=== PATIENT | male | born 1940 | race Caucasian/White ===

== ENCOUNTER 2017-06-06 06:08 | Inpatient (IN) | payer MEDICARE, BC ==
[2017-06-06] VITALS (7 sets, daily range): BP systolic 97–128; BP diastolic 55–72; PULSE 60–68; RESP 16; TEMP 98.4–98.7; O2SAT 94–100
[~2017-06-06] VITALS: Ht 167.6 cm; Wt 73.0 kg
[~2017-06-06 06:08] MED LIST: AMLO5TAB2 PO; FISH100020 PO; GABA600T PO; LOVA40TA PO; TRAM50TA PO; VITACAP7 PO
[2017-06-06] MEDS ORDERED: CHLORHEXIDINE GLUCONATE 2 % 1 PACK (2 CLOTHS) TOPICAL PRN (06:45)
[2017-06-06] MEDS ORDERED: SODIUM CHLORID 0.9% 500 ML IV PRN (06:45)
[2017-06-06] MEDS ORDERED: POVIDONE IODINE 5% (ANTISEPSIS KIT) 4 APPLICATIONS EACH NARE PRN (06:45)
[2017-06-06] MEDS ORDERED: ceFAZolin 1,000 MG/NS 100 ML IV SCH ×2 (06:45)
[2017-06-06] MEDS ORDERED: METOPROLOL TARTRATE 25 MG TAB PO PRN (06:45)
[2017-06-06] MEDS ORDERED: LACTATED RINGER'S 1000 ML IV PRN (06:45)
[2017-06-06] MEDS ORDERED: INSULIN HUMAN REGULAR 1,000 UNITS/10 ML VIAL SQ PRN (06:45)
[2017-06-06 07:08] LABS: AUTOMATED NEUTROPHIL # 7.3 TH/MM3 (1.8-7.7); BASOPHIL # 0.1 TH/MM3 (0-0.2); BASOPHIL % 0.9 % (0.0-2.0); EOSINOPHIL # 0.1 TH/MM3 (0-0.4); EOSINOPHIL % 1.2 % (0.0-4.0); HEMATOCRIT 48.9 % (39.0-51.0); HEMO FLAGS DIFF FINAL; LYMPH % 12.1 % (9.0-44.0); LYMPHOCYTE # 1.1 TH/MM3 (1.0-4.8); MEAN CELL VOLUME 99.5 FL (80.0-100.0); MEAN CORPUSCULAR HGB CONC 34.2 % (32.0-36.0); MONO % 8.8 % (0.0-8.0); PLATELET COUNT 115 TH/MM3 (150-450); RED BLOOD COUNT 4.92 MIL/MM3 (4.50-5.90); RED CELL DISTRIBUTION WIDTH 12.9 % (11.6-17.2); WHITE BLOOD COUNT 9.5 TH/MM3 (4.0-11.0)
[2017-06-06] MEDS ORDERED: KETAMINE HCL 500 MG/5 ML VIAL ONE (07:09)
[2017-06-06] MEDS ORDERED: ACETAMINOPHEN 1000 MG/100 ML 0 ML IV ONE (07:09)
[2017-06-06 07:19] LABS: APTT (PATIENT) 28.6 SEC (24.3-30.1); PROTHROMBIN TIME - PATIENT 11.4 SEC (9.8-11.6)
[2017-06-06] MEDS ORDERED: PROTAMINE SULFATE 50 MG/5 ML VIAL ONE (07:22)
[2017-06-06 07:23] LABS: BICARBONATE 27.7 MEQ/L (21.0-32.0); POTASSIUM 3.9 MEQ/L (3.5-5.1)
[2017-06-06] MEDS ORDERED: BUPIVACAINE/EPINEPHRINE 0.5% 50 ML VIAL ONE (07:23)
[2017-06-06] MEDS ORDERED: HEPARIN SODIUM - SQ 10,000 UNITS/ML VIAL ONE (07:23)
[2017-06-06] MEDS ORDERED: HEPARIN SODIUM - IV 10,000 UNITS/10 ML VIAL ONE (07:23)
[2017-06-06] MEDS ORDERED: DEXMEDETOMIDINE HCL 200 MCG/2 ML VIAL ONE (10:40)
[2017-06-06] MEDS ORDERED: *ONDANSETRON 4 MG VIAL PERIprocedural Use ONLY ONE (11:17)
[2017-06-06] MEDS ORDERED: *morphine SULFATE 8 MG/ML PERIprocedure ONLY ONE (11:58)
[2017-06-06] MEDS ORDERED: PHENYLEPH/NS 1000 MCG/10 ML SYR IV ONE (12:00)
[2017-06-06] MEDS ORDERED: ONDANSETRON HCL 4 MG/2 ML VIAL IV PUSH ONE (12:00)
[2017-06-06] MEDS ORDERED: PROPOFOL 200 MG/20 ML AMP IV ONE (12:00)
[2017-06-06] MEDS ORDERED: LIDOCAINE HCL 1% PF 5 ML AMPULE OTHER ONE (12:00)
[2017-06-06] MEDS ORDERED: IOHEXOL 300 MG/ML 100 ML BTL (for Rad CT) OTHER ONE (12:00)
[2017-06-06] MEDS ORDERED: MIDAZOLAM HCL 2 MG/2 ML VIAL IV ONE (12:00)
[2017-06-06] MEDS ORDERED: ROCURONIUM INJ 50 MG/5 ML SYRINGE IV PUSH ONE (12:00)
[2017-06-06] MEDS ORDERED: PHENYLEPHRINE HCL 10 MG/ML VIAL IV ONE (12:00)
[2017-06-06] MEDS ORDERED: NORMOSOL R INJ 1,000 ML IV ONE (12:00)
[2017-06-06] MEDS ORDERED: SODIUM CHLORID 0.9% 500 ML INJ 500 ML IV ONE (12:00)
[2017-06-06] MEDS ORDERED: IOHEXOL 300 MG/ML 50 ML BTL (for RAD DIAG) OTHER ONE (12:00)
[2017-06-06] MEDS ORDERED: NEOSTIGMINE 3 MG/3 ML SYR IV ONE (12:00)
[2017-06-06] MEDS ORDERED: ePHEDrine/NS 25 MG/5 ML SYR IV ONE (12:00)
[2017-06-06] MEDS ORDERED: GLYCOPYRROLATE 1 MG/5 ML SYRINGE IV PUSH ONE (12:00)
[2017-06-06] MEDS ORDERED: SODIUM CHLOR 0.9% 250 ML INJ 250 ML IV ONE (12:00)
[2017-06-06] MEDS ORDERED: SODIUM CHLORIDE 0.9% FLUSH 10 ML FLUSH IV FLUSH PRN (14:15)
[2017-06-06] MEDS ORDERED: MORPHINE SULFATE 2 MG/ML INJ IV PUSH PRN (14:15)
[2017-06-06] MEDS ORDERED: LACTATED RINGER'S 1000 ML INJ 500 ML IV ONE (14:15)
[2017-06-06] MEDS ORDERED: METOPROLOL TARTRATE 5 MG/5 ML VIAL IV PUSH PRN (14:15)
[2017-06-06] MEDS ORDERED: ONDANSETRON HCL 4 MG/2 ML VIAL IV PUSH PRN (14:15)
[2017-06-06] MEDS ORDERED: SODIUM CHLORIDE 0.9% FLUSH 10 ML FLUSH IV FLUSH SCH (14:15)
[2017-06-06] MEDS ORDERED: DO NOT ADM ANY ANTICOAGULANT DRUGS PRN (14:30)
--- NOTE | 2017-06-06 17:21 | MP ---
cc: PEARL BARKER M.D., RENA M. M.D. DATE OF SURGERY: 06/06/2017 PREOPERATIVE DIAGNOSIS: Infrarenal abdominal aortic aneurysm. POSTOPERATIVE DIAGNOSIS: Infrarenal abdominal aortic aneurysm. OPERATION: Percutaneous endovascular aneurysm repair. SURGEON Pearl Barker MD. CONCERT PIANIST: JULIO CÉSAR Murray. ANESTHESIA: General endotracheal anesthesia. DESCRIPTION OF OPERATIVE PROCEDURE: With the patient in the supine position and under general endotracheal anesthesia the abdomen, both groins and thighs were prepped with Betadine and draped in sterile fashion. One gram of Ancef was administered intravenously and following that time out, the skin and subcutaneous tissue overlying the proposed right and left common femoral access sites previously infiltrated with 0.5% Marcaine with epinephrine. Utilizing ultrasound guided, 10 gauge needles were inserted into the right and left common femoral lumens, J-wire was advanced retrograde and into iliac arteries and 7 Tajik hemostat sheaths deployed bilaterally. Angle guidewire Berenstein catheter combinations were guided under fluoroscopic imaging into the thoracic aorta. Perclose devices were preposition at the 10:00 o'clock and 2:00 o'clock locations bilaterally. The angled guidewires were exchanged over Berenstein catheters for Amplatz guidewire left and Lunderquist guide wire right (due to right iliac tortuosity) 18 and 12 Tajik hemostatic sheaths were then deployed via the right and left common femoral approaches respectively. The patient was subsequently heparinized with 5000 units. A marker pigtail catheter was advanced via the left femoral sheath into the super renal aorta and flush aortogram accurately delineated origin of both renal arteries. The mean body endoprosthesis was pre-positioned and deployed immediately distal to the origin of the renal arteries. The contralateral 8 was engaged with a Berenstein angled guide wire combination. A pigtail catheter was placed via the left femoral sheath into the endoprosthesis and with retrograde injections via the left femoral sheath, the origin of the left internal iliac actually delineated allowing for appropriate choice of left iliac limb length. The contralateral limb was then deployed, followed by completion of the main body deployment. All of the seal areas and over lap areas were balloon dilated with a compliant balloon. Completion angiogram revealed secure repair with no technical defects or evidence of endoleak and unrestricted flow into both common femoral arteries. The hemostatic sheaths were removed and the puncture site secured with the pre positioned Perclose devices with excellent hemostasis. Sterile dressings were applied. At the completion of the procedure pedal pulses should be easily palpable. There were no active complications, the patient returned to post anesthesia in stable condition having tolerated the procedure well. MD ANA Serna/mayte /4:49 PM /4:55 PM
--- NOTE | 2017-06-06 17:48 | EKG ---
Date Performed: 06/06/2017 Time Performed: 06:53:59 PTAGE: 76 years EKG: Sinus rhythm WITH OCCASIONAL SUPRAVENTRICULAR PREMATURE COMPLEXES LEFT ANTERIOR FASCICULAR BLOCK ABNORMAL ECG NO PREVIOUS TRACING DOCTOR: Nathaly Jiménez Interpretating Date/Time 06/06/2017 17:46:28
[2017-06-06] MEDS: PRAVASTATIN SOD 80 MG TAB PO SCH (19:22)
[2017-06-06] MEDS: amLODIPine BESYLATE 5 MG TAB PO SCH (20:34)
[2017-06-06] MEDS: GABAPENTIN 300 MG CAP PO SCH (20:34)
[2017-06-07] VITALS (17 sets, daily range): BP systolic 110–148; BP diastolic 59–73; PULSE 56–98; RESP 16–17; TEMP 97.9–98.8; O2SAT 96–99
[2017-06-07] MEDS: PRAVASTATIN SOD 80 MG TAB PO SCH (09:13)
[2017-06-07] MEDS: GABAPENTIN 300 MG CAP PO SCH (09:13)
[2017-06-07] MEDS: amLODIPine BESYLATE 5 MG TAB PO SCH (09:14)
[2017-06-07] MEDS ORDERED: INFLUENZA VIRUS VACCINE (QUADRIVALENT) 0.5 ML SYR IM ONE (10:00)
[2017-06-21] MEDS ORDERED: MOBI15TA PO (09:34)
== END 2017-06-07 14:37 | disposition home or self-care (01) | DRG 269 ==
LOC: HSDI 06:08 → HCPC 12:10
PROVIDERS: ADMIT Surgery Vascular Surgery; ATTEND Surgery Vascular Surgery
PROC: 04V03DZ Restriction of Abdominal Aorta with Intraluminal Device, Percutaneous Approach (ICD-10-PCS; principal; 2017-06-06 08:06)
DX: I71.4 Abdominal aortic aneurysm, without rupture (principal); Z23 Encounter for immunization
CPT/HCPCS: 80048; 85025; 85610; 85730; 86850; 86900; 86901; 86920; 90686; 93005; C1725; C1769; J0131; J0690; J1644; J2250; J2270; J2370; J2405; J2710; J2720; J3010; J7040; J7050; J7120; Q2038; Q9967

== ENCOUNTER 2017-06-13 10:49 | Emergency (ER) | payer MEDICARE, BC ==
[~2017-06-13 10:49] MED LIST changes: -FISH100020 PO
[2017-06-13 11:01] VITALS: BP 110/69; PULSE 94; RESP 18; TEMP 98.7; O2SAT 96
--- NOTE | 2017-06-13 11:54 | RADRPT ---
EXAM DATE/TIME: 06/13/2017 11:35 [place] COMPARISON: No previous studies available for comparison. INDICATIONS : Hit heel on truck, pain with redness and swelling. MEDICAL HISTORY : None. SURGICAL HISTORY : None. ENCOUNTER: Initial ACUITY: 2 days PAIN SCORE: 9/10 LOCATION: Right heel. FINDINGS: Two view examination of the right heel demonstrates a nondisplaced fracture through the posterior sup erior aspect of the calcaneus. No joint dislocation is seen. There is some soft tissue swelling. No f oreign bodies are demonstrated.. CONCLUSION: Nondisplaced fracture through the superior posterior aspect of the calcaneus. Aubrey Avery MD on June 13, 2017 at 11:52 Board Certified Radiologist. This report was verified electronically.
[2017-06-13] MEDS ORDERED: MEDI220T PO (12:52)
--- NOTE | 2017-06-13 12:52 | PD ---
HPI . Right heel pain Chief Complaint: Injury Time Seen by Provider: 12:14 Travel History International Travel<30 days: No Contact w/Intl Traveler<30days: No Traveled to known affect area: No History of Present Illness HPI 77-year-old male patient presents emergency department for evaluation of right heel pain since last . Patient was jumping out of the front seat of his truck last and has had right heel pain subsequent. The patient is ambulatory with a limp. Patient denies any fevers, chills, malaise, chest pain , shortness breath, abdominal pain, nausea, vomiting, diarrhea, hip pain, knee pain. PFSH Past Medical History Cancer: No Cardiovascular Problems: Yes (AAA; CAD ) High Cholesterol: Yes Diabetes: No Endocrine: No Gastrointestinal Disorders: Yes (AAA) Genitourinary: No Hepatitis: No Hiatal Hernia: No Hypertension: Yes Immune Disorder: No Musculoskeletal: Yes (HX FX PELVIS) Neurologic: Yes (NEUROPATHY) Psychiatric: No Reproductive: No Respiratory: Yes (COPD) Thyroid Disease: No Past Surgical History Abdominal Surgery: No AICD: No Cardiac Surgery: No Ear Surgery: No Endocrine Surgery: No Eye Surgery: No Genitourinary Surgery: No Joint Replacement: No Neurologic Surgery: No Oral Surgery: Yes (THROAT LASER PER SPOUSE) Pacemaker: No Thoracic Surgery: No Other Surgery: Yes Social History Alcohol Use: No Tobacco Use: No Substance Use: No Allergies-Medications (Allergen,Severity, Reaction): Coded Allergies: No Known Allergies (Unverified , 06/05/17) Reported Meds & Prescriptions Reported Meds & Active Scripts Active Melrose (Hydrocodone-Acetaminophen) 5-325 mg Tab 1 Tab PO Q6H PRN Naproxen Sodium 220 Mg Tab 440 Mg PO BID PRN Reported Tramadol (Tramadol HCl) 50 Mg Tab 50 Mg PO Q8H PRN B Complex (B-Complex Vitamins) 1 Cap 1 Cap PO DAILY Lovastatin 40 Mg Tab 80 Mg PO DAILY Gabapentin 600 Mg Tab 600 Mg PO BID Amlodipine (Amlodipine Besylate) 5 Mg Tab 5 Mg PO BID Review of Systems Except as stated in HPI: all other systems reviewed are Neg Physical Exam Narrative GENERAL: Well-nourished, well-developed 77-year-old male patient in no acute distress. Nontoxic-appearing. SKIN: Focused skin assessment warm/dry. HEAD: Normocephalic. Atraumatic. EYES: No scleral icterus. No injection or drainage. NECK: Supple, trachea midline. No JVD or lymphadenopathy. CARDIOVASCULAR: Regular rate and rhythm without murmurs, gallops, or rubs. RESPIRATORY: Breath sounds equal bilaterally. No accessory muscle use. GASTROINTESTINAL: Abdomen soft, non-tender, nondistended. MUSCULOSKELETAL: Right heel ecchymosis and tenderness to palpation. BACK: Nontender without obvious deformity. No CVA tenderness. Data Data Last Documented VS Vital Signs Date Time Temp Pulse Resp B/P (MAP) Pulse Ox O2 Delivery O2 Flow Rate FiO2 06/13/17 13:20 06/13/17 11:01 98.7 94 18 96 Room Air Orders Orders Foot, Heel Only ([id number]) (06/13/17 ) Splint Or Brace Apply/Monitor (06/13/17 12:52) Crutches (06/13/17 12:52) Ed Discharge Order (06/13/17 12:53) MDM Medical Decision Making Medical Screen Exam Complete: Yes Emergency Medical Condition: Yes Differential Diagnosis Differential diagnoses include but not limited to calcaneus contusion, calcaneus fracture, foot contusion, foot sprain Narrative Course 77-year-old male patient presents emergency department for evaluation of right heel pain and ecchymosis since last when he jumped out of the front seat of a truck. X-ray of the right heel ordered and pending. Right heel x- ray shows nondisplaced fracture through the superior posterior aspect of the calcaneus. Dr. Smalls called and he recommended placing the patient in a fracture boot with crutches and nonweightbearing instructions. Patient is going to follow up with Dr. Smalls and his office. Patient discharged home with a prescription for naproxen and Melrose. Last Impressions Foot X-Ray 06/13/17 0000 Signed Impressions: Service Date/Time: Tuesday, June 13, 2017 11:35 - CONCLUSION: Nondisplaced fracture through the superior posterior aspect of the calcaneus. Aubrey Avery MD Diagnosis Primary Impression: Right calcaneal fracture Qualified Codes: S92.001A - Unspecified fracture of right calcaneus, initial encounter for closed fracture Referrals: Alexy Smalls DPM Patient Instructions: Calcaneal Fracture (DC), General Instructions Additional Instructions: Please return to emergency department if your symptoms return or worsen. Follow up with Dr. Smalls, science consultant. Take medications as prescribed. Nonweightbearing on right foot. Rice therapy to right foot, rest, ice, fracture boot and elevate with resting. Med/Other Pt SpecificInfo: Prescription(s) given Scripts Hydrocodone-Acetaminophen (Melrose) 5-325 mg Tab 1 TAB PO Q6H Y for PAIN, #10 TAB 0 Refills Prov: Venu Guerrero MD 06/13/17 Naproxen Sodium (Naproxen Sodium) 220 Mg Tab 440 MG PO BID Y for Pain Management, #30 TAB 0 Refills Prov: Jeanette Nicole 06/13/17 Disposition: 01 DISCHARGE HOME Condition: Stable Jeanette Nicole Jun 13, 2017 12:52
[2017-06-13] MEDS ORDERED: NORC5TAB PO (12:53)
[2017-06-21] MEDS ORDERED: MOBI15TA PO (09:34)
== END 2017-06-13 13:21 | disposition home or self-care (01) ==
LOC: NEPA 10:49
DX: S92.001A Unspecified fracture of right calcaneus, initial encounter for closed fracture (principal); X50.0XXA Overexertion from strenuous movement or load, initial encounter; I10 Essential (primary) hypertension; I71.4 Abdominal aortic aneurysm, without rupture; E78.00 Pure hypercholesterolemia, unspecified
CPT/HCPCS: 73650; 99283; E0113; L2114

== ENCOUNTER 2017-10-12 10:59 | Inpatient (IN) | payer MEDICARE, BC ==
[~2017-10-12] VITALS: Ht 172.7 cm; Wt 69.2 kg
[~2017-10-12 10:59] MED LIST changes: +MEDI220T PO
[2017-10-12] MEDS ORDERED: ALTEPLASE RECOMBINANT 2 MG VIAL INTRACATH ONE (11:00)
[2017-10-12] MEDS ORDERED: IODIXANOL 320 MG/ML 50 ML VIAL (for RAD SPEC) I-ARTERIAL ONE (11:00)
[2017-10-12 11:15] VITALS: BP 129/63; PULSE 83; RESP 16; TEMP 98.4; O2SAT 97
[2017-10-12 11:25] VITALS: BP 150/72; PULSE 77; RESP 18; O2SAT 97
--- NOTE | 2017-10-12 11:49 | PD ---
Data Data Last Documented VS Vital Signs Date Time Temp Pulse Resp B/P (MAP) Pulse Ox O2 Delivery O2 Flow Rate FiO2 10/12/17 11:26 81 18 Room Air 10/12/17 11:25 150/72 (98) 97 10/12/17 11:15 98.4 Orders Orders Complete Blood Count With Diff (10/12/17 11:24) Comprehensive Metabolic Panel (10/12/17 11:24) Prothrombin Time / Inr (Pt) (10/12/17 11:24) Act Partial Throm Time (Ptt) (10/12/17 11:24) Urinalysis - C+S If Indicated (10/12/17 11:24) Cta Runoff W Iv Contrast W 3d (10/12/17 12:27) Iohexol 350 Inj (Omnipaque 350 Inj) (10/12/17 13:03) Invasive Rad Dept Consult (10/12/17 ) Labs Laboratory Tests Test 10/12/17 11:56 White Blood Count 9.7 TH/MM3 Red Blood Count 5.33 MIL/MM3 Hemoglobin 17.0 GM/DL Hematocrit 48.6 % Mean Corpuscular Volume 91.2 FL Mean Corpuscular Hemoglobin 31.8 PG Mean Corpuscular Hemoglobin Concent 34.8 % Red Cell Distribution Width 13.0 % Platelet Count 208 TH/MM3 Mean Platelet Volume 7.1 FL Neutrophils (%) (Auto) 84.6 % Lymphocytes (%) (Auto) 9.9 % Monocytes (%) (Auto) 4.6 % Eosinophils (%) (Auto) 0.4 % Basophils (%) (Auto) 0.5 % Neutrophils # (Auto) 8.2 TH/MM3 Lymphocytes # (Auto) 1.0 TH/MM3 Monocytes # (Auto) 0.5 TH/MM3 Eosinophils # (Auto) 0.0 TH/MM3 Basophils # (Auto) 0.0 TH/MM3 CBC Comment DIFF FINAL Differential Comment Prothrombin Time 10.7 SEC Prothromb Time International Ratio 1.1 RATIO Activated Partial Thromboplast Time 27.8 SEC Blood Urea Nitrogen 10 MG/DL Creatinine 0.81 MG/DL Random Glucose 107 MG/DL Total Protein 8.1 GM/DL Albumin 4.1 GM/DL Calcium Level 10.3 MG/DL Alkaline Phosphatase 123 U/L Aspartate Amino Transf (AST/SGOT) 127 U/L Alanine Aminotransferase (ALT/SGPT) 40 U/L Total Bilirubin 0.6 MG/DL Sodium Level 137 MEQ/L Potassium Level 4.0 MEQ/L Chloride Level 101 MEQ/L Carbon Dioxide Level 30.3 MEQ/L Anion Gap 6 MEQ/L Estimat Glomerular Filtration Rate 93 ML/MIN MDM Supervised Visit with RAVINDRA: Yes Narrative Course Patient seen and examined by me in addition to Jeannie Dowling, this is a 77- year-old male presents emergency department with a cold right lower extremity from the knee down without a palpable pulse. Patient apparently was sent over by Dr. Barker who spoke with Dr. Masoud Reed for interventional radiology procedure. Jeannie Dowling discussed the patient with Dr. Hebert who states that the CT is too far out of date for procedure and recommends a repeat CTA, after the CTA was done before 3D recons were completed I reviewed the films with Dr. Greco's who states that the patient is not a candidate for opening the portion of the stent that is clotted shunt. I then discussed the patient with Dr. Barker who is in the operating room who reiterated that he had discussed the patient with Dr. Masoud Reed. I have attempted to Dr. Reed, I had him paged overhead and at this time waiting for a return call. Dr. Reed and called me back at 1345 and states he is prepping for procedure with patient, he is going to send for transportation to bring him up to the interventional radiology suite, I then said to him I would touch base with the precision instrument maker and repairer as the patient likely will need intensive surgical care afterwards, Dr. Reed that he would take care of that. I talked my charge nurse who will arrange for an ISC bed to be held for this patient. Diagnosis Primary Impression: Ischemia of right lower extremity Admitting Information Admitting Physician Requests: Admit Condition: Serious Carlos A Smith MD Oct 12, 2017 11:49
--- NOTE | 2017-10-12 12:02 | PD ---
HPI Chief Complaint: Abnormal Results Time Seen by Provider: 11:24 Travel History International Travel<30 days: No Contact w/Intl Traveler<30days: No Traveled to known affect area: No History of Present Illness HPI 77-year-old male presents emergency department with concerns of a right lower extremity problems. His right lower extremity has been dark and blue, cold, and complains of numbness and tingling. Says his physician, Dr. Barker, recommended he come in today because of the symptoms. Says he was actually scheduled for a procedure Monday with Dr. Barker to repair the 'kinked' stent. Denies fever, chills, chest pain, SOB, nausea, vomiting. Says he has a history of an aortic aneurysm. Pt not on blood thinners. PFSH Past Medical History Cancer: No Cardiovascular Problems: Yes (AAA; CAD ) High Cholesterol: Yes COPD: Yes Diabetes: No Endocrine: No Gastrointestinal Disorders: Yes (AAA) Genitourinary: No Hepatitis: No Hiatal Hernia: No Hypertension: Yes Immune Disorder: No Musculoskeletal: Yes (HX FX PELVIS, and Rt heel fracture) Neurologic: Yes (NEUROPATHY) Psychiatric: No Reproductive: No Respiratory: Yes (COPD) Thyroid Disease: No Past Surgical History Abdominal Surgery: No AICD: No Cardiac Surgery: No Ear Surgery: No Endocrine Surgery: No Eye Surgery: No Genitourinary Surgery: No Joint Replacement: No Neurologic Surgery: No Oral Surgery: Yes (THROAT LASER PER SPOUSE) Pacemaker: No Thoracic Surgery: No Other Surgery: Yes Social History Alcohol Use: Yes (hx of being a heavy drinker, apparently slowed down 3 years ago. ) Tobacco Use: Yes (2 ppd) Substance Use: No Allergies-Medications (Allergen,Severity, Reaction): Coded Allergies: No Known Allergies (Unverified , 08/23/17) Reported Meds & Prescriptions Reported Meds & Active Scripts Active Naproxen Sodium 220 Mg Tab 440 Mg PO BID PRN Reported Tramadol (Tramadol HCl) 50 Mg Tab 50 Mg PO Q8H PRN B Complex (B-Complex Vitamins) 1 Cap 1 Cap PO DAILY Lovastatin 40 Mg Tab 80 Mg PO DAILY Gabapentin 600 Mg Tab 600 Mg PO BID Amlodipine (Amlodipine Besylate) 5 Mg Tab 5 Mg PO BID Review of Systems Except as stated in HPI: all other systems reviewed are Neg Physical Exam Narrative GENERAL: WD, WN in NAD SKIN: Focused skin assessment warm/dry. HEAD: Atraumatic. Normocephalic. EYES: Pupils equal and round. No scleral icterus. No injection or drainage. ENT: No nasal bleeding or discharge. Mucous membranes pink and moist. NECK: Trachea midline. No JVD. CARDIOVASCULAR: Regular rate and rhythm. No murmur appreciated. RESPIRATORY: No accessory muscle use. Clear to auscultation. Breath sounds equal bilaterally. GASTROINTESTINAL: Abdomen soft, non-tender, nondistended. Hepatic and splenic margins not palpable. MUSCULOSKELETAL: No obvious deformities. Cyanosis present mid-calf and distal. No pulses present. Limb cold. Motor intact. Tenderness palpation of the calf. sensation intact. NEUROLOGICAL: Awake and alert. No obvious cranial nerve deficits. Motor grossly within normal limits. Normal speech. PSYCHIATRIC: Appropriate mood and affect; insight and judgment normal. Data Data Last Documented VS Vital Signs Date Time Temp Pulse Resp B/P (MAP) Pulse Ox O2 Delivery O2 Flow Rate FiO2 10/12/17 11:26 81 18 Room Air 10/12/17 11:25 150/72 (98) 97 10/12/17 11:15 98.4 Orders Orders Complete Blood Count With Diff (10/12/17 11:24) Comprehensive Metabolic Panel (10/12/17 11:24) Prothrombin Time / Inr (Pt) (10/12/17 11:24) Act Partial Throm Time (Ptt) (10/12/17 11:24) Urinalysis - C+S If Indicated (10/12/17 11:24) Cta Runoff W Iv Contrast W 3d (10/12/17 12:27) Iohexol 350 Inj (Omnipaque 350 Inj) (10/12/17 13:03) Mrsa Pcr Surveillance (10/12/17 14:46) Midazolam Inj (Versed Inj) (10/12/17 14:49) Fentanyl Inj (Fentanyl Inj) (10/12/17 14:49) Heparin-D5w 25,000 U/250 Ml (Heparin-D5w (10/12/17 15:03) Heparin Inj (Heparin Inj) (10/12/17 15:34) Vital Signs (Adult) .[id number], Q30M (10/12/17 16:10) Neuro Checks . ORDERED (10/12/17 16:10) Activity Bed Rest (10/12/17 16:10) Diet Clear Liquid (10/12/17 Dinner) Npo After Midnight W/ Po Meds (10/13/17 Breakfast) Angiogram, Leg (10/12/17 ) Notify Dr: Other (10/12/17 16:10) ^ Blood Draw Instructions (10/12/17 16:10) Complete Blood Count With Diff (10/12/17 16:10) Complete Blood Count With Diff (10/12/17 22:10) Complete Blood Count With Diff (10/13/17 04:10) Complete Blood Count With Diff (10/13/17 10:10) Act Partial Throm Time (Ptt) (10/12/17 16:10) Act Partial Throm Time (Ptt) (10/12/17 22:10) Act Partial Throm Time (Ptt) (10/13/17 04:10) Act Partial Throm Time (Ptt) (10/13/17 10:10) Fibrinogen (10/12/17 16:10) Fibrinogen (10/12/17 22:10) Fibrinogen (10/13/17 04:10) Fibrinogen (10/13/17 10:10) Specimen To Be Collected PRN (10/12/17 16:10) Urinary Catheter Management EKTA.Q8H (10/12/17 16:10) ^ Avoid Im Injections (10/12/17 16:10) ^ Medication Alert (10/12/17 16:10) Consult Lan Administrator (10/12/17 ) Cathflo Activase Inj (Cathflo Activase I (10/12/17 16:15) Heparin Inj (Heparin Inj) (10/12/17 16:15) Heparin Inj (Heparin Inj) (10/12/17 16:15) Heparin-D5w 25,000 U/250 Ml (Heparin-D5w (10/12/17 16:15) Morphine Inj (Morphine Inj) (10/12/17 16:15) Ondansetron Inj (Zofran Inj) (10/12/17 16:15) Thrombolytic Infusion (10/12/17 ) Iodixanol 320 Inj (Rad Spec) (Visipaque (10/12/17 11:00) Us Guided Vascular Access (10/12/17 ) Morphine Inj (Morphine Inj) (10/12/17 16:30) Labs Laboratory Tests Test 10/12/17 11:56 White Blood Count 9.7 TH/MM3 Red Blood Count 5.33 MIL/MM3 Hemoglobin 17.0 GM/DL Hematocrit 48.6 % Mean Corpuscular Volume 91.2 FL Mean Corpuscular Hemoglobin 31.8 PG Mean Corpuscular Hemoglobin Concent 34.8 % Red Cell Distribution Width 13.0 % Platelet Count 208 TH/MM3 Mean Platelet Volume 7.1 FL Neutrophils (%) (Auto) 84.6 % Lymphocytes (%) (Auto) 9.9 % Monocytes (%) (Auto) 4.6 % Eosinophils (%) (Auto) 0.4 % Basophils (%) (Auto) 0.5 % Neutrophils # (Auto) 8.2 TH/MM3 Lymphocytes # (Auto) 1.0 TH/MM3 Monocytes # (Auto) 0.5 TH/MM3 Eosinophils # (Auto) 0.0 TH/MM3 Basophils # (Auto) 0.0 TH/MM3 CBC Comment DIFF FINAL Differential Comment Prothrombin Time 10.7 SEC Prothromb Time International Ratio 1.1 RATIO Activated Partial Thromboplast Time 27.8 SEC Blood Urea Nitrogen 10 MG/DL Creatinine 0.81 MG/DL Random Glucose 107 MG/DL Total Protein 8.1 GM/DL Albumin 4.1 GM/DL Calcium Level 10.3 MG/DL Alkaline Phosphatase 123 U/L Aspartate Amino Transf (AST/SGOT) 127 U/L Alanine Aminotransferase (ALT/SGPT) 40 U/L Total Bilirubin 0.6 MG/DL Sodium Level 137 MEQ/L Potassium Level 4.0 MEQ/L Chloride Level 101 MEQ/L Carbon Dioxide Level 30.3 MEQ/L Anion Gap 6 MEQ/L Estimat Glomerular Filtration Rate 93 ML/MIN [facility] Medical Decision Making Medical Screen Exam Complete: Yes Emergency Medical Condition: Yes Differential Diagnosis iliac artery aneurysm, dissection, femoral artery occlusion Narrative Course 77y male presents to the ED with a concern for an ischemic limb, at the recommendation of Dr. Barekr. I spoke with Dr. Hill who reviewed this case with me. Advised he have another CTA to evaluate for his right iliac stent problem as the CTA from 2017 did not clinically correlate with the findings I described to him today. Advised to order an obtain the CTA prior to Cr results today as his previous labs from 06/06/2017 appear stable. Spoke with Lizzette, nurse with Dr. Barker's office who said all paperwork were faxed to the radiology department here and they are aware that he is in the ED for treatment. Please see Dr. Smith's note for more information regarding this patient's status and dispo. Diagnosis Primary Impression: Iliac artery kink, right Additional Impression: Ischemia of right lower extremity Admitting Information Admitting Physician Requests: Admit Disposition: 01 DISCHARGE HOME Condition: Stable Jeannie Dowling Oct 12, 2017 12:02
[2017-10-12 12:11] LABS: AUTOMATED NEUTROPHIL # 8.2 TH/MM3 (1.8-7.7); BASOPHIL % 0.5 % (0.0-2.0); EOSINOPHIL % 0.4 % (0.0-4.0); HEMATOCRIT 48.6 % (39.0-51.0); LYMPH % 9.9 % (9.0-44.0); MEAN CELL VOLUME 91.2 FL (80.0-100.0); MEAN CORPUSCULAR HEMOGLOBIN 31.8 PG (27.0-34.0); MEAN CORPUSCULAR HGB CONC 34.8 % (32.0-36.0); MEAN PLATELET VOLUME 7.1 FL (7.0-11.0); MONO % 4.6 % (0.0-8.0); MONOCYTE # 0.5 TH/MM3 (0-0.9); NEUT % 84.6 % (16.0-70.0); PLATELET COUNT 208 TH/MM3 (150-450); RED BLOOD COUNT 5.33 MIL/MM3 (4.50-5.90); WHITE BLOOD COUNT 9.7 TH/MM3 (4.0-11.0)
[2017-10-12 12:28] LABS: INTERNATIONAL NORMALIZED RATIO 1.1 RATIO; PROTHROMBIN TIME - PATIENT 10.7 SEC (9.8-11.6)
[2017-10-12 12:31] LABS: ALBUMIN 4.1 GM/DL (3.4-5.0); ALT (GPT) 40 U/L (12-78); AST (GOT) 127 U/L (15-37); BICARBONATE 30.3 MEQ/L (21.0-32.0); BLOOD UREA NITROGEN 10 MG/DL (7-18); CALCIUM 10.3 MG/DL (8.5-10.1); CHLORIDE 101 MEQ/L (98-107); CREATININE 0.81 MG/DL (0.60-1.30); GLOMERULAR FILTRATION RATE 93 ML/MIN (>89); GLUCOSE,RANDOM 107 MG/DL (74-106); SODIUM (NA) 137 MEQ/L (136-145)
[2017-10-12 12:33] LABS: ALKALINE PHOSPHATASE 123 U/L (45-117); TOTAL BILIRUBIN ADULT 0.6 MG/DL (0.2-1.0); TOTAL PROTEIN 8.1 GM/DL (6.4-8.2)
[2017-10-12] MEDS ORDERED: IOHEXOL 350 MG/ML 10 ML VIAL (for RAD DIAG) IVCONTRAST ONE (13:03)
--- NOTE | 2017-10-12 14:25 | RADRPT ---
EXAM DATE/TIME: 10/12/2017 12:44 [facility] COMPARISON: No previous studies available for comparison. INDICATIONS : Evaluate occlusion right foot IV CONTRAST: 96 cc Omnipaque 350 (iohexol) IV RADIATION DOSE: 2.31 CTDIvol (mGy) MEDICAL HISTORY : Aneurysm, abdominal. Cardiovascular disease Hypertension. SURGICAL HISTORY : None. ENCOUNTER: Initial ACUITY: 1 day PAIN SCALE: 7/10 LOCATION: Right foot TECHNIQUE: Volumetric scanning was performed using a multi-row detector CT scanner. The data was post processed with a variety of visualization algorithms including full volume maximum intensity projection, multi -planar sliding thin slab reformation, curved planar reformation, and surface rendering techniques. Using automated exposure control and adjustment of the mA and/or kV according to patient size, radiat ion dose was kept as low as reasonably achievable to obtain optimal diagnostic quality images. DICO M format image data is available electronically for review and comparison. FINDINGS: Abdominal aorta: The celiac and SMA origins are widely patent. There are single renal arteries bilaterally. The renal arteries are adequate in caliber. 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 There is complete occlusion of the iliac limb on the right. There is some infolding of the graft material in the proximal aspect of the right limb of the graft. The occluded segment extend s down to the origin of the right external iliac. The left limb of the graft is widely patent. The gr aft itself appears well-positioned. Pelvis: The iliac limb of the graft on the right is occluded. The left limb of the graft is widely patent. Th e hypogastric circulation is patent bilaterally. The external iliac circulation is patent bilaterally . Right leg: The common femoral is diseased but patent. There is thrombus evident at the bifurcation and extending down into the origins of the profunda femoral and superficial femoral. The distal branches of the pr ofunda are patent. The superficial femoral is patent down to the adductor hiatus. There is abrupt occ lusion of the distal SFA, and popliteal. There is reconstitution of the tibioperoneal trunk. Distally , there is single vessel runoff into the foot via the anterior tibial. There is some faint visualizat ion of the peroneal for short segment as well. Left leg: The left common femoral and profunda femoral are widely patent. The superficial femoral is diseased b ut adequate in caliber throughout its course. The popliteal is patent above and below the knee. Dista lly, there is two-vessel runoff into the foot via the anterior tibial posterior tibial. The peroneal is visualized down to the ankle. CT source data: The limited portion of the lung base visualized is clear. The solid organs of the abdomen are intact. There is no retroperitoneal adenopathy. Note is made of a 4 mm nonobstructing stone in the right kid heydi. No free air or free fluid is identified. Note is made of a small diverticuli projecting off the right side the bladder. CONCLUSION: 1. There is some infolding of the fabric in the iliac limb of the right side the graft. There is comp lete occlusion of the right side the graft extending throughout the common iliac down to the right ex ternal iliac. There is also evidence of embolization distally with some thrombus within the distal co mmon femoral and extending into the origin of the profunda femoral and superficial femoral with occlu leanne of the SFA at the level of the adductor hiatus extending down to the tibioperoneal trunk. There is essentially single vessel runoff distally via the anterior tibial. Moiz Reed MD on October 12, 2017 at 14:09 Board Certified Radiologist. This report was verified electronically.
[2017-10-12] MEDS ORDERED: fentaNYL CITRATE 250 MCG/5 ML AMP ONE (14:49)
[2017-10-12] MEDS ORDERED: MIDAZOLAM HCL 5 MG/5 ML VIAL ONE (14:49)
[2017-10-12] MEDS ORDERED: HEPARIN-D5W 25,000 U/250 ML 250 ML ONE (15:03)
[2017-10-12] MEDS ORDERED: HEPARIN SODIUM - IV 10,000 UNITS/10 ML VIAL ONE (15:34)
[2017-10-12] MEDS ORDERED: HEPARIN INJ 1,000 UNITS in SODIUM CHLORID 0.9% 500 ML INJ 500 ML IART PRN (16:15)
[2017-10-12] MEDS ORDERED: ONDANSETRON HCL 4 MG/2 ML VIAL IV PUSH PRN (16:15)
[2017-10-12] MEDS ORDERED: CATHFLO ACTIVASE INJ 10 MG in SODIUM CHLORID 0.9% 500 ML INJ 500 ML I-ARTERIAL PRN (16:15)
[2017-10-12] MEDS ORDERED: HEPARIN-D5W 25,000 U/250 ML 250 ML IV SCH (16:15)
[2017-10-12] MEDS ORDERED: HEPARIN INJ 1,000 UNITS in SODIUM CHLORID 0.9% 500 ML INJ 500 ML I-ARTERIAL SCH (16:15)
--- NOTE | 2017-10-12 16:24 | PD.RAD ---
Post Procedure Progress Note Pre Procedure Diagnosis: (1) Ischemia of right lower extremity Post Procedure Diagnosis: (1) Ischemia of right lower extremity Procedure Date: Oct 12, 2017 Supervising Radiologist: Moiz Reed Estimated blood loss: 5cc Anesthesia: Local, Conscious Sedation Plan of Activity Patient to Unit: Critical Care Patient Condition: Poor Additional Comments: 77 y/o with critical ischemia of the right lower extremity secondary to thrombosis of the AAA endograft limb with distal embolization to the SFA. The risk, benefits and potential complications of TPA infusion were discussed in detail with the patient, his and daughter. The risk included but were not limited to bleeding, infection, emergent surgery, limb loss and rarely . Signed consent obtained. TPA 5 russian infusion catheter placed from the left groin, across the occluded graft and down the right leg. TPA infusion initiated at 1mg per protocol. Full dictated report pending. See PACS Report for procedural detail/treatment Moiz Reed MD Oct 12, 2017 16:24
[2017-10-12] MEDS ORDERED: MORPHINE SULFATE 2 MG/ML INJ IV PUSH PRN (16:30)
[2017-10-12 18:00] VITALS: BP_SYST 162; BP_SYST 166; BP_DIAS 75; BP_DIAS 80; PULSE 79; RESP 20; TEMP 98.9; O2SAT 95
[2017-10-12] MEDS ORDERED: CHLORHEXIDINE GLUCONATE 2 % 1 PACK (2 CLOTHS) TOP PRN (18:00)
[2017-10-12] MEDS ORDERED: RESP: ALBUTEROL 2.5 MG/IPRATROPIUM 0.5 MG NEB (PRN) INH (18:00)
[2017-10-12] MEDS ORDERED: MISCELLANEOUS NURSING INFORMATION XX SCH (18:00)
--- NOTE | 2017-10-12 18:47 | HHI.HP ---
[facility] Service Critical Care Medicine Primary Care Physician Irma Renee M.D. Admission Diagnosis Diagnosis: Chief Complaint: right leg pain Travel History International Travel<30 Days: No Contact w/Intl Traveler <30 Da: No Traveled to Known Affected Are: No History of Present Illness This is a 77-year-old male with a history of tobacco abuse and peripheral vascular disease status post a prior aortobifem bypass by Dr. Barker. He presented to the emergency department with right lower extremity pain and numbness 1 day. He was found to have a complete arterial occlusion of his right limb of his aortobifem. He was taken emergently to the interventional radiology suite where they placed intra-arterial TPA catheters and started infusing TPA at 1 mg/min. He was then transferred to the ICU for close monitoring. I evaluated patient in the ICU. He states that he still has right leg pain, although when he lays still it is much less painful. He denies any other symptoms, particularly any systemic symptoms of fatigue, weakness, fever, chills, chest pain, shortness of breath, nausea, vomiting, abdominal pain. Review of Systems Constitutional: DENIES: Fatigue, Fever, Chills Respiratory: DENIES: Cough, Sputum production, Shortness of breath Cardiovascular: DENIES: Chest pain, Palpitations, Dyspnea on Exertion, Lower Extremity Edema Gastrointestinal: DENIES: Abdominal pain, Constipation, Diarrhea, Nausea, Vomiting Past Family Social History Allergies: Coded Allergies: No Known Allergies (Unverified , 08/23/17) Past Medical History Abdominal aortic aneurysm Coronary artery disease Peripheral artery disease High cholesterol COPD Hypertension Prior history of pelvic fractures Prior history of right heel fracture Neuropathy Past Surgical History Aortobifemoral bypass Reported Medications Naproxen Sodium 220 Mg Tab 440 Mg PO BID PRN Tramadol (Tramadol HCl) 50 Mg Tab 50 Mg PO Q8H PRN B Complex (B-Complex Vitamins) 1 Cap 1 Cap PO DAILY Lovastatin 40 Mg Tab 80 Mg PO DAILY Gabapentin 600 Mg Tab 600 Mg PO BID Amlodipine (Amlodipine Besylate) 5 Mg Tab 5 Mg PO BID Active Ordered Medications See MAR Family History Reviewed and found to be noncontributory to his acute illness Social History Current 2 pack per day smoker. Prior significant EtOH use. Physical Exam Vital Signs Vital Signs Date Time Temp Pulse Resp B/P (MAP) Pulse Ox O2 Delivery O2 Flow Rate FiO2 10/12/17 18:00 79 3/8/18 18:00 98.9 79 20 162/75 (104) 95 166/80 (108) 10/12/17 18:00 95 Room Air 10/12/17 11:26 81 18 Room Air 10/12/17 11:25 77 18 150/72 (98) 97 Room Air 10/12/17 11:15 98.4 83 16 129/63 (85) 97 Physical Exam GENERAL: Elderly male, lying in bed HEENT: Normocephalic. Atraumatic. Pupils equal, round, reactive, conjugate. Mucous membranes are moist NECK: Trachea is midline. There is no JVD. CHEST: Equal chest rise. Room air. CARDIOVASCULAR: Normal rate, regular rhythm. Appears sinus by telemetry. ABDOMEN: Soft, nontender, nondistended. No guarding. MUSCULOSKELETAL: Pulses 2+. No peripheral edema. There is a introducer sheath in the left groin with it site clean dry and intact without evidence of hematoma. The right lower extremity below the knee is poikilothermic, pulseless , with very poor cap refill. Very tender to light palpation. Compartments in the right lower externally are soft. NEUROLOGICAL: RASS 0. GCS 15. Follows commands. Moves all extremities. No focal deficits. Laboratory Laboratory Tests Test 10/12/17 11:56 10/12/17 17:30 White Blood Count 9.7 Red Blood Count 5.33 Hemoglobin 17.0 Hematocrit 48.6 Mean Corpuscular Volume 91.2 Mean Corpuscular Hemoglobin 31.8 Mean Corpuscular Hemoglobin Concent 34.8 Red Cell Distribution Width 13.0 Platelet Count 208 Mean Platelet Volume 7.1 Neutrophils (%) (Auto) 84.6 Lymphocytes (%) (Auto) 9.9 Monocytes (%) (Auto) 4.6 Eosinophils (%) (Auto) 0.4 Basophils (%) (Auto) 0.5 Neutrophils # (Auto) 8.2 Lymphocytes # (Auto) 1.0 Monocytes # (Auto) 0.5 Eosinophils # (Auto) 0.0 Basophils # (Auto) 0.0 CBC Comment DIFF FINAL Differential Comment Prothrombin Time 10.7 Prothromb Time International Ratio 1.1 Activated Partial Thromboplast Time 27.8 Blood Urea Nitrogen 10 Creatinine 0.81 Random Glucose 107 Total Protein 8.1 Albumin 4.1 Calcium Level 10.3 Alkaline Phosphatase 123 Aspartate Amino Transf (AST/SGOT) 127 Alanine Aminotransferase (ALT/SGPT) 40 Total Bilirubin 0.6 Sodium Level 137 Potassium Level 4.0 Chloride Level 101 Carbon Dioxide Level 30.3 Anion Gap 6 Estimat Glomerular Filtration Rate 93 Result Diagram: 10/12/17 1156 10/12/17 1156 Imaging Last Impressions Aorta w/Runoff CTA 10/12/17 1227 Signed Impressions: Service Date/Time: October 12:44 - CONCLUSION: 1. There is some infolding of the fabric in the iliac limb of the right side the graft. There is complete occlusion of the right side the graft extending throughout the common iliac down to the right external iliac. There is also evidence of embolization distally with some thrombus within the distal common femoral and extending into the origin of the profunda femoral and superficial femoral with occlusion of the SFA at the level of the adductor hiatus extending down to the tibioperoneal trunk. There is essentially single vessel runoff distally via the anterior tibial. Moiz Reed MD Caprini VTE Risk Assessment Caprini VTE Risk Assessment: Mod/High Risk (score >= 2) VTE Pharm Contraindication: Coagulopathy,INR elevated Caprini Risk Assessment Model Point Value = 1 Point Value = 2 Point Value = 3 Point Value = 5 Age 41-60 Minor surgery BMI > 25 kg/m2 Swollen legs Varicose veins or History of unexplained or recurrent spontaneous Oral contraceptives or hormone replacement Sepsis (< 1 month) Serious lung disease, including pneumonia (< 1 month) Abnormal pulmonary function Acute myocardial infarction Congestive heart failure (< 1 month) History of inflammatory bowel disease Medical patient at bed rest Age 61-74 Arthroscopic surgery Major open surgery (> 45 min) Laparoscopic surgery (> 45 min) Malignancy Confined to bed (> 72 hours) Immobilizing plaster cast Central venous access Age >= 75 History of VTE Family history of VTE Factor V Leiden Prothrombin [id number] Lupus anticoagulant Anticardiolipin antibodies Elevated serum homocysteine Heparin-induced thrombocytopenia Other congenital or acquired thrombophilia Stroke (< 1 month) Elective arthroplasty Hip, pelvis, or leg fracture Acute spinal cord injury (< 1 month) Prophylaxis Regimen Total Risk Factor Score Risk Level Prophylaxis Regimen 0-1 Low Early ambulation 2 Moderate Order ONE of the following: *Sequential Compression Device (SCD) *Heparin 5000 units SQ BID 3-4 Higher Order ONE of the following medications: *Heparin 5000 units SQ TID *Enoxaparin/Lovenox 40 mg SQ daily (WT < 150 kg, CrCl > 30 mL/min) *Enoxaparin/Lovenox 30 mg SQ daily (WT < 150 kg, CrCl > 10-29 mL/min) *Enoxaparin/Lovenox 30 mg SQ BID (WT < 150 kg, CrCl > 30 mL/min) AND/OR *Sequential Compression Device (SCD) 5 or more Highest Order ONE of the following medications: *Heparin 5000 units SQ TID (Preferred with Epidurals) *Enoxaparin/Lovenox 40 mg SQ daily (WT < 150 kg, CrCl > 30 mL/min) *Enoxaparin/Lovenox 30 mg SQ daily (WT < 150 kg, CrCl > 10-29 mL/min) *Enoxaparin/Lovenox 30 mg SQ BID (WT < 150 kg, CrCl > 30 mL/min) AND *Sequential Compression Device (SCD) Assessment and Plan Assessment and Plan Assessment: 77-year-old male with significant peripheral artery disease and tobacco abuse who presents with acute arterial thrombosis of his aortobifemoral bypass graft. Continue to monitor patient closely given active TPA infusion. Watch for signs of bleeding. Trend hemoglobins fibrinogen. Remain in ICU. Frequent neurovascular checks. We will consult vascular surgery to Dr. Barker can be involved. Plan to go back to interventional radiology tomorrow for reevaluation. Critical Limb ischemia - TPA catheters in place - frequent neurovascular checks - vascular surgery consultation - IR: Dr. Masoud Reed - trend hgb, fibrinogen HTN - restart home antihypertensives Hyperlipidemia - restart home statin Active Tobacco Abuse - aggressive pulmonary toilet - certified genetic counselor on cessation bedrest, hob elevated npo at midnight for repeat procedure hold pharmacologic dvt prophylaxis while tpa infusion hold SCDs given active limb ischemia. Jasen Mckeon MD Oct 12, 2017 18:47
[2017-10-12 19:28] LABS: BILIRUBIN, URINE NEG (NEG); BLOOD, URINE MOD (NEG); GLUCOSE,URINE NEG (NEG); KETONE, URINE 10 mg/dL (NEG); NITRITE,URINE NEG (NEG); SQUAMOUS EPITHELIAL CELL URINE 1 /hpf (0-5); URINE COLOR YELLOW (YELLW/STRAW); URINE LEUKOCYTE ESTERASE NEG (NEG)
[2017-10-12] MEDS: MORPHINE SULFATE 4 MG/ML INJ IV PUSH PRN (19:48)
[2017-10-12] MEDS: amLODIPine BESYLATE 5 MG TAB PO SCH (19:49)
[2017-10-12] MEDS: GABAPENTIN 300 MG CAP PO SCH (19:49)
[2017-10-12 20:00] VITALS: BP_SYST 154; BP_SYST 157; BP_DIAS 67; BP_DIAS 75; PULSE 74; PULSE 77; RESP 19; TEMP 97.9; O2SAT 97
[2017-10-12 22:00] VITALS: PULSE 56
[2017-10-12 23:00] LABS: AUTOMATED NEUTROPHIL # 7.6 TH/MM3 (1.8-7.7); BASOPHIL # 0.1 TH/MM3 (0-0.2); BASOPHIL % 0.7 % (0.0-2.0); EOSINOPHIL # 0.1 TH/MM3 (0-0.4); EOSINOPHIL % 0.9 % (0.0-4.0); HEMOGLOBIN 14.4 GM/DL (13.0-17.0); LYMPH % 17.2 % (9.0-44.0); LYMPHOCYTE # 1.8 TH/MM3 (1.0-4.8); MEAN CELL VOLUME 90.8 FL (80.0-100.0); MEAN CORPUSCULAR HEMOGLOBIN 31.8 PG (27.0-34.0); MONO % 8.6 % (0.0-8.0); MONOCYTE # 0.9 TH/MM3 (0-0.9); NEUT % 72.6 % (16.0-70.0); PLATELET COUNT 141 TH/MM3 (150-450); RED BLOOD COUNT 4.52 MIL/MM3 (4.50-5.90); WHITE BLOOD COUNT 10.4 TH/MM3 (4.0-11.0)
[2017-10-13] VITALS (10 sets, daily range): BP systolic 104–147; BP diastolic 61–76; PULSE 50–81; RESP 14–20; TEMP 97.7–98.9; O2SAT 95–98
[2017-10-13] MEDS: CHLORHEXIDINE GLUCONATE 2 % 1 PACK (2 CLOTHS) TOP SCH (04:00)
[2017-10-13] MEDS: MORPHINE SULFATE 4 MG/ML INJ IV PUSH PRN (04:18)
[2017-10-13 06:12] LABS: AUTOMATED NEUTROPHIL # 6.4 TH/MM3 (1.8-7.7); BASOPHIL # 0.1 TH/MM3 (0-0.2); BASOPHIL % 0.7 % (0.0-2.0); EOSINOPHIL # 0.2 TH/MM3 (0-0.4); EOSINOPHIL % 1.9 % (0.0-4.0); HEMATOCRIT 42.9 % (39.0-51.0); LYMPH % 16.9 % (9.0-44.0); LYMPHOCYTE # 1.5 TH/MM3 (1.0-4.8); MEAN CELL VOLUME 91.4 FL (80.0-100.0); MEAN CORPUSCULAR HEMOGLOBIN 31.9 PG (27.0-34.0); MEAN CORPUSCULAR HGB CONC 34.9 % (32.0-36.0); MEAN PLATELET VOLUME 7.1 FL (7.0-11.0); MONO % 7.9 % (0.0-8.0); MONOCYTE # 0.7 TH/MM3 (0-0.9); NEUT % 72.6 % (16.0-70.0); PLATELET COUNT 133 TH/MM3 (150-450); RED BLOOD COUNT 4.69 MIL/MM3 (4.50-5.90); RED CELL DISTRIBUTION WIDTH 13.2 % (11.6-17.2); WHITE BLOOD COUNT 8.8 TH/MM3 (4.0-11.0)
[2017-10-13] MEDS: PRAVASTATIN SOD 40 MG TAB PO SCH ×2 (08:14→09:00)
[2017-10-13] MEDS: amLODIPine BESYLATE 5 MG TAB PO SCH ×3 (08:14→20:19)
[2017-10-13] MEDS: GABAPENTIN 300 MG CAP PO SCH ×3 (08:14→20:20)
--- NOTE | 2017-10-13 08:15 | HHI.CCPN ---
Subjective Remarks/Hospital Course This is a 77-year-old male with a history of tobacco abuse and peripheral vascular disease status post a prior aortobifem bypass by Dr. Barker. He presented to the emergency department with right lower extremity pain and numbness 1 day. He was found to have a complete arterial occlusion of his right limb of his aortobifem. He was taken emergently to the interventional radiology suite where they placed intra-arterial TPA catheters and started infusing TPA at 1 mg/min. He was then transferred to the ICU for close monitoring. I evaluated patient in the ICU. He states that he still has right leg pain, although when he lays still it is much less painful. He denies any other symptoms, particularly any systemic symptoms of fatigue, weakness, fever, chills, chest pain, shortness of breath, nausea, vomiting, abdominal pain. 10/13: Tolerating tPA. Coolness has descending to the calf now reflecting improved perfusion. A faint DP arterial sound heard by doppler now, not pulsatile. Fibrinogen decreasing as expected. Objective Vital Signs Date Time Temp Pulse Resp B/P (MAP) Pulse Ox O2 Delivery O2 Flow Rate FiO2 10/13/17 06:00 81 10/13/17 04:00 98.1 16 147/65 (92) 98 10/12/17 19:00 Room Air Intake and Output 10/13/17 10/13/17 10/14/17 08:00 16:00 00:00 Intake Total 180 ml Output Total 750 ml Balance -570 ml Result Diagram: 10/13/17 0515 10/12/17 1156 Imaging Last Impressions Aorta w/Runoff CTA 10/12/17 1227 Signed Impressions: Service Date/Time: October 12:44 - CONCLUSION: 1. There is some infolding of the fabric in the iliac limb of the right side the graft. There is complete occlusion of the right side the graft extending throughout the common iliac down to the right external iliac. There is also evidence of embolization distally with some thrombus within the distal common femoral and extending into the origin of the profunda femoral and superficial femoral with occlusion of the SFA at the level of the adductor hiatus extending down to the tibioperoneal trunk. There is essentially single vessel runoff distally via the anterior tibial. Moiz Reed MD Objective Remarks GENERAL: Elderly male, lying in bed HEENT: Normocephalic. Atraumatic. Pupils equal, round, reactive, conjugate. Mucous membranes are moist NECK: Trachea is midline. There is no JVD. CHEST: Equal chest rise. Room air. CARDIOVASCULAR: Normal rate, regular rhythm. Appears sinus by telemetry. ABDOMEN: Soft, nontender, nondistended. No guarding. MUSCULOSKELETAL: Pulses 2 wrists. No peripheral edema. There is a introducer sheath in the left groin with it site clean dry and intact without evidence of hematoma. The right lower extremity below the knee is tepid/cool with very poor cap refill at the toes. Very tender to light palpation. Compartments in the right lower externally are soft. NEUROLOGICAL: RASS 0. GCS 15. Follows commands. Moves all extremities. No focal deficits. A/P Assessment and Plan Assessment: 77-year-old male with significant peripheral artery disease and tobacco abuse who presents with acute arterial thrombosis of his aortobifemoral bypass graft. Continue to monitor patient closely given active TPA infusion. Watch for signs of bleeding. Trend hemoglobins fibrinogen. Remain in ICU. Frequent neurovascular checks. We will consult vascular surgery to Dr. Barker can be involved. Plan to go back to interventional radiology today for reevaluation. Critical Limb ischemia - TPA catheters in place - frequent neurovascular checks - vascular surgery consultation - IR: Dr. Masoud Reed - trend hgb, fibrinogen HTN - restart home antihypertensives Hyperlipidemia - restart home statin Active Tobacco Abuse - aggressive pulmonary toilet - automobile travel club counselor on cessation bedrest, hob elevated npo at midnight for repeat procedure hold pharmacologic dvt prophylaxis while tpa infusion hold SCDs given active limb ischemia. Overall impression: Perfusion to right leg has improved. Lower leg and foot remain threatened. Jerry Castanon MD Oct 13, 2017 08:15
--- NOTE | 2017-10-13 08:47 | RADRPT ---
EXAM DATE/TIME: 10/12/2017 16:03 [facility] COMPARISON: ULTRASOUND GUIDANCE FOR VASCULAR ACCESS, October 12, 2017, 0:00. INDICATIONS : Patient with a history of right leg thrombus needs angiogram. MEDICAL HISTORY : AAA CAD High Cholesterol Neuropathy CODP SURGICAL HISTORY : AAA Throat surgery ENCOUNTER: Initial ACUITY: 1 day PAIN SCORE: 6/10 LOCATION: Right leg FLUORO TIME: 36.8 minutes IMAGE SERIES: 7 ACCESS SITE: Left Femoral artery SEDATION TIME: 45 minutes CONTRAST: 1.) 50 cc Visipaque (iodixanol) MEDICATION(S): 1.) 3 mg midazolam (Versed) IV 2.) 150 mcg fentanyl (Sublimaze) IV 3.) 3000 units Heparin IV DEVICE(S): 1.) Right superficial femoral artery 50cm EV3 Infusion catheter PROCEDURE : 1. Ultrasound-guided puncture of the access site. 2. Conscious sedation with continuous EKG and oximetry monitoring. 3. Angiography of the pelvis 4. Angiography of the right lower extremity 5. Infusion for thrombolysis Clinical history: The patient is a 77-year-old who underwent endograft repair for an abdominal aortic aneurysm. The pat ient acutely thrombosed the right limb of the graft. CT angiography performed prior to the procedure demonstrated embolic disease in the distal right superficial femoral, popliteal and trifurcation vess els. The patient was examined prior to the procedure. The patient has severe, limb threatening ischem ia of the right lower extremity. The risks, benefits and alternatives to the procedure were explained and verbal and written consent w as obtained. The site was prepped in sterile fashion. Full sterile technique was used, including ca p, mask, sterile gloves and gown and a large sterile sheet. Hand hygiene and 2% chlorhexidine and/or betadine/alcohol prep was utilized per protocol for cutaneous antisepsis. Sterile gel and sterile p robe cover were utilized for ultrasound guidance. The skin and subcutaneous tissues were infiltrated with local anesthetic solution. With ultrasound and fluoroscopic guidance the left common femoral artery was accessed using the micro puncture technique. A 4 Mongolian hemostatic sheath was passed into the iliac circulation. A 0.035 angle Glidewire and 5 Mongolian catheter were advanced into the aorta and multiple attempts were made to enga ge the occluded limb of the graft. While the graft could be accessed due to the steep bifurcation the catheter would not track over the wire. The 5 Mongolian sheath in the groin was exchanged for a 6 Frenc h adjustable sheath. This was advanced into the aortic endograft, positioned above the occluded limb and flexed into a 90 turn. The 0.035 angle Glidewire and catheter were easily advanced down the occl uded limb of the graft and into the right lower extremity. Limited angiography confirmed occlusion of the right limb of the graft and occlusion of the distal SF A and trifurcation vessels. A 50 CM length infusion catheter was advanced over the wire, parked across the occluded limb of the g raft as well as a portion of the thrombus within the superficial femoral. TPA infusion was initiated at 1 mg per hour. Conscious sedation was performed with the prescribed dosages and duration as above in the presence of an independent trained radiology nurse to assist in the monitoring of the patient. EKG and oximetry remained stable throughout the procedure. CONCLUSION: Uncomplicated initiation of thrombolytic therapy as above Moiz Reed MD on October 13, 2017 at 8:41 Board Certified Radiologist. This report was verified electronically.
[2017-10-13] MEDS ORDERED: PNEUMOCOCCAL POLYVALENT INJ 25 MCG/0.5 ML SYR IM ONE (10:00)
[2017-10-13] MEDS ORDERED: INFLUENZA VIRUS VACCINE (QUADRIVALENT) 0.5 ML SYR IM ONE (10:00)
[2017-10-13] MEDS ORDERED: MIDAZOLAM HCL 2 MG/2 ML VIAL ONE ×3 (10:12→11:09)
[2017-10-13] MEDS ORDERED: IODIXANOL 320 MG/ML 50 ML VIAL (for RAD SPEC) I-ARTERIAL ONE (11:00)
[2017-10-13] MEDS ORDERED: ceFAZolin 2 GM PREMIX 50 ML ONE (11:35)
--- NOTE | 2017-10-13 11:49 | PD.RAD ---
Post Procedure Progress Note Pre Procedure Diagnosis: (1) Ischemia of right lower extremity Post Procedure Diagnosis: (1) Ischemia of right lower extremity Procedure Date: Oct 13, 2017 Supervising Radiologist: Moiz Reed Estimated blood loss: 3cc Plan of Activity Patient to Unit: Critical Care Patient Condition: Poor Additional Comments: TPA lysis cleared up the thrombosis in the right limb of the graft. The area of narrowing in the graft was angioplastied to 10mm. There is now excellent flow through the graft. Continued thrombus in the popliteal and TP trunk. TPA had to be discontinue due to a fibrinogen of 125 and bleeding at the left groin. Case discussed with Dr. Barker. Pt will go to OR for popliteal thrombectomy. Full dictated report to follow See PACS Report for procedural detail/treatment Moiz Reed MD Oct 13, 2017 11:49
[2017-10-13] MEDS ORDERED: PROPOFOL 200 MG/20 ML AMP IV ONE (12:00)
[2017-10-13] MEDS ORDERED: DEXAMETHASONE SOD PHOS 4 MG/ML VIAL IV ONE (12:00)
[2017-10-13] MEDS ORDERED: NEOSTIGMINE 5 MG/5 ML SYRINGE IV PUSH ONE (12:00)
[2017-10-13] MEDS ORDERED: PHENYLEPH/NS 1000 MCG/10 ML SYR IV ONE (12:00)
[2017-10-13] MEDS ORDERED: LIDOCAINE HCL 1% PF 5 ML SYRINGE OTHER ONE (12:00)
[2017-10-13] MEDS ORDERED: ONDANSETRON HCL 4 MG/2 ML VIAL IV ONE (12:00)
[2017-10-13] MEDS ORDERED: ePHEDrine/NS 25 MG/5 ML SYRINGE IV ONE (12:00)
[2017-10-13] MEDS ORDERED: ROCURONIUM INJ 50 MG/5 ML SYRINGE IV PUSH ONE (12:00)
[2017-10-13] MEDS ORDERED: GLYCOPYRROLATE 1 MG/5 ML SYRINGE IV PUSH ONE (12:00)
[2017-10-13] MEDS ORDERED: HEPARIN SODIUM - SQ 10,000 UNITS/ML VIAL ONE (13:25)
[2017-10-13] MEDS ORDERED: BUPIVACAINE/EPINEPHRINE 0.5% PF 30 ML VIAL ONE (13:26)
[2017-10-13] MEDS ORDERED: HEPARIN SODIUM - IV 10,000 UNITS/10 ML VIAL ONE (13:26)
[2017-10-13] MEDS ORDERED: PROTAMINE SULFATE 50 MG/5 ML VIAL ONE (13:28)
--- NOTE | 2017-10-13 14:02 | RADRPT ---
EXAM DATE/TIME: 10/13/2017 11:18 [place] COMPARISON: ILIAC REVAS INT VESS W/SUBEDITOR, October 13, 2017, 0:00. INDICATIONS : Patient with history of peripheral vascular disease in need of right leg angiogram. MEDICAL HISTORY : PVD, AAA, CAD, HLD, COPD, HTN, Neuropathy SURGICAL HISTORY : Aortobifemoral bypass, Throat laser ENCOUNTER: Subsequent ACUITY: 2 days PAIN SCORE: 0/10 FLUORO TIME: 75 minutes IMAGE SERIES: 10 SEDATION TIME: 75 minutes CONTRAST: 1.) 80 cc Visipaque (iodixanol) MEDICATION(S): 1.) 5.5 mg midazolam (Versed) IV 2.) 275 mcg fentanyl (Sublimaze) IV DEVICE(S): 1.) Right aortobifemoral bypass graft SUBEDITOR balloon Grab Hooker [id number] 2.) Left common femoral artery 8F Angio-Seal 3.) Left common femoral artery Syvek pad PROCEDURE: F/U THRU EXISTING CATHETER 1. Followup thrombolysis 2. abdominal angiogram 3. angioplasty of the aortic endograft limb. 4. Angiography of the access site 5. Conscious sedation with continuous EKG and oximetry monitoring. 6. Angiography of the right lower extremity. Following TPA infusion the patient returned to the angiography suite for evaluation. The patient's infusion catheter was removed over a 0.035 angle glide wire. Angiography of the aortic endograft and runoff to the right leg was assessed. The thrombus within the angiographic completely resolved. There is an area of stenosis evident within the right iliac limb of the graft. The large amount of thrombus within the superficial femoral had n early resolved. There was continued thrombus in the distal SFA, popliteal and involving the tibiopero nat trunk. The stenosis within the graft was assessed in multiple projections. A 10 mm x 4 cm angioplasty balloo n was advanced over the 0.035 angle Glidewire. The right limb of the graft was angioplastied to 10 mm . Followup angiography demonstrated complete resolution of the area of stenosis. The decision was made not to continue TPA infusion secondary to a fibrinogen level of 125. There was already some degree of hematoma around the access site in the left groin. Fluoroscopic evaluation of the common femoral artery was performed for evaluation prior to percutaneo us closure device placement. The puncture site was closed with the prescribed closure device. The pa tient tolerated the procedure well and there were no complications. Conscious sedation was performed with the prescribed dosages and duration as above in the presence of an independent trained radiology nurse to assist in the monitoring of the patient. EKG and oximetry remained stable throughout the procedure. CONCLUSION: 1. Successful lysis of the thrombus within the patient's right limb of the aortic endograft. The sten osis within the graft was treated with a 10 mm angioplasty balloon. There is now brisk flow through t he graft. 2. The patient continues to have a sizable amount of thrombus within the distal SFA, the popliteal an d the tibioperoneal trunk. Operative thrombectomy is planned. Moiz Reed MD on October 13, 2017 at 13:56 Board Certified Radiologist. This report was verified electronically.
[2017-10-13] MEDS ORDERED: ACETAMINOPHEN 1000 MG/100 ML 100 ML IV ONE (14:03)
--- NOTE | 2017-10-13 14:24 | MB ---
cc: Aureliano Barker MD DATE OF CONSULT: 10/13/2017 Cc: Irma Renee MD REASON FOR CONSULTATION: Acute thrombosis right iliac limb of endovascular aneurysm repair endoprosthesis and right popliteal artery. HISTORY: On June 06, 2017, this 77-year-old hypertensive male smoker with hypercholesterolemia underwent uncomplicated percutaneous endovascular aneurysm repair. After returning home, he sustained a right calcaneal fracture which has been managed by Dr. Alexy Smalls DPM. I saw him in followup in my office on October 04. At that time protocol CT angiogram was interpreted as showing secure endovascular aneurysm repair with no technical defects. However, on physical exam diminished pulses were present within the right leg and upon more detailed review of the CT angiogram, I felt a significant focal stenosis was apparent within the right iliac limb. We planned angiography to further evaluate with possible angioplasty and stent of the focal stenosis - depending upon the angiographic findings. However, this morning he developed abrupt onset of ischemic symptoms within the right leg. Repeat CTA disclosed occlusion of the right iliac limb along with segmental occlusion of the right popliteal artery. Dr. Masoud Reed, interventional radiologist, evaluated Mr. Mora and initiated t-PA thrombolysis. After 24 hours, patency of the right iliac limb was reestablished, the focal stenosis confirmed and successfully treated with stent placement. Much of the right popliteal thromboembolus has lysed but a significant segment remains within the distal popliteal and appears to occlude both the peroneal and posterior tibial arteries as well as producing marked restriction of flow into the proximal anterior tibial. I reviewed the clinical findings and images with Dr. Masoud Reed. Unfortunately, with 24 hours of t-PA infusion, his fibrinogen levels have progressively diminished and we feel that continued infusion may lead to bleeding difficulties. For this reason, we will plan on surgical thromboembolectomy of the residual popliteal and tibial thrombus. PHYSICAL EXAMINATION: VITAL SIGNS: Blood pressure 110/70, pulse 72, respirations 16. GENERAL: A well-developed, thin 77-year-old male with normal affect. CARDIOVASCULAR: Cardiac rhythm is sinus. No rubs or gallops. No carotid bruits. LUNGS: Symmetrically expanded and clear. ABDOMEN: Soft, scaphoid. The residual infrarenal abdominal aortic aneurysm sac is nonpulsatile consistent with hydrostatic exclusion. The left femoral access site is uncomplicated. Femoral pulses are 2+ and symmetrical. Popliteals nonpalpable right, 2+ left. Pedal pulses nonpalpable right, 2+ left. ASSESSMENT AND PLAN: I have reviewed clinical course and treatment plans with the patient and his , explained indications for right popliteal surgical thromboembolectomy along with potential risks and possible complications. They understand and agree to proceed. MD ANA Serna/SHAY , 01:25 PM , 02:03 PM
--- NOTE | 2017-10-13 17:21 | MP ---
cc: Aureliano Barker MD Irma Renee DATE OF OPERATION: PREOPERATIVE DIAGNOSIS: Thromboembolic occlusion, right popliteal and infrapopliteal arteries. POSTOPERATIVE DIAGNOSIS: Thromboembolic occlusion, right popliteal and infrapopliteal arteries. OPERATIVE PROCEDURE: Right popliteal tibial thromboembolectomy. SURGEON: Aureliano Barker MD ANESTHESIA: General/local. DESCRIPTION OF OPERATIVE PROCEDURE: With the patient in the supine position and under general anesthesia, the right leg was prepped with Betadine and draped in a sterile fashion. Prophylactic antibiotics had been administered earlier in the day and no additional prophylaxis was indicated. Following a protocol timeout, the skin and subcutaneous tissue along the proposed incisional area was preemptively infiltrated with 0.5% Marcaine with epinephrine. A vertical 6 cm incision was performed along the proximal medial calf, deepened through the fascia into to distal popliteal space. The popliteal artery was mobilized to its bifurcation into the anterior tibial and tibioperoneal trunk. The artery was cannulated with a 21 gauge butterfly needle and utilizing diluted contrast in conjunction with digital C-arm fluoroscopic imaging, angiographic evaluation completed. This reconfirmed partial occlusion of the popliteal artery distally. Also, the anterior tibial, posterior tibial and peroneal arteries appeared thrombosed throughout. The patient was heparinized with an additional 4000 units. The popliteal was occluded proximally with a double-looped vessel loop, a transverse popliteal arteriotomy performed. No backbleeding was evident. A #3 Samuel catheter was guided to both the posterior tibial and anterior tibial lumens, advanced to the metatarsal level. Thromboembolic material was removed from each, resulting in brisk backbleeding. The artery was flushed with heparinized saline. The arteriotomy was repaired with interrupted 6-0 Prolene. The artery was again cannulated with a 21 gauge butterfly needle and diluted contrast injected with digital C-arm fluoroscopic imaging. This revealed a wide patency of the anterior tibial, posterior tibial, dorsalis pedis and plantar arch. Heparin was not reversed. Strict hemostasis was achieved. The fascia was reapproximated with continuous 4-0 Monocryl. Subcutaneous tissue reapproximated with interrupted 4-0 Monocryl and skin with continuous subcuticular 5-0 Monocryl. Steri-Strips and sterile gauze were applied. Instrument, needle and sponge count x 2. No acute complications. Patient returned to the recovery room in stable condition, having tolerated procedure well. MD ANA Serna/SHAY , 04:15 PM , 05:20 PM
[2017-10-13] MEDS ORDERED: DO NOT ADM ANY ANTICOAGULANT DRUGS PRN (17:30)
[2017-10-13] MEDS ORDERED: SODIUM CHLORIDE FLUSH PRN IV FLUSH (17:30)
[2017-10-13] MEDS: SODIUM CHLORIDE FLUSH BID IV FLUSH SCH (21:00)
[2017-10-14] VITALS (11 sets, daily range): BP systolic 92–130; BP diastolic 54–61; PULSE 52–87; RESP 17–20; TEMP 97–98.4; O2SAT 93–100
[2017-10-14] MEDS: CHLORHEXIDINE GLUCONATE 2 % 1 PACK (2 CLOTHS) TOP SCH (04:00)
[2017-10-14] MEDS: SODIUM CHLORIDE FLUSH BID IV FLUSH SCH ×2 (09:13→22:04)
[2017-10-14] MEDS: PRAVASTATIN SOD 40 MG TAB PO SCH (09:14)
[2017-10-14] MEDS: amLODIPine BESYLATE 5 MG TAB PO SCH ×2 (09:14→22:05)
[2017-10-14] MEDS: GABAPENTIN 300 MG CAP PO SCH ×2 (09:14→22:05)
[2017-10-15] MEDS: CHLORHEXIDINE GLUCONATE 2 % 1 PACK (2 CLOTHS) TOP SCH (04:00)
[2017-10-15 04:40] VITALS: BP 92/51; PULSE 72; RESP 16; TEMP 98.4; O2SAT 95
[2017-10-15] MEDS: amLODIPine BESYLATE 5 MG TAB PO SCH ×2 (07:49→21:00)
[2017-10-15] MEDS: GABAPENTIN 300 MG CAP PO SCH ×2 (07:49→22:00)
[2017-10-15] MEDS: SODIUM CHLORIDE FLUSH BID IV FLUSH SCH ×2 (07:50→22:02)
[2017-10-15] MEDS: PRAVASTATIN SOD 40 MG TAB PO SCH (07:50)
[2017-10-15 08:00] VITALS: BP 109/60; PULSE 81; RESP 16; TEMP 98.1; O2SAT 92
[2017-10-15 12:00] VITALS: BP 109/60; PULSE 73; RESP 16; TEMP 98.8; O2SAT 94
[2017-10-15] MEDS ORDERED: DOCUSATE SODIUM 100 MG CAP PO ONE (14:00)
[2017-10-15] MEDS ORDERED: BISACODYL EC 5 MG TABEC PO ONE (14:00)
[2017-10-15 16:00] VITALS: BP 112/58; PULSE 78; RESP 16; TEMP 98; O2SAT 94
[2017-10-15 19:25] VITALS: BP 107/58; PULSE 81; RESP 17; TEMP 98.7; O2SAT 95
[2017-10-15] MEDS: DOCUSATE SODIUM 100 MG CAP PO SCH (22:00)
[2017-10-16 00:30] VITALS: BP 107/55; PULSE 73; RESP 17; TEMP 98.5; O2SAT 95
[2017-10-16] MEDS: CHLORHEXIDINE GLUCONATE 2 % 1 PACK (2 CLOTHS) TOP SCH (04:00)
[2017-10-16 04:25] VITALS: BP 103/60; PULSE 79; RESP 17; TEMP 98.2; O2SAT 94
[2017-10-16 08:00] VITALS: BP 111/71; PULSE 72; RESP 18; TEMP 97.9; O2SAT 96
[2017-10-16] MEDS: amLODIPine BESYLATE 5 MG TAB PO SCH ×2 (08:32→21:00)
[2017-10-16] MEDS: GABAPENTIN 300 MG CAP PO SCH (08:32)
[2017-10-16] MEDS: PRAVASTATIN SOD 40 MG TAB PO SCH (08:32)
[2017-10-16] MEDS: DOCUSATE SODIUM 100 MG CAP PO SCH (08:33)
[2017-10-16] MEDS: SODIUM CHLORIDE FLUSH BID IV FLUSH SCH (08:33)
[2017-10-16 12:00] VITALS: BP 119/76; PULSE 73; RESP 18; TEMP 97.8; O2SAT 99
[2017-10-16 16:00] VITALS: BP 112/64; PULSE 78; RESP 18; TEMP 98.3; O2SAT 97
[2017-10-16 20:16] VITALS: BP 104/59; PULSE 73; RESP 17; TEMP 98.2; O2SAT 96
[2017-10-17 00:17] VITALS: BP 113/66; PULSE 70; RESP 17; TEMP 98.2; O2SAT 96
[2017-10-17] MEDS: DOCUSATE SODIUM 100 MG CAP PO SCH ×2 (01:26→08:22)
[2017-10-17] MEDS: GABAPENTIN 300 MG CAP PO SCH ×2 (01:27→08:22)
[2017-10-17] MEDS: CHLORHEXIDINE GLUCONATE 2 % 1 PACK (2 CLOTHS) TOP SCH (01:27)
[2017-10-17] MEDS: SODIUM CHLORIDE FLUSH BID IV FLUSH SCH ×2 (01:27→09:00)
[2017-10-17 04:50] VITALS: BP 121/66; PULSE 70; RESP 17; TEMP 97.3; O2SAT 94
[2017-10-17 08:00] VITALS: BP 106/65; PULSE 73; RESP 18; TEMP 98.2; O2SAT 98
[2017-10-17] MEDS: PRAVASTATIN SOD 40 MG TAB PO SCH (08:22)
[2017-10-17] MEDS: amLODIPine BESYLATE 5 MG TAB PO SCH (08:23)
[2017-10-17] MEDS ORDERED: ASPI-516 CHEW (11:46)
[2017-10-17] MEDS ORDERED: TYLE325T PO (11:47)
[2017-10-17 11:52] VITALS: BP 106/59; PULSE 67; RESP 18; TEMP 98.3; O2SAT 99
[2017-10-18] MEDS ORDERED: ASPIRIN EC 81 MG TABEC PO SCH (09:00)
[2017-10-18] MEDS ORDERED: CLOPIDOGREL 75 MG TAB PO SCH (09:00)
== END 2017-10-17 15:53 | disposition home or self-care (01) | DRG 253 ==
LOC: NEPC 10:59 → N03A 17:37 → N06B 10-14 18:16
PROVIDERS: ADMIT Internal Medicine Critical Care Medicine; ATTEND Surgery Vascular Surgery
PROC: B41F1ZZ Fluoroscopy of Right Lower Extremity Arteries using Low Osmolar Contrast (ICD-10-PCS; 2017-10-12)
PROC: 3E03317 Introduction of Other Thrombolytic into Peripheral Vein, Percutaneous Approach (ICD-10-PCS; 2017-10-12)
PROC: 04CP0ZZ Extirpation of Matter from Right Anterior Tibial Artery, Open Approach (ICD-10-PCS; 2017-10-13)
PROC: 047C3ZZ Dilation of Right Common Iliac Artery, Percutaneous Approach (ICD-10-PCS; 2017-10-13)
PROC: 04CM0ZZ Extirpation of Matter from Right Popliteal Artery, Open Approach (ICD-10-PCS; principal; 2017-10-13 14:09)
DX: T82.868A Thrombosis due to vascular prosthetic devices, implants and grafts, initial encounter (principal); I74.3 Embolism and thrombosis of arteries of the lower extremities; G62.89 Other specified polyneuropathies; J44.9 Chronic obstructive pulmonary disease, unspecified; E78.5 Hyperlipidemia, unspecified; F17.210 Nicotine dependence, cigarettes, uncomplicated; I10 Essential (primary) hypertension; I25.10 Atherosclerotic heart disease of native coronary artery without angina pectoris; Y83.2 Surgical operation with anastomosis, bypass or graft as the cause of abnormal reaction of the patient, or of later complication, without mention of misadventure at the time of the procedure
CPT/HCPCS: 36247; 37211; 37214; 37220; 75635; 75710; 76000; 76937; 80053; 81001; 85025; 85384; 85610; 85730; 87641; 99152; 99153; 99285; C1725; C1757; C1760; C1769; C1887; C1894; J0131; J0690; J1100; J1644; J2250; J2270; J2370; J2405; J2710; J2720; J2997; J3010; J7040; Q9967

== ENCOUNTER 2018-01-22 13:49 | Inpatient (IN) | payer MEDICARE, BC ==
[~2018-01-22] VITALS: Ht 172.7 cm; Wt 70.5 kg
[~2018-01-22 13:49] MED LIST changes: +ASPI-516 CHEW; -MEDI220T PO; -TRAM50TA PO; +TYLE325T PO
[2018-01-22 13:59] VITALS: BP 110/60; PULSE 81; RESP 16; TEMP 98.2; O2SAT 99
[2018-01-22] MEDS ORDERED: SODIUM CHLOR 0.9% 1000 ML INJ 1,000 ML IV ONE (14:53)
[2018-01-22 15:07] VITALS: BP 119/60; PULSE 79; RESP 18; O2SAT 96
[2018-01-22 15:27] LABS: AUTOMATED NEUTROPHIL # 7.5 TH/MM3 (1.8-7.7); BASOPHIL # 0.1 TH/MM3 (0-0.2); BASOPHIL % 0.6 % (0.0-2.0); EOSINOPHIL # 0.3 TH/MM3 (0-0.4); EOSINOPHIL % 2.8 % (0.0-4.0); HEMATOCRIT 45.2 % (39.0-51.0); HEMOGLOBIN 15.2 GM/DL (13.0-17.0); LYMPH % 20.8 % (9.0-44.0); LYMPHOCYTE # 2.2 TH/MM3 (1.0-4.8); MEAN CELL VOLUME 94.5 FL (80.0-100.0); MEAN CORPUSCULAR HEMOGLOBIN 31.7 PG (27.0-34.0); MEAN CORPUSCULAR HGB CONC 33.6 % (32.0-36.0); MONO % 5.6 % (0.0-8.0); MONOCYTE # 0.6 TH/MM3 (0-0.9); NEUT % 70.2 % (16.0-70.0); PLATELET COUNT 298 TH/MM3 (150-450); RED BLOOD COUNT 4.78 MIL/MM3 (4.50-5.90); RED CELL DISTRIBUTION WIDTH 13.4 % (11.6-17.2); WHITE BLOOD COUNT 10.7 TH/MM3 (4.0-11.0)
[2018-01-22 15:44] LABS: PROTHROMBIN TIME - PATIENT 10.3 SEC (9.8-11.6)
[2018-01-22 15:45] LABS: BICARBONATE 27.6 MEQ/L (21.0-32.0); CALCIUM 9.9 MG/DL (8.5-10.1); CREATININE 0.75 MG/DL (0.60-1.30)
--- NOTE | 2018-01-22 16:22 | PD ---
HPI . Ischemic right lower extremity Chief Complaint: Abnormal Results Time Seen by Provider: 14:44 Travel History International Travel<30 days: No Contact w/Intl Traveler<30days: No Traveled to known affect area: No History of Present Illness HPI This patient presents accompanied presumably by his with a chief complaint of an ischemic right lower extremity. Onset of his acute symptoms was approximately a week ago. He has chronic peripheral vascular disease. He has had a previous aortobiiliac stent. He had to have an IR procedure with TPA following the stent because of an ischemic right leg. His symptoms recurred a week ago. He has been seen as an outpatient by Dr. Barker. The patient and his state that he was told to come here for probable surgery. They report that his symptoms are getting progressively worse. PFSH Past Medical History Heart Rhythm Problems: No Cancer: No Cardiovascular Problems: Yes High Cholesterol: Yes Chest Pain: No Congestive Heart Failure: No COPD: Yes Cerebrovascular Accident: No Diabetes: No Endocrine: No Gastrointestinal Disorders: Yes (AAA) Genitourinary: No Headaches: No Hepatitis: No Hiatal Hernia: No Hypertension: Yes Immune Disorder: No Implanted Vascular Access Dvce: No Musculoskeletal: No Neurologic: Yes (Neuropathy) Psychiatric: No Reproductive: No Respiratory: No Migraines: No Seizures: No Thyroid Disease: No Past Surgical History Abdominal Surgery: No AICD: No Cardiac Surgery: Yes (Cardiac stent ) Ear Surgery: No Endocrine Surgery: No Eye Surgery: No Genitourinary Surgery: No Gynecologic Surgery: No Joint Replacement: No Neurologic Surgery: No Oral Surgery: No Pacemaker: No Thoracic Surgery: No Other Surgery: Yes Social History Alcohol Use: Yes (hx of being a heavy drinker, apparently slowed down 3 years ago. ) Tobacco Use: Yes (2 ppd) Substance Use: No Allergies-Medications (Allergen,Severity, Reaction): Coded Allergies: No Known Allergies (Unverified , 08/23/17) Reported Meds & Prescriptions Reported Meds & Active Scripts Active Reported Tylenol (Acetaminophen) 325 Mg Tab 650 Mg PO Q6H PRN B Complex (B-Complex Vitamins) 1 Cap 1 Cap PO DAILY Lovastatin 40 Mg Tab 80 Mg PO DAILY Gabapentin 600 Mg Tab 600 Mg PO BID Amlodipine (Amlodipine Besylate) 5 Mg Tab 5 Mg PO BID Review of Systems Except as stated in HPI: all other systems reviewed are Neg Cardiovascular: No: Chest Pain or Discomfort Respiratory: No: Shortness of Breath Physical Exam Narrative GENERAL: Disheveled elderly man who is in he is a little bit hard of hearing. SKIN: warm/dry. The skin of his right lower extremity is adam. HEAD: Normocephalic. Atraumatic. EYES: Pupils equal and round. Extraocular movements are intact. ENT: Mucous membranes pink and moist. NECK: Supple. Full range of motion without pain.. CARDIOVASCULAR: Regular rate and rhythm. No palpable pulses in the right foot. Pulses are also not obtainable by Doppler. RESPIRATORY: No accessory muscle use. Clear to auscultation. Breath sounds equal bilaterally. MUSCULOSKELETAL: No obvious deformities. Normal muscle tone. NEUROLOGICAL: Awake and alert. No obvious cranial nerve deficits. Motor grossly within normal limits. Normal speech. PSYCHIATRIC: Appropriate mood and affect; insight and judgment normal. Data Data Last Documented VS Vital Signs Date Time Temp Pulse Resp B/P (MAP) Pulse Ox O2 Delivery O2 Flow Rate FiO2 01/22/18 19:30 70 28 135/73 (93) 97 Nasal Cannula 2 01/22/18 19:00 97.6 Orders Orders Diet Npo (01/22/18 Dinner) Electrocardiogram (01/22/18 ) Prothrombin Time / Inr (Pt) (01/22/18 14:53) Act Partial Throm Time (Ptt) (01/22/18 14:53) Complete Blood Count With Diff (01/22/18 14:53) Fibrinogen (01/22/18 14:53) Type And Screen (01/22/18 14:53) Ecg Monitoring (01/22/18 14:53) Iv Access Insert/Monitor (01/22/18 14:53) NPO (01/22/18 14:53) Sodium Chlor 0.9% 1000 Ml Inj (Ns 1000 M (01/22/18 14:53) Basic Metabolic Panel (Bmp) (01/22/18 14:53) Midazolam Inj (Versed Inj) (01/22/18 16:50) Fentanyl Inj (Fentanyl Inj) (01/22/18 16:50) Heparin-D5w 25,000 U/250 Ml (Heparin-D5w (01/22/18 16:51) Midazolam Inj (Versed Inj) (01/22/18 18:00) Fentanyl Inj (Fentanyl Inj) (01/22/18 18:00) Cefazolin 2 Gm Premix (Ancef 2 Gm Premix (01/22/18 18:28) Iodixanol 320 Inj (Rad Spec) (Visipaque (01/22/18 18:00) Angiogram, Lower Extrem Bilat (01/22/18 ) Us Guided Vascular Access (01/22/18 ) Us Guided Vascular Access (01/22/18 ) Vital Signs (Adult) Q15MX4,Q30MX4,Q1HX4 (01/22/18 18:54) Neuro Checks . ORDERED (01/22/18 18:54) Post Angio-Neurovascular Check Q15MX4,Q30MX4,Q1HX4 (01/22/18 18:54) Notify Parameters (01/22/18 18:54) ^ Apply Pressure (01/22/18 18:54) ^ Dressings (01/22/18 18:54) Activity Bed Rest (01/22/18 18:54) Consult Hospitalist (01/22/18 ) Acetaminophen (Tylenol) (01/22/18 19:45) Gabapentin (Neurontin) (01/22/18 21:00) Aspirin Ec (Ecotrin Ec) (01/23/18 09:00) Amlodipine (Norvasc) (01/23/18 09:00) Heparin-D5w 25,000 U/250 Ml (Heparin-D5w (01/22/18 19:45) Act Partial Throm Time (Ptt) (01/22/18 19:41) Prothrombin Time / Inr (Pt) (01/22/18 19:41) Cbc No Diff, Includes Plts (01/22/18 19:41) Cbc No Diff, Includes Plts (01/25/18 06:00) Act Partial Throm Time (Ptt) (01/23/18 02:41) Occult Blood (Hemoccult) Stool (01/22/18 19:41) Admit To Inpatient (01/22/18 ) Vital Signs (Adult) Q4H (01/22/18 19:42) Activity Bed Rest (01/22/18 19:42) Activity Oob With Assistance (01/22/18 19:42) Intake + Output EKTA.QSHIFT (01/22/18 19:42) Diet Npo (01/23/18 Breakfast) Sodium Chlor 0.9% 1000 Ml Inj (Ns 1000 M (01/22/18 21:00) Sodium Chloride 0.9% Flush (Ns Flush) (01/22/18 19:45) Sodium Chloride 0.9% Flush (Ns Flush) (01/22/18 21:00) Basic Metabolic Panel (Bmp) (01/23/18 06:00) Complete Blood Count With Diff (01/23/18 06:00) Pt Request For Service (01/22/18 19:42) Case Management Consult (01/22/18 19:42) Naloxone Inj (Narcan Inj) (01/22/18 19:45) Magnesium Hydroxide Liq (Milk Of Magnesi (01/22/18 19:45) Sennosides (Senokot) (01/22/18 19:45) Bisacodyl Supp (Dulcolax Supp) (01/22/18 19:45) Lactulose Liq (Lactulose Liq) (01/22/18 19:45) Inpatient Certification (01/22/18 ) Pravastatin (Pravachol) (01/23/18 09:00) Labs Laboratory Tests Test 01/22/18 15:04 White Blood Count 10.7 TH/MM3 Red Blood Count 4.78 MIL/MM3 Hemoglobin 15.2 GM/DL Hematocrit 45.2 % Mean Corpuscular Volume 94.5 FL Mean Corpuscular Hemoglobin 31.7 PG Mean Corpuscular Hemoglobin Concent 33.6 % Red Cell Distribution Width 13.4 % Platelet Count 298 TH/MM3 Mean Platelet Volume 7.0 FL Neutrophils (%) (Auto) 70.2 % Lymphocytes (%) (Auto) 20.8 % Monocytes (%) (Auto) 5.6 % Eosinophils (%) (Auto) 2.8 % Basophils (%) (Auto) 0.6 % Neutrophils # (Auto) 7.5 TH/MM3 Lymphocytes # (Auto) 2.2 TH/MM3 Monocytes # (Auto) 0.6 TH/MM3 Eosinophils # (Auto) 0.3 TH/MM3 Basophils # (Auto) 0.1 TH/MM3 CBC Comment DIFF FINAL Differential Comment Prothrombin Time 10.3 SEC Prothromb Time International Ratio 1.0 RATIO Activated Partial Thromboplast Time 28.1 SEC Fibrinogen 375 mg/dL Blood Urea Nitrogen 7 MG/DL Creatinine 0.75 MG/DL Random Glucose 76 MG/DL Calcium Level 9.9 MG/DL Sodium Level 140 MEQ/L Potassium Level 4.0 MEQ/L Chloride Level 105 MEQ/L Carbon Dioxide Level 27.6 MEQ/L Anion Gap 7 MEQ/L Estimat Glomerular Filtration Rate 102 ML/MIN MDM Medical Decision Making Medical Screen Exam Complete: Yes Emergency Medical Condition: Yes Differential Diagnosis Differential diagnosis includes embolism, thrombosis, dissection Narrative Course This patient presents with a pulseless right lower leg. He was reportedly sent here by Dr. Braker. I have put a page out to Dr. Barker but have not yet heard from him. I did put in orders for baseline labs including coagulation studies. In the meantime, Dr. Reed has called looking for the patient. It seems that he was supposed to go for an outpatient radiographic study. The patient has been taken for that study. CBC & BMP Diagram 01/22/18 15:04 Calcium Level 9.9 Coags are normal. The patient went to radiology and was admitted from radiology for an operative intervention. Diagnosis Primary Impression: Ischemia of right lower extremity Admitting Information Admitting Physician Requests: Admit Condition: Stable Shelly Stroud MD Jan 22, 2018 16:22
[2018-01-22] MEDS ORDERED: fentaNYL CITRATE 250 MCG/5 ML AMP ONE ×2 (16:50→18:00)
[2018-01-22] MEDS ORDERED: MIDAZOLAM HCL 5 MG/5 ML VIAL ONE ×2 (16:50→18:00)
[2018-01-22] MEDS ORDERED: HEPARIN-D5W 25,000 U/250 ML 0 ML ONE (16:51)
[2018-01-22] MEDS ORDERED: IODIXANOL 320 MG/ML 50 ML VIAL (for RAD SPEC) I-ARTERIAL ONE (18:00)
[2018-01-22] MEDS ORDERED: ceFAZolin 2 GM PREMIX 50 ML ONE (18:28)
--- NOTE | 2018-01-22 18:49 | PD.RAD ---
Post Procedure Progress Note Pre Procedure Diagnosis: (1) Ischemia of right lower extremity Post Procedure Diagnosis: (1) Ischemia of right lower extremity Procedure Date: Jan 22, 2018 Supervising Radiologist: Moiz Reed Estimated blood loss: 5cc Anesthesia: Local, Conscious Sedation Plan of Activity Patient to Unit: Nursing Unit Patient Condition: Fair Additional Comments: Angio completed. Right limb of the endograft is occluded. Thrombus is quite hard and could not be easily crossed. Doubtful this is acute. Right leg fills from the left profunda. Proximal right SFA is patient down to the lower thigh and occludes at adductor hiatus.well developed collaterals around this and appears sub acute. Popliteal and trifurcation occluded. Eventual filling of the PT at the mid calf. Clotted segments appeared sub acute. Pt was not felt to be a good candidate for thrombolysis. Case discussed with Vascular Dr. jM ALEXANDER Right foot is war. PT resting comfortably. PT will be admitted heparinized with open thrombectomy planed for tomorrow by Dr. Barker Full dictated report to follow See PACS Report for procedural detail/treatment Moiz Reed MD Jan 22, 2018 18:49
[2018-01-22] MEDS ORDERED: SENNOSIDES 8.6 MG TAB PO PRN (19:45)
[2018-01-22] MEDS ORDERED: BISACODYL 10 MG SUPP RECTAL PRN (19:45)
[2018-01-22] MEDS ORDERED: NALOXONE HCL 0.4 MG/ML AMP IV PUSH PRN (19:45)
[2018-01-22] MEDS ORDERED: MAGNESIUM HYDROXIDE SUSP 30 ML CUP PO PRN (19:45)
[2018-01-22] MEDS ORDERED: LACTULOSE SYRUP 20 GM/30 ML CUP PO PRN (19:45)
[2018-01-22] MEDS ORDERED: SODIUM CHLORIDE 0.9% FLUSH 10 ML FLUSH IV FLUSH PRN (19:45)
[2018-01-22] MEDS ORDERED: ACETAMINOPHEN 325 MG TAB PO PRN (19:45)
[2018-01-22] MEDS ORDERED: HEPARIN-D5W 25,000 U/250 ML 250 ML IV PRN ×2 (19:45→21:00)
[2018-01-22] MEDS: SODIUM CHLOR 0.9% 1000 ML INJ 1,000 ML IV SCH (20:00)
[2018-01-22 20:18] LABS: HEMATOCRIT 41.9 % (39.0-51.0); HEMOGLOBIN 14.2 GM/DL (13.0-17.0); MEAN CELL VOLUME 93.3 FL (80.0-100.0); MEAN CORPUSCULAR HEMOGLOBIN 31.5 PG (27.0-34.0); MEAN CORPUSCULAR HGB CONC 33.8 % (32.0-36.0); MEAN PLATELET VOLUME 6.7 FL (7.0-11.0); PLATELET COUNT 258 TH/MM3 (150-450); RED BLOOD COUNT 4.49 MIL/MM3 (4.50-5.90); RED CELL DISTRIBUTION WIDTH 13.1 % (11.6-17.2); WHITE BLOOD COUNT 8.9 TH/MM3 (4.0-11.0)
[2018-01-22 20:28] LABS: PROTHROMBIN TIME - PATIENT 10.6 SEC (9.8-11.6)
[2018-01-22] MEDS ORDERED: MORPHINE SULFATE 4 MG/ML INJ IV PUSH PRN ×2 (20:45→21:15)
[2018-01-22] MEDS: SODIUM CHLORIDE 0.9% FLUSH 10 ML FLUSH IV FLUSH SCH (20:59)
[2018-01-22] MEDS: GABAPENTIN 300 MG CAP PO SCH (21:30)
--- NOTE | 2018-01-22 21:36 | HHI.HP ---
HPI Service [facility] Primary Care Physician Aureliano Barker MD Admission Diagnosis Diagnoses: Chief Complaint: right lower extremity ischemia Travel History International Travel<30 Days: No Contact w/Intl Traveler <30 Da: No Traveled to Known Affected Are: No History of Present Illness 77 y/o male with a history of CAD, HTN, HLD, PVD and COPD presented to the ED with complaints of right lower extremity ischemia that was diagnosed by Dr. Barker outpatient. He underwent a diagnostic angiogram by Dr. Reed and was unable to be stented today and it was felt that the patient would not be a good candidate for thrombolysis. Patient will undergo an open thrombectomy planed for tomorrow by Dr. Barker. Patient is resting and in no distress, denies any pain to the right extremity, no chest pain or sob noted. Review of Systems Except as stated in HPI: all other systems reviewed are Neg Past Family Social History Past Medical History Abdominal aortic aneurysm CAD PAD HLD COPD HTN Prior history of pelvic fractures Prior history of right heel fracture Neuropathy Past Surgical History Aortobifemoral bypass Reported Medications Reported Meds & Active Scripts Active Reported Tylenol (Acetaminophen) 325 Mg Tab 650 Mg PO Q6H PRN B Complex (B-Complex Vitamins) 1 Cap 1 Cap PO DAILY Lovastatin 40 Mg Tab 80 Mg PO DAILY Gabapentin 600 Mg Tab 600 Mg PO BID Amlodipine (Amlodipine Besylate) 5 Mg Tab 5 Mg PO BID Allergies: Coded Allergies: No Known Allergies (Unverified , 08/23/17) Active Ordered Medications Current Medications Medications (Trade) Dose Ordered Sig/Pamela Route Start Time Stop Time Status Last Admin (Tylenol) 650 mg Q6H PRN PO 01/22/18 19:45 (Neurontin) 600 mg BID PO 01/22/18 21:00 (Pravachol) 80 mg DAILY PO 01/23/18 09:00 (Ecotrin Ec) 81 mg DAILY PO 01/23/18 09:00 (Norvasc) 5 mg DAILY PO 01/23/18 09:00 Sodium Chloride 1,000 ml @ 60 mls/hr [id number] IV 01/22/18 21:00 01/22/18 20:00 (NS Flush) 2 ml UNSCH PRN IV FLUSH 01/22/18 19:45 (NS Flush) 2 ml BID IV FLUSH 01/22/18 21:00 01/22/18 20:59 (Narcan Inj) 0.4 mg UNSCH PRN IV PUSH 01/22/18 19:45 (Milk Of Magnesia Liq) 30 ml Q12H PRN PO 01/22/18 19:45 (Senokot) 17.2 mg Q12H PRN PO 01/22/18 19:45 (Dulcolax Supp) 10 mg DAILY PRN RECTAL 01/22/18 19:45 (Lactulose Liq) 30 ml DAILY PRN PO 01/22/18 19:45 Heparin Sodium/ Dextrose 250 ml @ 14 mls/hr TITRATE PRN IV 01/22/18 21:00 01/22/18 21:00 (Morphine Inj) 2 mg Q3H PRN IV PUSH 01/22/18 21:15 (Morphine Inj) 4 mg Q3H PRN IV PUSH 01/22/18 20:45 Family History Mom: Cancer, unknown type Dad: Polycythemia vera Social History Tobacco use: 1/2 - 1 PPD Alcohol use: Wine occasionally Physical Exam Vital Signs Vital Signs Date Time Temp Pulse Resp B/P (MAP) Pulse Ox O2 Delivery O2 Flow Rate FiO2 01/22/18 21:00 76 27 132/78 (96) 98 Nasal Cannula 2 01/22/18 20:30 76 26 125/67 (86) 98 Nasal Cannula 2 01/22/18 20:00 97.8 71 19 134/71 (92) 97 Nasal Cannula 2 01/22/18 19:45 56 20 146/74 (98) 98 Nasal Cannula 2 01/22/18 19:30 70 28 135/73 (93) 97 Nasal Cannula 2 01/22/18 19:15 72 20 123/69 (87) 97 Nasal Cannula 2 01/22/18 19:00 97.6 71 19 122/61 (81) 95 Nasal Cannula 3 01/22/18 15:53 99 Room Air 01/22/18 15:07 79 18 119/60 (79) 96 Room Air 01/22/18 13:59 98.2 81 16 110/60 (77) 99 Physical Exam GENERAL: This is a well-nourished, well-developed patient, in no apparent distress. SKIN: No rashes, ecchymoses or lesions. Right lower extremity reddened and cool to touch. HEAD: Atraumatic. Normocephalic. EYES: Pupils equal round and reactive. Extraocular motions intact. CARDIOVASCULAR: Regular rate and rhythm without murmurs, gallops, or rubs. RESPIRATORY: Clear to auscultation. Breath sounds equal bilaterally. No wheezes , rales, or rhonchi. GASTROINTESTINAL: Abdomen soft, non-tender, nondistended. No guarding. MUSCULOSKELETAL: Doppler right pedal pulse, limited sensation noted. Left lower extremity WNL. NEUROLOGICAL: Awake and alert. Normal speech. Laboratory Laboratory Tests Test 01/22/18 15:04 01/22/18 20:10 White Blood Count 10.7 8.9 Red Blood Count 4.78 4.49 Hemoglobin 15.2 14.2 Hematocrit 45.2 41.9 Mean Corpuscular Volume 94.5 93.3 Mean Corpuscular Hemoglobin 31.7 31.5 Mean Corpuscular Hemoglobin Concent 33.6 33.8 Red Cell Distribution Width 13.4 13.1 Platelet Count 298 258 Mean Platelet Volume 7.0 6.7 Neutrophils (%) (Auto) 70.2 Lymphocytes (%) (Auto) 20.8 Monocytes (%) (Auto) 5.6 Eosinophils (%) (Auto) 2.8 Basophils (%) (Auto) 0.6 Neutrophils # (Auto) 7.5 Lymphocytes # (Auto) 2.2 Monocytes # (Auto) 0.6 Eosinophils # (Auto) 0.3 Basophils # (Auto) 0.1 CBC Comment DIFF FINAL Differential Comment Prothrombin Time 10.3 10.6 Prothromb Time International Ratio 1.0 1.0 Activated Partial Thromboplast Time 28.1 28.9 Fibrinogen 375 Blood Urea Nitrogen 7 Creatinine 0.75 Random Glucose 76 Calcium Level 9.9 Sodium Level 140 Potassium Level 4.0 Chloride Level 105 Carbon Dioxide Level 27.6 Anion Gap 7 Estimat Glomerular Filtration Rate 102 Result Diagram: 01/22/18200901/22/18 1504 Caprini VTE Risk Assessment Caprini VTE Risk Assessment: Mod/High Risk (score >= 2) VTE [facility] Contraindication: LE ischemia Caprini Risk Assessment Model Point Value = 1 Point Value = 2 Point Value = 3 Point Value = 5 Age 41-60 Minor surgery BMI > 25 kg/m2 Swollen legs Varicose veins or History of unexplained or recurrent spontaneous Oral contraceptives or hormone replacement Sepsis (< 1 month) Serious lung disease, including pneumonia (< 1 month) Abnormal pulmonary function Acute myocardial infarction Congestive heart failure (< 1 month) History of inflammatory bowel disease Medical patient at bed rest Age 61-74 Arthroscopic surgery Major open surgery (> 45 min) Laparoscopic surgery (> 45 min) Malignancy Confined to bed (> 72 hours) Immobilizing plaster cast Central venous access Age >= 75 History of VTE Family history of VTE Factor V Leiden Prothrombin [id number] Lupus anticoagulant Anticardiolipin antibodies Elevated serum homocysteine Heparin-induced thrombocytopenia Other congenital or acquired thrombophilia Stroke (< 1 month) Elective arthroplasty Hip, pelvis, or leg fracture Acute spinal cord injury (< 1 month) Prophylaxis Regimen Total Risk Factor Score Risk Level Prophylaxis Regimen 0-1 Low Early ambulation 2 Moderate Order ONE of the following: *Sequential Compression Device (SCD) *Heparin 5000 units SQ BID 3-4 Higher Order ONE of the following medications: *Heparin 5000 units SQ TID *Enoxaparin/Lovenox 40 mg SQ daily (WT < 150 kg, CrCl > 30 mL/min) *Enoxaparin/Lovenox 30 mg SQ daily (WT < 150 kg, CrCl > 10-29 mL/min) *Enoxaparin/Lovenox 30 mg SQ BID (WT < 150 kg, CrCl > 30 mL/min) AND/OR *Sequential Compression Device (SCD) 5 or more Highest Order ONE of the following medications: *Heparin 5000 units SQ TID (Preferred with Epidurals) *Enoxaparin/Lovenox 40 mg SQ daily (WT < 150 kg, CrCl > 30 mL/min) *Enoxaparin/Lovenox 30 mg SQ daily (WT < 150 kg, CrCl > 10-29 mL/min) *Enoxaparin/Lovenox 30 mg SQ BID (WT < 150 kg, CrCl > 30 mL/min) AND *Sequential Compression Device (SCD) Assessment and Plan Assessment and Plan 77 y/o male with a history of CAD, HTN, HLD, PVD and COPD presented to the ED with complaints of right lower extremity ischemia that was diagnosed by Dr. Barker outpatient. Right lower extremity due to chronic PVD -NPO for thrombectomy tomorrow -Pain management with IV Morphine -IV Heparin -Home Lovastatin resumed HTN, chronic, stable -Resume home medications, monitor vitals COPD, chronic, not in exacerbation -Duonebs prn Tobacco abuse -Encouraged to quit DVT prophylaxis: Heparin Discussed Condition With Patient and RN Physician Certification 2 Midnight Certification Type: Admission for Inpatient Services Order for Inpatient Services The services are ordered in accordance with Medicare regulations or non- Medicare payer requirements, as applicable. In the case of services not specified as inpatient-only, they are appropriately provided as inpatient services in accordance with the 2-midnight benchmark. Estimated LOS (days): 2 days is the estimated time the patient will need to remain in the hospital, assuming treatment plan goals are met and no additional complications. Post-Hospital Plan: Home Kayla Alcantara Jan 22, 2018 21:36
[2018-01-22 22:48] VITALS: BP 141/73; PULSE 60; RESP 18; TEMP 97.8; O2SAT 95
[2018-01-22] MEDS ORDERED: RESP: ALBUTEROL 2.5 MG/IPRATROPIUM 0.5 MG NEB (PRN) NEB (23:00)
[2018-01-23] VITALS (9 sets, daily range): BP systolic 95–148; BP diastolic 55–68; PULSE 54–80; RESP 16–19; TEMP 97.4–97.9; O2SAT 93–100
[2018-01-23 02:27] LABS: AUTOMATED NEUTROPHIL # 5.1 TH/MM3 (1.8-7.7); BASOPHIL # 0.1 TH/MM3 (0-0.2); BASOPHIL % 1.1 % (0.0-2.0); EOSINOPHIL # 0.4 TH/MM3 (0-0.4); HEMATOCRIT 42.6 % (39.0-51.0); HEMOGLOBIN 14.3 GM/DL (13.0-17.0); LYMPH % 32.1 % (9.0-44.0); MEAN CELL VOLUME 93.5 FL (80.0-100.0); MEAN CORPUSCULAR HEMOGLOBIN 31.3 PG (27.0-34.0); MEAN CORPUSCULAR HGB CONC 33.5 % (32.0-36.0); MONO % 8.3 % (0.0-8.0); MONOCYTE # 0.8 TH/MM3 (0-0.9); NEUT % 54.5 % (16.0-70.0); PLATELET COUNT 263 TH/MM3 (150-450); RED BLOOD COUNT 4.56 MIL/MM3 (4.50-5.90); RED CELL DISTRIBUTION WIDTH 13.1 % (11.6-17.2); WHITE BLOOD COUNT 9.3 TH/MM3 (4.0-11.0)
[2018-01-23 02:47] LABS: BICARBONATE 30.6 MEQ/L (21.0-32.0); CALCIUM 9.1 MG/DL (8.5-10.1); CREATININE 0.58 MG/DL (0.60-1.30)
[2018-01-23] MEDS ORDERED: ASPIRIN EC 81 MG TABEC PO SCH (09:00)
[2018-01-23] MEDS: PRAVASTATIN SOD 80 MG TAB PO SCH (09:09)
[2018-01-23] MEDS: amLODIPine BESYLATE 5 MG TAB PO SCH (09:09)
[2018-01-23] MEDS: SODIUM CHLORIDE 0.9% FLUSH 10 ML FLUSH IV FLUSH SCH ×2 (09:09→21:00)
[2018-01-23] MEDS: GABAPENTIN 300 MG CAP PO SCH ×2 (09:09→21:00)
--- NOTE | 2018-01-23 10:51 | HHI.PR ---
Subjective Remarks Follow-up right lower extremity ischemia January 23, 2018-patient seen and examined, currently n.p.o. Complains of right lower extremity numbness however denies any pain. Objective Vitals Vital Signs Date Time Temp Pulse Resp B/P (MAP) Pulse Ox O2 Delivery O2 Flow Rate FiO2 01/23/18 08:08 97.6 67 19 148/67 (94) 93 01/23/18 04:58 97.5 60 18 136/63 (87) 93 01/23/18 01:00 97.8 80 18 121/65 (83) 94 01/22/18 23:11 Room Air 01/22/18 22:48 97.8 60 18 141/73 (95) 95 01/22/18 22:00 98.1 76 28 128/60 (82) 94 Room Air 01/22/18 21:30 73 25 133/69 (90) 93 Room Air 01/22/18 21:00 76 27 132/78 (96) 98 Nasal Cannula 2 01/22/18 20:30 76 26 125/67 (86) 98 Nasal Cannula 2 01/22/18 20:00 97.8 71 19 134/71 (92) 97 Nasal Cannula 2 01/22/18 19:45 56 20 146/74 (98) 98 Nasal Cannula 2 01/22/18 19:30 70 28 135/73 (93) 97 Nasal Cannula 2 01/22/18 19:15 72 20 123/69 (87) 97 Nasal Cannula 2 01/22/18 19:00 97.6 71 19 122/61 (81) 95 Nasal Cannula 3 01/22/18 15:53 99 Room Air 01/22/18 15:07 79 18 119/60 (79) 96 Room Air 01/22/18 13:59 98.2 81 16 110/60 (77) 99 I/O 01/22/18 01/22/18 01/22/18 01/23/18 01/23/18 01/23/18 07:00 15:00 23:00 07:00 15:00 23:00 Intake Total 1050 ml Output Total 1000 ml Balance 50 ml Intake Oral 0 ml IV Total 250 ml Other 800 ml Output Urine Total 1000 ml Estimated Blood Loss 0 ml Result Diagram: 01/23/1821201/23/18212 Objective Remarks GENERAL: NAD SKIN: Warm and dry. HEAD: Normocephalic. EYES: No scleral icterus. No injection or drainage. NECK: Supple, trachea midline. No JVD or lymphadenopathy. CARDIOVASCULAR: Regular rate and rhythm without murmurs, gallops, or rubs. RESPIRATORY: Breath sounds equal bilaterally. No accessory muscle use. GASTROINTESTINAL: Abdomen soft, non-tender, nondistended. MUSCULOSKELETAL: No cyanosis, or edema. RLE-no palpable pulses and cold to touch BACK: Nontender without obvious deformity. No CVA tenderness. A/P Problem List: (1) Ischemia of right lower extremity ICD Code: I99.8 - Other disorder of circulatory system Status: Acute Assessment and Plan 77-year-old man with Ischemia of right lower extremity due to chronic PVD Currently n.p.o. pending thrombectomy today by vascular surgery Continue with heparin drip Tobacco cessation strongly advised HTN, hyperlipidemia chronic, stable -Resume home medications, monitor vitals COPD, chronic, not in exacerbation -Duo nebs prn Tobacco abuse -Encouraged to quit DVT prophylaxis: Heparin Alexy Maldonado MD Jan 23, 2018 10:51
[2018-01-23] MEDS ORDERED: PHENYLEPH/NS 1000 MCG/10 ML SYR IV ONE (12:00)
[2018-01-23] MEDS ORDERED: DEXAMETHASONE SOD PHOS 4 MG/ML VIAL IV ONE (12:00)
[2018-01-23] MEDS ORDERED: GLYCOPYRROLATE 1 MG/5 ML SYRINGE IV PUSH ONE (12:00)
[2018-01-23] MEDS ORDERED: LIDOCAINE HCL 1% PF 5 ML SYRINGE OTHER ONE (12:00)
[2018-01-23] MEDS ORDERED: ePHEDrine/NS 25 MG/5 ML SYRINGE IV ONE (12:00)
[2018-01-23] MEDS ORDERED: PROPOFOL 200 MG/20 ML AMP IV ONE (12:00)
[2018-01-23] MEDS ORDERED: ONDANSETRON HCL 4 MG/2 ML VIAL IV ONE (12:00)
[2018-01-23] MEDS ORDERED: NEOSTIGMINE 5 MG/5 ML SYRINGE IV PUSH ONE (12:00)
[2018-01-23] MEDS ORDERED: ROCURONIUM INJ 50 MG/5 ML SYRINGE IV PUSH ONE (12:00)
[2018-01-23] MEDS: SODIUM CHLOR 0.9% 1000 ML INJ 1,000 ML IV SCH (12:49)
[2018-01-23] MEDS ORDERED: fentaNYL CITRATE 250 MCG/5 ML AMP ONE (13:22)
[2018-01-23] MEDS ORDERED: ceFAZolin INJ 1,000 MG VIAL ONE (13:38)
[2018-01-23] MEDS ORDERED: HEPARIN SODIUM - IV 10,000 UNITS/10 ML VIAL ONE (13:38)
[2018-01-23] MEDS ORDERED: HEPARIN SODIUM - SQ 10,000 UNITS/ML VIAL ONE (13:38)
[2018-01-23] MEDS ORDERED: BUPIVACAINE/EPINEPHRINE 0.5% 50 ML VIAL ONE (13:38)
[2018-01-23] MEDS ORDERED: PROTAMINE SULFATE 50 MG/5 ML VIAL ONE (13:39)
[2018-01-23] MEDS ORDERED: METOPROLOL TARTRATE 25 MG TAB PO PRN (14:30)
[2018-01-23] MEDS ORDERED: LACTATED RINGER'S 1000 ML IV PRN (14:30)
[2018-01-23] MEDS ORDERED: SODIUM CHLORID 0.9% 500 ML IV PRN (14:30)
[2018-01-23] MEDS ORDERED: CHLORHEXIDINE GLUCONATE 2 % 1 PACK (2 CLOTHS) TOPICAL PRN (14:30)
[2018-01-23] MEDS ORDERED: POVIDONE IODINE 5% (ANTISEPSIS KIT) 4 APPLICATIONS EACH NARE PRN (14:30)
--- NOTE | 2018-01-23 14:36 | RADRPT ---
EXAM DATE: 01/22/2018 7:19 PM EDT AGE/SEX: 77 years / Male INDICATIONS: Patient with history of peripheral vascular disease in need of bilateral lower extremit y angiogram. CLINICAL DATA: This is the patient's subsequent encounter. Patient reports that signs and symptoms h ave been present for 1 week and indicates a pain score of 0/10. MEDICAL/SURGICAL HISTORY: Hypertension. Chronic obstructive pulmonary disease. Hypercholester olemia. Neuropathy.AAA.CAD.Tobacco abuse. Aortobifemoral bypass.Cardiac stent.Thrombolysis COMPARISON: TLI, CTA AORTA W/ RUNOFF, 09/07/2017. . FLUORO TIME (min): 22.4 IMAGE SERIES: 20 ACCESS SITE: Bilateral femoral artery SEDATION TIME (min): 60 CONTRAST (cc): 90cc Visipaque (iodixanol) MEDICATION(S): 7mg midazolam (Versed) IV 300mcg fentanyl (Sublimaze) IV DEVICE(S): Left common femoral artery Angio-Seal 6F . . PROCEDURE : 1. Ultrasound-guided puncture of the access site. 2. Conscious sedation with continuous EKG and Oximetry monitoring. 3. Angiography of the pelvis 4. Angiography of the right lower extremity CLINICAL HISTORY: The patient is a 77-year-old who is undergone previous endograft repair of abdomina l aortic aneurysm. This was complicated by occlusion of the right limb of the graft. The patient unde rwent TPA infusion of the graft 10/23/2017 and open thrombectomy of the right leg. The patient present s again with approximately 3-4 week history of right lower extremity pain. The risks, benefits and alternatives to the procedure were explained and verbal and written consent w as obtained. The site was prepped in sterile fashion. Full sterile technique was used, including ca p, mask, sterile gloves and gown and a large sterile sheet. Hand hygiene and 2% chlorhexidine and/or betadine/alcohol prep was utilized per protocol for cutaneous antisepsis. Sterile gel and sterile p robe cover were utilized for ultrasound guidance. The skin and subcutaneous tissues were infiltrated with local anesthetic solution. With ultrasound and fluoroscopic guidance the left common femoral artery was punctured and a vascular sheath was placed. The 0.035 Omni Flush catheter and angle Glidewire were advanced into the abdominal aorta. Angiography of the distal aorta and pelvis was performed. There was an attempt to evaluate the runoff from the r ight leg from the left puncture however there was insufficient contrast for evaluation. The right com mon femoral was accessed under direct ultrasound visualization using the micropuncture technique. Run off to the right leg was performed via a 4 [place] dilator. Results: There is complete occlusion of the right limb of the aortic endograft. The left limb of the graft is widely patent. There are fairly well-developed collaterals which are predominantly via the l eft hypogastric circulation to the right hypogastric. These fill the right external iliac and common femoral. The portion of the right external iliac and common femoral visualized are widely patent. The right common femoral, profunda femoral and proximal superficial femoral are widely patent. The dista l superficial femoral, popliteal and tibioperoneal trunk are occluded. The examination demonstrates c omplete occlusion of the superficial femoral at the level of the abductor hiatus. There are fairly we ll-developed collaterals which arise from the point of occlusion of the superficial femoral. These co llaterals extend down and eventually reconstitute a sizable posterior tibial artery which is only vis ualized on the delayed postcontrast images. This reconstitutes at the level the upper calf. The thrombus within the right limb of the graft was probed with a 0.035 angle Glidewire. This was uche te solid. A glide wire would not traverse the area of occlusion as such, this was felt to be old, org anized clot and it was not felt the patient was an appropriate candidate for thrombolytics. The puncture site was on the right closed with manual pressure and hemostasis was obtained. The punct ure site on the left was closed with Angio-Seal closure device The patient tolerated the procedure we ll and there were no complications. Conscious sedation was performed with the prescribed dosages and duration as above in the presence of an independent trained radiology nurse to assist in the monitoring of the patient. EKG and oximetry remained stable throughout the procedure. CONCLUSION: 1. Complete occlusion of the right limb of the patient's aortic endograft. 2. There are cross pelvic collaterals which reconstitute via the profunda. The external iliac, commo n femoral and proximal SFA are patent. 3. Distally, the SFA occludes at the adductor hiatus there are well-developed collaterals which woul d suggest this is subacute. The distal SFA, popliteal and tibial peroneal trunk remain occluded. Ther e is eventual collateral reconstitution of a sizable posterior tibial at the level of the mid calf. Electronically signed by: Moiz Reed MD 01/23/2018 2:35 PM EDT
[2018-01-23] MEDS ORDERED: VANCOMYCIN HCL 1000 MG VIAL ONE (15:23)
--- NOTE | 2018-01-23 17:00 | EKG ---
Date Performed: 01/22/2018 Time Performed: 20:50:49 PTAGE: 77 years EKG: SINUS BRADYCARDIA RIGHT BUNDLE BRANCH BLOCK LEFT ANTERIOR FASCICULAR BLOCK SEPTAL MYOCARDIA L INFARCTION , OF INDETERMINATE AGE ABNORMAL ECG PREVIOUS TRACING : 06/06/2017 06.53 Since the previous tracing, no significant change noted DOCTOR: Geoffrey River Interpretating Date/Time 01/23/2018 16:57:24
[2018-01-23] MEDS ORDERED: MIDAZOLAM HCL 2 MG/2 ML VIAL ONE (18:10)
[2018-01-23] MEDS ORDERED: POTASSIUM CHLOR 20 MEQ/100 ML x 1 BAG IV PRN (18:30)
[2018-01-23] MEDS ORDERED: MORPHINE SULFATE 4 MG/ML INJ IV PUSH PRN (18:30)
[2018-01-23] MEDS ORDERED: POTASSIUM CHLOR 20 MEQ 100 ML x 2 BAGS IV PRN (18:30)
[2018-01-23] MEDS ORDERED: POTASSIUM PHOSPHATE 21 MMOL/NS 250 ML IV PRN ×2 (18:30)
[2018-01-23] MEDS ORDERED: DO NOT ADM ANY ANTICOAGULANT DRUGS PRN (18:30)
[2018-01-23] MEDS ORDERED: LACTATED RINGER'S 1000 ML INJ IV SCH (18:30)
[2018-01-23] MEDS ORDERED: MAGNESIUM SULFATE 1 GM/100 ML IV PRN (18:30)
[2018-01-23] MEDS ORDERED: SODIUM CHLORIDE 0.9% FLUSH 10 ML FLUSH IV FLUSH PRN (18:30)
[2018-01-23] MEDS ORDERED: CLOPIDOGREL 75 MG TAB PO ONE (18:30)
[2018-01-23] MEDS ORDERED: ONDANSETRON HCL 4 MG/2 ML VIAL IV PUSH PRN (18:30)
--- NOTE | 2018-01-23 18:55 | MP ---
cc: Aureliano Barker MD, James T MD DATE OF OPERATION: 01/22/2018 PREOPERATIVE DIAGNOSIS: Limb threatening right lower extremity ischemia. POSTOPERATIVE DIAGNOSIS: Limb threatening right lower extremity ischemia. OPERATIVE PROCEDURES: 1. Right femoral popliteal tibial thromboembolectomy, 2. Femoral-femoral bypass, 3. Intraoperative arteriograms. SURGEON: Aureliano Barker MD POWER PLANT OPERATOR: JULIO CÉSAR Murray ANESTHESIA: General endotracheal/local. DESCRIPTION OF PROCEDURE: With the patient in the supine position, general endotracheal anesthesia was induced. The lower abdomen, both groins and thighs were prepped with Betadine and draped in a sterile fashion. One gram of Ancef and 1 gram of vancomycin were administered intravenously. Following a protocol timeout, the skin and subcutaneous tissue overlying and surrounding the proposed left and right common femoral access sites was preemptively infiltrated with 0.5% Marcaine with epinephrine. An oblique 3 cm incision was performed within the right inguinal skin crease and dissection continued sharply through the underlying subcutaneous tissue. The common, superficial and profunda femoral arteries were circumferentially mobilized and encircled with double looped vessel loops. The common femoral lumen was 18-gauge butterfly needle. Diluted contrast was injected in conjunction with digital C-arm fluoroscopic imaging, stepping technique. This reconfirmed occlusion of the distal right external iliac, patency of the common and profunda femoral arteries and proximal superficial femoral artery. The superficial femoral occluded proximal to the adductor level. The popliteal was occluded throughout its entire course. The posterior tibial artery faintly visualized from the mid calf level to the ankle level, the perigeniculate collaterals. The left common, superficial and profunda femoral arteries were accessed in an identical fashion and encircled with double looped vessel loops. A subcutaneous tunnel was dissected across the suprapubic region connecting the 2 common femoral exposure incisions. The patient was systemically heparinized with 5000 units. The right common, superficial and profunda femoral arteries were occluded with traction upon double looped vessel loops. A vertical arteriotomy was performed along the anterior surface of the distal common femoral and extended onto the proximal SFA across a calcified, eccentric plaque along the posterior wall of the bifurcation producing approximately 50-60% stenosis of the SFA origin. Also, chronic-appearing thrombus along the posterolateral wall of the common femoral and profunda origin was removed with a Bunn elevator and copiously irrigated free with heparinized saline. A #3 Samuel catheter was advanced antegrade along the SFA into the popliteal and tibial arteries, a full 55 mm delivery. Repeated balloon inflations retrieved chronic appearing thrombus from the infrainguinal arterial systems. Contrast angiographic imaging confirmed gradual removal with reestablishment of perfusion via the SFA and popliteal arteries. Additional 1000 units of heparin was administered in conjunction, but generous flushing of the SFA/popliteal with heparinized saline. The left common, superficial and profunda femoral arteries were occluded with double looped vessel loops. The right common, superficial and profunda femoral arteries were occluded with a double looped vessel loop. A 6 mm reinforced Propaten PTFE graft was spatulated on end and anastomosed end-to-side to the arteriotomy with continuous 6-0 Prolene. The graft was then tunneled through the subcutaneous suprapubic tunnel and the left common, superficial and profunda femoral arteries occluded, vertical 2 cm arteriotomy performed along the anteromedial surface of the common femoral. The graft was trimmed to appropriate length, spatulated on end and anastomosed end to side to the common femoral arteriotomy with continuous 6-0 Prolene. Prior to placement of the final sutures, the [place] arterial lumens and graft lumen were appropriately flushed, final sutures placed and tied and pulsatile flow reestablished into the [place] left femoral runoff as well as via the graft into the right femoral system. Significant augmentation of Doppler signal was confirmed within the right SFA and profunda femoral arteries. Heparin was reversed with 25 mg of protamine. Strict hemostasis was achieved. Both groin incisions were closed with 3 separate deep layers of continuous 4-0 Monocryl and skin reapproximated with continuous subcuticular 5-0 Monocryl. Steri-Strips and sterile dressings were applied. At the conclusion of the procedure, the right foot perfusion appeared dramatically improved with brisk capillary refill and biphasic Doppler flow within the posterior tibial. The patient returned to recovery in stable condition, having tolerated the procedure well. MD ANA Serna/ , 06:25 PM , 06:53 PM
[2018-01-23] MEDS: ENOXAPARIN SODIUM 30 MG/0.3 ML SYRINGE SQ SCH (19:00)
[2018-01-23] MEDS: ASPIRIN EC 81 MG TABEC PO SCH (19:15)
[2018-01-24] VITALS (32 sets, daily range): BP systolic 90–115; BP diastolic 46–71; PULSE 52–106; RESP 16–20; TEMP 97.5–99; O2SAT 94–100
[2018-01-24] MEDS ORDERED: SODIUM CHLOR 0.9% 1000 ML INJ 1,000 ML IV ONE (05:00)
[2018-01-24] MEDS: ENOXAPARIN SODIUM 30 MG/0.3 ML SYRINGE SQ SCH ×2 (06:48→20:19)
[2018-01-24] MEDS: amLODIPine BESYLATE 5 MG TAB PO SCH (09:00)
[2018-01-24] MEDS: GABAPENTIN 300 MG CAP PO SCH ×2 (09:05→20:19)
[2018-01-24] MEDS: CLOPIDOGREL 75 MG TAB PO SCH (09:06)
[2018-01-24] MEDS: ASPIRIN EC 81 MG TABEC PO SCH (09:07)
[2018-01-24] MEDS: PRAVASTATIN SOD 80 MG TAB PO SCH (09:10)
[2018-01-24] MEDS: SODIUM CHLORIDE 0.9% FLUSH 10 ML FLUSH IV FLUSH SCH ×2 (09:11→20:20)
[2018-01-24] MEDS ORDERED: INFLUENZA VIRUS VACCINE (QUADRIVALENT) 0.5 ML SYR IM ONE (10:00)
[2018-01-24] MEDS ORDERED: PNEUMOCOCCAL POLYVALENT INJ 25 MCG/0.5 ML SYR IM ONE (10:00)
--- NOTE | 2018-01-24 12:03 | HHI.PR ---
Subjective Remarks Patient reports he is sore on the right leg. Otherwise no new complaints. Objective Vitals Vital Signs Date Time Temp Pulse Resp B/P (MAP) Pulse Ox O2 Delivery O2 Flow Rate FiO2 01/24/18 08:46 97.5 83 18 114/59 (77) 100 01/24/18 08:46 100 Nasal Cannula 1.00 01/24/18 06:46 100/52 (68) 01/24/18 06:00 53 01/24/18 06:00 104/53 (70) 01/24/18 05:00 82 01/24/18 05:00 90/48 (62) 01/24/18 04:30 99/51 (67) 01/24/18 04:00 54 01/24/18 03:00 97.9 65 16 93/46 (62) 100 01/24/18 03:00 100 Nasal Cannula 2.00 01/24/18 03:00 52 01/24/18 02:00 52 01/24/18 01:00 52 01/24/18 00:00 52 01/23/18 23:00 80 01/23/18 23:00 97.6 65 16 95/55 (68) 100 01/23/18 23:00 100 Nasal Cannula 2.00 01/23/18 22:00 54 01/23/18 21:30 100 Nasal Cannula 2.00 01/23/18 21:00 54 01/23/18 20:30 97.4 70 16 97/55 (69) 98 01/23/18 20:30 98 Nasal Cannula 2.00 01/23/18 20:30 70 01/23/18 20:00 98.2 79 14 101/56 (71) 100 Nasal Cannula 3 01/23/18 19:15 80 14 102/56 (71) 99 Nasal Cannula 3 01/23/18 19:00 72 14 111/59 (76) 94 Nasal Cannula 3 01/23/18 18:45 70 15 99/57 (71) 96 Nasal Cannula 3 01/23/18 18:30 77 15 106/58 (74) 94 Nasal Cannula 3 01/23/18 18:15 79 13 104/57 (73) 96 Simple Mask 8 01/23/18 18:00 97.7 75 14 105/54 (71) 96 Simple Mask 8 I/O 6/01/23/18 01/23/18 01/24/18 01/24/18 01/24/18 07:00 15:00 23:00 07:00 15:00 23:00 Intake Total 2000 ml 2271 ml 999 ml Output Total 450 ml 880 ml 395 ml Balance 1550 ml 1391 ml 604 ml Intake Oral 30 ml 240 ml IV Total 2000 ml 241 ml 759 ml Other 2000 ml Output Urine Total 450 ml 130 ml 395 ml Estimated Blood Loss 250 ml Other 500 ml # Bowel Movements 0 Result Diagram: 01/23/18 0213 01/23/18 0213 Objective Remarks GENERAL: This is a well-nourished, well-developed patient, in no apparent distress. CARDIOVASCULAR: Normal rate and regular rhythm without murmurs, gallops, or rubs. RESPIRATORY: Good respiratory efforts. Breath sounds equal and clear to auscultation bilaterally. GASTROINTESTINAL: Abdomen soft, non-tender, non-distended. Normal active bowel sounds MUSCULOSKELETAL: Angio site on the right groin appear okay. Bilateral lower extremity warm and pink but I am unable to palpate pulse. NEURO: Alert & Oriented x4 to person, place, time, situation. Moves all ext x4 PSYCH: Appropriate mood and affect. A/P Problem List: (1) Ischemia of right lower extremity ICD Code: I99.8 - Other disorder of circulatory system Status: Acute Assessment and Plan 77-year-old man with Acute on chronic ischemia of right lower extremity due to PVD. Patient underwent right femoral popliteal tibial thromboembolectomy, Femoral-femoral bypass, Intraoperative arteriograms with Dr. Barker. -Currently on Plavix and aspirin. Dr. Barker recommend discharging him on NOAC and aspirin. HTN, hyperlipidemia chronic, stable -Resume home medications, monitor vitals COPD, chronic, not in exacerbation -Duo nebs prn Tobacco abuse -Patient strongly advised to quit DVT prophylaxis: Lovenox Discharge Planning Monitor overnight with plan to discharge tomorrow. Shanda Harvey MD Jan 24, 2018 12:03
[2018-01-24] MEDS: ACETAMINOPHEN/HYDROcodone 325 MG/5 MG TAB PO PRN (20:20)
[2018-01-25] VITALS (12 sets, daily range): BP systolic 113–114; BP diastolic 64–75; PULSE 52–96; RESP 18; TEMP 97.9–98; O2SAT 95–96
[2018-01-25] MEDS: ACETAMINOPHEN/HYDROcodone 325 MG/5 MG TAB PO PRN ×2 (00:51→05:54)
[2018-01-25] MEDS: ENOXAPARIN SODIUM 30 MG/0.3 ML SYRINGE SQ SCH (05:54)
[2018-01-25 06:48] LABS: HEMATOCRIT 37.3 % (39.0-51.0); HEMOGLOBIN 12.3 GM/DL (13.0-17.0); MEAN CELL VOLUME 94.2 FL (80.0-100.0); MEAN CORPUSCULAR HEMOGLOBIN 31.1 PG (27.0-34.0); MEAN PLATELET VOLUME 7.4 FL (7.0-11.0); PLATELET COUNT 210 TH/MM3 (150-450); RED BLOOD COUNT 3.97 MIL/MM3 (4.50-5.90); RED CELL DISTRIBUTION WIDTH 13.4 % (11.6-17.2); WHITE BLOOD COUNT 8.5 TH/MM3 (4.0-11.0)
[2018-01-25] MEDS ORDERED: APIX5TAB PO (08:38)
[2018-01-25] MEDS ORDERED: HYDR-3516 PO (08:38)
[2018-01-25] MEDS ORDERED: ECASA81 PO (08:38)
--- NOTE | 2018-01-25 08:41 | HHI.FF ---
Face to Face Verification Diagnosis: (1) Ischemia of right lower extremity (2) Hypertension (3) Debility Physical Therapy Order: Evaluate and Treat, Improve ambulation, Strength and gait training Home Health Nursing Order: Medical education Signs/symptoms of disease process Medication education-adverse effect I have seen patient Isiah Mora on 01/25/18. My clinical findings support the need for the requested home health care services because: Deconditioned w/ increased weakness I certify that my clinical findings support that this patient is homebound because: Unsteady gait/balance Shanda Harvey MD Jan 25, 2018 08:41
[2018-01-25] MEDS: ASPIRIN EC 81 MG TABEC PO SCH (09:33)
[2018-01-25] MEDS: GABAPENTIN 300 MG CAP PO SCH (09:33)
[2018-01-25] MEDS: PRAVASTATIN SOD 80 MG TAB PO SCH (09:34)
[2018-01-25] MEDS: amLODIPine BESYLATE 5 MG TAB PO SCH (09:34)
[2018-01-25] MEDS: SODIUM CHLORIDE 0.9% FLUSH 10 ML FLUSH IV FLUSH SCH (09:34)
[2018-01-25] MEDS: CLOPIDOGREL 75 MG TAB PO SCH (09:34)
--- NOTE | 2018-01-25 09:47 | HHI.DS ---
Discharge Summary Admission Date Jan 22, 2018 at 19:44 Discharge Date: Jan 25, 2018 Admitting Diagnosis (1) Ischemia of right lower extremity ICD Code: I99.8 - Other disorder of circulatory system Status: Acute (2) Hypertension ICD Code: I10 - Essential (primary) hypertension (3) Debility ICD Code: R53.81 - Other malaise Procedures right femoral popliteal tibial thromboembolectomy, Femoral-femoral bypass, Intraoperative arteriograms Brief History - From Admission 77 y/o male with a history of CAD, HTN, HLD, PVD and COPD presented to the ED with complaints of right lower extremity ischemia that was diagnosed by Dr. Barker outpatient. He underwent a diagnostic angiogram by Dr. Reed and was unable to be stented today and it was felt that the patient would not be a good candidate for thrombolysis. Patient will undergo an open thrombectomy planed for tomorrow by Dr. Barker. Patient is resting and in no distress, denies any pain to the right extremity, no chest pain or sob noted. CBC/BMP: 01/25/18 0521 01/23/18 0213 Significant Findings Laboratory Tests Test 01/22/18 15:04 01/22/18 20:10 01/23/18 02:13 01/23/18 09:25 Neutrophils (%) (Auto) 70.2 % (16.0-70.0) Red Blood Count 4.49 MIL/MM3 (4.50-5.90) Mean Platelet Volume 6.7 FL (7.0-11.0) Monocytes (%) (Auto) 8.3 % (0.0-8.0) Activated Partial Thromboplast Time 65.9 SEC (24.3-30.1) 79.7 SEC (24.3-30.1) Blood Urea Nitrogen 5 MG/DL (7-18) Creatinine 0.58 MG/DL (0.60-1.30) Anion Gap 4 MEQ/L (5-15) Test 01/25/18 05:21 Red Blood Count 3.97 MIL/MM3 (4.50-5.90) Hemoglobin 12.3 GM/DL (13.0-17.0) Hematocrit 37.3 % (39.0-51.0) Imaging Last Impressions Lower Extremity Angiography 01/22/18 0000 Signed Impressions: CONCLUSION: 1. Complete occlusion of the right limb of the patient's aortic endograft. 2. There are cross pelvic collaterals which reconstitute via the profunda. The external iliac, common femoral and proximal SFA are patent. 3. Distally, the SFA occludes at the adductor hiatus there are well-developed collaterals which would suggest this is subacute. The distal SFA, popliteal and tibial peroneal trunk remain occluded. There is eventual collateral reconstitu tion of a sizable posterior tibial at the level of the mid calf. PE at Discharge GENERAL: This is a well-nourished, well-developed patient, in no apparent distress. CARDIOVASCULAR: Normal rate and regular rhythm without murmurs, gallops, or rubs. RESPIRATORY: Good respiratory efforts. Breath sounds equal and clear to auscultation bilaterally. GASTROINTESTINAL: Abdomen soft, non-tender, non-distended. Normal active bowel sounds MUSCULOSKELETAL: Angio site on the right groin appear okay. Bilateral lower extremity warm and pink but I am unable to palpate pulse. NEURO: Alert & Oriented x4 to person, place, time, situation. Moves all ext x4 PSYCH: Appropriate mood and affect. Pt update on day of discharge Patient reports he is feeling okay today. Pain is controlled. Hospital Course 77-year-old admitted and treated for the following: Acute on chronic ischemia of right lower extremity due to PVD. Patient underwent right femoral popliteal tibial thromboembolectomy, Femoral-femoral bypass, Intraoperative arteriograms with Dr. Barker. -Patient was on Plavix and aspirin. Discussed the case with Dr. Barker who recommends discharging him on NOAC and aspirin. Patient was discharged on Eliquis. HTN, hyperlipidemia chronic, stable -Resume home medications COPD, chronic, not in exacerbation -Duo nebs prn Tobacco abuse -Patient strongly advised to quit Pt Condition on Discharge: Good Discharge Disposition: Disch w/ Home Health Serv Discharge Time: <= 30 minutes Discharge Instructions DIET: Follow Instructions for: Heart Healthy Diet Activities you can perform: Regular-No Restrictions Follow up Referrals: Vascular Surgery - 1 Week with Aureliano Barker MD New Medications: Apixaban (Eliquis) 5 Mg Tab 5 MG PO BID for Blood Clot Prevention, #60 TAB [address] (Aspirin DR) 81 Mg Tabdr 81 MG PO DAILY, #30 TAB Hydrocodone/Acetaminophen (Hydrocodone-Acetamin 5-325 mg) 5 Mg-325 Mg Tablet 1 TAB PO Q4H PRN for PAIN GREATER THAN 5, #15 TAB Continued Medications: Acetaminophen (Tylenol) 325 Mg Tab 650 MG PO Q6H PRN for PAIN SCALE 5 TO 10, TAB 0 Refills Amlodipine (Amlodipine) 5 Mg Tab 5 MG PO BID for Blood Pressure Management, #30 TAB 0 Refills B-Complex Vitamins (B Complex) 1 Cap 1 CAP PO DAILY for Nutritional Supplement, #30 CAP 0 Refills Gabapentin (Gabapentin) 600 Mg Tab 600 MG PO BID, #60 TAB 0 Refills Lovastatin (Lovastatin) 40 Mg Tab 80 MG PO DAILY for Cholesterol Management, #30 TAB 0 Refills Shanda Harvey MD Jan 25, 2018 09:47
== END 2018-01-25 12:07 | disposition home health service (06) | DRG 254 ==
LOC: HOR 13:49 → HPAC 19:44 → N05A 22:44 → HPAC 01-23 19:14 → HCIS 01-23 20:25
PROVIDERS: ADMIT Family Medicine; ATTEND Family Medicine
PROC: 04CM0ZZ Extirpation of Matter from Right Popliteal Artery, Open Approach (ICD-10-PCS; 2018-01-23)
PROC: 04CR0ZZ Extirpation of Matter from Right Posterior Tibial Artery, Open Approach (ICD-10-PCS; 2018-01-23)
PROC: 04CK0ZZ Extirpation of Matter from Right Femoral Artery, Open Approach (ICD-10-PCS; 2018-01-23)
PROC: B41F1ZZ Fluoroscopy of Right Lower Extremity Arteries using Low Osmolar Contrast (ICD-10-PCS; 2018-01-23)
PROC: 041K0JH Bypass Right Femoral Artery to Right Femoral Artery with Synthetic Substitute, Open Approach (ICD-10-PCS; principal; 2018-01-23 14:36)
DX: I74.3 Embolism and thrombosis of arteries of the lower extremities (principal); J44.9 Chronic obstructive pulmonary disease, unspecified; I10 Essential (primary) hypertension; I25.10 Atherosclerotic heart disease of native coronary artery without angina pectoris; I99.8 Other disorder of circulatory system; E78.5 Hyperlipidemia, unspecified; F17.210 Nicotine dependence, cigarettes, uncomplicated
CPT/HCPCS: 36140; 36200; 36415; 75716; 76937; 80048; 85025; 85027; 85384; 85610; 85730; 86850; 86900; 86901; 93005; 96365; 99152; 99153; C1757; C1760; C1768; C1769; C1887; C1894; G0269; J0690; J1100; J1644; J1650; J2250; J2270; J2370; J2405; J2710; J2720; J3010; J3370; J7030; J7120; Q9967

== ENCOUNTER 2018-07-18 09:51 | Inpatient (IN) ==
[2018-07-18 10:51] LABS: Baso # (Auto) 0.1 th/mm3 (0.0-0.2); Baso % (Auto) 0.8 % (0.0-2.0); Eos # (Auto) 0.1 th/mm3 (0.0-0.4); Eos % (Auto) 1.8 % (0.0-4.0); Hematocrit 43.9 % (39.0-51.0); Lymph # (Auto) 0.6 th/mm3 (1.0-4.8); Lymph % (Auto) 8.3 % (9.0-44.0); Mean Corpuscular HGB Conc 34.2 % (32.0-36.0); Mean Corpuscular Hemoglobin 33.6 pg (27.0-34.0); Mean Corpuscular Volume 98.3 fL (80.0-100.0); Mean Platelet Volume 7.1 fL (7.0-11.0); Mono # (Auto) 0.6 th/mm3 (0.0-0.9); Mono % (Auto) 8.3 % (0.0-8.0); Neut # (Auto) 5.7 th/mm3 (1.8-7.7); Neut % (Auto) 80.8 % (16.0-70.0); Platelet Count 204 th/mm3 (150-450); Red Blood Count 4.46 mil/mm3 (4.50-5.90); Red Cell Distribution Width 13.7 % (11.6-17.2)
[2018-07-18 11:00] LABS: Activated Partial Thrombo Time 33.8 sec (23.4-31.7); INR 1.1 Ratio; Prothrombin Time 11.5 sec (9.8-11.6)
[2018-07-18 11:07] LABS: Anion Gap 7 meq/L (5-15); Blood Urea Nitrogen 9 mg/dL (7-18); Calcium 10.1 mg/dL (8.5-10.1); Carbon Dioxide 28.1 meq/L (21.0-32.0); Chloride 104 meq/L (98-107); Glomerular Filtration Rate Greater Than 89 mL/min (>89); Glucose,Random 97 mg/dL (74-106); Potassium 3.9 meq/L (3.5-5.1); Sodium 139 meq/L (136-145)
[2018-07-18] MEDS ORDERED: Sod Chloride 0.9% Inj 1,000 ML IV.SIG SCH (11:15)
[2018-07-18] MEDS ORDERED: fentaNYL Citrate Inj 250 MCG/5 ML Ampul ONE (11:25)
[2018-07-18] MEDS ORDERED: Heparin Drip 25,000 UNIT/250 ML BAG IV.CONT ONE (11:33)
[2018-07-18] MEDS ORDERED: Morphine Inj 4 MG/ML Vial ONE (13:41)
--- NOTE | 2018-07-18 14:00 | P.HPIM ---
History of Present Illness Primary Care Physician: Irma Renee MD Chief Complaint: peripheral vascular disease History of Present Illness: patient is a 78 y/o male with history of PVD- s/p fem-fem bypass, hypertension and dyslipidemia who presented with occluded fem- fem bypass graft and underwent TPA administration. at the time of my evaluation he was in no acute distress but uncomfortable with the pain in the right lower extremity. otherwise no other complaints including chest pain, sob or dizziness or nausea. Review of Systems Review of Systems: all other systems reviewed are negative [facility] Medical History Medical History Femoral-popliteal bypass graft occlusion, right (Acute) High cholesterol (Acute) Hypertension (Acute) PVD (peripheral vascular disease) (Acute) Social History Social History Substance History: No History of Abuse Second Hand Smoke Exposure: Yes Smoking Status: Current every day smoker Tobacco Type: Cigarettes How Often Do You Have a Drink Containing Alcohol: 4 or more times a week Recent Travel in [facility] within the Last 8 Weeks: No Recent Out of Country Travel within the Last 8 Weeks: No Medications and Allergies Allergies Allergy/AdvReac Type Severity Reaction Status Date / Time No Known Allergies Allergy Unverified 07/18/18 10:56 Home Medications Medication Instructions Recorded Confirmed Type amlodipine 10 mg PO DAILY 07/18/18 07/18/18 History gabapentin 600 mg PO BID 07/18/18 07/18/18 History lovastatin 20 mg PO QPM 07/18/18 07/18/18 History Active Medications: Active Medications Sodium Chloride (Ns Inj) 1,000 mls @ 100 mls/hr IV.SIG .Q10H JETT Stop: 07/18/18 21:14 Physical Exam Vital signs: Last Vital Signs Temp 99.0 F 07/18/18 10:57 Pulse 69 07/18/18 10:57 Resp 18 07/18/18 10:57 BP 131/78 07/18/18 10:57 Pulse Ox 92 L 07/18/18 10:57 Intake & Output 07/16/18 07/17/18 07/18/18 07/19/18 06:59 06:59 06:59 06:59 Weight 74.843 kg Constitutional no acute distress Routine HEENT Exam Eye: Present PERRL Routine Neck Exam Present supple Routine Respiratory Exam Present CTA bilaterally Routine Cardiovascular Exam Present RRR Routine Abdominal Exam Present soft Routine Extremities Exam Comments: no pedal edema. Routine Neurological Exam Present alert and oriented X3 Results Labs CBC & Chem 7: 18 10:35 1218 10:35 [place]ilango VTE Risk Assessment Chilango VTE Risk Assessment: Moderate/High Risk (score >= 2) Souravrini Risk Assessment Model: Point Value = 1 Point Value = 2 Point Value = 3 Point Value = 5 Age 41-60 Minor surgery BMI > 25 kg/m2 Swollen legs Varicose veins or History of unexplained or recurrent spontaneous Oral contraceptives or hormone replacement Sepsis (< 1 month) Serious lung disease, including pneumonia (< 1 month) Abnormal pulmonary function Acute myocardial infarction Congestive heart failure (< 1 month) History of inflammatory bowel disease Medical patient at bed rest Age 61-74 Arthroscopic surgery Major open surgery (> 45 min) Laparoscopic surgery (> 45 min) Malignancy Confined to bed (> 72 hours) Immobilizing plaster cast Central venous access Age >= 75 History of VTE Family history of VTE Factor V Leiden Prothrombin 12561A Lupus anticoagulant Anticardiolipin antibodies Elevated serum homocysteine Heparin-induced thrombocytopenia Other congenital or acquired thrombophilia Stroke (< 1 month) Elective arthroplasty Hip, pelvis, or leg fracture Acute spinal cord injury (< 1 month) Prophylaxis Regimen: Total Risk Factor Score Risk Level Prophylaxis Regimen 0-1 Low Early ambulation 2 Moderate Order ONE of the following: *Sequential Compression Device (SCD) *Heparin 5000 units SQ BID 3-4 Higher Order ONE of the following medications: *Heparin 5000 units SQ TID *Enoxaparin/Lovenox 40 mg SQ daily (WT < 150 kg, CrCl > 30 mL/min) *Enoxaparin/Lovenox 30 mg SQ daily (WT < 150 kg, CrCl > 10-29 mL/min) *Enoxaparin/Lovenox 30 mg SQ BID (WT < 150 kg, CrCl > 30 mL/min) AND/OR *Sequential Compression Device (SCD) 5 or more Highest Order ONE of the following medications: *Heparin 5000 units SQ TID (Preferred with Epidurals) *Enoxaparin/Lovenox 40 mg SQ daily (WT < 150 kg, CrCl > 30 mL/min) *Enoxaparin/Lovenox 30 mg SQ daily (WT < 150 kg, CrCl > 10-29 mL/min) *Enoxaparin/Lovenox 30 mg SQ BID (WT < 150 kg, CrCl > 30 mL/min) AND *Sequential Compression Device (SCD) Assessment and Plan Plan A/P - PVD - presented with occluded fem-fem bypass graft- s/p TPA administration monitor in ICU- continue with pain control- management per IR - hypertension/ dyslipidemia; resume home meds. -DVT prophylaxis; s/p TPA administration Discussed Condition With: the patient and RN at the bedside. Discharge Planning: when stable and cleared by IR. H&P: Quality VTE Deep Vein Thrombosis/Pulmonary Embolism Present on Admission: No
[2018-07-18] MEDS ORDERED: Cathflo Activase Inj 10 MG in Sodium Chlor 0.9% Inj 500 ML I-CATHETER PRN (14:22)
[2018-07-18] MEDS ORDERED: Heparin/NS PF Inj 500 ML I-CATHETER PRN (14:22)
[2018-07-18] MEDS ORDERED: Heparin Drip 25,000 UNIT/250 ML BAG IV.CONT SCH (14:30)
--- NOTE | 2018-07-18 15:24 | IR ---
EXAM DATE: 07/18/2018 3:18 PM EST AGE/SEX: 78 years / Male INDICATIONS: Patient presents with right lower extremity chronic pain with history peripheral vascul ar disease in need of a right lower extremity angiogram with possible interventions. CLINICAL DATA: This is the patient's initial encounter. Patient reports that signs and symptoms have been present for 4 - 6 months and indicates a pain score of 6/10. MEDICAL/SURGICAL HISTORY: Hypertension. Chronic obstructive pulmonary disease. Hypercholester olemia. Neuropathy, AAA, CAD. . Aortic Bi-femoral bypass, Cardiac stent, Thrombolysis. COMPARISON: [facility] [place], ANGIOGRAM, LOWER EXTREM BILAT, 01/22/2018. . FLUORO TIME (min): 3:24 IMAGE SERIES: 5 ACCESS SITE: Left femoral artery SEDATION TIME (min): 45 CONTRAST (cc): 45 Visipaque (iodixanol) MEDICATION(S): 4 mg midazolam (Versed) IV ; 200 mcg fentanyl (Sublimaze) IV ; ; ; DEVICE(S): Right artery EV3 Infusion catheter 4 Fr 100cm x 20cm Fem-Fem Bypass ; ; ; ; ; ; . . PROCEDURE : 1. Ultrasound-guided puncture of the access site. 2. Conscious sedation with continuous EKG and Oximetry monitoring. 3. Angiography of the left to right femoral-femoral bypass graft 4. Angiography of the left lower extremity via left superficial femoral artery approach 5. Initiation of thrombolytic therapy. The risks, benefits and alternatives to the procedure were exp lained and verbal and written consent was obtained. The site was prepped in sterile fashion. Full s terile technique was used, including cap, mask, sterile gloves and gown and a large sterile sheet. H and hygiene and 2% chlorhexidine and/or betadine/alcohol prep was utilized per protocol for cutaneous antisepsis. Sterile gel and sterile probe cover were utilized for ultrasound guidance. The skin an d subcutaneous tissues were infiltrated with local anesthetic solution. With ultrasound and fluoroscopic guidance the selected artery was punctured and a vascular sheath was placed. A 6 [place] sheath was placed and through this a guidewire was advanced through the femoral f emoral bypass into the tuscarora superficial femoral artery. Runoff of the right lower extremity via the superficial femoral artery demonstrates continued unchanged chronic occlusion of the distal right martini perficial femoral artery with reconstitution of the anterior tibial artery branch distally. Following this the prescribed infusion catheter was placed with the tip in the tuscarora superficial femoral kai ry and proximally at the level of the sheath. TPA therapy was begun and the patient is to be allowed to infuse overnight with repeat evaluation the following day Conscious sedation was performed with the prescribed dosages and duration as above in the presence of an independent trained radiology nurse to assist in the monitoring of the patient. EKG and oximetry remained stable throughout the procedure. CONCLUSION: 1. Uncomplicated initiation of thrombolytic therapy for occluded femoral-femoral bypass graft Electronically signed by: Shen Dent MD 07/18/2018 3:23 PM EST
[2018-07-18] MEDS: Morphine Inj 4 MG/ML Vial IV.PUSH PRN ×6 (16:15→23:12)
[2018-07-18 18:14] LABS: Baso % (Auto) 0.5 % (0.0-2.0); Eos # (Auto) 0.1 th/mm3 (0.0-0.4); Eos % (Auto) 1.7 % (0.0-4.0); Hematocrit 36.2 % (39.0-51.0); Hemoglobin 12.6 gm/dL (13.0-17.0); Lymph % (Auto) 11.9 % (9.0-44.0); Mean Corpuscular HGB Conc 34.9 % (32.0-36.0); Mean Corpuscular Hemoglobin 34.1 pg (27.0-34.0); Mean Corpuscular Volume 97.8 fL (80.0-100.0); Mean Platelet Volume 7.4 fL (7.0-11.0); Mono # (Auto) 0.6 th/mm3 (0.0-0.9); Mono % (Auto) 6.8 % (0.0-8.0); Neut # (Auto) 6.9 th/mm3 (1.8-7.7); Neut % (Auto) 79.1 % (16.0-70.0); Platelet Count 174 th/mm3 (150-450); Red Cell Distribution Width 13.4 % (11.6-17.2); White Blood Count 8.7 th/mm3 (4.0-11.0)
[2018-07-18 18:46] LABS: Activated Partial Thrombo Time 52.5 sec (23.4-31.7)
[2018-07-18 23:52] LABS: Hematocrit 36.2 % (39.0-51.0); Hemoglobin 12.3 gm/dL (13.0-17.0); Mean Corpuscular Hemoglobin 33.1 pg (27.0-34.0); Mean Corpuscular Volume 97.2 fL (80.0-100.0); Mean Platelet Volume 7.4 fL (7.0-11.0); Platelet Count 158 th/mm3 (150-450); Red Blood Count 3.72 mil/mm3 (4.50-5.90); Red Cell Distribution Width 13.4 % (11.6-17.2); White Blood Count 6.7 th/mm3 (4.0-11.0)
[2018-07-19 00:06] LABS: Activated Partial Thrombo Time 36.4 sec (23.4-31.7)
[2018-07-19] MEDS: Morphine Inj 4 MG/ML Vial IV.PUSH PRN ×6 (00:30→13:12)
[2018-07-19 07:10] LABS: Hemoglobin 13.4 gm/dL (13.0-17.0); Mean Corpuscular HGB Conc 33.5 % (32.0-36.0); Mean Corpuscular Hemoglobin 33.3 pg (27.0-34.0); Mean Corpuscular Volume 99.3 fL (80.0-100.0); Platelet Count 162 th/mm3 (150-450); Red Blood Count 4.03 mil/mm3 (4.50-5.90); Red Cell Distribution Width 13.4 % (11.6-17.2); White Blood Count 6.8 th/mm3 (4.0-11.0)
[2018-07-19 07:20] LABS: Activated Partial Thrombo Time 33.7 sec (23.4-31.7)
[2018-07-19] MEDS: amLODIPine 10 MG Tablet PO SCH (08:48)
[2018-07-19] MEDS ORDERED: fentaNYL Citrate Inj 250 MCG/5 ML Ampul ONE (09:40)
--- NOTE | 2018-07-19 10:57 | P.RAD ---
Post Procedure Progress Note - Pre Procedure Diagnosis (1) Peripheral vascular disease - Post Procedure Diagnosis (1) Peripheral vascular disease - Procedure Information Procedure Date: 07/19/18 Supervising Radiologist: Shen Dent MD Anesthesia: Conscious Sedation - Plan of Activity Patient to Unit: Nursing Unit Patient Condition: Good See PACS Report for procedural detail/treatment. Vascular - Arterial Procedure right Leg Procedure: Angiogram, Angioplasty - Additional Information Findings: complete lysis with angioplasty of distal anastamosis
--- NOTE | 2018-07-19 12:19 | P.PNIM ---
Subjective Interval history: f/u; PVD in no acute distress. pain to the right lower extremity is better. d/w the RN and no acute issues over night. Physical Exam Vital signs: Last Vital Signs Temp 99.1 F 07/19/18 08:03 Pulse 53 L 07/19/18 09:03 Resp 17 07/19/18 09:03 BP 125/58 L 07/19/18 09:03 Pulse Ox 98 07/19/18 09:03 Intake & Output 07/17/18 07/18/18 07/19/18 07/20/18 06:59 06:59 06:59 06:59 Intake Total 100 / 100 Output Total 1425 / 1425 Balance -1425 / -1425 100 / 100 Weight 65.4 kg Constitutional no acute distress Routine Respiratory Exam Present CTA bilaterally Routine Cardiovascular Exam Present RRR Routine Abdominal Exam Present soft Routine Extremities Exam Comments: no pedal edema. Routine Neurological Exam Present alert and oriented X3 Urinary Catheter Management Indwelling Urethral Catheter: Cath placed during this visit: no Results Labs CBC & Chem 7: 07/19/18 06:00 07/18/18 10:35 Imaging Imaging: Impressions Lower Extremity Angiography 07/18/18 00:00 CONCLUSION: 1. Uncomplicated initiation of thrombolytic therapy for occluded femoral- femoral bypass graft Assessment and Plan Plan A/P - PVD - presented with occluded fem-fem bypass graft- s/p angioplasty and TPA administration continue with pain control- management per IR - hypertension/ dyslipidemia; resumed home meds. -DVT prophylaxis; s/p TPA administration Discharge Planning: when stable and cleared by IR. Progress Note: Quality VTE Deep Vein Thrombosis/Pulmonary Embolism Present on Admission: No
[2018-07-19] MEDS: Gabapentin 300 MG Capsule PO SCH ×2 (13:25→18:57)
--- NOTE | 2018-07-19 14:16 | IR ---
EXAM DATE: 07/19/2018 11:21 AM EST AGE/SEX: 78 years / Male INDICATIONS: Patient back for follow up with TPA right leg for clot. CLINICAL DATA: This is the patient's subsequent encounter. Patient reports that signs and symptoms h ave been present for 1 month and indicates a pain score of 5/10. MEDICAL/SURGICAL HISTORY: Hypertension. Chronic obstructive pulmonary disease. Aneurysm, abdo trevor. hypercholesterolemia, neuropathy, PAD Abdominal aortic aneurysm repair. Coronary artery mary nt. aortic by fem bypass COMPARISON: No prior exams available for comparison. FLUORO TIME (min): 5.04 IMAGE SERIES: 17 ACCESS SITE: Left SEDATION TIME (min): 45 CONTRAST (cc): 100 cc Visipaque (iodixanol) MEDICATION(S): 1 mg midazolam (Versed) IV 100 mcg fentanyl (Sublimaze) IV DEVICE(S): Right artery RT PROFUNDA Right artery PEANUT ROASTER balloon 6 X 4 PROFESSIONAL NURSING ASSISTANT . . PROCEDURE: 1. Conscious sedation with continuous EKG and Oximetry monitoring. 2. Follow-up thrombolysis 3. Angioplasty of the distal anastomosis The risks, benefits and alternatives to the procedure were explained and verbal and written consent w as obtained. The site was prepped in sterile fashion. Full sterile technique was used, including ca p, mask, sterile gloves and gown and a large sterile sheet. Hand hygiene and 2% chlorhexidine and/or betadine/alcohol prep was utilized per protocol for cutaneous antisepsis. The skin and subcutaneous tissues were infiltrated with local anesthetic solution. Following overnight infusion the patient returned to the angiography suite for evaluation. There is c omplete thrombolysis of the graft with good antegrade flow. No inflow stenosis is seen. At the level of the distal anastomosis is a focal area of stenosis which successfully treated with the prescribed balloon. Distal runoff is unchanged with occlusion of the distal superficial femoral arteries with co llateral surrounding the knee reconstitution and single vessel runoff via the posterior tibial artery . Conscious sedation was performed with the prescribed dosages and duration as above in the presence of an independent trained radiology nurse to assist in the monitoring of the patient. EKG and oximetry remained stable throughout the procedure. CONCLUSION: 1. Uncomplicated thrombolysis of left to right femoral-femoral bypass graft Electronically signed by: Shen Dent MD Board Certified Radiologist 07/19/2018 2:15 PM EST
[2018-07-19] MEDS ORDERED: Heparin Drip 25,000 UNIT/250 ML BAG IV.CONT PRN (15:22)
[2018-07-19 18:03] LABS: Activated Partial Thrombo Time 33.1 sec (23.4-31.7); INR 1.2 Ratio
[2018-07-19] MEDS: Heparin/NS PF Inj 500 ML I-CATHETER SCH ×2 (21:19→21:23)
[2018-07-19] MEDS ORDERED: Heparin 10,000 UNITS/10 ML Vial (for IV use) IV.PUSH PRN ×2 (21:25)
[2018-07-19] MEDS ORDERED: Heparin/NS PF Inj 500 ML I-CATHETER SCH (22:00)
[2018-07-20] MEDS: Morphine Sulfate Inj 2 MG/ML Vial IV.PUSH PRN ×3 (02:30→20:53)
[2018-07-20] MEDS: Heparin Drip 25,000 UNIT/250 ML BAG IV.CONT PRN (05:16)
[2018-07-20] MEDS: amLODIPine 10 MG Tablet PO SCH (08:44)
[2018-07-20] MEDS: Gabapentin 300 MG Capsule PO SCH ×3 (08:44→17:23)
[2018-07-20] MEDS: Morphine Inj 4 MG/ML Vial IV.PUSH PRN ×3 (08:48→17:47)
--- NOTE | 2018-07-20 14:07 | P.PNIM ---
Subjective Interval history: Patient is in no acute distress. No specific complaints from the patient this afternoon. Physical Exam Vital signs: Vital Signs 07/19/18 13:50 07/19/18 13:59 07/19/18 14:00 Temperature Pulse Rate 75 80 73 Respiratory Rate 19 21 18 Blood Pressure 126/69 Pulse Oximetry 96 95 96 07/19/18 14:10 07/19/18 14:14 07/19/18 14:20 Temperature Pulse Rate 72 69 85 Respiratory Rate 18 15 23 Blood Pressure 139/61 Pulse Oximetry 92 L 95 95 07/19/18 14:29 07/19/18 14:30 07/19/18 14:40 Temperature Pulse Rate 77 72 54 L Respiratory Rate 18 20 17 Blood Pressure 130/55 L Pulse Oximetry 93 L 94 L 93 L 07/19/18 14:44 07/19/18 14:50 07/19/18 14:59 Temperature Pulse Rate 61 57 L 54 L Respiratory Rate 22 19 18 Blood Pressure 127/58 L 132/61 Pulse Oximetry 94 L 94 L 93 L 07/19/18 15:00 07/19/18 15:10 07/19/18 15:14 Temperature Pulse Rate 57 L 70 56 L Respiratory Rate 17 16 17 Blood Pressure 122/59 L Pulse Oximetry 95 91 L 94 L 07/19/18 15:20 07/19/18 15:29 07/19/18 15:30 Temperature Pulse Rate 54 L 61 56 L Respiratory Rate 17 20 18 Blood Pressure 115/69 Pulse Oximetry 98 98 98 07/19/18 15:40 07/19/18 15:44 07/19/18 15:50 Temperature Pulse Rate 58 L 62 60 Respiratory Rate 13 14 17 Blood Pressure 127/59 L Pulse Oximetry 95 94 L 95 07/19/18 15:59 07/19/18 16:00 07/19/18 16:10 Temperature Pulse Rate 57 L 56 L 63 Respiratory Rate 15 15 15 Blood Pressure 108/62 Pulse Oximetry 94 L 94 L 95 07/19/18 16:14 07/19/18 16:20 07/19/18 16:29 Temperature Pulse Rate 57 L 68 63 Respiratory Rate 18 14 14 Blood Pressure 126/59 L 134/60 Pulse Oximetry 95 96 96 07/19/18 16:30 07/19/18 16:40 07/19/18 16:44 Temperature Pulse Rate 53 L 56 L 72 Respiratory Rate 19 17 16 Blood Pressure 145/71 H Pulse Oximetry 96 96 97 07/19/18 16:50 07/19/18 16:59 07/19/18 17:00 Temperature Pulse Rate 57 L 79 72 Respiratory Rate 19 15 20 Blood Pressure 152/61 H Pulse Oximetry 96 100 99 07/19/18 17:10 07/19/18 17:14 07/19/18 17:20 Temperature Pulse Rate 55 L 56 L 54 L Respiratory Rate 16 18 16 Blood Pressure 137/65 Pulse Oximetry 96 98 96 07/19/18 17:29 07/19/18 17:30 07/19/18 17:40 Temperature Pulse Rate 55 L 61 56 L Respiratory Rate 16 13 18 Blood Pressure 136/66 Pulse Oximetry 97 97 96 07/19/18 17:44 07/19/18 17:50 07/19/18 17:59 Temperature Pulse Rate 55 L 71 56 L Respiratory Rate 18 19 17 Blood Pressure 137/61 123/65 Pulse Oximetry 96 96 96 07/19/18 18:00 07/19/18 18:14 07/19/18 18:29 Temperature Pulse Rate 57 L 79 57 L Respiratory Rate 18 17 17 Blood Pressure 159/64 H 142/65 H Pulse Oximetry 96 97 98 07/19/18 18:44 07/19/18 18:59 07/19/18 19:00 Temperature Pulse Rate 57 L 95 H 96 H Respiratory Rate 21 28 H 23 Blood Pressure 146/65 H 138/76 Pulse Oximetry 97 97 94 L 07/19/18 19:14 07/19/18 19:29 07/19/18 19:44 Temperature Pulse Rate 100 H 92 H 88 Respiratory Rate 28 H 16 17 Blood Pressure 145/75 H 134/60 118/56 L Pulse Oximetry 92 L 96 96 07/19/18 19:59 07/19/18 20:00 07/19/18 20:14 Temperature 98.3 F Pulse Rate 84 85 82 Respiratory Rate 16 18 17 Blood Pressure 117/58 L 93/51 L 110/58 L Pulse Oximetry 96 96 95 07/19/18 20:29 07/19/18 20:44 07/19/18 20:59 Temperature Pulse Rate 80 78 79 Respiratory Rate 15 16 17 Blood Pressure 118/56 L 109/59 L 113/55 L Pulse Oximetry 97 92 L 93 L 07/19/18 21:00 07/19/18 21:14 07/19/18 21:29 Temperature Pulse Rate 76 70 73 Respiratory Rate 18 17 18 Blood Pressure 97/54 L 115/59 L Pulse Oximetry 93 L 92 L 93 L 07/19/18 21:44 07/19/18 21:58 07/19/18 21:59 Temperature Pulse Rate 58 L 56 L 58 L Respiratory Rate 17 17 19 Blood Pressure 94/50 L 93/51 L Pulse Oximetry 93 L 95 95 07/19/18 22:00 07/19/18 22:05 07/19/18 23:00 Temperature Pulse Rate 65 57 L 52 L Respiratory Rate 19 18 17 Blood Pressure 93/51 L Pulse Oximetry 94 L 96 93 L 07/19/18 23:02 07/20/18 00:00 07/20/18 00:02 Temperature 97.1 F L Pulse Rate 52 L 53 L 54 L Respiratory Rate 17 22 24 Blood Pressure 100/53 L 99/51 L 99/51 L Pulse Oximetry 93 L 96 95 07/20/18 01:00 07/20/18 01:02 07/20/18 02:00 Temperature Pulse Rate 55 L 54 L 74 Respiratory Rate 17 17 20 Blood Pressure 91/50 L Pulse Oximetry 93 L 93 L 95 07/20/18 02:02 07/20/18 03:00 07/20/18 03:02 Temperature Pulse Rate 74 80 74 Respiratory Rate 19 23 24 Blood Pressure 114/55 L 119/59 L Pulse Oximetry 95 95 94 L 07/20/18 03:48 07/20/18 04:00 07/20/18 04:02 Temperature 98.1 F Pulse Rate 51 L 52 L Respiratory Rate 20 17 16 Blood Pressure 96/51 L Pulse Oximetry 93 L 93 L 07/20/18 05:00 07/20/18 05:02 07/20/18 06:00 Temperature Pulse Rate 70 81 71 Respiratory Rate 21 27 H 18 Blood Pressure 121/58 L Pulse Oximetry 95 95 95 07/20/18 06:02 07/20/18 07:00 07/20/18 07:02 Temperature Pulse Rate 54 L 76 54 L Respiratory Rate 18 23 18 Blood Pressure 112/55 L 114/56 L Pulse Oximetry 95 94 L 95 07/20/18 08:00 07/20/18 08:02 07/20/18 09:00 Temperature 98.9 F Pulse Rate 72 74 53 L Respiratory Rate 20 21 19 Blood Pressure 131/65 Pulse Oximetry 95 96 93 L 07/20/18 09:02 07/20/18 10:00 07/20/18 10:02 Temperature Pulse Rate 53 L 99 H 101 H Respiratory Rate 19 30 H 35 H Blood Pressure 111/55 L 116/56 L Pulse Oximetry 93 L 94 L 93 L 07/20/18 11:00 07/20/18 11:02 07/20/18 12:00 Temperature Pulse Rate 82 81 82 Respiratory Rate 20 20 22 Blood Pressure 104/51 L Pulse Oximetry 90 L 90 L 92 L 07/20/18 12:02 07/20/18 13:00 07/20/18 13:02 Temperature 98.9 F Pulse Rate 82 81 80 Respiratory Rate 22 21 20 Blood Pressure 118/58 L 110/55 L Pulse Oximetry 92 L 93 L 94 L Intake & Output 07/19/18 07/20/18 07/20/18 18:59 06:59 18:59 Intake Total 100 / 100 250 / 250 Output Total 425 / 425 650 / 650 Balance -325 / -325 -400 / -400 Weight 67.3 kg Intake: IV 100 / 100 Cathflo Activase Inj 10 MG In 100 / 100 NS Inj 500 ML @ Per Protocol 50 mls/hr I-CATHETER TITRATE PRN Rx#:[id number] Oral 250 / 250 Output: Urine Amount (Catheter) 425 / 425 650 / 650 Indwelling Urethral Catheter 425 / 425 650 / 650 Narrative: General patient in no acute distress HEENT extraocular movements are intact, clear oropharyngeal mucosa, no JVD Cardiovascular S1-S2 audible, RRR, no murmurs rubs or gallops Respiratory clear to auscultation bilaterally Abdomen soft, nontender, nondistended, normal bowel sounds Extremities no pulses palpable to the right foot. Left foot pulses intact. Neuro patient moves all 4 extremities, sensation is intact bilaterally. - Urinary Catheter Management Indwelling Urethral Catheter Cath placed during this visit: no Results - Labs CBC & Chem 7: 07/19/18 06:00 07/18/18 10:35 Laboratory Results - last 24 hr 07/19/18 07/20/18 07/20/18 17:00 03:07 05:07 PT 12.0 H INR 1.2 APTT 33.1 H 104.1 H* D 50.6 H D 07/20/18 11:10 PT INR APTT 55.1 H - Imaging Impressions Miscellaneous Special Procedure 07/19/18 00:00 CONCLUSION: 1. Uncomplicated thrombolysis of left to right femoral-femoral bypass graft Assessment and Plan - Plan This patient is a 78-year-old male with a diagnosis of peripheral vascular disease status post fem-fem bypass, hypertension, and dyslipidemia. The patient presented with occluded femorofemoral bypass graft and underwent TPA administration. 1. Peripheral vascular disease with fem-fem bypass status post TPA administration Continue current pain medication. Interventional radiology following the patient, will follow up with the recommendations. Discussed case with IR, vascular surgery will be consulted to evaluate the patient. Coumadin will be held. Continue heparin gtt, pssible vascular surgical intervention. 2. Hypertension/this lipidemia Continue current medications. DVT prophylaxis, continue Heparin gtt.
--- NOTE | 2018-07-20 18:11 | P.PNVS ---
Subjective Subjective/Hospital Course: 78-year-old gentleman with occlusion of femorofemoral bypass and consequently compromised flow to the right leg. Patient underwent successful angioplasty lysis and is currently on heparin in the ICU Both feet are warm and patient has some pain in the right leg which is clearly reperfusion effect I discussed this with Dr. Barker for this is his established patient and if any surgical intervention is indicated Dr. Barker or myself will be available Thanks J Objective Vital Signs / I&O: Vital Signs 07/19/18 18:14 07/19/18 18:29 07/19/18 18:44 Temperature Pulse Rate 79 57 L 57 L Respiratory Rate 17 17 21 Blood Pressure 159/64 H 142/65 H 146/65 H Pulse Oximetry 97 98 97 07/19/18 18:59 07/19/18 19:00 07/19/18 19:14 Temperature Pulse Rate 95 H 96 H 100 H Respiratory Rate 28 H 23 28 H Blood Pressure 138/76 145/75 H Pulse Oximetry 97 94 L 92 L 07/19/18 19:29 07/19/18 19:44 07/19/18 19:59 Temperature Pulse Rate 92 H 88 84 Respiratory Rate 16 17 16 Blood Pressure 134/60 118/56 L 117/58 L Pulse Oximetry 96 96 96 07/19/18 20:00 07/19/18 20:14 07/19/18 20:29 Temperature 98.3 F Pulse Rate 85 82 80 Respiratory Rate 18 17 15 Blood Pressure 93/51 L 110/58 L 118/56 L Pulse Oximetry 96 95 97 07/19/18 20:44 07/19/18 20:59 07/19/18 21:00 Temperature Pulse Rate 78 79 76 Respiratory Rate 16 17 18 Blood Pressure 109/59 L 113/55 L Pulse Oximetry 92 L 93 L 93 L 07/19/18 21:14 07/19/18 21:29 07/19/18 21:44 Temperature Pulse Rate 70 73 58 L Respiratory Rate 17 18 17 Blood Pressure 97/54 L 115/59 L 94/50 L Pulse Oximetry 92 L 93 L 93 L 07/19/18 21:58 07/19/18 21:59 07/19/18 22:00 Temperature Pulse Rate 56 L 58 L 65 Respiratory Rate 17 19 19 Blood Pressure 93/51 L Pulse Oximetry 95 95 94 L 07/19/18 22:05 07/19/18 23:00 07/19/18 23:02 Temperature Pulse Rate 57 L 52 L 52 L Respiratory Rate 18 17 17 Blood Pressure 93/51 L 100/53 L Pulse Oximetry 96 93 L 93 L 07/20/18 00:00 07/20/18 00:02 07/20/18 01:00 Temperature 97.1 F L Pulse Rate 53 L 54 L 55 L Respiratory Rate 22 24 17 Blood Pressure 99/51 L 99/51 L Pulse Oximetry 96 95 93 L 07/20/18 01:02 07/20/18 02:00 07/20/18 02:02 Temperature Pulse Rate 54 L 74 74 Respiratory Rate 17 20 19 Blood Pressure 91/50 L 114/55 L Pulse Oximetry 93 L 95 95 07/20/18 03:00 07/20/18 03:02 07/20/18 03:48 Temperature Pulse Rate 80 74 Respiratory Rate 23 24 20 Blood Pressure 119/59 L Pulse Oximetry 95 94 L 07/20/18 04:00 07/20/18 04:02 07/20/18 05:00 Temperature 98.1 F Pulse Rate 51 L 52 L 70 Respiratory Rate 17 16 21 Blood Pressure 96/51 L Pulse Oximetry 93 L 93 L 95 07/20/18 05:02 07/20/18 06:00 07/20/18 06:02 Temperature Pulse Rate 81 71 54 L Respiratory Rate 27 H 18 18 Blood Pressure 121/58 L 112/55 L Pulse Oximetry 95 95 95 07/20/18 07:00 07/20/18 07:02 07/20/18 08:00 Temperature 98.9 F Pulse Rate 76 54 L 72 Respiratory Rate 23 18 20 Blood Pressure 114/56 L Pulse Oximetry 94 L 95 95 07/20/18 08:02 07/20/18 09:00 07/20/18 09:02 Temperature Pulse Rate 74 53 L 53 L Respiratory Rate 21 19 19 Blood Pressure 131/65 111/55 L Pulse Oximetry 96 93 L 93 L 07/20/18 10:00 07/20/18 10:02 07/20/18 11:00 Temperature Pulse Rate 99 H 101 H 82 Respiratory Rate 30 H 35 H 20 Blood Pressure 116/56 L Pulse Oximetry 94 L 93 L 90 L 07/20/18 11:02 07/20/18 12:00 07/20/18 12:02 Temperature 98.9 F Pulse Rate 81 82 82 Respiratory Rate 20 22 22 Blood Pressure 104/51 L 118/58 L Pulse Oximetry 90 L 92 L 92 L 07/20/18 13:00 07/20/18 13:02 07/20/18 14:00 Temperature Pulse Rate 81 80 88 Respiratory Rate 21 20 25 H Blood Pressure 110/55 L Pulse Oximetry 93 L 94 L 92 L 07/20/18 14:02 07/20/18 15:00 07/20/18 15:02 Temperature Pulse Rate 89 85 85 Respiratory Rate 26 H 23 24 Blood Pressure 108/54 L 108/53 L Pulse Oximetry 92 L 92 L 93 L 07/20/18 16:00 07/20/18 16:02 07/20/18 17:00 Temperature 99.0 F Pulse Rate 81 81 79 Respiratory Rate 23 22 26 H Blood Pressure 110/55 L Pulse Oximetry 92 L 92 L 92 L 07/20/18 17:02 Temperature Pulse Rate 86 Respiratory Rate 31 H Blood Pressure 125/59 L Pulse Oximetry 93 L Intake & Output 07/19/18 07/20/18 07/20/18 18:59 06:59 18:59 Intake Total 100 / 100 250 / 250 Output Total 425 / 425 650 / 650 Balance -325 / -325 -400 / -400 Weight 67.3 kg Intake: IV 100 / 100 Cathflo Activase Inj 10 MG In 100 / 100 NS Inj 500 ML @ Per Protocol 50 mls/hr I-CATHETER TITRATE PRN Rx#:[id number] Oral 250 / 250 Output: Urine Amount (Catheter) 425 / 425 650 / 650 Indwelling Urethral Catheter 425 / 425 650 / 650 Laboratory Results - last 24 hr 07/20/18 07/20/18 07/20/18 03:07 05:07 11:10 APTT 104.1 H* D 50.6 H D 55.1 H 07/20/18 16:53 APTT 50.9 H Impressions Miscellaneous Special Procedure 07/19/18 00:00 CONCLUSION: 1. Uncomplicated thrombolysis of left to right femoral-femoral bypass graft
[2018-07-21 05:46] LABS: Hemoglobin 12.1 gm/dL (13.0-17.0)
[2018-07-21 06:00] LABS: Activated Partial Thrombo Time 56.4 sec (23.4-31.7); INR 1.1 Ratio; Prothrombin Time 11.1 sec (9.8-11.6)
[2018-07-21 06:15] LABS: Anion Gap 4 meq/L (5-15); Blood Urea Nitrogen 11 mg/dL (7-18); Calcium 8.4 mg/dL (8.5-10.1); Carbon Dioxide 28.8 meq/L (21.0-32.0); Chloride 105 meq/L (98-107); Glomerular Filtration Rate Greater Than 89 mL/min (>89); Glucose,Random 112 mg/dL (74-106); Magnesium 1.8 mg/dL (1.5-2.5); Potassium 3.7 meq/L (3.5-5.1); Sodium 138 meq/L (136-145)
[2018-07-21] MEDS: Gabapentin 300 MG Capsule PO SCH ×3 (08:19→17:19)
[2018-07-21] MEDS: amLODIPine 10 MG Tablet PO SCH (08:19)
[2018-07-21] MEDS: Morphine Inj 4 MG/ML Vial IV.PUSH PRN ×4 (08:43→17:19)
[2018-07-21] MEDS: Heparin Drip 25,000 UNIT/250 ML BAG IV.CONT PRN (08:48)
--- NOTE | 2018-07-21 09:11 | P.PNVS ---
Subjective Subjective/Hospital Course: 78-year-old gentleman with occlusion of femorofemoral bypass and consequently flow to the right leg. Patient underwent successful angioplasty lysis and is currently on heparin in the ICU Both feet are warm and patient has some pain in the right leg which is clearly reperfusion effect I discussed this with Dr. Barker for this is his established patient and if any surgical intervention is indicated Dr. Barker or myself will be available Thanks J 07/21/2018 Patient is post thrombolysis of the femorofemoral graft Both feet are warm Patient underwent excellent procedure by Dr. Barker however limiting factors to the supply of the legs severe peripheral vascular changes which will be progressive and the graft may clot off again due to difficulties and outflow scissoring the natural progression of patient's vascular disease. Nothing to add to care at this time Objective Vital Signs / I&O: Vital Signs 07/20/18 10:00 07/20/18 10:02 07/20/18 11:00 Temperature Pulse Rate 99 H 101 H 82 Respiratory Rate 30 H 35 H 20 Blood Pressure 116/56 L Pulse Oximetry 94 L 93 L 90 L 07/20/18 11:02 07/20/18 12:00 07/20/18 12:02 Temperature 98.9 F Pulse Rate 81 82 82 Respiratory Rate 20 22 22 Blood Pressure 104/51 L 118/58 L Pulse Oximetry 90 L 92 L 92 L 07/20/18 13:00 07/20/18 13:02 07/20/18 14:00 Temperature Pulse Rate 81 80 88 Respiratory Rate 21 20 25 H Blood Pressure 110/55 L Pulse Oximetry 93 L 94 L 92 L 07/20/18 14:02 07/20/18 15:00 07/20/18 15:02 Temperature Pulse Rate 89 85 85 Respiratory Rate 26 H 23 24 Blood Pressure 108/54 L 108/53 L Pulse Oximetry 92 L 92 L 93 L 07/20/18 16:00 07/20/18 16:02 07/20/18 17:00 Temperature 99.0 F Pulse Rate 81 81 79 Respiratory Rate 23 22 26 H Blood Pressure 110/55 L Pulse Oximetry 92 L 92 L 92 L 07/20/18 17:02 07/20/18 18:00 07/20/18 18:02 Temperature Pulse Rate 86 84 80 Respiratory Rate 31 H 27 H 24 Blood Pressure 125/59 L 116/57 L Pulse Oximetry 93 L 90 L 91 L 07/20/18 19:00 07/20/18 19:02 07/20/18 20:00 Temperature 99.1 F Pulse Rate 88 90 83 Respiratory Rate 27 H 19 23 Blood Pressure 120/61 Pulse Oximetry 93 L 94 L 91 L 07/20/18 20:02 07/20/18 20:52 07/20/18 21:00 Temperature Pulse Rate 80 74 Respiratory Rate 23 28 H 24 Blood Pressure 107/85 Pulse Oximetry 91 L 90 L 07/20/18 21:02 07/20/18 21:03 07/20/18 22:00 Temperature Pulse Rate 75 69 Respiratory Rate 24 24 21 Blood Pressure 110/57 L Pulse Oximetry 91 L 90 L 07/20/18 22:02 07/20/18 22:30 07/20/18 23:00 Temperature Pulse Rate 68 67 Respiratory Rate 21 24 Blood Pressure 106/53 L Pulse Oximetry 90 L 95 97 07/20/18 23:02 07/21/18 00:00 07/21/18 00:02 Temperature 98.7 F Pulse Rate 67 76 66 Respiratory Rate 22 19 21 Blood Pressure 100/54 L 106/55 L Pulse Oximetry 97 96 96 07/21/18 01:00 07/21/18 01:02 07/21/18 02:00 Temperature Pulse Rate 55 L 58 L 60 Respiratory Rate 16 15 16 Blood Pressure 96/59 L Pulse Oximetry 96 96 96 07/21/18 02:02 07/21/18 03:00 07/21/18 03:02 Temperature Pulse Rate 61 57 L 58 L Respiratory Rate 16 19 18 Blood Pressure 101/50 L 101/52 L Pulse Oximetry 96 97 96 07/21/18 04:00 07/21/18 04:02 07/21/18 05:00 Temperature 98.7 F Pulse Rate 54 L 54 L 48 L Respiratory Rate 15 14 18 Blood Pressure 98/55 L Pulse Oximetry 96 96 99 07/21/18 05:02 07/21/18 06:00 07/21/18 06:02 Temperature Pulse Rate 48 L 49 L 53 L Respiratory Rate 17 15 16 Blood Pressure 113/54 L 100/54 L Pulse Oximetry 99 97 98 Intake & Output 07/20/18 07/21/18 07/21/18 18:59 06:59 18:59 Intake Total 480 / 480 240 / 240 250 / 250 Output Total 550 / 550 500 / 500 Balance -70 / -70 -260 / -260 250 / 250 Weight 67.3 kg Intake: IV 250 / 250 Heparin/D5W 25,000 U/250 mL 25, 250 / 250 000 unit In 250 ml @ Per Protocol IV.CONT TITRATE PRN Rx #:[id number] Oral 480 / 480 240 / 240 Output: Stool 0 / 0 Urine Amount (Catheter) 550 / 550 500 / 500 Indwelling Urethral Catheter 550 / 550 500 / 500 Other: # Bowel Movements 0 Laboratory Results - last 24 hr 07/20/18 07/20/18 07/21/18 11:10 16:53 04:47 Hgb 12.1 L Hct 35.0 L PT INR APTT 55.1 H 50.9 H Sodium Potassium Chloride Carbon Dioxide Anion Gap BUN Creatinine Estimated GFR Random Glucose Calcium Magnesium 07/21/18 07/21/18 04:47 04:47 Hgb Hct PT 11.1 INR 1.1 APTT 56.4 H Sodium 138 Potassium 3.7 Chloride 105 Carbon Dioxide 28.8 Anion Gap 4 L BUN 11 Creatinine 0.72 Estimated GFR Greater than 89 Random Glucose 112 H Calcium 8.4 L Magnesium 1.8 Impressions Miscellaneous Special Procedure 07/19/18 00:00 CONCLUSION: 1. Uncomplicated thrombolysis of left to right femoral-femoral bypass graft
--- NOTE | 2018-07-21 18:33 | P.PNIM ---
Subjective Interval history: Pt complains of pain from the right cordoba down to his right foot. Physical Exam Vital signs: Vital Signs 07/20/18 19:00 07/20/18 19:02 07/20/18 20:00 Temperature 99.1 F Pulse Rate 88 90 83 Respiratory Rate 27 H 19 23 Blood Pressure 120/61 Pulse Oximetry 93 L 94 L 91 L 07/20/18 20:02 07/20/18 20:52 07/20/18 21:00 Temperature Pulse Rate 80 74 Respiratory Rate 23 28 H 24 Blood Pressure 107/85 Pulse Oximetry 91 L 90 L 07/20/18 21:02 07/20/18 21:03 07/20/18 22:00 Temperature Pulse Rate 75 69 Respiratory Rate 24 24 21 Blood Pressure 110/57 L Pulse Oximetry 91 L 90 L 07/20/18 22:02 07/20/18 22:30 07/20/18 23:00 Temperature Pulse Rate 68 67 Respiratory Rate 21 24 Blood Pressure 106/53 L Pulse Oximetry 90 L 95 97 07/20/18 23:02 07/21/18 00:00 07/21/18 00:02 Temperature 98.7 F Pulse Rate 67 76 66 Respiratory Rate 22 19 21 Blood Pressure 100/54 L 106/55 L Pulse Oximetry 97 96 96 07/21/18 01:00 07/21/18 01:02 07/21/18 02:00 Temperature Pulse Rate 55 L 58 L 60 Respiratory Rate 16 15 16 Blood Pressure 96/59 L Pulse Oximetry 96 96 96 07/21/18 02:02 07/21/18 03:00 07/21/18 03:02 Temperature Pulse Rate 61 57 L 58 L Respiratory Rate 16 19 18 Blood Pressure 101/50 L 101/52 L Pulse Oximetry 96 97 96 07/21/18 04:00 07/21/18 04:02 07/21/18 05:00 Temperature 98.7 F Pulse Rate 54 L 54 L 48 L Respiratory Rate 15 14 18 Blood Pressure 98/55 L Pulse Oximetry 96 96 99 07/21/18 05:02 07/21/18 06:00 07/21/18 06:02 Temperature Pulse Rate 48 L 49 L 53 L Respiratory Rate 17 15 16 Blood Pressure 113/54 L 100/54 L Pulse Oximetry 99 97 98 07/21/18 07:00 07/21/18 07:02 07/21/18 08:00 Temperature Pulse Rate 51 L 51 L 68 Respiratory Rate 18 17 21 Blood Pressure 111/56 L Pulse Oximetry 94 L 94 L 92 L 07/21/18 08:02 07/21/18 09:00 07/21/18 09:02 Temperature 98.0 F Pulse Rate 53 L 80 68 Respiratory Rate 16 27 H 20 Blood Pressure 115/57 L 117/59 L Pulse Oximetry 94 L 95 95 07/21/18 10:00 07/21/18 10:02 07/21/18 11:00 Temperature Pulse Rate 78 80 77 Respiratory Rate 16 29 H 25 H Blood Pressure 129/65 Pulse Oximetry 95 95 93 L 07/21/18 11:02 07/21/18 11:28 07/21/18 12:00 Temperature Pulse Rate 81 63 Respiratory Rate 19 19 17 Blood Pressure 105/57 L Pulse Oximetry 93 L 91 L 07/21/18 12:02 07/21/18 13:00 07/21/18 13:02 Temperature Pulse Rate 65 56 L 55 L Respiratory Rate 18 16 15 Blood Pressure 95/51 L 92/54 L Pulse Oximetry 92 L 92 L 91 L 07/21/18 13:25 07/21/18 14:00 07/21/18 14:02 Temperature Pulse Rate 53 L 86 85 Respiratory Rate 16 29 H 23 Blood Pressure 104/58 L 105/56 L Pulse Oximetry 91 L 91 L 94 L 07/21/18 15:00 07/21/18 15:02 07/21/18 16:00 Temperature Pulse Rate 76 74 71 Respiratory Rate 18 12 23 Blood Pressure 92/54 L Pulse Oximetry 91 L 91 L 94 L 07/21/18 16:02 07/21/18 17:00 07/21/18 17:27 Temperature 98.5 F 98.7 F Pulse Rate 73 80 Respiratory Rate 26 H 35 H Blood Pressure 148/61 H 117/56 L Pulse Oximetry 95 93 L 94 L 07/21/18 17:29 07/21/18 18:00 07/21/18 18:02 Temperature Pulse Rate 73 74 Respiratory Rate 24 58 H 32 H Blood Pressure 102/54 L Pulse Oximetry 90 L 90 L Intake & Output 07/20/18 07/21/18 07/21/18 18:59 06:59 18:59 Intake Total 480 / 480 240 / 240 960 / 960 Output Total 550 / 550 500 / 500 1000 / 1000 Balance -70 / -70 -260 / -260 -40 / -40 Weight 67.3 kg Intake: IV 250 / 250 Heparin/D5W 25,000 U/250 mL 25, 250 / 250 000 unit In 250 ml @ Per Protocol IV.CONT TITRATE PRN Rx #:[id number] Oral 480 / 480 240 / 240 710 / 710 Output: Stool 0 / 0 0 / 0 Urine Amount (Catheter) 550 / 550 500 / 500 1000 / 1000 Indwelling Urethral Catheter 550 / 550 500 / 500 1000 / 1000 Other: # Bowel Movements 0 Narrative: General patient complains of pain from the right cordoba down to the foot. HEENT extraocular movements are intact, clear oropharyngeal mucosa, no JVD Cardiovascular S1-S2 audible, RRR, no murmurs rubs or gallops Respiratory clear to auscultation bilaterally Abdomen soft, nontender, nondistended, normal bowel sounds Extremities no pulses palpable to the right foot. Cold toes on the right. Left foot pulses intact. Neuro patient moves all 4 extremities, sensation is intact bilaterally. - Urinary Catheter Management Indwelling Urethral Catheter Cath placed during this visit: no Results - Labs CBC & Chem 7: 07/21/18 04:47 07/21/18 04:47 Laboratory Results - last 24 hr 07/21/18 07/21/18 07/21/18 04:47 04:47 04:47 Hgb 12.1 L Hct 35.0 L PT 11.1 INR 1.1 APTT 56.4 H Sodium 138 Potassium 3.7 Chloride 105 Carbon Dioxide 28.8 Anion Gap 4 L BUN 11 Creatinine 0.72 Estimated GFR Greater than 89 Random Glucose 112 H Calcium 8.4 L Magnesium 1.8 Assessment and Plan - Plan This patient is a 78-year-old male with a diagnosis of peripheral vascular disease status post fem-fem bypass, hypertension, and dyslipidemia. The patient presented with occluded femorofemoral bypass graft and underwent TPA administration. 1. Peripheral vascular disease with fem-fem bypass status post TPA administration Pain medication adjusted. Case discussed with vasc surgery. Plan is to repeat imaging tomorrow of the right lower ext. Depending on results of imaging vasc surgery may recommend amputation given his poor circulation below the right knee supplying the distal right ext. Interventional radiology following the patient, will follow up with the recommendations. Cont Heparin Gtt. Will follow up vasc surg recommendations. 2. Hypertension/this lipidemia Continue current medications. DVT prophylaxis, continue Heparin gtt.
[2018-07-21] MEDS: Morphine Sulfate Inj 2 MG/ML Vial IV.PUSH PRN (20:29)
[2018-07-22] MEDS: Morphine Sulfate Inj 2 MG/ML Vial IV.PUSH PRN ×6 (00:49→18:13)
[2018-07-22 06:12] LABS: Activated Partial Thrombo Time 54.8 sec (23.4-31.7); INR 1.1 Ratio; Prothrombin Time 10.9 sec (9.8-11.6)
[2018-07-22] MEDS: amLODIPine 5 MG Tablet PO SCH (08:02)
[2018-07-22] MEDS: Gabapentin 300 MG Capsule PO SCH ×3 (08:03→17:03)
[2018-07-22] MEDS: Heparin Drip 25,000 UNIT/250 ML BAG IV.CONT PRN (09:44)
--- NOTE | 2018-07-22 12:55 | P.PNIM ---
Subjective Interval history: Patient complains of pain in the right foot. Tolerated with pain medications. Physical Exam Vital signs: Vital Signs 07/21/18 13:00 07/21/18 13:02 07/21/18 13:25 Temperature Pulse Rate 56 L 55 L 53 L Respiratory Rate 16 15 16 Blood Pressure 92/54 L 104/58 L Pulse Oximetry 92 L 91 L 91 L 07/21/18 14:00 07/21/18 14:02 07/21/18 15:00 Temperature Pulse Rate 86 85 76 Respiratory Rate 29 H 23 18 Blood Pressure 105/56 L Pulse Oximetry 91 L 94 L 91 L 07/21/18 15:02 07/21/18 16:00 07/21/18 16:02 Temperature 98.5 F Pulse Rate 74 71 73 Respiratory Rate 12 23 26 H Blood Pressure 92/54 L 148/61 H Pulse Oximetry 91 L 94 L 95 07/21/18 17:00 07/21/18 17:27 07/21/18 17:29 Temperature 98.7 F Pulse Rate 80 Respiratory Rate 35 H 24 Blood Pressure 117/56 L Pulse Oximetry 93 L 94 L 07/21/18 18:00 07/21/18 18:02 07/21/18 19:00 Temperature Pulse Rate 73 74 64 Respiratory Rate 58 H 32 H 53 H Blood Pressure 102/54 L Pulse Oximetry 90 L 90 L 92 L 07/21/18 19:02 07/21/18 20:00 07/21/18 20:02 Temperature 98.8 F Pulse Rate 70 67 75 Respiratory Rate 21 23 23 Blood Pressure 100/53 L 117/57 L Pulse Oximetry 93 L 92 L 92 L 07/21/18 21:00 07/21/18 21:02 07/21/18 21:44 Temperature Pulse Rate 64 66 Respiratory Rate 23 23 19 Blood Pressure 90/54 L Pulse Oximetry 92 L 89 L 07/21/18 22:00 07/21/18 22:02 07/21/18 23:00 Temperature Pulse Rate 66 71 64 Respiratory Rate 19 23 23 Blood Pressure 103/55 L Pulse Oximetry 91 L 92 L 89 L 07/21/18 23:02 07/21/18 23:09 07/22/18 00:00 Temperature 98.7 F Pulse Rate 61 76 Respiratory Rate 17 16 16 Blood Pressure 100/57 L Pulse Oximetry 90 L 91 L 07/22/18 00:06 07/22/18 01:00 07/22/18 01:02 Temperature Pulse Rate 64 62 Respiratory Rate 16 27 H 31 H Blood Pressure 120/57 L 92/51 L Pulse Oximetry 91 L 90 L 88 L 07/22/18 02:00 07/22/18 02:02 07/22/18 03:00 Temperature Pulse Rate 60 61 51 L Respiratory Rate 15 15 22 Blood Pressure 98/52 L Pulse Oximetry 91 L 91 L 89 L 07/22/18 03:02 07/22/18 04:00 07/22/18 04:02 Temperature 98.6 F Pulse Rate 53 L 67 62 Respiratory Rate 18 22 20 Blood Pressure 94/71 L 103/53 L Pulse Oximetry 90 L 91 L 91 L 07/22/18 05:00 07/22/18 05:02 07/22/18 06:00 Temperature Pulse Rate 52 L 69 56 L Respiratory Rate 17 17 19 Blood Pressure 107/57 L Pulse Oximetry 91 L 91 L 91 L 07/22/18 06:02 07/22/18 07:00 07/22/18 07:02 Temperature Pulse Rate 54 L 52 L 74 Respiratory Rate 18 19 23 Blood Pressure 98/52 L 116/58 L Pulse Oximetry 91 L 93 L 94 L 07/22/18 08:00 07/22/18 08:02 07/22/18 09:00 Temperature 98.4 F Pulse Rate 75 70 53 L Respiratory Rate 21 19 17 Blood Pressure 113/58 L 113/58 L Pulse Oximetry 94 L 95 91 L 07/22/18 09:02 07/22/18 10:00 07/22/18 10:02 Temperature Pulse Rate 57 L 77 75 Respiratory Rate 17 25 H 21 Blood Pressure 100/55 L 101/55 L Pulse Oximetry 92 L 93 L 93 L 07/22/18 11:00 07/22/18 11:02 Temperature Pulse Rate 81 79 Respiratory Rate 25 H 25 H Blood Pressure 108/53 L Pulse Oximetry 90 L 95 Intake & Output 07/21/18 07/22/18 07/22/18 18:59 06:59 18:59 Intake Total 960 / 960 240 / 240 250 / 250 Output Total 1000 / 1000 590 / 590 Balance -40 / -40 -350 / -350 250 / 250 Weight 70.3 kg Intake: IV 250 / 250 250 / 250 Heparin/D5W 25,000 U/250 mL 25, 250 / 250 250 / 250 000 unit In 250 ml @ Per Protocol IV.CONT TITRATE PRN Rx #:[id number] Oral 710 / 710 240 / 240 Output: Urine 590 / 590 Stool 0 / 0 0 / 0 Urine Amount (Catheter) 1000 / 1000 Indwelling Urethral Catheter 1000 / 1000 Narrative: General patient complains of pain from the right cordoba down to the foot. HEENT extraocular movements are intact, clear oropharyngeal mucosa, no JVD Cardiovascular S1-S2 audible, RRR, no murmurs rubs or gallops Respiratory clear to auscultation bilaterally Abdomen soft, nontender, nondistended, normal bowel sounds Extremities no pulses palpable to the right foot. Cold toes on the right. Left foot pulses intact. Neuro patient moves all 4 extremities, sensation is intact bilaterally. - Urinary Catheter Management Indwelling Urethral Catheter Cath placed during this visit: no Results - Labs CBC & Chem 7: 07/21/18 04:47 07/21/18 04:47 Laboratory Results - last 24 hr 07/22/18 05:10 PT 10.9 INR 1.1 APTT 54.8 H Assessment and Plan - Plan This patient is a 78-year-old male with a diagnosis of peripheral vascular disease status post fem-fem bypass, hypertension, and dyslipidemia. The patient presented with occluded femorofemoral bypass graft and underwent TPA administration. 1. Peripheral vascular disease with fem-fem bypass status post TPA administration Pain medication adjusted yesterday. Continue current regimen. Case discussed with vasc surgery. Plan is to repeat imaging on monday of right lower ext. Depending on results of imaging vasc surgery may recommend amputation given his poor circulation below the right knee supplying the distal right ext. Interventional radiology following the patient, will follow up with the recommendations. Cont Heparin Gtt. Will follow up vasc surg recommendations. Patient will be moved out of the intensive care unit. Discussed with vasc surgery. 2. Hypertension/this lipidemia Continue current medications. DVT prophylaxis, continue Heparin gtt.
--- NOTE | 2018-07-22 13:12 | P.PNVS ---
Subjective Subjective/Hospital Course: 78-year-old gentleman with occlusion of femorofemoral bypass and consequently flow to the right leg. Patient underwent successful angioplasty lysis and is currently on heparin in the ICU Both feet are warm and patient has some pain in the right leg which is clearly reperfusion effect I discussed this with Dr. Barker for this is his established patient and if any surgical intervention is indicated Dr. Barker or myself will be available Thanks J 07/21/2018 Patient is post thrombolysis of the femorofemoral graft Both feet are warm Patient underwent excellent procedure by Dr. Barker however limiting factors to the supply of the legs severe peripheral vascular changes which will be progressive and the graft may clot off again due to difficulties and outflow scissoring the natural progression of patient's vascular disease. Nothing to add to care at this time 07/22/2018 Femorofemoral graft is open and there is brisk flow in it Unfortunately patient has SFA occlusion and distally runoff via a partially interrupted segmented anterior tibial artery which is the flow-limiting issue to the right leg Toes are purplish and pale while the rest of the foot is somewhat reddish I have discussed this with the patient and his family I believe Dr. Barker has made heroic efforts to reestablish the blood flow to this foot but unfortunately this patient has severe distal disease which in this case will probably result in ischemia requiring eventual below-knee amputation Repeat arteriogram tomorrow to see what open and what is not and then will make the decision Objective Vital Signs / I&O: Vital Signs 07/21/18 13:25 07/21/18 14:00 07/21/18 14:02 Temperature Pulse Rate 53 L 86 85 Respiratory Rate 16 29 H 23 Blood Pressure 104/58 L 105/56 L Pulse Oximetry 91 L 91 L 94 L 07/21/18 15:00 07/21/18 15:02 07/21/18 16:00 Temperature Pulse Rate 76 74 71 Respiratory Rate 18 12 23 Blood Pressure 92/54 L Pulse Oximetry 91 L 91 L 94 L 07/21/18 16:02 07/21/18 17:00 07/21/18 17:27 Temperature 98.5 F 98.7 F Pulse Rate 73 80 Respiratory Rate 26 H 35 H Blood Pressure 148/61 H 117/56 L Pulse Oximetry 95 93 L 94 L 07/21/18 17:29 07/21/18 18:00 07/21/18 18:02 Temperature Pulse Rate 73 74 Respiratory Rate 24 58 H 32 H Blood Pressure 102/54 L Pulse Oximetry 90 L 90 L 07/21/18 19:00 07/21/18 19:02 07/21/18 20:00 Temperature 98.8 F Pulse Rate 64 70 67 Respiratory Rate 53 H 21 23 Blood Pressure 100/53 L Pulse Oximetry 92 L 93 L 92 L 07/21/18 20:02 07/21/18 21:00 07/21/18 21:02 Temperature Pulse Rate 75 64 66 Respiratory Rate 23 23 23 Blood Pressure 117/57 L 90/54 L Pulse Oximetry 92 L 92 L 89 L 07/21/18 21:44 07/21/18 22:00 07/21/18 22:02 Temperature Pulse Rate 66 71 Respiratory Rate 19 19 23 Blood Pressure 103/55 L Pulse Oximetry 91 L 92 L 07/21/18 23:00 07/21/18 23:02 07/21/18 23:09 Temperature Pulse Rate 64 61 Respiratory Rate 23 17 16 Blood Pressure 100/57 L Pulse Oximetry 89 L 90 L 07/22/18 00:00 07/22/18 00:06 07/22/18 01:00 Temperature 98.7 F Pulse Rate 76 64 Respiratory Rate 16 16 27 H Blood Pressure 120/57 L Pulse Oximetry 91 L 91 L 90 L 07/22/18 01:02 07/22/18 02:00 07/22/18 02:02 Temperature Pulse Rate 62 60 61 Respiratory Rate 31 H 15 15 Blood Pressure 92/51 L 98/52 L Pulse Oximetry 88 L 91 L 91 L 07/22/18 03:00 07/22/18 03:02 07/22/18 04:00 Temperature 98.6 F Pulse Rate 51 L 53 L 67 Respiratory Rate 22 18 22 Blood Pressure 94/71 L Pulse Oximetry 89 L 90 L 91 L 07/22/18 04:02 07/22/18 05:00 07/22/18 05:02 Temperature Pulse Rate 62 52 L 69 Respiratory Rate 20 17 17 Blood Pressure 103/53 L 107/57 L Pulse Oximetry 91 L 91 L 91 L 07/22/18 06:00 07/22/18 06:02 07/22/18 07:00 Temperature Pulse Rate 56 L 54 L 52 L Respiratory Rate 19 18 19 Blood Pressure 98/52 L Pulse Oximetry 91 L 91 L 93 L 07/22/18 07:02 07/22/18 08:00 07/22/18 08:02 Temperature 98.4 F Pulse Rate 74 75 70 Respiratory Rate 23 21 19 Blood Pressure 116/58 L 113/58 L 113/58 L Pulse Oximetry 94 L 94 L 95 07/22/18 09:00 07/22/18 09:02 07/22/18 10:00 Temperature Pulse Rate 53 L 57 L 77 Respiratory Rate 17 17 25 H Blood Pressure 100/55 L Pulse Oximetry 91 L 92 L 93 L 07/22/18 10:02 07/22/18 11:00 07/22/18 11:02 Temperature Pulse Rate 75 81 79 Respiratory Rate 21 25 H 25 H Blood Pressure 101/55 L 108/53 L Pulse Oximetry 93 L 90 L 95 Intake & Output 07/21/18 07/22/18 07/22/18 18:59 06:59 18:59 Intake Total 960 / 960 240 / 240 250 / 250 Output Total 1000 / 1000 590 / 590 Balance -40 / -40 -350 / -350 250 / 250 Weight 70.3 kg Intake: IV 250 / 250 250 / 250 Heparin/D5W 25,000 U/250 mL 25, 250 / 250 250 / 250 000 unit In 250 ml @ Per Protocol IV.CONT TITRATE PRN Rx #:[id number] Oral 710 / 710 240 / 240 Output: Urine 590 / 590 Stool 0 / 0 0 / 0 Urine Amount (Catheter) 1000 / 1000 Indwelling Urethral Catheter 1000 / 1000 Laboratory Results - last 24 hr 07/22/18 05:10 PT 10.9 INR 1.1 APTT 54.8 H
[2018-07-23] MEDS: Morphine Sulfate Inj 2 MG/ML Vial IV.PUSH PRN ×3 (03:39→12:02)
[2018-07-23] MEDS: Gabapentin 300 MG Capsule PO SCH ×2 (08:10→12:01)
[2018-07-23] MEDS: amLODIPine 5 MG Tablet PO SCH (08:15)
--- NOTE | 2018-07-23 11:16 | MP ---
cc: Aureliano Barker MD DATE OF OPERATION: 07/23/2018 REFERRING PHYSICIANS: Dr. Dent and Dr. Hancock. REASON FOR CONSULTATION: Lower extremity vascular evaluation. HISTORY: This 78-year-old gentleman who is well-known to me from prior vascular interventions. He has undergone previous uncomplicated endovascular aneurysm repair. Approximately 1 year following the endovascular repair, he developed a spontaneous occlusion of the right iliac limb of the endoprosthesis resulting in severe critical right lower extremity ischemia. He underwent [id number] femoral-femoral bypass with concomitant right SFA/popliteal thromboembolectomy. Postprocedure, he was begun on therapeutic anticoagulation. However, the patient has been somewhat noncompliant in taking his oral anticoagulant. When I questioned and he and his in the office, they reported "not doing INRs, not sure how much medicine he is taking." At any rate, when he presented to my office on the postprocedure he was therapeutically anticoagulated with oral Coumadin. However, he has been somewhat noncompliant. He and his are unsure as to recent doses of Coumadin and are not performing INR as recommended. When he reported to my office on 07/18 for a routine followup visit, he described a several-week history of numbness and discomfort in the right foot and ankle, typical of a critical ischemia. Exam revealed occlusion of his femoral-femoral bypass. I discussed with interventional radiologist and arranged for admission for attempt at tPA thrombolysis. Dr. Dent successfully thrombolysed the occluded femoral-femoral bypass, reestablishing normal blood flow. Angiography revealed occlusion of the right SFA at the adductor level. The popliteal segment was occluded throughout. Posterior tibial provided a single vessel runoff to the right foot. Following femoral-femoral bypass thrombolysis, he has been maintained on IV heparin. The femoral-femoral bypass was patent on the , and again he has been maintained on therapeutic IV heparin infusion. Overnight, the femoral-femoral graft has re-occluded. He is again experiencing numbing paresthesias within the right foot typical of critical ischemia. He has not ambulated since admission and as such, symptoms of claudication. PHYSICAL EXAMINATION: VITAL SIGNS: Temperature 98.5, pulse 75, respirations 18, BP 130/60. GENERAL: This is a well-developed, chronically debilitated-appearing, 78-year-old male who is alert and responds appropriately to questions and commands, but cognition appears significantly improved. He is unable to remember recent and remote events. CARDIAC: Rhythm is sinus. LUNGS: Symmetrically expanded and clear. ABDOMEN: Soft. Residual infrarenal abdominal aortic aneurysm sac is nonpulsatile, consistent with hydrostatic exclusion. EXTREMITIES: Femoral pulses are 2+ left, nonpalpable right. No pulses are palpable within the right leg and Doppler flow is monophasic at the posterior tibial position. The right foot exhibits decreased warmth and capillary refill typical of critical ischemia. NEUROLOGIC: No focal deficits. ASSESSMENT AND PLANS: I reviewed the angiographic images this morning with interventional radiologist. They are planning Repeat angiograms to reassess this residual perfusion. At this point, I am not optimistic that we are going to be able to maintain patency of the femoral-femoral bypass and that patient likely will require eventual amputation. However, I would like for him to ambulate and assess status of his right leg before considering. As long as he is not experiencing significant pain and if he is able to ambulate on the right leg, we may be able to avoid amputation. MD ANA Serna/mehdi , 10:20 AM , 10:32 AM
[2018-07-23] MEDS: Heparin Drip 25,000 UNIT/250 ML BAG IV.CONT PRN (12:04)
--- NOTE | 2018-07-23 15:52 | P.PNVS ---
Subjective Subjective/Hospital Course: 78-year-old gentleman with occlusion of femorofemoral bypass and consequently flow to the right leg. Patient underwent successful angioplasty lysis and is currently on heparin in the ICU Both feet are warm and patient has some pain in the right leg which is clearly reperfusion effect I discussed this with Dr. Barker for this is his established patient and if any surgical intervention is indicated Dr. Barker or myself will be available Thanks J 07/21/2018 Patient is post thrombolysis of the femorofemoral graft Both feet are warm Patient underwent excellent procedure by Dr. Barker however limiting factors to the supply of the legs severe peripheral vascular changes which will be progressive and the graft may clot off again due to difficulties and outflow scissoring the natural progression of patient's vascular disease. Nothing to add to care at this time 07/22/2018 Femorofemoral graft is open and there is brisk flow in it Unfortunately patient has SFA occlusion and distally runoff via a partially interrupted segmented anterior tibial artery which is the flow-limiting issue to the right leg Toes are purplish and pale while the rest of the foot is somewhat reddish I have discussed this with the patient and his family I believe Dr. Barker has made heroic efforts to reestablish the blood flow to this foot but unfortunately this patient has severe distal disease which in this case will probably result in ischemia requiring eventual below-knee amputation Repeat arteriogram tomorrow to see what open and what is not and then will make the decision 07/23/2018 Patient has distal limitation of flow via diminutive anterior tibial artery Today right foot is warmer than yesterday and cyanosis has resolved Patient has feeling in both feet and normal motion At this point I would place patient on Coumadin and he can be discharged on Coumadin whenever okay with medicine I discussed this case with Dr. Barker and the the at this point there is nothing else we can do due to flow-limiting distal disease Follow-up with Dr. Barker in about 2-3 weeks in the office or earlier if foot gets discolored or gangrene occurs We will sign off at this time Objective Vital Signs / I&O: Vital Signs 07/22/18 16:00 07/22/18 16:02 07/22/18 17:00 Temperature 98.3 F Pulse Rate 68 74 55 L Respiratory Rate 121 H 126 H 141 H Blood Pressure 114/54 L 114/54 L Pulse Oximetry 94 L 85 L 94 L 07/22/18 17:02 07/22/18 18:00 07/22/18 18:02 Temperature Pulse Rate 63 63 63 Respiratory Rate 120 H 148 H 142 H Blood Pressure 106/55 L 99/53 L Pulse Oximetry 93 L 93 L 92 L 07/22/18 19:00 07/22/18 19:02 07/22/18 20:00 Temperature Pulse Rate 71 70 63 Respiratory Rate 120 H 144 H 149 H Blood Pressure 105/53 L Pulse Oximetry 91 L 90 L 89 L 07/22/18 20:02 07/22/18 20:13 07/22/18 21:00 Temperature Pulse Rate 60 72 64 Respiratory Rate 143 H 130 H 22 Blood Pressure 84/43 L 118/54 L Pulse Oximetry 91 L 89 L 93 L 07/22/18 21:02 07/22/18 22:00 07/22/18 22:02 Temperature Pulse Rate 64 55 L 51 L Respiratory Rate 20 15 14 Blood Pressure 106/55 L 106/55 L 106/55 L Pulse Oximetry 94 L 91 L 91 L 07/22/18 23:00 07/22/18 23:02 07/23/18 00:00 Temperature Pulse Rate 53 L 48 L 47 L Respiratory Rate 18 17 15 Blood Pressure 98/52 L Pulse Oximetry 90 L 91 L 91 L 07/23/18 00:02 07/23/18 01:00 07/23/18 01:02 Temperature Pulse Rate 52 L 51 L 53 L Respiratory Rate 15 14 17 Blood Pressure 102/52 L 110/54 L Pulse Oximetry 92 L 92 L 92 L 07/23/18 02:00 07/23/18 02:02 07/23/18 03:00 Temperature Pulse Rate 73 66 69 Respiratory Rate 21 17 17 Blood Pressure 113/59 L Pulse Oximetry 92 L 93 L 90 L 07/23/18 03:02 07/23/18 03:41 07/23/18 04:00 Temperature Pulse Rate 75 73 Respiratory Rate 17 20 23 Blood Pressure 125/58 L Pulse Oximetry 90 L 93 L 07/23/18 04:02 07/23/18 05:00 07/23/18 05:02 Temperature Pulse Rate 72 78 77 Respiratory Rate 17 17 22 Blood Pressure 115/55 L 119/58 L Pulse Oximetry 94 L 91 L 92 L 07/23/18 06:00 07/23/18 06:02 07/23/18 07:00 Temperature Pulse Rate 70 51 L 74 Respiratory Rate 25 H 17 21 Blood Pressure 132/75 Pulse Oximetry 91 L 88 L 94 L 07/23/18 07:02 07/23/18 08:00 07/23/18 08:02 Temperature 98.7 F Pulse Rate 75 50 L 76 Respiratory Rate 23 17 22 Blood Pressure 116/61 123/59 L Pulse Oximetry 94 L 93 L 93 L 07/23/18 09:00 07/23/18 09:02 07/23/18 10:00 Temperature Pulse Rate 74 73 89 Respiratory Rate 19 17 22 Blood Pressure 123/59 L Pulse Oximetry 91 L 93 L 94 L 07/23/18 10:02 07/23/18 11:00 07/23/18 12:00 Temperature 98.1 F Pulse Rate 92 H 77 62 Respiratory Rate 20 20 18 Blood Pressure 131/68 Pulse Oximetry 99 95 95 07/23/18 12:02 07/23/18 13:00 07/23/18 13:02 Temperature Pulse Rate 60 68 74 Respiratory Rate 18 20 29 H Blood Pressure 100/56 L 100/56 L Pulse Oximetry 95 94 L 92 L 07/23/18 14:00 07/23/18 14:02 07/23/18 15:00 Temperature Pulse Rate 81 78 77 Respiratory Rate 22 20 22 Blood Pressure 110/53 L Pulse Oximetry 92 L 95 76 L 07/23/18 15:02 07/23/18 15:45 Temperature Pulse Rate 76 Respiratory Rate 21 16 Blood Pressure 120/58 L Pulse Oximetry 96 Intake & Output 07/22/18 07/23/18 07/23/18 18:59 06:59 18:59 Intake Total 750 / 750 250 / 250 Output Total 550 / 550 950 / 950 Balance 200 / 200 -950 / -950 250 / 250 Weight 69.8 kg Intake: IV 250 / 250 250 / 250 Heparin/D5W 25,000 U/250 mL 25, 250 / 250 250 / 250 000 unit In 250 ml @ Per Protocol IV.CONT TITRATE PRN Rx #:[id number] Oral 500 / 500 Output: Urine 550 / 550 950 / 950 Other: # Voids 1 Laboratory Results - last 24 hr 07/23/18 05:29 APTT 36.4 H D
--- NOTE | 2018-07-23 16:23 | P.DS ---
Date of admission: 07/19/18 15:20 Primary care physician: Irma Renee MD Brief History from admission: patient is a 78 y/o male with history of PVD- s/p fem-fem bypass, hypertension and dyslipidemia who presented with occluded fem-fem bypass graft and underwent TPA administration. at the time of my evaluation he was in no acute distress but uncomfortable with the pain in the right lower extremity. otherwise no other complaints including chest pain, sob or dizziness or nausea. DS: Medications - Discharge Medications Prescriptions: hydrocodone-acetaminophen 1 tab PO Q4H PRN #18 tab PRN Reason: Pain, Severe DS: Summary Hospital Course: This patient is a 78-year-old male with a diagnosis of peripheral vascular disease status post fem-fem bypass, hypertension, and dyslipidemia. The patient presented with occluded femorofemoral bypass graft and underwent TPA administration. 1. Peripheral vascular disease with fem-fem bypass status post TPA administration Patient was evaluated in the hospital by vascular surgery and underwent fem-fem bypass status post TPA administration. He was placed on heparin drip and monitored closely in the intensive care unit initially. Initially patient was requiring IV and p.o. pain medications. The patient does have diminished pulses to the right distal foot, case discussed with the vascular surgery today however they are not recommending the patient undergo amputation just yet. The patient can be discharged home today. He has been cleared by vascular surgery. Patient will be given a prescription for Dixon for the next 3 days, he was advised to follow-up with his primary care doctor after that. If he begins to explain to worsening pain or significant discoloration of the right lower extremity he was advised to seek medical attention. Eforsce was checked and reviewed prior to giving the prescription for norco. He can follow-up with Dr. Barker from vascular surgery in 3 weeks. He was advised to continue Coumadin after discharge with a goal INR between 2 and 3, no bridging necessary as per vascular surgery. Patient is able to ambulate however does has some pain when kept on the right foot. He has a walker at home. He was advised to use a walker if needed. 2. Hypertension/this lipidemia Continue current medications. - Time Spent with Patient Total time spent providing and/or coordinating discharge services: Greater than 30 minutes - Quality: VTE Deep Vein Thrombosis/Pulmonary Embolism Present on Admission: No Exam Vital signs: Vital Signs 07/22/18 17:00 07/22/18 17:02 07/22/18 18:00 Temperature Pulse Rate 55 L 63 63 Respiratory Rate 141 H 120 H 148 H Blood Pressure 106/55 L Pulse Oximetry 94 L 93 L 93 L 07/22/18 18:02 07/22/18 19:00 07/22/18 19:02 Temperature Pulse Rate 63 71 70 Respiratory Rate 142 H 120 H 144 H Blood Pressure 99/53 L 105/53 L Pulse Oximetry 92 L 91 L 90 L 07/22/18 20:00 07/22/18 20:02 07/22/18 20:13 Temperature Pulse Rate 63 60 72 Respiratory Rate 149 H 143 H 130 H Blood Pressure 84/43 L 118/54 L Pulse Oximetry 89 L 91 L 89 L 07/22/18 21:00 07/22/18 21:02 07/22/18 22:00 Temperature Pulse Rate 64 64 55 L Respiratory Rate 22 20 15 Blood Pressure 106/55 L 106/55 L Pulse Oximetry 93 L 94 L 91 L 07/22/18 22:02 07/22/18 23:00 07/22/18 23:02 Temperature Pulse Rate 51 L 53 L 48 L Respiratory Rate 14 18 17 Blood Pressure 106/55 L 98/52 L Pulse Oximetry 91 L 90 L 91 L 07/23/18 00:00 07/23/18 00:02 07/23/18 01:00 Temperature Pulse Rate 47 L 52 L 51 L Respiratory Rate 15 15 14 Blood Pressure 102/52 L Pulse Oximetry 91 L 92 L 92 L 07/23/18 01:02 07/23/18 02:00 07/23/18 02:02 Temperature Pulse Rate 53 L 73 66 Respiratory Rate 17 21 17 Blood Pressure 110/54 L 113/59 L Pulse Oximetry 92 L 92 L 93 L 07/23/18 03:00 07/23/18 03:02 07/23/18 03:41 Temperature Pulse Rate 69 75 Respiratory Rate 17 17 20 Blood Pressure 125/58 L Pulse Oximetry 90 L 90 L 07/23/18 04:00 07/23/18 04:02 07/23/18 05:00 Temperature Pulse Rate 73 72 78 Respiratory Rate 23 17 17 Blood Pressure 115/55 L Pulse Oximetry 93 L 94 L 91 L 07/23/18 05:02 07/23/18 06:00 07/23/18 06:02 Temperature Pulse Rate 77 70 51 L Respiratory Rate 22 25 H 17 Blood Pressure 119/58 L 132/75 Pulse Oximetry 92 L 91 L 88 L 07/23/18 07:00 07/23/18 07:02 07/23/18 08:00 Temperature 98.7 F Pulse Rate 74 75 50 L Respiratory Rate 21 23 17 Blood Pressure 116/61 Pulse Oximetry 94 L 94 L 93 L 07/23/18 08:02 07/23/18 09:00 07/23/18 09:02 Temperature Pulse Rate 76 74 73 Respiratory Rate 22 19 17 Blood Pressure 123/59 L 123/59 L Pulse Oximetry 93 L 91 L 93 L 07/23/18 10:00 07/23/18 10:02 07/23/18 11:00 Temperature Pulse Rate 89 92 H 77 Respiratory Rate 22 20 20 Blood Pressure 131/68 Pulse Oximetry 94 L 99 95 07/23/18 12:00 07/23/18 12:02 07/23/18 13:00 Temperature 98.1 F Pulse Rate 62 60 68 Respiratory Rate 18 18 20 Blood Pressure 100/56 L Pulse Oximetry 95 95 94 L 07/23/18 13:02 07/23/18 14:00 07/23/18 14:02 Temperature Pulse Rate 74 81 78 Respiratory Rate 29 H 22 20 Blood Pressure 100/56 L 110/53 L Pulse Oximetry 92 L 92 L 95 07/23/18 15:00 07/23/18 15:02 07/23/18 15:45 Temperature Pulse Rate 77 76 Respiratory Rate 22 21 16 Blood Pressure 120/58 L Pulse Oximetry 76 L 96 Intake & Output 07/22/18 07/23/18 07/23/18 18:59 06:59 18:59 Intake Total 750 / 750 250 / 250 Output Total 550 / 550 950 / 950 Balance 200 / 200 -950 / -950 250 / 250 Weight 69.8 kg Intake: IV 250 / 250 250 / 250 Heparin/D5W 25,000 U/250 mL 25, 250 / 250 250 / 250 000 unit In 250 ml @ Per Protocol IV.CONT TITRATE PRN Rx #:[id number] Oral 500 / 500 Output: Urine 550 / 550 950 / 950 Other: # Voids 1 Narrative: General patient complains of on and off pain from the right cordoba down to the foot, currently no significant pain. HEENT extraocular movements are intact, clear oropharyngeal mucosa, no JVD Cardiovascular S1-S2 audible, RRR, no murmurs rubs or gallops Respiratory clear to auscultation bilaterally Abdomen soft, nontender, nondistended, normal bowel sounds Extremities diminished pulses to the right foot. Neuro patient moves all 4 extremities, sensation is intact bilaterally. Results Procedures completed during hospitalization: fem-fem bypass Status post TPA right Labs on day of discharge: Labs from last 24 hours 07/23/18 05:29 APTT 36.4 H D - Impressions ITS Impressions Lower Extremity Angiography 07/18/18 00:00 CONCLUSION: 1. Uncomplicated initiation of thrombolytic therapy for occluded femoral- femoral bypass graft Miscellaneous Special Procedure 07/19/18 00:00 CONCLUSION: 1. Uncomplicated thrombolysis of left to right femoral-femoral bypass graft Discharge Plan - Discharge Disposition Patient Disposition: 01 Discharge Home - Discharge Condition Condition: Stable - Discharge Order Discharge Orders: Discharge Order (Routine); Ordered 07/23/18 Ordered By: Servando Edwards - Physicians Team Primary Care Provider: Irma Renee Attending Provider: Servando Edwards Other Providers: Marva Dent MD ; Zita Hancock MD - Rxs /Orders / Referrals /Forms Prescriptions: New hydrocodone-acetaminophen 7.5-325 mg Tablet 1 tab PO Q4H PRN (Reason: Pain, Severe) Qty: 18 RF: 0 Continue amlodipine 10 mg Tablet 5 mg PO BID gabapentin 600 mg Tablet 600 mg PO TID lovastatin 20 mg Tablet 40 mg PO DAILY warfarin 2.5 mg Tablet 2.5 mg PO DAILY Referrals: Irma Renee MD [Primary Care Provider] - See Instructions - Discharge Instructions Additional Instructions: Follow up with vascular surgery 2-3 weeks. Patient follows up with Dr. Barker. Continue Coumadin, no bridging necessary as per vascular surgery's recommendations.
== END 2018-07-23 17:14 | disposition home or self-care (01) ==
LOC: HROP 09:51 → HRIP 09:56 → N03 14:20
PROVIDERS: ADMIT Hospitalist; ATTEND Hospitalist

== ENCOUNTER 2018-08-13 14:31 | Inpatient (IN) ==
--- NOTE | 2018-08-13 18:52 | ED ---
HPI General Chief complaint: Extremity Problem,Nontraumatic Stated complaint: Right Leg Complaint/Doctor Sent Time Seen by Provider: 08/13/18 18:37 Source: patient and family Mode of arrival: ambulatory Limitations: altered mental status History of Present Illness HPI Narrative: 78-year-old male patient with history of dementia, hypertension, peripheral vascular disease with previous stenting in the right leg according to family, presents to the ER today sent in by Dr. Barker's office, apparently has had several days history of increased right leg pain, difficulty walking on the right leg, and Dr. Barker wants to do further surgical treatment. He is not able to give me further history. The history is as per his family. Modifying Factors: None Associated Signs & Symptoms: Increased right leg pain, inability to walk on the right leg, sent in by Dr. Barker Risk Factors: History of peripheral vascular disease with previous stenting in the right leg Related Data Home Medications Medication Instructions Recorded Confirmed amlodipine 5 mg PO BID 07/18/18 08/13/18 gabapentin 600 mg PO TID 07/18/18 08/13/18 lovastatin 40 mg PO DAILY 07/18/18 08/13/18 warfarin 2.5 mg PO DAILY 07/18/18 08/13/18 Allergies Allergy/AdvReac Type Severity Reaction Status Date / Time No Known Allergies Allergy Unverified 08/13/18 14:51 Review of Systems ROS Unobtainable ROS Unobtainable: unobtainable due to mental status PMFSH Medical History Medical History Dementia (Acute) High cholesterol (Acute) Hypertension (Acute) PVD (peripheral vascular disease) (Acute) Surgical History Surgical History Status post femorofemoral bypass surgery (Acute) Family History Family History Other Family history unknown Social History Social History Substance History: Active Abuse Second Hand Smoke Exposure: Yes Smoking Status: Current every day smoker Tobacco Type: Cigarettes How Often Do You Have a Drink Containing Alcohol: 4 or more times a week Recent Travel in [facility] within the Last 8 Weeks: No Recent Out of Country Travel within the Last 8 Weeks: No Substance Abuse Detail Alcohol: Substance Use Status: Active Route Used Substance Abuse: By Mouth Reason for Use: Calm Down Immunization History Tetanus Immunization: <5 Years Exam Narrative Exam Narrative: GENERAL: Well-developed elderly white male patient currently and mild distress. Awake, alert, but not oriented. SKIN: Focused skin assessment warm/dry. HEAD: Atraumatic. Normocephalic. EYES: Pupils equal and round. No scleral icterus. No injection or drainage. ENT: No nasal bleeding or discharge. Mucous membranes pink and moist. NECK: Trachea midline. No JVD. CARDIOVASCULAR: Regular rate and rhythm. No murmur appreciated. RESPIRATORY: No accessory muscle use. Clear to auscultation. Breath sounds equal bilaterally. GASTROINTESTINAL: Abdomen soft, non-tender, nondistended. Hepatic and splenic margins not palpable. MUSCULOSKELETAL: No obvious deformities. No clubbing. No cyanosis. There is mild erythema and edema of the right foot, and barely palpable or dopplerable pulses. NEUROLOGICAL: Awake and alert. No obvious cranial nerve deficits. Motor grossly within normal limits. Normal speech. PSYCHIATRIC: Appropriate mood and affect; insight and judgment normal. Course Initial Documented Vital Signs Temperature 98.5 F 08/13/18 14:47 Pulse Rate 81 08/13/18 14:47 Respiratory Rate 18 08/13/18 14:47 Blood Pressure 107/56 L 08/13/18 14:47 Pulse Oximetry 94 L 08/13/18 14:47 Last Documented Vital Signs Temperature 98.5 F 08/13/18 14:47 Pulse Rate 68 08/13/18 19:22 Respiratory Rate 18 08/13/18 19:22 Blood Pressure 130/57 L 08/13/18 19:22 Pulse Oximetry 95 08/13/18 19:22 Medical Decision Making MDM Narrative Medical decision making narrative: Case is discussed with Dr. Barker who had sent the patient and and he would like the patient to be medically admitted, with a consult to Dr. Owens. He did not want further radiological studies to be done and does not want anticoagulation at this point. Patient is on Coumadin already. Case is discussed with Dr. Faith for admission. Medical Screen Exam Complete: Yes Emergency Medical Condition: Yes Differential Diagnosis Differential Diagnosis: Acute occlusion versus cellulitis Lab Data Lab results reviewed: Yes I reviewed the patient's lab results. Result diagrams: 08/13/18 18:45 08/13/18 18:45 Lab Results 08/13/18 08/13/18 08/13/18 Range/Units 18:45 18:45 18:45 WBC 8.3 (4.0-11.0) th/mm3 RBC 4.67 (4.50-5.90) mil/mm3 Hgb 15.2 (13.0-17.0) gm/dL Hct 45.7 (39.0-51.0) % MCV 98.0 (80.0-100.0) fL MCH 32.7 (27.0-34.0) pg MCHC 33.3 (32.0-36.0) % RDW 13.8 (11.6-17.2) % Plt Count 229 D (150-450) th/mm3 MPV 7.3 (7.0-11.0) fL Neut % (Auto) 77.6 H (16.0-70.0) % Lymph % (Auto) 15.1 (9.0-44.0) % [place] % (Auto) 5.1 (0.0-8.0) % Eos % (Auto) 1.8 (0.0-4.0) % Baso % (Auto) 0.4 (0.0-2.0) % Neut # (Auto) 6.5 (1.8-7.7) th/mm3 Lymph # (Auto) 1.3 (1.0-4.8) th/mm3 [place] # (Auto) 0.4 (0.0-0.9) th/mm3 Eos # (Auto) 0.2 (0.0-0.4) th/mm3 Baso # (Auto) 0.0 (0.0-0.2) th/mm3 WBC Differential . Differential Comment Auto diff final PT 13.0 H (9.8-11.6) sec INR 1.3 Ratio APTT 33.2 H (23.4-31.7) sec Sodium 139 (136-145) meq/L Potassium 4.5 (3.5-5.1) meq/L Chloride 106 (98-107) meq/L Carbon Dioxide 26.5 (21.0-32.0) meq/L Anion Gap 7 (5-15) meq/L BUN 8 (7-18) mg/dL Creatinine 0.65 (0.60-1.30) mg/dL Estimated GFR Greater than 89 (>89) mL/min Random Glucose 69 L (74-106) mg/dL Calcium 9.8 (8.5-10.1) mg/dL Discharge Plan Discharge Disposition Patient Disposition: ED Admit(ED Internal Use Only) Discharge Condition Condition: Stable Discharge Order Discharge Orders: ED Use Only Admit Order (Routine); Ordered 08/13/18 Ordered By: Kenrick Hicks Discharge Details Anticipated Discharge Date: 08/13/18 Diagnosis: Peripheral vascular disease, Femoral-popliteal bypass graft occlusion, right Physicians Team ED Provider: Kenrick Hicks Primary Care Provider: Irma Renee Attending Provider: Camille Faith Discharge Interventions Interventions: Vital Signs Last Done: 08/13/18 19:22 Status ED Status: Admitted Observation Patient
[2018-08-13 19:33] LABS: Baso % (Auto) 0.4 % (0.0-2.0); Eos # (Auto) 0.2 th/mm3 (0.0-0.4); Eos % (Auto) 1.8 % (0.0-4.0); Hematocrit 45.7 % (39.0-51.0); Hemoglobin 15.2 gm/dL (13.0-17.0); Lymph # (Auto) 1.3 th/mm3 (1.0-4.8); Lymph % (Auto) 15.1 % (9.0-44.0); Mean Corpuscular HGB Conc 33.3 % (32.0-36.0); Mean Corpuscular Hemoglobin 32.7 pg (27.0-34.0); Mean Platelet Volume 7.3 fL (7.0-11.0); Mono # (Auto) 0.4 th/mm3 (0.0-0.9); Mono % (Auto) 5.1 % (0.0-8.0); Neut # (Auto) 6.5 th/mm3 (1.8-7.7); Neut % (Auto) 77.6 % (16.0-70.0); Platelet Count 229 th/mm3 (150-450); Red Blood Count 4.67 mil/mm3 (4.50-5.90); Red Cell Distribution Width 13.8 % (11.6-17.2); White Blood Count 8.3 th/mm3 (4.0-11.0)
[2018-08-13 19:39] LABS: Activated Partial Thrombo Time 33.2 sec (23.4-31.7); INR 1.3 Ratio
[2018-08-13 20:37] LABS: Anion Gap 7 meq/L (5-15); Blood Urea Nitrogen 8 mg/dL (7-18); Calcium 9.8 mg/dL (8.5-10.1); Carbon Dioxide 26.5 meq/L (21.0-32.0); Chloride 106 meq/L (98-107); Glomerular Filtration Rate Greater Than 89 mL/min (>89); Glucose,Random 69 mg/dL (74-106); Sodium 139 meq/L (136-145)
[2018-08-13 20:40] LABS: Potassium 4.5 meq/L (3.5-5.1)
[2018-08-13] MEDS ORDERED: Acetaminophen 325 MG Tablet PO PRN (21:17)
[2018-08-13] MEDS ORDERED: Bisacodyl 10 MG Supp RECTAL PRN (21:17)
--- NOTE | 2018-08-13 21:27 | P.HP ---
History of Present Illness Service: [facility] Primary Care Physician: Irma Renee MD History of Present Illness: 78-year-old male with a past medical history significant for peripheral vascular disease status post femoral-femoral bypass on the right, dementia, hypertension and hyperlipidemia presents to the emergency department for evaluation of right leg pain. The patient is unable to provide meaningful history and no family is bedside. Per ED documentation, the patient was sent to the ER by Dr. Barker's office for the evaluation of a several day history of increased right lower extremity pain and difficulty walking. The patient believes that he came in by [facility] after having a problem at home. He states his must have called EMS but he cannot tell me why. He denies any chest pain or shortness of breath. States he has right lower extremity pain and stiffness. No abdominal pain. No nausea/vomiting/diarrhea. No focal neurologic deficits. No fever/chills. Inpatient Certification: I certify that the inpatient services were ordered in accordance with Medicare regulations governing the order. This includes certification that hospital inpatient services are reasonable and necessary and in the case of services not specified as inpatient-only under 42 CFR 419.22(n), that they are appropriately provided as inpatient services in accordance to with the 2-midnight benchmark under 43 CFR 412.3(e) Review of Systems All other systems reviewed negative except as stated in HPI [facility] - History History Provided By: Patient, Family Member - Medical History Medical History: Medical History (Last Updated 08/13/18 @ 21:23 by Camille Faith MD) Dementia High cholesterol Hypertension PVD (peripheral vascular disease) - Surgical History Surgical History: Surgical History (Last Updated 08/13/18 @ 21:23 by Camille Faith MD) Status post femorofemoral bypass surgery - Family History Family History: Family History (Last Updated 08/13/18 @ 21:23 by Camille Faith MD) Other Family history unknown - Tobacco History Second Hand Smoke Exposure: Yes Tobacco Use In Past 30 Days: Yes Smoking Status: Current every day smoker Tobacco Type: Cigarettes - Alcohol History How Often Do You Have a Drink Containing Alcohol: 4 or more times a week - Substance Use History Substance History: Active Abuse - Substance Use Type Alcohol Status: Active Route Used: By Mouth Reason for Use: Calm Down - Travel History Recent Travel in the [facility] Within the Last 8 Weeks: No Recent Travel Out of the Country Within the Last 8 Weeks: No - Immunization History Tetanus Immunization: <5 Years Medications and Allergies Allergies Allergy/AdvReac Type Severity Reaction Status Date / Time No Known Allergies Allergy Unverified 08/13/18 14:51 Home Medications Medication Instructions Recorded Confirmed Type amlodipine 5 mg PO BID 07/18/18 08/13/18 History gabapentin 600 mg PO TID 07/18/18 08/13/18 History lovastatin 40 mg PO DAILY 07/18/18 08/13/18 History warfarin 2.5 mg PO DAILY 07/18/18 08/13/18 History Exam Vital signs: Vital Signs 08/13/18 14:47 08/13/18 18:25 08/13/18 19:22 Temperature 98.5 F Pulse Rate 81 83 68 Respiratory Rate 18 16 18 Blood Pressure 107/56 L 126/61 130/57 L Pulse Oximetry 94 L 97 95 Intake & Output 08/13/18 08/13/18 08/14/18 06:59 18:59 06:59 Weight 74.843 kg Narrative: Gen.: No acute distress Head: Normocephalic. Atraumatic. EENT: Pupils equal round and reactive to light. Nose without drainage. Airway intact. Throat without injection. Cardiovascular: Regular rate and rhythm. No murmurs, rubs or gallops. Respiratory: Lungs clear to auscultation bilaterally. No wheezes or rhonchi. Abdomen: Soft, nontender, nondistended. No peritoneal signs. Musculoskeletal: No gross deformities. Right lower extremity red and edematous. Patient has full range of motion in the ankles and toes. Skin: No obvious rashes or erythema. Neuro: Sensory and motor grossly intact. Cranial nerves II through XII grossly intact. Results - Labs CBC & Chem 7: 08/13/18 18:45 08/13/18 18:45 Labs: Laboratory Results - last 24 hr 08/13/18 08/13/18 08/13/18 18:45 18:45 18:45 WBC 8.3 RBC 4.67 Hgb 15.2 Hct 45.7 MCV 98.0 MCH 32.7 MCHC 33.3 RDW 13.8 Plt Count 229 D MPV 7.3 Neut % (Auto) 77.6 H Lymph % (Auto) 15.1 [place] % (Auto) 5.1 Eos % (Auto) 1.8 Baso % (Auto) 0.4 Neut # (Auto) 6.5 Lymph # (Auto) 1.3 [place] # (Auto) 0.4 Eos # (Auto) 0.2 Baso # (Auto) 0.0 WBC Differential . Differential Comment Auto diff final PT 13.0 H INR 1.3 APTT 33.2 H Sodium 139 Potassium 4.5 Chloride 106 Carbon Dioxide 26.5 Anion Gap 7 BUN 8 Creatinine 0.65 Estimated GFR Greater than 89 Random Glucose 69 L Calcium 9.8 Caprini VTE Risk Assessment Caprini VTE Risk Assessment: Moderate/High Risk (score >= 2) Caprini Risk Assessment Model: Point Value = 1 Point Value = 2 Point Value = 3 Point Value = 5 Age 41-60 Minor surgery BMI > 25 kg/m2 Swollen legs Varicose veins or History of unexplained or recurrent spontaneous Oral contraceptives or hormone replacement Sepsis (< 1 month) Serious lung disease, including pneumonia (< 1 month) Abnormal pulmonary function Acute myocardial infarction Congestive heart failure (< 1 month) History of inflammatory bowel disease Medical patient at bed rest Age 61-74 Arthroscopic surgery Major open surgery (> 45 min) Laparoscopic surgery (> 45 min) Malignancy Confined to bed (> 72 hours) Immobilizing plaster cast Central venous access Age >= 75 History of VTE Family history of VTE Factor V Leiden Prothrombin [id number] Lupus anticoagulant Anticardiolipin antibodies Elevated serum homocysteine Heparin-induced thrombocytopenia Other congenital or acquired thrombophilia Stroke (< 1 month) Elective arthroplasty Hip, pelvis, or leg fracture Acute spinal cord injury (< 1 month) Prophylaxis Regimen: Total Risk Factor Score Risk Level Prophylaxis Regimen 0-1 Low Early ambulation 2 Moderate Order ONE of the following: *Sequential Compression Device (SCD) *Heparin 5000 units SQ BID 3-4 Higher Order ONE of the following medications: *Heparin 5000 units SQ TID *Enoxaparin/Lovenox 40 mg SQ daily (WT < 150 kg, CrCl > 30 mL/min) *Enoxaparin/Lovenox 30 mg SQ daily (WT < 150 kg, CrCl > 10-29 mL/min) *Enoxaparin/Lovenox 30 mg SQ BID (WT < 150 kg, CrCl > 30 mL/min) AND/OR *Sequential Compression Device (SCD) 5 or more Highest Order ONE of the following medications: *Heparin 5000 units SQ TID (Preferred with Epidurals) *Enoxaparin/Lovenox 40 mg SQ daily (WT < 150 kg, CrCl > 30 mL/min) *Enoxaparin/Lovenox 30 mg SQ daily (WT < 150 kg, CrCl > 10-29 mL/min) *Enoxaparin/Lovenox 30 mg SQ BID (WT < 150 kg, CrCl > 30 mL/min) AND *Sequential Compression Device (SCD) Assessment and Plan - Plan Assessment/plan: 1. Peripheral vascular disease/lower extremity vascular occlusion Patient is status post femorofemo bypass grafting on the right with increasing symptoms of pain and difficulty with ambulation Sent by his vascular surgeon, Dr. Barker for further evaluation. Dr. Barker states an angiogram was recently done. He does not want the patient started on heparin. He requests a vascular surgery consult to Dr. Owens be placed for further evaluation. The patient is anticoagulated on Coumadin however he cannot tell me how much he is taking. INR is 1.3. Holding Coumadin until evaluated by vascular surgery 2. Hypertension/hyperlipidemia Continue home medications 3. Dementia Monitor FEN N.p.o. Electrolytes: Monitor and replete as needed NS at 100 cc/hour Holding pharmacologic anticoagulation until cleared by vascular surgery
[2018-08-13] MEDS: Sod Chloride 0.9% Inj 1,000 ML IV.CONT SCH (21:29)
[2018-08-14 07:34] LABS: Baso # (Auto) 0.1 th/mm3 (0.0-0.2); Eos # (Auto) 0.1 th/mm3 (0.0-0.4); Eos % (Auto) 1.2 % (0.0-4.0); Hematocrit 43.2 % (39.0-51.0); Hemoglobin 14.8 gm/dL (13.0-17.0); Lymph # (Auto) 0.9 th/mm3 (1.0-4.8); Mean Corpuscular HGB Conc 34.2 % (32.0-36.0); Mean Corpuscular Hemoglobin 33.2 pg (27.0-34.0); Mean Corpuscular Volume 97.1 fL (80.0-100.0); Mean Platelet Volume 7.3 fL (7.0-11.0); Mono # (Auto) 0.4 th/mm3 (0.0-0.9); Mono % (Auto) 4.9 % (0.0-8.0); Neut # (Auto) 6.9 th/mm3 (1.8-7.7); Neut % (Auto) 81.9 % (16.0-70.0); Platelet Count 225 th/mm3 (150-450); Red Blood Count 4.45 mil/mm3 (4.50-5.90); Red Cell Distribution Width 13.7 % (11.6-17.2); White Blood Count 8.4 th/mm3 (4.0-11.0)
[2018-08-14 07:59] LABS: Anion Gap 10 meq/L (5-15); Blood Urea Nitrogen 10 mg/dL (7-18); Calcium 9.6 mg/dL (8.5-10.1); Chloride 107 meq/L (98-107); Glomerular Filtration Rate Greater Than 89 mL/min (>89); Glucose,Random 60 mg/dL (74-106); Potassium 3.7 meq/L (3.5-5.1); Sodium 141 meq/L (136-145)
[2018-08-14] MEDS: Senna/Docusate Sodium 8.6/50 MG Tablet PO SCH ×2 (08:20→21:04)
[2018-08-14] MEDS: Sod Chloride 0.9% Inj 1,000 ML IV.CONT SCH ×2 (08:20→18:20)
[2018-08-14] MEDS: amLODIPine 10 MG Tablet PO SCH ×2 (08:20→21:03)
[2018-08-14] MEDS: Gabapentin 300 MG Capsule PO SCH ×3 (08:20→18:21)
--- NOTE | 2018-08-14 10:57 | P.CONVS ---
History of Present Illness Service: Vascular Surgery Consult date: 08/14/18 Reason for Consult: R LE rest pain Primary Care Provider: Irma Renee MD Chief Complaint: R LE rest pain/Non healing R ankle wound History of Present Illness: Mr. Mora is a hard of hearing 78/Male smoker (1/2 ppd) who is pleasantly confused and alert to person and place. Poor historian due to hx of Dementia and no family at the BS while evaluated. PMH obtained from patient and EMR. Pt has a PMH of Dementia, Hypertension, Hyperlipidemia, Infrarenal Abdominal Aortic Aneurysm that was repaired (EVAR on 06/06/17/Dr. Barker), Peripheral Vascular Disease (S/p Femoral to Femoral bypass a few months ago and right popliteal tibial thromboembolectomy 10/13/17/Dr Barker)- Hx of thromboembolic occlusion . Patient presented to the emergency department for R LE rest pain for a duration in which he says 3W. Pt has a 3.5 cm X 3 cm dry ulceration to his right ankle (lateral aspect) that patient reported has been there for awhile. Discoloration noted to right 1,2,3 rd digit toes. Pt holding leg up for comfort. Pt reported he ambulates "not far" with a walker at home until recently when he developed R LE pain. Review of Systems Constitutional: Denies body ache(s), Denies chills Cardiovascular: Reports leg pain with activity (R LE ), Reports other (R LE rest pain ), Denies chest pain, Denies leg swelling, Denies shortness of breath Musculoskeletal: Reports stiffness (R LE ) Neurologic: Reports confusion PMF - History History Provided By: Patient, Family Member - Medical History Medical History: Medical History (Last Reviewed 08/14/18 @ 10:41 by Mikayla Bonilla) Dementia High cholesterol Hypertension PVD (peripheral vascular disease) - Surgical History Surgical History: Surgical History (Last Reviewed 08/14/18 @ 10:41 by Mikayla Bonilla) Status post femorofemoral bypass surgery - Family History Family History: Family History (Last Reviewed 08/14/18 @ 10:41 by Mikayla Bonilla) Other Family history unknown - Social History I have reviewed the patient's Social History: Yes - Tobacco History Second Hand Smoke Exposure: Yes Tobacco Use In Past 30 Days: Yes Smoking Status: Current every day smoker Tobacco Type: Cigarettes - Alcohol History How Often Do You Have a Drink Containing Alcohol: 4 or more times a week - Substance Use History Substance History: Active Abuse - Substance Use Type Alcohol Status: Active Route Used: By Mouth Reason for Use: Calm Down - Travel History Recent Travel in the [place] Within the Last 8 Weeks: No Recent Travel Out of the Country Within the Last 8 Weeks: No - Immunization History Tetanus Immunization: <5 Years Medications and Allergies Allergies Allergy/AdvReac Type Severity Reaction Status Date / Time No Known Allergies Allergy Unverified 08/13/18 14:51 Home Medications Medication Instructions Recorded Confirmed Type amlodipine 5 mg PO BID 07/18/18 08/13/18 History gabapentin 600 mg PO TID 07/18/18 08/13/18 History lovastatin 40 mg PO DAILY 07/18/18 08/13/18 History warfarin 2.5 mg PO DAILY 07/18/18 08/13/18 History Active Medications: Active Medications Acetaminophen (Tylenol) 650 mg PO Q4H PRN PRN Reason: Temp > 100.4 Al Hydroxide/Mg Hydroxide (Milk Of Magnesia Liq) 30 ml PO Q12H PRN PRN Reason: Mild Constipation Amlodipine Besylate (Norvasc) 5 mg PO BID [facility] Last Admin: 08/14/18 08:20 Dose: 5 mg Bisacodyl (Dulcolax Supp) 10 mg RECTAL DAILY PRN PRN Reason: SEVERE CONSITIPATION Gabapentin (Neurontin) 600 mg PO TID [facility] Last Admin: 08/14/18 08:20 Dose: 600 mg Sodium Chloride (Ns Inj) 1,000 mls @ 100 mls/hr IV.CONT .Q10H [facility] Last Admin: 08/14/18 08:20 Dose: 100 mls/hr Lactulose (Lactulose Liq) 30 ml PO DAILY PRN PRN Reason: SEVERE CONSITIPATION Ondansetron HCl (Zofran Inj) 4 mg IV.PUSH Q6H PRN PRN Reason: NAUSEA OR VOMITING Pravastatin Sodium (Pravachol) 40 mg PO DAILY [facility] Last Admin: 08/14/18 08:20 Dose: 40 mg Senna/Docusate Sodium (Shelly-Colace) 1 tab PO BID [facility] Last Admin: 08/14/18 08:20 Dose: 1 tab Sennosides (Senokot) 17.2 mg PO Q12H PRN PRN Reason: Moderate Constipation Sodium Chloride (Ns Flush) 2 ml IV.FLUSH BID [facility] Last Admin: 08/14/18 08:20 Dose: 2 ml Sodium Chloride (Ns Flush) 2 ml IV.FLUSH PRN PRN PRN Reason: FLUSH AFTER USING IV ACCESS Physical Exam Vital Signs / I&O: Vital Signs 08/13/18 14:47 08/13/18 18:25 08/13/18 19:22 Temperature 98.5 F Pulse Rate 81 83 68 Respiratory Rate 18 16 18 Blood Pressure 107/56 L 126/61 130/57 L Pulse Oximetry 94 L 97 95 08/13/18 21:30 08/14/18 06:30 08/14/18 08:00 Temperature 98.5 F 98.4 F Pulse Rate 80 84 84 Respiratory Rate 18 20 20 Blood Pressure 131/69 128/72 130/71 Pulse Oximetry 95 94 L 94 L Intake & Output 08/13/18 08/14/18 08/14/18 18:59 06:59 18:59 Intake Total 1000 / 1000 Output Total 200 / 200 Balance 800 / 800 Weight 74.843 kg Intake: IV 1000 / 1000 NS Inj 1,000 ML @ 100 mls/hr IV 1000 / 1000 .CONT .Q10H [facility] Rx#:[id number] Output: Urine 200 / 200 Other: Date of Last Bowel Movement 08/12/17 Neuro: CN 2-12 intact Speech clear Alert and oriented x 2 (person/place) Neck: No JVD distention Heart: RRR w/o M/G/R Lungs: Resp even and CTA Abdomen: S/NT Vascular: Palpable Left Femoral 2+/DP/PT 2+ Non palpable Right Femoral/DP/PT Dry ulceration measuring 3.5 cm X 3.0 cm to lateral aspect of R ankle w/o odor, drainage or erythema Discolored R 1,2,3 rd digit toes noted LE warm to touch/motor intact Extremities: UE 5/5 L LE 4/5 R LE 4/5 Laboratory Results - last 24 hr 08/13/18 08/13/18 08/13/18 18:45 18:45 18:45 WBC 8.3 RBC 4.67 Hgb 15.2 Hct 45.7 MCV 98.0 MCH 32.7 MCHC 33.3 RDW 13.8 Plt Count 229 D MPV 7.3 Neut % (Auto) 77.6 H Lymph % (Auto) 15.1 Stark % (Auto) 5.1 Eos % (Auto) 1.8 Baso % (Auto) 0.4 Neut # (Auto) 6.5 Lymph # (Auto) 1.3 Stark # (Auto) 0.4 Eos # (Auto) 0.2 Baso # (Auto) 0.0 WBC Differential . Differential Comment Auto diff final PT 13.0 H INR 1.3 APTT 33.2 H Sodium 139 Potassium 4.5 Chloride 106 Carbon Dioxide 26.5 Anion Gap 7 BUN 8 Creatinine 0.65 Estimated GFR Greater than 89 POC Glucose Random Glucose 69 L Calcium 9.8 08/13/18 08/14/18 08/14/18 22:54 06:10 06:10 WBC 8.4 RBC 4.45 L Hgb 14.8 Hct 43.2 MCV 97.1 MCH 33.2 MCHC 34.2 RDW 13.7 Plt Count 225 MPV 7.3 Neut % (Auto) 81.9 H Lymph % (Auto) 11.0 Stark % (Auto) 4.9 Eos % (Auto) 1.2 Baso % (Auto) 1.0 Neut # (Auto) 6.9 Lymph # (Auto) 0.9 L Stark # (Auto) 0.4 Eos # (Auto) 0.1 Baso # (Auto) 0.1 WBC Differential . Differential Comment Auto diff final PT INR APTT Sodium 141 Potassium 3.7 D Chloride 107 Carbon Dioxide 24.0 Anion Gap 10 BUN 10 Creatinine 0.49 L Estimated GFR Greater than 89 POC Glucose 82 Random Glucose 60 L Calcium 9.6 Assessment and Plan - Plan 78 pleasantly confused male presenting with Right lower extremity rest pain and non healing ulceration (right heel) Pt s/p right popliteal tibial thromboembolectomy 10/13/17- hx of thromboembolic occlusion Pt s/p femoral to femoral bypass several months ago with Dr. Barker Plan Reviewing recent angiogram - recommendations to follow Remain NPO after midnight Continue pain control Mikayla Bonilla NP [facility]. [phone] Attending note I saw and examined the patient agree with the nurse practitioner assessment and plan. Date of service 08/14/2018 Right lower extremity critical limb ischemia with tissue loss History of endovascular aneurysm repair using a modular graft, occluded right iliac lymph status post left to right femorofemoral bypass on January 2018. Occluded femorofemoral bypass status post mechanical thrombectomy in 2017. There is triphasic flow along the femorofemoral bypass graft. I was not able to obtain any right pedal signals. Motor and sensory intact with no evidence of right lower extremity acute limb ischemia. The right knee joint is stiff with limited range of motion. Patient is currently ambulating with a walker only at home, he is able to carry on his daily activities. I will obtain a CT angiography of the abdomen pelvis with runoff to identify the patient anatomy and decide his treatment plan. Thank you for allowing me to participate in this patient care. If you have any questions do not hesitate to call my cell phone Nick Trent MD [facility] [phone]
[2018-08-14] MEDS ORDERED: LORazepam 1 MG Tablet PO PRN (14:01)
[2018-08-14] MEDS ORDERED: Haloperidol Inj 5 MG/ML Ampul IV.PUSH PRN (14:01)
--- NOTE | 2018-08-14 14:08 | P.PN ---
Subjective Interval history: Follow up for right leg vascular occlusion: pt. seen and examined, awake, QAGAN TAYAGUNGIN, oriented x 2. Poor historian, able to provide some details of medical hx. C/O mild pain right foot. Has been walking very little. No cp, no sob. No fever. No acute changes overnight. Physical Exam Vital signs: Vital Signs 08/13/18 14:47 08/13/18 18:25 08/13/18 19:22 Temperature 98.5 F Pulse Rate 81 83 68 Respiratory Rate 18 16 18 Blood Pressure 107/56 L 126/61 130/57 L Pulse Oximetry 94 L 97 95 08/13/18 21:30 08/14/18 06:30 08/14/18 08:00 Temperature 98.5 F 98.4 F Pulse Rate 80 84 84 Respiratory Rate 18 20 20 Blood Pressure 131/69 128/72 130/71 Pulse Oximetry 95 94 L 94 L 08/14/18 11:54 Temperature 98.5 F Pulse Rate 95 H Respiratory Rate 18 Blood Pressure 135/74 Pulse Oximetry 95 Intake & Output 08/13/18 08/14/18 08/14/18 18:59 06:59 18:59 Intake Total 1000 / 1000 Output Total 300 / 300 Balance 700 / 700 Weight 74.843 kg Intake: IV 1000 / 1000 NS Inj 1,000 ML @ 100 mls/hr IV 1000 / 1000 .CONT .Q10H [facility] Rx#:[id number] Output: Urine 300 / 300 Other: Date of Last Bowel Movement 08/12/17 Narrative: Gen.: 78 year old elderly male, NAD. Head: Normocephalic. Atraumatic. EENT: Pupils equal round and reactive to light. Nose without drainage. Airway intact. Throat without injection. Cardiovascular: Regular rate and rhythm. No murmurs, rubs or gallops. Respiratory: Lungs clear to auscultation bilaterally. No wheezes or rhonchi. Abdomen: Soft, nontender, nondistended. No peritoneal signs. Musculoskeletal: No gross deformities. Right lower extremity discoloration, toes cool to touch. Discolored toes right foot. Dry circular ulcer to right outer malleolus. Unable to palpate/doppler right pedal pulse. Left pedal pulse 2 +. Able to dorsiflex both feet. No other joint abnormality. Neuro: Awake, oriented x 2. Poor historian, no focal deficits. Speech clear. Results - Labs CBC & Chem 7: 08/14/18 06:10 08/14/18 06:10 Laboratory Results - last 24 hr 08/13/18 08/13/18 08/13/18 18:45 18:45 18:45 WBC 8.3 RBC 4.67 Hgb 15.2 Hct 45.7 MCV 98.0 MCH 32.7 MCHC 33.3 RDW 13.8 Plt Count 229 D MPV 7.3 Neut % (Auto) 77.6 H Lymph % (Auto) 15.1 Banner % (Auto) 5.1 Eos % (Auto) 1.8 Baso % (Auto) 0.4 Neut # (Auto) 6.5 Lymph # (Auto) 1.3 Banner # (Auto) 0.4 Eos # (Auto) 0.2 Baso # (Auto) 0.0 WBC Differential . Differential Comment Auto diff final PT 13.0 H INR 1.3 APTT 33.2 H Sodium 139 Potassium 4.5 Chloride 106 Carbon Dioxide 26.5 Anion Gap 7 BUN 8 Creatinine 0.65 Estimated GFR Greater than 89 POC Glucose Random Glucose 69 L Calcium 9.8 08/13/18 08/14/18 08/14/18 22:54 06:10 06:10 WBC 8.4 RBC 4.45 L Hgb 14.8 Hct 43.2 MCV 97.1 MCH 33.2 MCHC 34.2 RDW 13.7 Plt Count 225 MPV 7.3 Neut % (Auto) 81.9 H Lymph % (Auto) 11.0 Banner % (Auto) 4.9 Eos % (Auto) 1.2 Baso % (Auto) 1.0 Neut # (Auto) 6.9 Lymph # (Auto) 0.9 L Banner # (Auto) 0.4 Eos # (Auto) 0.1 Baso # (Auto) 0.1 WBC Differential . Differential Comment Auto diff final PT INR APTT Sodium 141 Potassium 3.7 D Chloride 107 Carbon Dioxide 24.0 Anion Gap 10 BUN 10 Creatinine 0.49 L Estimated GFR Greater than 89 POC Glucose 82 Random Glucose 60 L Calcium 9.6 Assessment and Plan - Assessment (1) Peripheral vascular disease Code(s): I73.9 - Peripheral vascular disease, unspecified Status: Acute (2) Vascular occlusion Code(s): I99.8 - Other disorder of circulatory system Status: Acute (3) Dementia Code(s): F03.90 - Unspecified dementia without behavioral disturbance Status: Chronic (4) HTN (hypertension) Code(s): I10 - Essential (primary) hypertension Status: Chronic (5) Hyperlipidemia Code(s): E78.5 - Hyperlipidemia, unspecified Status: Chronic - Plan 78-year-old male with a past medical history significant for peripheral vascular disease status post femoral-femoral bypass on the right, dementia, hypertension and hyperlipidemia presents to the emergency department for evaluation of right leg pain. Pt. unable to provide history in ED. Per ED documentation, the patient was sent to the ER by Dr. Barker's office for the evaluation of a several day history of increased right lower extremity pain and difficulty walking. Assessment/plan: Peripheral vascular disease/lower extremity vascular occlusion Patient is status post femorofemo bypass grafting on the right with increasing symptoms of pain and difficulty with ambulation recently admitted 07/2018 for occluded fem-fem bypass graft, s/t TPA Sent by his vascular surgeon, Dr. Barker for further evaluation. Dr. Barker states an angiogram was recently done. He does not want the patient started on heparin. He requests a vascular surgery consult to Dr. Owens be placed for further evaluation. -Vascular consult in place, d/w Mikayla WHITTINGTON. Pt. to be evaluated by Dr. Trent for further dx work up -continue to hold Coumadin -continue with neurovascular checks q 4 Subtherapeutic INR, poss non compliance. Pt. has dementia as well -Coumadin on hold for now Hypertension/hyperlipidemia -Continue Norvasc -Continue statin Peripheral neuropathy -continue Gabapentin -pt. on [place] at home. [employer] database verified, recent refill 2017 Dementia not on meds at home -continue to monitor Pos. daily ETOH use per family, drinks 1-2 bottles of wine daily -monitor for DTs -CIWA protocol Follow labs in am will f/u on vascular surgery recommendations Code Status: Full code Discussed Condition With: RN, pt, CM, Mikayla WHITTINGTON for vascular surgery Discharge Planning: Poss home with [facility] vs rehab, waiting for vascular input. (3) Dementia Qualifiers: Dementia type: unspecified type Dementia behavioral disturbance: without behavioral disturbance Qualified Code(s): F03.90 - Unspecified dementia without behavioral disturbance (4) HTN (hypertension) Qualifiers: Hypertension type: essential hypertension Qualified Code(s): I10 - Essential (primary) hypertension (5) Hyperlipidemia Qualifiers: Hyperlipidemia type: unspecified Qualified Code(s): E78.5 - Hyperlipidemia, unspecified
--- NOTE | 2018-08-14 17:48 | CT ---
EXAM DATE: 08/14/2018 5:11 PM EST AGE/SEX: 78 years / Male INDICATIONS: Right leg vascular occlusion. Peripheral vascular disease. CLINICAL DATA: This is the patient's initial encounter. Patient reports that signs and symptoms have been present for 1 day and indicates a pain score of 2/10. MEDICAL/SURGICAL HISTORY: . Hypertension. Chronic obstructive pulmonary disease. Hypercholesterolem ia. Neuropathy. AAA. CAD. . Aortobifemoral bypass. Cardiac stent. Thrombolysis RADIATION DOSE: 59.94 CTDI (mGy) COMPARISON: [facility], CTA RUNOFF W 3D RECON, 10/12/2017. . TECHNIQUE: Volumetric scanning was performed using a multi-row detector CT scanner during bolus infu leanne of 96 ml Omnipaque 350 (iohexol) nonionic water-soluble contrast as a single exam dose. The d manolo was post processed with a variety of visualization algorithms including full volume maximum inten sity projection, multi-planar sliding thin slab reformation, curved planar reformation, and surface r endering techniques. Using automated exposure control and adjustment of the mA and/or kV according t o patient size, radiation dose was kept as low as reasonably achievable to obtain optimal diagnostic quality images. DICOM format image data is available electronically for review and comparison. FINDINGS: The right iliac limb of the aortic iliac graft is occluded. There is reconstitution of the right dist al external iliac/common femoral artery. The right superficial femoral artery is patent throughout it s course but occludes distally. The right popliteal artery is also completely occluded. There is landon nstitution of the right posterior tibial and peroneal arteries. The right anterior tibial artery is o ccluded. There is normal three-vessel runoff on the left. No significant stenosis or occlusion of the left iliac, femoral, or popliteal arteries is noted. There is a stable distal abdominal aortic aneur ysm measuring 4.7 cm transverse by 4.4 cm AP. 7 mm calcified nonobstructing right renal calculus is s table. Stable bilateral renal cysts are noted. Uncomplicated colonic diverticulosis is noted. No acut e diverticulitis is noted. A urinary bladder diverticulum extending from the right side of the bladde r is again noted. Diffuse urinary bladder wall thickening is noted. Coronary artery calcifications ar e noted. CONCLUSION: 1. Right iliac limb of the aortic iliac graft is occluded. There is reconstitution of the right dist al external iliac/common femoral artery. The right superficial femoral artery is patent throughout it s course but occludes distally. The right popliteal artery is also completely occluded. There is landon nstitution of the right posterior tibial and peroneal arteries. The right anterior tibial artery is o ccluded. 2. Normal three-vessel runoff on the left. No significant stenosis or occlusion of the left iliac, f emoral, or popliteal arteries is noted. 3. Stable distal abdominal aortic aneurysm measuring 4.7 cm transverse by 4.4 cm AP. 4. 7 mm calcified nonobstructing right renal calculus is stable. 5. Stable bilateral renal cysts are noted. 6. Uncomplicated colonic diverticulosis is noted. No acute diverticulitis is noted. 7. Urinary bladder diverticulum extending from the right side of the bladder. 8. Diffuse urinary bladder wall thickening. 9. Coronary artery calcifications. Electronically signed by: Carlos A Newton MD Board Certified Radiologist 08/14/2018 5:47 PM EST
[2018-08-15] MEDS: Sod Chloride 0.9% Inj 1,000 ML IV.CONT SCH ×3 (03:56→22:56)
[2018-08-15] MEDS: Senna/Docusate Sodium 8.6/50 MG Tablet PO SCH ×2 (08:13→22:37)
[2018-08-15] MEDS: Gabapentin 300 MG Capsule PO SCH ×3 (08:13→18:40)
[2018-08-15] MEDS: amLODIPine 10 MG Tablet PO SCH ×2 (08:13→21:38)
--- NOTE | 2018-08-15 10:16 | P.PN ---
Subjective Interval history: Follow up for right leg vascular occlusion: pt. seen and examined, awake, [place], oriented x 3. right foot more painful today. Currently NPO, CTA done. No cp, no sob. No acute changes overnight Physical Exam Vital signs: Vital Signs 08/14/18 11:54 08/14/18 16:00 08/14/18 20:23 Temperature 98.5 F 98.2 F 98.2 F Pulse Rate 95 H 91 H 76 Respiratory Rate 18 20 18 Blood Pressure 135/74 118/66 107/59 L Pulse Oximetry 95 95 93 L 08/15/18 00:00 08/15/18 04:01 08/15/18 07:50 Temperature 98.0 F 97.8 F 98.3 F Pulse Rate 77 53 L 53 L Respiratory Rate 16 12 16 Blood Pressure 120/67 115/60 132/63 Pulse Oximetry 95 92 L 95 08/15/18 08:00 Temperature Pulse Rate Respiratory Rate 16 Blood Pressure Pulse Oximetry Intake & Output 08/14/18 08/15/18 08/15/18 18:59 06:59 18:59 Intake Total 2720 / 2720 1240 / 1240 Output Total 900 / 900 850 / 850 Balance 1820 / 1820 390 / 390 Intake: IV 1999 1000 / 1000 NS Inj 1,000 ML @ 100 mls/hr IV 1999 1000 / 1000 .CONT .Q10H [facility] Rx#:[id number] Oral 720 / 720 240 / 240 Output: Urine 900 / 900 850 / 850 Other: Date of Last Bowel Movement 08/12/17 08/12/18 08/12/17 Weight On Admission 170 kg Narrative: Gen.: 78 year old elderly male, NAD. Head: Normocephalic. Atraumatic. EENT: Pupils equal round and reactive to light. Nose without drainage. Airway intact. Throat without injection. Cardiovascular: Regular rate and rhythm. No murmurs, rubs or gallops. Respiratory: Lungs clear to auscultation bilaterally. No wheezes or rhonchi. Abdomen: Soft, nontender, nondistended. No peritoneal signs. Musculoskeletal: No gross deformities. Right lower extremity discoloration, toes cool to touch. Discolored toes right foot. Dry circular ulcer to right outer malleolus. Doppler pulse right pedal and post. tibial, poor quality. Left pedal pulse 2+. Able to dorsiflex both feet. No other joint abnormality. Neuro: Awake, oriented x 3, [place]. No focal deficits. Speech clear. Results - Labs CBC & Chem 7: 08/14/18 06:10 08/14/18 06:10 - Imaging Impressions Aorta w/Runoff CTA 08/14/18 00:00 CONCLUSION: 1. Right iliac limb of the aortic iliac graft is occluded. There is reconstitution of the right distal external iliac/common femoral artery. The right superficial femoral artery is patent throughout its course but occludes distally. The right popliteal artery is also completely occluded. There is reconstitution of the right posterior tibial and peroneal arteries. The right anterior tibial artery is occluded. 2. Normal three-vessel runoff on the left. No significant stenosis or occlusion of the left iliac, femoral, or popliteal arteries is noted. 3. Stable distal abdominal aortic aneurysm measuring 4.7 cm transverse by 4.4 cm AP. 4. 7 mm calcified nonobstructing right renal calculus is stable. 5. Stable bilateral renal cysts are noted. 6. Uncomplicated colonic diverticulosis is noted. No acute diverticulitis is noted. 7. Urinary bladder diverticulum extending from the right side of the bladder. 8. Diffuse urinary bladder wall thickening. 9. Coronary artery calcifications. Assessment and Plan - Assessment (1) Peripheral vascular disease Code(s): I73.9 - Peripheral vascular disease, unspecified Status: Acute (2) Vascular occlusion Code(s): I99.8 - Other disorder of circulatory system Status: Acute (3) Dementia Code(s): F03.90 - Unspecified dementia without behavioral disturbance Status: Chronic (4) HTN (hypertension) Code(s): I10 - Essential (primary) hypertension Status: Chronic (5) Hyperlipidemia Code(s): E78.5 - Hyperlipidemia, unspecified Status: Chronic - Plan 78-year-old male with a past medical history significant for peripheral vascular disease status post femoral-femoral bypass on the right, dementia, hypertension and hyperlipidemia presents to the emergency department for evaluation of right leg pain. Pt. unable to provide history in ED. Per ED documentation, the patient was sent to the ER by Dr. Barker's office for the evaluation of a several day history of increased right lower extremity pain and difficulty walking. Assessment/plan: Peripheral vascular disease/lower extremity vascular occlusion Patient is status post femorofemo bypass grafting on the right with increasing symptoms of pain and difficulty with ambulation recently admitted 07/2018 for occluded fem-fem bypass graft, s/t TPA Sent by his vascular surgeon, Dr. Barker for further evaluation. Dr. Barker states an angiogram was recently done. He does not want the patient started on heparin. He requests a vascular surgery consult to Dr. Owens be placed for further evaluation. -Vascular consult in place, d/w Mikayla WHITTINGTON. Pt. to be evaluated by Dr. Trent for further dx work up -continue to hold Coumadin -continue with neurovascular checks q 4 -CTA results noted -Right iliac limb of the aortic iliac graft is occluded, reconstitution of the right distal external iliac/common femoral artery. The right superficial femoral artery is patent throughout its course but occludes distally. The right popliteal artery is also completely occluded. There is reconstitution of the right posterior tibial and peroneal arteries. The right anterior tibial artery is occluded. Normal on left. Stable distal abdominal aortic aneurysm measuring 4.7 cm transverse by 4.4 cm AP. -Dr. Trent spoke to pt and family, offered AKA vs revascularization. declined AKA. Will wait for further input from vascular surgery. -having increased pain, will add Morphine IV for severe pain Subtherapeutic INR, poss non compliance. Pt. has dementia as well -Coumadin on hold for now Hypertension/hyperlipidemia -Continue Norvasc -Continue statin Peripheral neuropathy -continue Gabapentin -pt. on Montrose at home. [employer] database verified, recent refill 2017 -Continue Montrose PRN -PT eval/tx Dementia not on meds at home -continue to monitor Pos. daily ETOH use per family, drinks 1-2 bottles of wine daily -monitor for DTs -CIWA protocol -stable, no withdrawal symptoms. Keep NPO for now, waiting for vascular input. Change pt. to inpatient status, vascular surgery continues to follow. Pt. may need AKA vs revascularization. Having increased pain, will add IV narcotics. Code Status: Full code Discussed Condition With: RN, pt Discharge Planning: Poss home with [facility] vs rehab, waiting for vascular input. (3) Dementia Qualifiers: Dementia type: unspecified type Dementia behavioral disturbance: without behavioral disturbance Qualified Code(s): F03.90 - Unspecified dementia without behavioral disturbance (4) HTN (hypertension) Qualifiers: Hypertension type: essential hypertension Qualified Code(s): I10 - Essential (primary) hypertension (5) Hyperlipidemia Qualifiers: Hyperlipidemia type: unspecified Qualified Code(s): E78.5 - Hyperlipidemia, unspecified
[2018-08-15] MEDS: Morphine Inj 4 MG/ML Vial IV.PUSH PRN ×2 (12:04→21:33)
--- NOTE | 2018-08-15 12:54 | P.PNVS ---
Subjective Subjective/Hospital Course: RLE pain controlled. No CP or SOB Objective Vital Signs / I&O: Vital Signs 08/14/18 16:00 08/14/18 20:23 08/15/18 00:00 Temperature 98.2 F 98.2 F 98.0 F Pulse Rate 91 H 76 77 Respiratory Rate 20 18 16 Blood Pressure 118/66 107/59 L 120/67 Pulse Oximetry 95 93 L 95 08/15/18 04:01 08/15/18 07:50 08/15/18 08:00 Temperature 97.8 F 98.3 F Pulse Rate 53 L 53 L Respiratory Rate 12 16 16 Blood Pressure 115/60 132/63 Pulse Oximetry 92 L 95 08/15/18 11:24 08/15/18 12:06 Temperature 98.0 F Pulse Rate 52 L Respiratory Rate 17 18 Blood Pressure 133/72 Pulse Oximetry 96 Intake & Output 08/14/18 08/15/18 08/15/18 18:59 06:59 18:59 Intake Total 2720 / 2720 1240 / 1240 Output Total 900 / 900 850 / 850 Balance 1820 / 1820 390 / 390 Intake: IV 1999 1000 / 1000 NS Inj 1,000 ML @ 100 mls/hr IV 1999 / 1999 1000 / 1000 .CONT .Q10H [facility] Rx#:[id number] Oral 720 / 720 240 / 240 Output: Urine 900 / 900 850 / 850 Other: Date of Last Bowel Movement 08/12/17 08/12/18 08/12/17 Weight On Admission 170 kg Physical Exam: RLE with venous signals wounds CDI Impressions Aorta w/Runoff CTA 08/14/18 00:00 CONCLUSION: 1. Right iliac limb of the aortic iliac graft is occluded. There is reconstitution of the right distal external iliac/common femoral artery. The right superficial femoral artery is patent throughout its course but occludes distally. The right popliteal artery is also completely occluded. There is reconstitution of the right posterior tibial and peroneal arteries. The right anterior tibial artery is occluded. 2. Normal three-vessel runoff on the left. No significant stenosis or occlusion of the left iliac, femoral, or popliteal arteries is noted. 3. Stable distal abdominal aortic aneurysm measuring 4.7 cm transverse by 4.4 cm AP. 4. 7 mm calcified nonobstructing right renal calculus is stable. 5. Stable bilateral renal cysts are noted. 6. Uncomplicated colonic diverticulosis is noted. No acute diverticulitis is noted. 7. Urinary bladder diverticulum extending from the right side of the bladder. 8. Diffuse urinary bladder wall thickening. 9. Coronary artery calcifications. Assessment and Plan - Plan I saw and examined the patient agree with the nurse practitioner assessment and plan. Date of service 08/14/2018 Right lower extremity critical limb ischemia with tissue loss reviewed CTA Occluded fem-fem bypass. discussed with Dr. Barker patient is high risk for open surgery Plan for catheter directed thrombolysis by VILMA Trent [phone]
[2018-08-15] MEDS ORDERED: fentaNYL Citrate Inj 250 MCG/5 ML Ampul ONE (16:10)
[2018-08-15] MEDS ORDERED: Heparin Drip 25,000 UNIT/250 ML BAG IV.CONT ONE (16:55)
[2018-08-15] MEDS ORDERED: Cathflo Activase Inj 2 MG Vial I-ARTERIAL ONE (17:30)
[2018-08-15] MEDS: Cathflo Activase Inj 10 MG in Sodium Chlor 0.9% Inj 500 ML I-CATHETER PRN (18:00)
[2018-08-15] MEDS: Heparin/NS PF Inj 500 ML I-ARTERIAL SCH (18:00)
[2018-08-15] MEDS ORDERED: Heparin/NS PF Inj 500 ML I-CATHETER PRN (19:29)
[2018-08-15] MEDS ORDERED: Heparin/NS PF Inj 500 ML I-CATHETER SCH (19:30)
[2018-08-15] MEDS ORDERED: Heparin Drip 25,000 UNIT/250 ML BAG IV.CONT SCH (19:30)
--- NOTE | 2018-08-15 21:00 | P.CONCC ---
History of Present Illness Primary Care Provider: Irma Renee MD Chief Complaint: R LE rest pain/Non healing R ankle wound History of Present Illness: 78-year-old male with a past medical history significant for peripheral vascular disease status post femoral-femoral bypass on the right, alcohol induced dementia, hypertension and hyperlipidemia presents to the emergency department for evaluation of right leg pain. The patient is unable to provide meaningful history and no family is bedside. Per ED documentation, the patient was sent to the ER by Dr. Barker's office for the evaluation of a several day history of increased right lower extremity pain and difficulty walking. The patient believes that he came in by [facility] after having a problem at home. He states his must have called EMS but he cannot tell why. He denies any chest pain or shortness of breath. States he has right lower extremity pain and stiffness. No abdominal pain. No nausea/vomiting/diarrhea. No focal neurologic deficits. No fever/chills. CTA showed right iliac limb of the aortic iliac graft is occluded. The patient was taken to IR for infusion of TPA with admission to [facility] - History History Provided By: Patient, Family Member - Medical History Medical History: Medical History (Last Reviewed 08/15/18 @ 08:25 by Nick Espinoza) Dementia High cholesterol Hypertension PVD (peripheral vascular disease) - Surgical History Surgical History: Surgical History (Last Reviewed 08/15/18 @ 08:25 by Nick Espinoza) Status post femorofemoral bypass surgery - Family History Family History: Family History (Last Reviewed 08/14/18 @ 10:41 by Mikayla Bonilla) Other Family history unknown - Tobacco History Second Hand Smoke Exposure: Yes Tobacco Use In Past 30 Days: Yes Smoking Status: Current every day smoker Tobacco Type: Cigarettes - Alcohol History How Often Do You Have a Drink Containing Alcohol: 4 or more times a week - Substance Use History Substance History: Active Abuse - Substance Use Type Alcohol Status: Active Route Used: By Mouth Reason for Use: Calm Down - Travel History Recent Travel in the [place] Within the Last 8 Weeks: No Recent Travel Out of the Country Within the Last 8 Weeks: No - Immunization History Tetanus Immunization: <5 Years Medications and Allergies Active Medications: Active Medications Acetaminophen (Tylenol) 650 mg PO Q4H PRN PRN Reason: Temp > 100.4 Hydrocodone Bitart/Acetaminophen (Jber 7.5/325) 1 tab PO Q6H PRN PRN Reason: PAIN SCALE 4 TO 6 MODERATE Last Admin: 08/15/18 08:14 Dose: 1 tab Al Hydroxide/Mg Hydroxide (Milk Of Magnesia Liq) 30 ml PO Q12H PRN PRN Reason: Mild Constipation Amlodipine Besylate (Norvasc) 5 mg PO BID [facility] Last Admin: 08/15/18 08:13 Dose: 5 mg Bisacodyl (Dulcolax Supp) 10 mg RECTAL DAILY PRN PRN Reason: SEVERE CONSITIPATION Flumazenil (Romazicon Inj) 0.2 mg IV.PUSH Q1M PRN PRN Reason: OVERSEDATION Gabapentin (Neurontin) 600 mg PO TID [facility] Last Admin: 08/15/18 18:40 Dose: Not Given Haloperidol Lactate (Haldol Inj) 1 mg IV.PUSH Q15M PRN PRN Reason: for severe agitation Sodium Chloride (Ns Inj) 1,000 mls @ 100 mls/hr IV.CONT .Q10H [facility] Last Admin: 08/15/18 13:38 Dose: 100 mls/hr Heparin Sodium/Sodium Chloride (Heparin/Ns Pf Inj) 500 mls @ 10 mls/hr I- CATHETER UNSCH PRN PRN Reason: if TPA stopped Heparin Sodium/Dextrose (Heparin/D5w 25,000 U/250 Ml) 25,000 unit in 250 mls @ 5 mls/hr IV.CONT .Q24H [facility]; Protocol Alteplase, Recombinant 10 mg/ (Sodium Chloride) 500 mls @ 0 mls/hr I-CATHETER TITRATE PRN; Protocol PRN Reason: Per Protocol Last Admin: 08/15/18 18:00 Dose: 1 mg/hr, 50 mls/hr Heparin Sodium/Sodium Chloride (Heparin/Ns Pf Inj) 500 mls @ 0 mls/hr I- ARTERIAL .Q0M [facility] Lactulose (Lactulose Liq) 30 ml PO DAILY PRN PRN Reason: SEVERE CONSITIPATION Lorazepam (Ativan) 1 mg PO Q4H PRN PRN Reason: for CIWA 8-10 Lorazepam (Ativan Inj) 2 mg IV.PUSH Q2H PRN PRN Reason: for CIWA 11-14 Lorazepam (Ativan Inj) 2 mg IV.PUSH Q1H PRN PRN Reason: for CIWA 15-20 Lorazepam (Ativan Inj) 2 mg IV.PUSH Q15M PRN PRN Reason: for CIWA > 20 Lorazepam (Ativan Inj) 1 mg IV.PUSH Q4H PRN PRN Reason: for CIWA 8-10 Lorazepam (Ativan) 2 mg PO Q2H PRN PRN Reason: for CIWA 11-14 Morphine Sulfate (Morphine Inj) 2 mg IV.PUSH Q4H PRN PRN Reason: SEVERE PAIN Last Admin: 08/15/18 12:04 Dose: 2 mg Ondansetron HCl (Zofran Inj) 4 mg IV.PUSH Q6H PRN PRN Reason: NAUSEA OR VOMITING Pravastatin Sodium (Pravachol) 40 mg PO DAILY [facility] Last Admin: 08/15/18 08:14 Dose: 40 mg Senna/Docusate Sodium (Shelly-Colace) 1 tab PO BID [facility] Last Admin: 08/15/18 08:13 Dose: 1 tab Sennosides (Senokot) 17.2 mg PO Q12H PRN PRN Reason: Moderate Constipation Sodium Chloride (Ns Flush) 2 ml IV.FLUSH BID [facility] Last Admin: 08/15/18 08:15 Dose: 2 ml Sodium Chloride (Ns Flush) 2 ml IV.FLUSH PRN PRN PRN Reason: FLUSH AFTER USING IV ACCESS Allergies Allergy/AdvReac Type Severity Reaction Status Date / Time No Known Allergies Allergy Unverified 08/13/18 14:51 Home Medications Medication Instructions Recorded Confirmed Type amlodipine 5 mg PO BID 07/18/18 08/13/18 History gabapentin 600 mg PO TID 07/18/18 08/13/18 History lovastatin 40 mg PO DAILY 07/18/18 08/13/18 History warfarin 2.5 mg PO DAILY 07/18/18 08/13/18 History Physical Exam Vital signs: Vital Signs 08/15/18 00:00 08/15/18 04:01 08/15/18 07:50 Temperature 98.0 F 97.8 F 98.3 F Pulse Rate 77 53 L 53 L Respiratory Rate 16 12 16 Blood Pressure 120/67 115/60 132/63 Pulse Oximetry 95 92 L 95 08/15/18 08:00 08/15/18 11:24 08/15/18 12:06 Temperature 98.0 F Pulse Rate 52 L Respiratory Rate 16 17 18 Blood Pressure 133/72 Pulse Oximetry 96 08/15/18 18:15 08/15/18 18:30 08/15/18 18:45 Temperature Pulse Rate 63 69 64 Respiratory Rate 16 12 10 L Blood Pressure 115/60 131/63 Pulse Oximetry 97 100 94 L 08/15/18 19:00 08/15/18 19:15 08/15/18 19:30 Temperature Pulse Rate 57 L 54 L 61 Respiratory Rate 10 L 12 12 Blood Pressure 132/71 129/60 Pulse Oximetry 98 95 100 08/15/18 19:45 08/15/18 20:00 Temperature 97.5 F L Pulse Rate 80 61 Respiratory Rate 15 12 Blood Pressure 139/68 Pulse Oximetry 99 98 Intake & Output 08/15/18 08/15/18 08/16/18 06:59 18:59 06:59 Intake Total 1240 / 1240 1000 / 1000 Output Total 850 / 850 Balance 390 / 390 1000 / 1000 Intake: IV 1000 / 1000 1000 / 1000 NS Inj 1,000 ML @ 100 mls/hr IV 1000 / 1000 1000 / 1000 .CONT .Q10H [facility] Rx#:[id number] Oral 240 / 240 Output: Urine 850 / 850 Other: Date of Last Bowel Movement 08/12/18 08/12/17 Weight On Admission 170 kg - Urinary Catheter Management Condom Cath placed during this visit: no Assessment and Plan - Assessment and Plan Plan: Peripheral vascular disease/lower extremity vascular occlusion - status post femorofemo bypass grafting - CTA results noted -Right iliac limb of the aortic iliac graft is occluded - TPA per vascular surgery - Dr. Trent spoke to patient's family, offered AKA vs revascularization. - The patient's declined AKA. -Further management per vascular surgery Subtherapeutic INR - non compliance. -Coumadin on hold for now due to TPA -Resume when okay with vascular surgery Hypertension/hyperlipidemia -Continue Norvasc -Continue statin Peripheral neuropathy -continue Gabapentin -Continue Jber PRN -PT and OT eval and treat as tolerated History of EtOH abuse -[facility] protocol -Monitor for withdrawal symptoms DVT GI prophylaxis -Teds SCDs -No pharmacological DVT prophylaxis due to TPA -Pepcid Level 2
[2018-08-15] MEDS ORDERED: Labetalol HCl Inj 100 MG/20 ML Vial IV.PUSH PRN (21:40)
--- NOTE | 2018-08-15 21:42 | US ---
EXAM DATE: 08/15/2018 9:35 PM EST AGE/SEX: 78 years / Male INDICATIONS: Pre op right leg bypass. CLINICAL DATA: This is the patient's initial encounter. Patient reports that signs and symptoms have been present for 1 day and indicates a pain score of 6/10. MEDICAL/SURGICAL HISTORY: Dementia. Peripheral vascular disease. Hypercholesterolemia. Hyper tension. . Right Fem-Fem bypass. COMPARISON: No prior exams available for comparison. TECHNIQUE: Venous ultrasound of both lower extremities was performed from the inguinal ligament to t he proximal calf. Real-time, color Doppler and spectral tracing, compression and augmentation techni ques were used. FINDINGS: Right Leg: Non-occlusive thrombus is noted extending from the right mid superficial femoral to the r ight popliteal vein. Left Leg: Normal compression of the deep venous system from the inguinal region to the proximal calf . No echogenic clot is seen. Normal response of the venous system to augmentation and respiration. Other: Complex collection within the right groin measuring 3.1 x 3.0 x 2.1 cm which demonstrates no color flow. CONCLUSION: 1. Non-occlusive thrombus within the right mid superficial femoral to right popliteal vein. 2. No evidence of deep venous thrombosis within the left lower extremity. 3. Complex collection within the right groin measuring 3.1 x 3.2 x 2.1 cm which demonstrates no colo r flow. This may represent a focal hematoma. Electronically signed by: Carlos A Newton MD Board Certified Radiologist 08/15/2018 9:40 PM EST
--- NOTE | 2018-08-15 21:52 | US ---
EXAM DATE: 08/15/2018 9:44 PM EST AGE/SEX: 78 years / Male INDICATIONS: Preop bypass surgery. CLINICAL DATA: This is the patient's initial encounter. Patient reports that signs and/or symptoms h ave been present for 4 - 6 days and indicates a pain score of 6/10. MEDICAL/SURGICAL HISTORY: Hypercholesterolemia. COMPARISON: No prior exams available for comparison. MEASUREMENTS: LEFT THIGH: Proximal:__8 mm Mid:__2 mm Distal:__Non-visualized LEFT CALF: Proximal:__Non-visualized Mid:__Non-visualized Distal:__Non-visualized FINDINGS: The venous system of the left lower extremity is patent by color Doppler imaging. Measurements of th e leg veins (in mm) are listed above. CONCLUSION: 1. Venous mapping of the left lower extremity as described above. There is nonvisualization of the s aphenous vein from just above the knee to the ankle. Electronically signed by: Carlos A Newton MD Board Certified Radiologist 08/15/2018 9:51 PM EST
[2018-08-15] MEDS ORDERED: Dexmedetomidine Inj 200 MCG in Sodium Chlor 0.9% Inj 48 ML IV.CONT PRN (21:59)
[2018-08-16 01:15] LABS: Baso % (Auto) 0.3 % (0.0-2.0); Eos # (Auto) 0.2 th/mm3 (0.0-0.4); Eos % (Auto) 1.8 % (0.0-4.0); Hematocrit 41.2 % (39.0-51.0); Hemoglobin 13.9 gm/dL (13.0-17.0); Lymph # (Auto) 0.5 th/mm3 (1.0-4.8); Lymph % (Auto) 3.7 % (9.0-44.0); Mean Corpuscular HGB Conc 33.8 % (32.0-36.0); Mean Corpuscular Hemoglobin 32.9 pg (27.0-34.0); Mean Corpuscular Volume 97.3 fL (80.0-100.0); Mean Platelet Volume 7.1 fL (7.0-11.0); Mono # (Auto) 0.6 th/mm3 (0.0-0.9); Mono % (Auto) 4.9 % (0.0-8.0); Neut # (Auto) 11.3 th/mm3 (1.8-7.7); Neut % (Auto) 89.3 % (16.0-70.0); Platelet Count 131 th/mm3 (150-450); Red Blood Count 4.23 mil/mm3 (4.50-5.90); Red Cell Distribution Width 13.6 % (11.6-17.2); White Blood Count 12.6 th/mm3 (4.0-11.0)
[2018-08-16 01:22] LABS: Activated Partial Thrombo Time 54.2 sec (23.4-31.7)
[2018-08-16] MEDS: Morphine Inj 4 MG/ML Vial IV.PUSH PRN (04:11)
[2018-08-16 04:44] LABS: Baso % (Auto) 0.3 % (0.0-2.0); Eos # (Auto) 0.2 th/mm3 (0.0-0.4); Eos % (Auto) 2.1 % (0.0-4.0); Hematocrit 41.1 % (39.0-51.0); Hemoglobin 13.6 gm/dL (13.0-17.0); Lymph # (Auto) 0.7 th/mm3 (1.0-4.8); Mean Corpuscular HGB Conc 33.1 % (32.0-36.0); Mean Corpuscular Hemoglobin 32.5 pg (27.0-34.0); Mean Corpuscular Volume 98.1 fL (80.0-100.0); Mean Platelet Volume 7.1 fL (7.0-11.0); Mono # (Auto) 0.7 th/mm3 (0.0-0.9); Neut # (Auto) 9.6 th/mm3 (1.8-7.7); Neut % (Auto) 85.6 % (16.0-70.0); Platelet Count 125 th/mm3 (150-450); Red Blood Count 4.19 mil/mm3 (4.50-5.90); Red Cell Distribution Width 13.1 % (11.6-17.2); White Blood Count 11.2 th/mm3 (4.0-11.0)
[2018-08-16 04:50] LABS: Activated Partial Thrombo Time 48.4 sec (23.4-31.7)
[2018-08-16] MEDS: Cathflo Activase Inj 10 MG in Sodium Chlor 0.9% Inj 500 ML I-CATHETER PRN (04:54)
[2018-08-16] MEDS: Heparin/NS PF Inj 500 ML I-ARTERIAL SCH (04:56)
[2018-08-16] MEDS: Sod Chloride 0.9% Inj 1,000 ML IV.CONT SCH ×3 (06:18→22:02)
--- NOTE | 2018-08-16 09:18 | MB ---
cc: Aureliano Barker MD, Rena MD DATE: 08/15/2018 REFERRING PHYSICIAN: Nupur Dent MD REASON FOR CONSULTATION: Limb-threatening right lower extremity ischemia. HISTORY: On 06/06/2017, this 78-year-old gentleman underwent uncomplicated percutaneous endovascular aneurysm repair for an enlarging 5.5-plus cm diameter infrarenal abdominal aortic aneurysm. Postprocedure, focal stenosis of the right iliac limb of the endoprosthesis led to complete thrombosis. On 10/13/2017, patency of the thrombosed limb was reestablished with tPA thrombolysis. Open surgical thromboembolectomy of right popliteal thromboembolic occlusion was required as well. Followup CT angiogram on 09/07/2017 confirmed secure endovascular aneurysm repair with diminishing aneurysm sac diameter and unrestricted flow within both iliofemoral systems. In 12/2017, repeat right iliac limb occlusion occurred. Patency could not be achieved by endovascular intervention, and a [id number] femoral-femoral bypass was undertaken. In July, the femoral-femoral bypass thrombosed. Shen Dent MD, performed tPA thrombolysis and was able to achieve only brief patency. He was evaluated by Dr. Hancock who recommended above-knee amputation. The patient returned home and over the ensuing 3 weeks has developed progressive ischemic rest pain within the right foot along with enlarging necrotic ulceration, right lateral gating surface. He returned to the emergency room yesterday for further evaluation and management of unrelenting, disabling rest pain. PHYSICAL EXAMINATION: Well-developed, somewhat emaciated and chronically debilitated appearing 78-year-old male with diminished cognitive function. He is alert and responds appropriately to questions and commands, recognizes me, but his recent and remote recall is significantly impaired. The pyku-ic-scleg femoral-femoral bypass is thrombosed. No bruit is detected along the suprapubic graft tract, and the right femoral pulse is nonpalpable. Left femoral pulse is robust. Spherical 2.5 cm subcutaneous masses proximal to the right femoral anastomosis and more consistent with a contained seroma as opposed to an aneurysm. The right leg exhibits advanced, limb-threatening ischemic atrophic changes. A large necrotic ulcer has centered over the right lateral malleolus, and the right forefoot exhibits diminished capillary refill and warmth. No pulses are palpable within the right leg, and Doppler flow is faintly monophasic at the tibial level. Neurologic: Nonfocal. I reviewed the July angiographic images this morning with Dr. Tunde Garcia. We both agree that potential incomplete thrombolysis of organized thrombus within the right femoral anastomosis may have prevented continued patency of the femoral-femoral bypass following tPA thrombolysis. Dr. Garcia will attempt repeat thrombolysis of the occluded fem-fem bypass graft with detailed images of the right femoral anastomosis and runoff. He may require surgical thrombectomy along with angioplasty of what appears to be a focal grade profunda stenosis. Infrainguinal revascularization of his SFA occlusion could also be considered, but given his advanced age and debility, may present more risk than benefit. I have discussed clinical findings with Dr. Garcia, Dr. Trent, and Dr. Owens. Aureliano Barker MD JTS/rm/rr , 05:41 PM , 05:55 PM
[2018-08-16] MEDS ORDERED: Potassium Phosphate Inj 30 MMOL in Sodium Chlor 0.9% Inj 250 ML IV.SIG PRN (09:21)
[2018-08-16] MEDS ORDERED: Magnesium Oxide 400 MG Tablet PO PRN (09:21)
[2018-08-16] MEDS ORDERED: Potassium Phosphate 500 MG Soluble Tablet PO PRN ×2 (09:21)
[2018-08-16] MEDS ORDERED: Magnesium Sulfate Inj 4 GM in Sodium Chlor 0.9% Inj 92 ML IV.SIG PRN (09:21)
[2018-08-16] MEDS ORDERED: Potassium Chlor 40 mEq Premix 40 MEQ/100 ML PIGGYBACK IV.SIG PRN ×2 (09:21)
[2018-08-16] MEDS ORDERED: Potassium Chlor 20 mEq Premix 20 MEQ/100 ML PIGGYBACK IV.SIG PRN ×2 (09:21)
[2018-08-16] MEDS ORDERED: Sodium Phosphate Inj 30 MMOL in Sodium Chlor 0.9% Inj 250 ML IV.SIG PRN (09:21)
[2018-08-16] MEDS ORDERED: Potassium Chloride 25 MEQ Effervescent Tablet PO PRN (09:21)
[2018-08-16] MEDS ORDERED: Magnesium Sulfate Inj 2 GM in Sodium Chlor 0.9% Inj 96 ML IV.SIG PRN (09:21)
--- NOTE | 2018-08-16 09:25 | P.PNCC ---
Subjective Subjective Remarks/Hospital Course: 78-year-old male with a past medical history significant for peripheral vascular disease status post femoral-femoral bypass on the right, alcohol induced dementia, hypertension and hyperlipidemia presents to the emergency department for evaluation of right leg pain. The patient is unable to provide meaningful history and no family is bedside. Per ED documentation, the patient was sent to the ER by Dr. Barker's office for the evaluation of a several day history of increased right lower extremity pain and difficulty walking. The patient believes that he came in by [facility] after having a problem at home. He states his must have called EMS but he cannot tell why. He denies any chest pain or shortness of breath. States he has right lower extremity pain and stiffness. No abdominal pain. No nausea/vomiting/diarrhea. No focal neurologic deficits. No fever/chills. CTA showed right iliac limb of the aortic iliac graft is occluded. The patient was taken to IR for infusion of TPA with admission to [facility]. 08/16: Patient agitated overnight, started on precedex for a short time but it has since been turned off. He reports "I just couldn't get comfortable and couldn't sleep". He reports continued pain to his RLE but says "it's about the same as it has been". Objective Vital Signs / I&O: Vital Signs 08/15/18 11:24 08/15/18 12:06 08/15/18 18:15 Temperature 98.0 F Pulse Rate 52 L 63 Respiratory Rate 17 18 16 Blood Pressure 133/72 115/60 Pulse Oximetry 96 97 08/15/18 18:30 08/15/18 18:45 08/15/18 19:00 Temperature Pulse Rate 69 64 57 L Respiratory Rate 12 10 L 10 L Blood Pressure 131/63 132/71 Pulse Oximetry 100 94 L 98 08/15/18 19:15 08/15/18 19:30 08/15/18 19:45 Temperature Pulse Rate 54 L 61 80 Respiratory Rate 12 12 15 Blood Pressure 129/60 Pulse Oximetry 95 100 99 08/15/18 20:00 08/15/18 20:15 08/15/18 20:30 Temperature 97.5 F L Pulse Rate 61 76 92 H Respiratory Rate 12 15 23 Blood Pressure 139/68 145/86 H Pulse Oximetry 98 98 95 08/15/18 20:45 08/15/18 21:00 08/15/18 21:15 Temperature Pulse Rate 95 H 90 87 Respiratory Rate 21 21 18 Blood Pressure 181/86 H Pulse Oximetry 97 94 L 96 08/15/18 21:30 08/15/18 21:45 08/15/18 22:00 Temperature Pulse Rate 98 H 74 79 Respiratory Rate 26 H 17 17 Blood Pressure 162/80 H 158/72 H Pulse Oximetry 96 97 97 08/15/18 22:15 08/15/18 22:30 08/15/18 22:45 Temperature Pulse Rate 78 79 77 Respiratory Rate 16 15 16 Blood Pressure 143/67 H Pulse Oximetry 99 100 100 08/15/18 23:00 08/15/18 23:15 08/15/18 23:30 Temperature Pulse Rate 83 81 79 Respiratory Rate 17 17 16 Blood Pressure 144/74 H 133/72 Pulse Oximetry 100 99 98 08/15/18 23:45 08/16/18 00:00 08/16/18 00:15 Temperature 98.2 F Pulse Rate 75 75 88 Respiratory Rate 16 17 22 Blood Pressure 131/65 Pulse Oximetry 97 98 100 08/16/18 00:30 08/16/18 00:45 08/16/18 01:00 Temperature Pulse Rate 70 73 69 Respiratory Rate 15 16 15 Blood Pressure 130/63 114/61 Pulse Oximetry 100 94 L 98 08/16/18 01:15 08/16/18 01:30 08/16/18 01:45 Temperature Pulse Rate 63 69 65 Respiratory Rate 15 15 13 Blood Pressure 125/64 Pulse Oximetry 100 100 100 08/16/18 02:00 08/16/18 02:15 08/16/18 02:30 Temperature Pulse Rate 62 66 67 Respiratory Rate 14 15 13 Blood Pressure 97/54 L 132/64 Pulse Oximetry 100 100 99 08/16/18 02:45 08/16/18 03:00 08/16/18 03:15 Temperature Pulse Rate 67 63 58 L Respiratory Rate 15 14 14 Blood Pressure 113/61 Pulse Oximetry 99 100 100 08/16/18 03:30 08/16/18 03:45 08/16/18 04:00 Temperature 98.2 F Pulse Rate 61 60 59 L Respiratory Rate 15 14 15 Blood Pressure 108/61 107/58 L Pulse Oximetry 99 99 98 08/16/18 04:13 08/16/18 04:15 08/16/18 04:30 Temperature Pulse Rate 53 L 60 Respiratory Rate 14 14 15 Blood Pressure 105/60 Pulse Oximetry 98 98 08/16/18 08:00 08/16/18 08:15 Temperature 97.6 F Pulse Rate 80 79 Respiratory Rate 22 18 Blood Pressure 139/66 Pulse Oximetry 100 100 Intake & Output 08/15/18 08/16/18 08/16/18 18:59 06:59 18:59 Intake Total 1000 / 1000 3127 / 3127 Output Total 2350 / 2350 Balance 1000 / 1000 777 / 777 Weight 70.2 kg Intake: IV 1000 / 1000 3127 / 3127 Heparin/NS PF Inj 500 ML @ KVO 500 / 500 I-ARTERIAL .Q0M [facility] Rx#: [id number] Cathflo Activase Inj 10 MG In 535 / 535 NS Inj 500 ML @ Per Protocol I- CATHETER TITRATE PRN Rx#: [id number] Precedex Inj 200 MCG In NS Inj 28 / 28 48 ML @ 0.2 MCG/KG/HR 3.74 mls/ hr IV.CONT TITRATE PRN Rx#: [id number] Heparin/D5W 25,000 U/250 mL 25, 64 / 64 000 unit In 250 ml @ 5 mls/hr IV.CONT .Q24H [facility] Rx#:[id number] NS Inj 1,000 ML @ 100 mls/hr IV 1000 / 1000 1999 / 1999 .CONT .Q10H [facility] Rx#:[id number] Output: Urine Amount (Catheter) 2350 / 2350 Condom 2350 / 2350 Other: Date of Last Bowel Movement 08/12/17 08/12/18 Result Diagrams: 08/16/18 04:20 08/14/18 06:10 Objective Remarks: GEN: Elderly male sitting in bed, no acute distress HEENT: PERRL, mucosa moist NECK: Trachea midline CARDIO: Regular rate and rhythm PULM: Clear to auscultation bilaterally ABD/GI: Soft and non-tender in all quadrants EXT/MSK: Firm, non-tender mass in right groin, non-pulsatile, outlined last night in IR and has not progressed past outline. Bilateral lower extremities are cool but non-edematous, non-tender. Ulcer to right lateral malleolus. SKIN: No rashes NEURO: Awake and alert, answers questions appropriately, not currently agitated , cooperative with exam PSYCH: Calm, no current agitation Assessment and Plan - Assessment and Plan Plan: 78yM presenting with recurrent occlusion of fem-fem bypass and RLE critical limb ischemia, now s/p IR thrombolysis NEURO: Alcohol withdrawal with delirium tremens Dementia History of peripheral neuropathy -Continue CIWA protocol -Thiamine supplementation -Precedex gtt started overnight for acute agitation, currently on hold -Continue home dose of gabapentin, [place] PRN pain CARDIO: Essential hypertension Dyslipidemia -Continue home Norvasc and statin F/E/N: -NPO until lysis check, restart diet when able -Decrease IVF to maintenance, discontinue when tolerating diet -Thiamine supplementation as noted above -ICU electrolyte protocol HEME/ VASC: Peripheral vascular disease Critical RLE limb ischemia with tissue loss Recurrent occlusion of fem-fem bypass graft -s/p IR thrombolysis, continue tPA, lysis check scheduled for today -Vascular surgery following (Dr. Trent), recs appreciated -Coumadin on hold for now, questionable outpatient compliance PROPHY: -PPI -SCDs -No pharmacological DVT prophylaxis due to TPA OVERALL: This patient remains at high risk for critical limb-threatening ischemia. He requires continued ICU level of care. Level 2 follow up To help prompt me to consider important information that might be impacting today's encounter and assessment, information from prior notes written by myself or my colleagues may have been "brought forward" into today's note. My signature on this note, however, is an attestation that I personally performed the exam, history, and/or decision-making noted today, and, unless otherwise indicated, the interactions with patient, family, and staff as well as the review of records all occurred today. I also attest that the listed assessment and stated plan reflect my best clinical judgment today based on the combination of historical information, prior notes, and today's exam/ interactions. Code Status: Full
[2018-08-16] MEDS: amLODIPine 10 MG Tablet PO SCH ×2 (09:55→20:28)
[2018-08-16] MEDS: Senna/Docusate Sodium 8.6/50 MG Tablet PO SCH ×2 (09:55→20:28)
[2018-08-16] MEDS: Gabapentin 300 MG Capsule PO SCH ×3 (09:55→17:00)
[2018-08-16 10:33] LABS: Baso % (Auto) 0.4 % (0.0-2.0); Eos # (Auto) 0.2 th/mm3 (0.0-0.4); Eos % (Auto) 2.1 % (0.0-4.0); Hematocrit 40.2 % (39.0-51.0); Hemoglobin 13.5 gm/dL (13.0-17.0); Lymph # (Auto) 0.6 th/mm3 (1.0-4.8); Lymph % (Auto) 4.9 % (9.0-44.0); Mean Corpuscular HGB Conc 33.7 % (32.0-36.0); Mean Platelet Volume 7.5 fL (7.0-11.0); Mono # (Auto) 0.7 th/mm3 (0.0-0.9); Mono % (Auto) 6.6 % (0.0-8.0); Neut # (Auto) 9.6 th/mm3 (1.8-7.7); Platelet Count 127 th/mm3 (150-450); Red Cell Distribution Width 13.6 % (11.6-17.2); White Blood Count 11.2 th/mm3 (4.0-11.0)
[2018-08-16 10:40] LABS: Activated Partial Thrombo Time 53.8 sec (23.4-31.7)
[2018-08-16] MEDS ORDERED: Thiamine Inj 100 MG in Sodium Chlor 0.9% Inj 100 ML IV.SIG SCH (12:00)
[2018-08-16] MEDS ORDERED: fentaNYL Citrate Inj 250 MCG/5 ML Ampul ONE (13:59)
--- NOTE | 2018-08-16 15:25 | P.RAD ---
Post Procedure Progress Note - Procedure Information Procedure Date: 08/16/18 Supervising Radiologist: Antonio Triana MD Estimated blood loss (mL): 5 Anesthesia: Conscious Sedation - Plan of Activity Patient to Unit: Critical Care Patient Condition: Good See PACS Report for procedural detail/treatment.
[2018-08-16] MEDS ORDERED: Lidocaine 1%/Epinephrine 1:100,000 Inj 20 ML Vial I-DERMAL ONE (15:34)
--- NOTE | 2018-08-16 19:24 | P.PNVS ---
Subjective Subjective/Hospital Course: RLE pain controlled. No CP or SOB Objective Vital Signs / I&O: Vital Signs 08/15/18 19:30 08/15/18 19:45 08/15/18 20:00 Temperature 97.5 F L Pulse Rate 61 80 61 Respiratory Rate 12 15 12 Blood Pressure 129/60 139/68 Pulse Oximetry 100 99 98 08/15/18 20:15 08/15/18 20:30 08/15/18 20:45 Temperature Pulse Rate 76 92 H 95 H Respiratory Rate 15 23 21 Blood Pressure 145/86 H Pulse Oximetry 98 95 97 08/15/18 21:00 08/15/18 21:15 08/15/18 21:30 Temperature Pulse Rate 90 87 98 H Respiratory Rate 21 18 26 H Blood Pressure 181/86 H 162/80 H Pulse Oximetry 94 L 96 96 08/15/18 21:45 08/15/18 22:00 08/15/18 22:15 Temperature Pulse Rate 74 79 78 Respiratory Rate 17 17 16 Blood Pressure 158/72 H Pulse Oximetry 97 97 99 08/15/18 22:30 08/15/18 22:45 08/15/18 23:00 Temperature Pulse Rate 79 77 83 Respiratory Rate 15 16 17 Blood Pressure 143/67 H 144/74 H Pulse Oximetry 100 100 100 08/15/18 23:15 08/15/18 23:30 08/15/18 23:45 Temperature Pulse Rate 81 79 75 Respiratory Rate 17 16 16 Blood Pressure 133/72 Pulse Oximetry 99 98 97 08/16/18 00:00 08/16/18 00:15 08/16/18 00:30 Temperature 98.2 F Pulse Rate 75 88 70 Respiratory Rate 17 22 15 Blood Pressure 131/65 130/63 Pulse Oximetry 98 100 100 08/16/18 00:45 08/16/18 01:00 08/16/18 01:15 Temperature Pulse Rate 73 69 63 Respiratory Rate 16 15 15 Blood Pressure 114/61 Pulse Oximetry 94 L 98 100 08/16/18 01:30 08/16/18 01:45 08/16/18 02:00 Temperature Pulse Rate 69 65 62 Respiratory Rate 15 13 14 Blood Pressure 125/64 97/54 L Pulse Oximetry 100 100 100 08/16/18 02:15 08/16/18 02:30 08/16/18 02:45 Temperature Pulse Rate 66 67 67 Respiratory Rate 15 13 15 Blood Pressure 132/64 Pulse Oximetry 100 99 99 08/16/18 03:00 08/16/18 03:15 08/16/18 03:30 Temperature Pulse Rate 63 58 L 61 Respiratory Rate 14 14 15 Blood Pressure 113/61 108/61 Pulse Oximetry 100 100 99 08/16/18 03:45 08/16/18 04:00 08/16/18 04:13 Temperature 98.2 F Pulse Rate 60 59 L Respiratory Rate 14 15 14 Blood Pressure 107/58 L Pulse Oximetry 99 98 08/16/18 04:15 08/16/18 04:30 08/16/18 08:00 Temperature 97.6 F Pulse Rate 53 L 60 80 Respiratory Rate 14 15 22 Blood Pressure 105/60 139/66 Pulse Oximetry 98 98 100 08/16/18 08:15 08/16/18 09:00 08/16/18 12:00 Temperature Pulse Rate 79 59 L 63 Respiratory Rate 18 17 18 Blood Pressure 145/69 H 122/60 Pulse Oximetry 100 99 100 08/16/18 12:15 08/16/18 15:54 08/16/18 16:03 Temperature Pulse Rate 54 L 80 83 Respiratory Rate 16 19 21 Blood Pressure Pulse Oximetry 100 99 100 08/16/18 16:15 08/16/18 16:30 08/16/18 16:45 Temperature Pulse Rate 67 82 83 Respiratory Rate 16 19 21 Blood Pressure Pulse Oximetry 100 99 100 08/16/18 17:00 08/16/18 17:15 08/16/18 17:30 Temperature Pulse Rate 85 61 79 Respiratory Rate 17 16 19 Blood Pressure Pulse Oximetry 100 100 99 08/16/18 17:39 08/16/18 18:09 08/16/18 18:15 Temperature Pulse Rate 79 81 79 Respiratory Rate 16 13 19 Blood Pressure 141/65 H 113/57 L Pulse Oximetry 100 100 100 Intake & Output 08/16/18 08/16/18 08/17/18 06:59 18:59 06:59 Intake Total 3127 / 3127 1000 / 1000 Output Total 2350 / 2350 1100 / 1100 Balance 777 / 777 -100 / -100 Weight 70.2 kg Intake: IV 3127 / 3127 1000 / 1000 Heparin/NS PF Inj 500 ML @ KVO 500 / 500 I-ARTERIAL .Q0M [facility] Rx#: [id number] Cathflo Activase Inj 10 MG In 535 / 535 NS Inj 500 ML @ Per Protocol I- CATHETER TITRATE PRN Rx#: [id number] Precedex Inj 200 MCG In NS Inj 28 / 28 48 ML @ 0.2 MCG/KG/HR 3.74 mls/ hr IV.CONT TITRATE PRN Rx#: [id number] Heparin/D5W 25,000 U/250 mL 25, 64 / 64 000 unit In 250 ml @ 5 mls/hr IV.CONT .Q24H [facility] Rx#:[id number] NS Inj 1,000 ML @ 84 mls/hr IV. 1999 / 1999 1000 / 1000 CONT .[id number] [facility] Rx#:[id number] Output: Urine Amount (Catheter) 2350 / 2350 1100 / 1100 Condom 2350 / 2350 1100 / 1100 Other: Date of Last Bowel Movement 08/12/18 08/16/18 Physical Exam: biphasic PT signal Laboratory Results - last 24 hr 08/16/18 08/16/18 08/16/18 00:57 00:57 04:20 WBC 12.6 H 11.2 H RBC 4.23 L 4.19 L Hgb 13.9 13.6 Hct 41.2 41.1 MCV 97.3 98.1 MCH 32.9 32.5 MCHC 33.8 33.1 RDW 13.6 13.1 Plt Count 131 L D 125 L MPV 7.1 7.1 Neut % (Auto) 89.3 H 85.6 H Lymph % (Auto) 3.7 L 6.0 L Clare % (Auto) 4.9 6.0 Eos % (Auto) 1.8 2.1 Baso % (Auto) 0.3 0.3 Neut # (Auto) 11.3 H 9.6 H Lymph # (Auto) 0.5 L 0.7 L Clare # (Auto) 0.6 0.7 Eos # (Auto) 0.2 0.2 Baso # (Auto) 0.0 0.0 WBC Differential . . Differential Comment Auto diff final Auto diff final APTT 54.2 H Fibrinogen 112 L POC Glucose 08/16/18 08/16/18 08/16/18 04:20 10:09 10:09 WBC 11.2 H RBC 4.10 L Hgb 13.5 Hct 40.2 MCV 98.0 MCH 33.0 MCHC 33.7 RDW 13.6 Plt Count 127 L MPV 7.5 Neut % (Auto) 86.0 H Lymph % (Auto) 4.9 L Clare % (Auto) 6.6 Eos % (Auto) 2.1 Baso % (Auto) 0.4 Neut # (Auto) 9.6 H Lymph # (Auto) 0.6 L [place] # (Auto) 0.7 Eos # (Auto) 0.2 Baso # (Auto) 0.0 WBC Differential . Differential Comment Auto diff final APTT 48.4 H 53.8 H Fibrinogen 107 L 115 L POC Glucose 08/16/18 11:28 WBC RBC Hgb Hct MCV MCH MCHC RDW Plt Count MPV Neut % (Auto) Lymph % (Auto) Clare % (Auto) Eos % (Auto) Baso % (Auto) Neut # (Auto) Lymph # (Auto) Clare # (Auto) Eos # (Auto) Baso # (Auto) WBC Differential Differential Comment APTT Fibrinogen POC Glucose 98 Impressions Lower Extremity Ultrasound 08/15/18 00:00 CONCLUSION: 1. Venous mapping of the left lower extremity as described above. There is nonvisualization of the saphenous vein from just above the knee to the ankle. Venous Doppler Study 08/15/18 00:00 CONCLUSION: 1. Non-occlusive thrombus within the right mid superficial femoral to right popliteal vein. 2. No evidence of deep venous thrombosis within the left lower extremity. 3. Complex collection within the right groin measuring 3.1 x 3.2 x 2.1 cm which demonstrates no color flow. This may represent a focal hematoma. Assessment and Plan - Plan Right lower extremity critical limb ischemia with tissue loss S/P CDT RLE viable
[2018-08-17 05:39] LABS: Baso % (Auto) 0.4 % (0.0-2.0); Eos # (Auto) 0.4 th/mm3 (0.0-0.4); Eos % (Auto) 4.3 % (0.0-4.0); Hematocrit 34.1 % (39.0-51.0); Hemoglobin 11.7 gm/dL (13.0-17.0); Lymph # (Auto) 0.9 th/mm3 (1.0-4.8); Lymph % (Auto) 10.8 % (9.0-44.0); Mean Corpuscular HGB Conc 34.5 % (32.0-36.0); Mean Corpuscular Hemoglobin 33.2 pg (27.0-34.0); Mean Corpuscular Volume 96.4 fL (80.0-100.0); Mean Platelet Volume 7.8 fL (7.0-11.0); Mono # (Auto) 0.8 th/mm3 (0.0-0.9); Mono % (Auto) 9.5 % (0.0-8.0); Neut # (Auto) 6.3 th/mm3 (1.8-7.7); Platelet Count 90 th/mm3 (150-450); Red Blood Count 3.53 mil/mm3 (4.50-5.90); Red Cell Distribution Width 13.2 % (11.6-17.2); White Blood Count 8.4 th/mm3 (4.0-11.0)
[2018-08-17 05:58] LABS: Anion Gap 7 meq/L (5-15); Aspartate Aminotransferase 16 U/L (15-37); Blood Urea Nitrogen 11 mg/dL (7-18); Calcium 8.8 mg/dL (8.5-10.1); Carbon Dioxide 29.4 meq/L (21.0-32.0); Chloride 105 meq/L (98-107); Glomerular Filtration Rate Greater Than 89 mL/min (>89); Glucose,Random 83 mg/dL (74-106); Magnesium 1.6 mg/dL (1.5-2.5); Potassium 3.7 meq/L (3.5-5.1); Sodium 141 meq/L (136-145)
[2018-08-17 05:59] LABS: Alanine Aminotransferase 18 U/L (12-78)
[2018-08-17 06:01] LABS: Alkaline Phosphatase 65 U/L (45-117); Total Protein 5.8 g/dL (6.4-8.2)
[2018-08-17 07:27] LABS: Platelet Morphology Normal (Normal)
--- NOTE | 2018-08-17 07:54 | IR ---
EXAM DATE: 08/16/2018 3:51 PM EST AGE/SEX: 78 years / Male INDICATIONS: Patient presents with history of peripheral vascular disease status post femoral-femora l bypass on right in need of follow up leg angiogram prior to surgery. CLINICAL DATA: This is the patient's subsequent encounter. Patient reports that signs and symptoms h ave been present for 3 days and indicates a pain score of 8/10. MEDICAL/SURGICAL HISTORY: . PVD, Dementia, HTN, Hyperlipidemia . AAA, CAD, Aortobifemoral bypa ss, Cardiac Stent, Thrombolysis COMPARISON: [facility], ANGIOGRAM, FU THRU EXIST CATH RT, 07/19/2018. . FLUORO TIME (min): 1.8 IMAGE SERIES: 8 RADIATION DOSE: 15.9 mGy CAK ACCESS SITE: CONTRAST (cc): MEDICATION(S): 125 mcg fentanyl (Sublimaze) IV DEVICE(S): . . PROCEDURE: 1. Conscious sedation with continuous EKG and Oximetry monitoring. 2. Limited pelvic angiogram through existing catheter 3. Right lower extremity runoff through existing catheter The risks, benefits and alternatives to the procedure were explained and verbal and written consent w as obtained. The site was prepped in sterile fashion. Full sterile technique was used, including ca p, mask, sterile gloves and gown and a large sterile sheet. Hand hygiene and 2% chlorhexidine and/or betadine/alcohol prep was utilized per protocol for cutaneous antisepsis. The skin and subcutaneous tissues were infiltrated with local anesthetic solution. Following overnight infusion the patient returned to the angiography suite for evaluation. There is c omplete thrombolysis of the graft with good antegrade flow. There is a residual small partially flow- limiting fibrin plug at the inflow anastomosis. At the level of the distal anastomosis is a focal are a of high-grade similar to previous exam. Distal runoff is unchanged with occlusion of the distal sup erficial femoral arteries with collateral surrounding the knee reconstitution a single vessel runoff via the posterior tibial artery. Conscious sedation was performed with the prescribed dosages and duration as above in the presence of an independent trained radiology nurse to assist in the monitoring of the patient. EKG and oximetry remained stable throughout the procedure. CONCLUSION: 1. Uncomplicated TPA thrombolysis of left to right femoral-femoral bypass graft, as above. Focal res idual partially flow-limiting fibrin plug at the inflow anastomosis. Tentative plan for further evalu ation and possible treatment during surgical revision of the distal anastomosis. Electronically signed by: Antonio Triana MD Board Certified Radiologist 08/17/2018 7:53 AM EST
--- NOTE | 2018-08-17 07:56 | IR ---
EXAM DATE: 08/15/2018 6:27 PM EST AGE/SEX: 78 years / Male INDICATIONS: Patient presents with right leg vascular occlusion and peripheral vascular disease in n eed of intervention. CLINICAL DATA: This is the patient's initial encounter. Patient reports that signs and symptoms have been present for and indicates a pain score of 0/10. MEDICAL/SURGICAL HISTORY: Hypertension. Chronic obstructive pulmonary disease. Hypercholester olemia. Neuropathy . AAA, CAD, Aortobifemoral bypass, Cardiac Stent, Thrombolysis COMPARISON: [facility] [place], US VENOUS DOPPLER LEG BI, 08/15/2018. . FLUORO TIME (min): 22:19 IMAGE SERIES: 8 RADIATION DOSE: 484mGy CAK ACCESS SITE: Left femoral artery SEDATION TIME (min): 60 CONTRAST (cc): 25cc Visipaque (iodixanol) MEDICATION(S): 2mg lorazepam (Ativan) IV ; 250mcg fentanyl (Sublimaze) IV ; ; ; DEVICE(S): Left common femoral artery EV3 Infusion catheter 4F 100cm x 20cm ; ; ; ; ; ; . . PROCEDURE : 1. Ultrasound-guided puncture of the access site. 2. Conscious sedation with continuous EKG and Oximetry monitoring. 3. Angiography of the left to right femoral-femoral bypass graft 4. Initiation of thrombolytic therapy. The risks, benefits and alternatives to the procedure were explained and verbal and written consent w as obtained. The site was prepped in sterile fashion. Full sterile technique was used, including cap, mask, sterile gloves and gown and a large sterile sheet. Hand hygiene and 2% chlorhexidine and/or be tadine/alcohol prep was utilized per protocol for cutaneous antisepsis. Sterile gel and sterile probe cover were utilized for ultrasound guidance. The skin and subcutaneous tissues were infiltrated with local anesthetic solution. With ultrasound and fluoroscopic guidance the selected artery was punctured and a vascular sheath was placed. A 6 [place] sheath was placed and through this a guidewire was advanced through the femoral f emoral bypass into the [place] superficial femoral artery. Following this the prescribed infusion cat heter was placed with the tip in the [place] superficial femoral artery and proximally at the level of the sheath. TPA therapy was begun and the patient is to be allowed to infuse overnight with repeat e valuation the following day Conscious sedation was performed with the prescribed dosages and duration as above in the presence of an independent trained radiology nurse to assist in the monitoring of the patient. EKG and oximetry remained stable throughout the procedure. CONCLUSION: 1. Uncomplicated initiation of thrombolytic therapy for occluded femoral-femoral bypass graft Electronically signed by: Antonio Triana MD Board Certified Radiologist 08/17/2018 7:54 AM EST
--- NOTE | 2018-08-17 08:49 | P.PNCC ---
Subjective Subjective Remarks/Hospital Course: 78-year-old male with a past medical history significant for peripheral vascular disease status post femoral-femoral bypass on the right, alcohol induced dementia, hypertension and hyperlipidemia presents to the emergency department for evaluation of right leg pain. The patient is unable to provide meaningful history and no family is bedside. Per ED documentation, the patient was sent to the ER by Dr. Barker's office for the evaluation of a several day history of increased right lower extremity pain and difficulty walking. The patient believes that he came in by [facility] after having a problem at home. He states his must have called EMS but he cannot tell why. He denies any chest pain or shortness of breath. States he has right lower extremity pain and stiffness. No abdominal pain. No nausea/vomiting/diarrhea. No focal neurologic deficits. No fever/chills. CTA showed right iliac limb of the aortic iliac graft is occluded. The patient was taken to IR for infusion of TPA with admission to [facility]. 08/16: Patient agitated overnight, started on precedex for a short time but it has since been turned off. He reports "I just couldn't get comfortable and couldn't sleep". He reports continued pain to his RLE but says "it's about the same as it has been". 08/17: Patient went for IR lysis check yesterday, found to have open left to right fem-fem graft with focal stenosis at inflow. Sheath removed. Patient drowsy following procedure yesterday but is now awake and alert, no other overnight events. Patient reports significant improvement in RLE rest pain. Objective Vital Signs / I&O: Vital Signs 08/16/18 09:00 08/16/18 12:00 08/16/18 12:15 Temperature Pulse Rate 59 L 63 54 L Respiratory Rate 17 18 16 Blood Pressure 145/69 H 122/60 Pulse Oximetry 99 100 100 08/16/18 15:54 08/16/18 16:03 08/16/18 16:15 Temperature Pulse Rate 80 83 67 Respiratory Rate 19 21 16 Blood Pressure Pulse Oximetry 99 100 100 08/16/18 16:30 08/16/18 16:45 08/16/18 17:00 Temperature Pulse Rate 82 83 85 Respiratory Rate 19 21 17 Blood Pressure Pulse Oximetry 99 100 100 08/16/18 17:15 08/16/18 17:30 08/16/18 17:39 Temperature Pulse Rate 61 79 79 Respiratory Rate 16 19 16 Blood Pressure 141/65 H Pulse Oximetry 100 99 100 08/16/18 18:09 08/16/18 18:15 08/16/18 19:00 Temperature Pulse Rate 81 79 94 H Respiratory Rate 13 19 23 Blood Pressure 113/57 L Pulse Oximetry 100 100 99 08/16/18 20:00 08/16/18 21:00 08/16/18 22:00 Temperature 98.0 F Pulse Rate 87 80 94 H Respiratory Rate 18 17 22 Blood Pressure 127/59 L 102/55 L 112/66 Pulse Oximetry 100 98 96 08/16/18 22:35 08/16/18 23:00 08/16/18 23:28 Temperature Pulse Rate 71 90 Respiratory Rate 24 18 Blood Pressure 119/59 L Pulse Oximetry 98 08/17/18 00:00 08/17/18 01:00 08/17/18 02:00 Temperature 98.4 F Pulse Rate 92 H 78 77 Respiratory Rate 24 17 17 Blood Pressure 115/57 L 133/71 Pulse Oximetry 97 98 94 L 08/17/18 03:00 08/17/18 04:00 08/17/18 05:00 Temperature 98 F Pulse Rate 77 69 78 Respiratory Rate 21 16 20 Blood Pressure 112/59 L 111/57 L 124/61 Pulse Oximetry 97 97 98 08/17/18 06:00 08/17/18 07:00 Temperature Pulse Rate 81 77 Respiratory Rate 21 14 Blood Pressure 124/64 Pulse Oximetry 98 100 Intake & Output 08/16/18 08/17/18 08/17/18 18:59 06:59 18:59 Intake Total 1000 / 1000 1480 / 1480 Output Total 1100 / 1100 850 / 850 Balance -100 / -100 630 / 630 Weight 68.3 kg Intake: IV 1000 / 1000 1000 / 1000 NS Inj 1,000 ML @ 84 mls/hr IV. 1000 / 1000 1000 / 1000 CONT .[id number] [facility] Rx#:[id number] Oral 480 / 480 Output: Urine Amount (Catheter) 1100 / 1100 850 / 850 Condom 1100 / 1100 850 / 850 Other: Date of Last Bowel Movement 08/16/18 08/17/18 08/17/18 Result Diagrams: 08/17/18 04:12 08/17/18 04:22 Objective Remarks: GEN: Elderly male sitting up in bed, no acute distress HEENT: Mucosa moist NECK: Trachea midline CARDIO: Regular rate and rhythm PULM: Clear to auscultation bilaterally ABD/GI: Soft and non-tender in all quadrants, non-distended EXT/MSK: Firm, non-tender mass in right groin, non-pulsatile, unchanged from previous. Bilateral lower extremities are cool but non-edematous, non-tender. Ulcer to right lateral malleolus. SKIN: No rashes NEURO: Awake and alert, answers questions appropriately, cooperative with exam PSYCH: Calm, no current agitation Assessment and Plan - Assessment and Plan Plan: 78yM presenting with recurrent occlusion of fem-fem bypass and RLE critical limb ischemia, now s/p IR thrombolysis NEURO: Alcohol withdrawal with delirium tremens Dementia History of peripheral neuropathy -Continue CIWA protocol -Thiamine supplementation, change from IV to PO -Continue home dose of gabapentin, [place] PRN pain -Patient has not required precedex for >24 hrs, no current agitation CARDIO: Essential hypertension Dyslipidemia -Continue home Norvasc and statin F/E/N: -Cardiac diet, d/c IVF -Thiamine supplementation as noted above -ICU electrolyte protocol HEME/ VASC: Peripheral vascular disease Critical RLE limb ischemia with tissue loss Recurrent occlusion of fem-fem bypass graft -s/p successful IR thrombolysis -Vascular surgery following (Dr. Trent), recs appreciated -Coumadin on hold for now, questionable outpatient compliance, restart when ok with vascular -Mild thrombocytopenia without signs or symptoms of bleeding; monitor PROPHY: -PPI -SCDs, start SQH OVERALL: This patient is s/p successful thrombolysis of limb-threatening occlusion of fem-fem bypass graft, now stable to be transferred out of [facility] to hospitalist service. Level 2 follow up To help prompt me to consider important information that might be impacting today's encounter and assessment, information from prior notes written by myself or my colleagues may have been "brought forward" into today's note. My signature on this note, however, is an attestation that I personally performed the exam, history, and/or decision-making noted today, and, unless otherwise indicated, the interactions with patient, family, and staff as well as the review of records all occurred today. I also attest that the listed assessment and stated plan reflect my best clinical judgment today based on the combination of historical information, prior notes, and today's exam/ interactions. Code Status: Full
[2018-08-17] MEDS: amLODIPine 10 MG Tablet PO SCH ×2 (09:20→20:24)
[2018-08-17] MEDS: Gabapentin 300 MG Capsule PO SCH ×3 (09:20→17:30)
[2018-08-17] MEDS: Senna/Docusate Sodium 8.6/50 MG Tablet PO SCH ×2 (09:21→20:24)
--- NOTE | 2018-08-17 12:47 | P.PNVS ---
Subjective Subjective/Hospital Course: report improvement of right foot pain Objective Vital Signs / I&O: Vital Signs 08/16/18 15:54 08/16/18 16:03 08/16/18 16:15 Temperature Pulse Rate 80 83 67 Respiratory Rate 19 21 16 Blood Pressure Pulse Oximetry 99 100 100 08/16/18 16:30 08/16/18 16:45 08/16/18 17:00 Temperature Pulse Rate 82 83 85 Respiratory Rate 19 21 17 Blood Pressure Pulse Oximetry 99 100 100 08/16/18 17:15 08/16/18 17:30 08/16/18 17:39 Temperature Pulse Rate 61 79 79 Respiratory Rate 16 19 16 Blood Pressure 141/65 H Pulse Oximetry 100 99 100 08/16/18 18:09 08/16/18 18:15 08/16/18 19:00 Temperature Pulse Rate 81 79 94 H Respiratory Rate 13 19 23 Blood Pressure 113/57 L Pulse Oximetry 100 100 99 08/16/18 20:00 08/16/18 21:00 08/16/18 22:00 Temperature 98.0 F Pulse Rate 87 80 94 H Respiratory Rate 18 17 22 Blood Pressure 127/59 L 102/55 L 112/66 Pulse Oximetry 100 98 96 08/16/18 22:35 08/16/18 23:00 08/16/18 23:28 Temperature Pulse Rate 71 90 Respiratory Rate 24 18 Blood Pressure 119/59 L Pulse Oximetry 98 08/17/18 00:00 08/17/18 01:00 08/17/18 02:00 Temperature 98.4 F Pulse Rate 92 H 78 77 Respiratory Rate 24 17 17 Blood Pressure 115/57 L 133/71 Pulse Oximetry 97 98 94 L 08/17/18 03:00 08/17/18 04:00 08/17/18 05:00 Temperature 98 F Pulse Rate 77 69 78 Respiratory Rate 21 16 20 Blood Pressure 112/59 L 111/57 L 124/61 Pulse Oximetry 97 97 98 08/17/18 06:00 08/17/18 07:00 Temperature Pulse Rate 81 77 Respiratory Rate 21 14 Blood Pressure 124/64 Pulse Oximetry 98 100 Intake & Output 08/16/18 08/17/18 08/17/18 18:59 06:59 18:59 Intake Total 1000 / 1000 1480 / 1480 Output Total 1100 / 1100 850 / 850 Balance -100 / -100 630 / 630 Weight 68.3 kg Intake: IV 1000 / 1000 1000 / 1000 NS Inj 1,000 ML @ 84 mls/hr IV. 1000 / 1000 1000 / 1000 CONT .[id number] [facility] Rx#:[id number] Oral 480 / 480 Output: Urine Amount (Catheter) 1100 / 1100 850 / 850 Condom 1100 / 1100 850 / 850 Other: Date of Last Bowel Movement 08/16/18 08/17/18 08/17/18 Physical Exam: multiphasic right pt signal right first toe wound CDI with necrotic edge Laboratory Results - last 24 hr 08/17/18 08/17/18 04:12 04:22 WBC 8.4 RBC 3.53 L Hgb 11.7 L Hct 34.1 L MCV 96.4 MCH 33.2 MCHC 34.5 RDW 13.2 Plt Count 90 L MPV 7.8 Prelim Diff (Auto) Slide review pending Neut % (Auto) 75.0 H Lymph % (Auto) 10.8 [place] % (Auto) 9.5 H Eos % (Auto) 4.3 H Baso % (Auto) 0.4 Neut # (Auto) 6.3 Lymph # (Auto) 0.9 L [place] # (Auto) 0.8 Eos # (Auto) 0.4 Baso # (Auto) 0.0 WBC Differential . Diff Scan Auto diff confirmed Differential Comment . Platelet Estimate Low L Platelet Morphology Normal Sodium 141 Potassium 3.7 Chloride 105 Carbon Dioxide 29.4 Anion Gap 7 BUN 11 Creatinine 0.48 L Estimated GFR Greater than 89 Random Glucose 83 Calcium 8.8 Magnesium 1.6 Total Bilirubin 0.6 AST 16 ALT 18 Alkaline Phosphatase 65 Total Protein 5.8 L Albumin 3.0 L Impressions Lower Extremity Angiography 08/15/18 00:00 CONCLUSION: 1. Uncomplicated initiation of thrombolytic therapy for occluded femoral- femoral bypass graft Lower Extremity Ultrasound 08/15/18 00:00 CONCLUSION: 1. Venous mapping of the left lower extremity as described above. There is nonvisualization of the saphenous vein from just above the knee to the ankle. Venous Doppler Study 08/15/18 00:00 CONCLUSION: 1. Non-occlusive thrombus within the right mid superficial femoral to right popliteal vein. 2. No evidence of deep venous thrombosis within the left lower extremity. 3. Complex collection within the right groin measuring 3.1 x 3.2 x 2.1 cm which demonstrates no color flow. This may represent a focal hematoma. Miscellaneous Special Procedure 08/16/18 00:00 CONCLUSION: 1. Uncomplicated TPA thrombolysis of left to right femoral-femoral bypass graft , as above. Focal residual partially flow-limiting fibrin plug at the inflow anastomosis. Tentative plan for further evaluation and possible treatment during surgical revision of the distal anastomosis. Assessment and Plan - Plan Right lower extremity critical limb ischemia with tissue loss S/P successful CDT RLE viable, rest pain resolved wound healing is questionable due to lack of in-line flow ( occluded distal SFA and suprageniculate popliteal artery) will continue to observe and plan groin reconstruction and distal bypass vs amputation if wound fails to heal.
[2018-08-17] MEDS: Heparin - SQ 10,000 UNITS/ML Vial SQ SCH ×2 (17:31→21:18)
[2018-08-18] MEDS: Heparin - SQ 10,000 UNITS/ML Vial SQ SCH (05:42)
--- NOTE | 2018-08-18 06:49 | P.PNVS ---
Subjective Subjective/Hospital Course: Pt s/p repeated lysis of fem-fem as directed by Dr. Barker. This morning, notes foot still hurts, but he thinks better than 2 days ago. Motor preserved. Objective Vital Signs / I&O: Vital Signs 08/17/18 07:00 08/17/18 12:00 08/17/18 13:00 Temperature 98.7 F Pulse Rate 77 80 90 Respiratory Rate 14 17 25 H Blood Pressure 124/64 105/78 110/55 L Pulse Oximetry 100 98 99 08/17/18 16:00 08/17/18 17:00 08/17/18 20:00 Temperature 97.7 F Pulse Rate 77 74 76 Respiratory Rate 14 16 18 Blood Pressure 100/56 L 103/59 L 95/51 L Pulse Oximetry 100 100 97 08/17/18 20:40 08/18/18 00:00 08/18/18 04:00 Temperature 98.2 F 98.1 F Pulse Rate 70 67 80 Respiratory Rate 18 18 Blood Pressure 96/54 L 112/53 L Pulse Oximetry 95 95 Intake & Output 08/17/18 08/17/18 08/18/18 06:59 18:59 06:59 Intake Total 1480 / 1480 480 / 480 Output Total 850 / 850 1000 / 1000 Balance 630 / 630 -520 / -520 Weight 68.3 kg 73.7 kg Intake: IV 1000 / 1000 NS Inj 1,000 ML @ 84 mls/hr IV. 1000 / 1000 CONT .[id number] [facility] Rx#:[id number] Oral 480 / 480 480 / 480 Output: Urine 1000 / 1000 Urine Amount (Catheter) 850 / 850 Condom 850 / 850 Other: Date of Last Bowel Movement 08/17/18 08/17/18 Physical Exam: Minimal R groin swelling foot warm Hallux tissue loss without odor. Foot erythematous. Laboratory Results - last 24 hr 08/17/18 04:12 WBC Differential . Diff Scan Auto diff confirmed Platelet Estimate Low L Platelet Morphology Normal Impressions Lower Extremity Angiography 08/15/18 00:00 CONCLUSION: 1. Uncomplicated initiation of thrombolytic therapy for occluded femoral- femoral bypass graft Miscellaneous Special Procedure 08/16/18 00:00 CONCLUSION: 1. Uncomplicated TPA thrombolysis of left to right femoral-femoral bypass graft , as above. Focal residual partially flow-limiting fibrin plug at the inflow anastomosis. Tentative plan for further evaluation and possible treatment during surgical revision of the distal anastomosis. Assessment and Plan - Assessment (1) Vascular occlusion Code(s): I99.8 - Other disorder of circulatory system Status: Acute - Plan Right lower extremity critical limb ischemia with tissue loss decent result after repeated lysis over several weeks. We were asked to evaluate him for surgical options. I think that ultimately graft will fail again and if/when that happens he will need surgical revision or AKA. Also, will recommend surgery if foot rest pain doesn't improve or tissue loss doesn't heal. Will follow closely. I'd recommend systemic anticoagulation for graft protection. Ok to start now given no immediate surgical plans. Carlos A Owens MD FACS FSVS RPVI [phone]
[2018-08-18] MEDS ORDERED: Warfarin Consult Pharmacy OTHER PRN (08:24)
[2018-08-18 08:49] LABS: Hematocrit 32.6 % (39.0-51.0); Hemoglobin 11.2 gm/dL (13.0-17.0); Mean Corpuscular HGB Conc 34.3 % (32.0-36.0); Mean Corpuscular Hemoglobin 33.3 pg (27.0-34.0); Mean Corpuscular Volume 97.1 fL (80.0-100.0); Mean Platelet Volume 8.9 fL (7.0-11.0); Platelet Count 98 th/mm3 (150-450); Red Blood Count 3.36 mil/mm3 (4.50-5.90); Red Cell Distribution Width 13.6 % (11.6-17.2); White Blood Count 7.6 th/mm3 (4.0-11.0)
[2018-08-18] MEDS: Gabapentin 300 MG Capsule PO SCH ×3 (09:11→17:38)
[2018-08-18] MEDS: amLODIPine 10 MG Tablet PO SCH ×2 (09:12→20:31)
[2018-08-18] MEDS: Senna/Docusate Sodium 8.6/50 MG Tablet PO SCH ×2 (09:12→20:27)
[2018-08-18 09:18] LABS: Anion Gap 6 meq/L (5-15); Blood Urea Nitrogen 10 mg/dL (7-18); Carbon Dioxide 29.2 meq/L (21.0-32.0); Chloride 105 meq/L (98-107); Glomerular Filtration Rate Greater Than 89 mL/min (>89); Glucose,Random 94 mg/dL (74-106); Magnesium 1.8 mg/dL (1.5-2.5); Potassium 3.8 meq/L (3.5-5.1); Sodium 140 meq/L (136-145)
--- NOTE | 2018-08-18 09:44 | P.PNIM ---
Subjective Interval history: patient seen this morning on follow up of foot pain + pain still but improving last 48hrs apparently spoke to vascular and for now they are not recommending intervention surgically. re-start A/C and d/c with outpatient follow up no fever or chills Physical Exam Vital signs: Vital Signs 08/17/18 12:00 08/17/18 13:00 08/17/18 16:00 Temperature 98.7 F Pulse Rate 80 90 77 Respiratory Rate 17 25 H 14 Blood Pressure 105/78 110/55 L 100/56 L Pulse Oximetry 98 99 100 08/17/18 17:00 08/17/18 20:00 08/17/18 20:40 Temperature 97.7 F Pulse Rate 74 76 70 Respiratory Rate 16 18 Blood Pressure 103/59 L 95/51 L Pulse Oximetry 100 97 08/18/18 00:00 08/18/18 04:00 08/18/18 08:00 Temperature 98.2 F 98.1 F 97.5 F L Pulse Rate 67 80 87 Respiratory Rate 18 18 18 Blood Pressure 96/54 L 112/53 L 108/55 L Pulse Oximetry 95 95 94 L Intake & Output 08/17/18 08/18/18 08/18/18 18:59 06:59 18:59 Intake Total 480 / 480 Output Total 1000 / 1000 Balance -520 / -520 Weight 73.7 kg Intake: Oral 480 / 480 Output: Urine 1000 / 1000 Other: Date of Last Bowel Movement 08/17/18 gen: nad cvs: s1/s2 resp: cta gi: soft, non tender, non distended ext: 1+ right DPP and 2+ LEFT dpp, small ulceration on RIGHT big toe, no edema neuro: no focal findings. Urinary Catheter Management Condom: Cath placed during this visit: no Results Labs CBC & Chem 7: 08/18/18 06:07 08/18/18 06:07 Assessment and Plan (1) Vascular occlusion: Code(s): I99.8 - Other disorder of circulatory system Status: Acute Plan Patient is a 78-year-old male with past medical history of peripheral vascular disease presenting with acute onset worsening right leg pain status post successful IR thrombolysis for concern of limb ischemia. Vascular surgery:Limb ischemia - lovenox 1mg/kg bid with coumadin restart - vascular on d/c for follow up - asa, statin and a/c -No plan for operative management at this time code: fc dvt: lovenox w/ coumadin dispo: med/surg. likely d/c 24-48hrs Progress Note: Quality VTE Deep Vein Thrombosis/Pulmonary Embolism Present on Admission: No
[2018-08-18 12:31] LABS: INR 1.1 Ratio; Prothrombin Time 10.9 sec (9.8-11.6)
[2018-08-18] MEDS: Enoxaparin Inj 80 MG/0.8 ML Syringe SQ SCH (20:28)
[2018-08-19] MEDS: Gabapentin 300 MG Capsule PO SCH ×3 (08:17→18:53)
[2018-08-19] MEDS: amLODIPine 10 MG Tablet PO SCH ×2 (08:20→21:46)
[2018-08-19] MEDS: Senna/Docusate Sodium 8.6/50 MG Tablet PO SCH ×2 (08:20→21:46)
[2018-08-19 08:21] LABS: INR 1.1 Ratio; Prothrombin Time 10.7 sec (9.8-11.6)
[2018-08-19] MEDS: Enoxaparin Inj 80 MG/0.8 ML Syringe SQ SCH ×2 (08:21→21:46)
--- NOTE | 2018-08-19 13:43 | P.PNIM ---
Subjective Interval history: Pain appears to be a little better today No subjective fever chills At this point does not appear that vascular plans any surgical intervention patient will likely go to rehab with outpatient follow-up Physical Exam Vital signs: Vital Signs 08/18/18 16:00 08/18/18 18:35 08/18/18 20:00 Temperature 98.7 F 98.4 F Pulse Rate 82 64 Respiratory Rate 17 18 18 Blood Pressure 110/53 L 98/50 L Pulse Oximetry 97 93 L 08/19/18 00:00 08/19/18 04:00 08/19/18 08:00 Temperature 98.0 F 98.0 F 98.0 F Pulse Rate 64 73 77 Respiratory Rate 18 18 18 Blood Pressure 92/53 L 122/69 97/56 L Pulse Oximetry 91 L 93 L 91 L 08/19/18 12:00 Temperature 98.8 F Pulse Rate 70 Respiratory Rate 19 Blood Pressure 97/52 L Pulse Oximetry 92 L Intake & Output 08/18/18 08/19/18 08/19/18 18:59 06:59 18:59 Intake Total 2200 / 2200 980 / 980 Output Total 1500 / 1500 1000 / 1000 Balance 700 / 700 -20 / -20 Weight 73.6 kg Intake: Oral 2200 / 2200 980 / 980 Output: Urine 1500 / 1500 1000 / 1000 Other: # Voids 2 Date of Last Bowel Movement 08/18/18 08/18/18 general: No acute distress Cardiovascular: S1/S2 Respiratory: Clear to auscultation Gastroenterology: Soft, nontender, positive bowel sounds Extremity: Right lower extremity 1+ pulse, 2+ dorsalis pedis pulse left leg, small hematoma on right big toe, sensation is present and patient is warm and both legs equally. Urinary Catheter Management Condom: Cath placed during this visit: no Results Labs CBC & Chem 7: 08/18/18 06:07 08/18/18 06:07 Assessment and Plan (1) Vascular occlusion: Code(s): I99.8 - Other disorder of circulatory system Status: Acute Plan Patient is a 78-year-old male with past medical history of peripheral vascular disease presenting with acute onset worsening right leg pain status post successful IR thrombolysis for concern of limb ischemia. Vascular surgery:Limb ischemia - lovenox 1mg/kg bid with coumadin restart - vascular on d/c for follow up - asa, statin and a/c -No plan for operative management at this time code: fc dvt: lovenox w/ coumadin dispo: med/surg. likely d/c 24-48hrs Progress Note: Quality VTE Deep Vein Thrombosis/Pulmonary Embolism Present on Admission: No
[2018-08-20 06:31] LABS: INR 1.1 Ratio; Prothrombin Time 10.7 sec (9.8-11.6)
[2018-08-20] MEDS: amLODIPine 10 MG Tablet PO SCH (10:40)
[2018-08-20] MEDS: Senna/Docusate Sodium 8.6/50 MG Tablet PO SCH (10:40)
[2018-08-20] MEDS: Enoxaparin Inj 80 MG/0.8 ML Syringe SQ SCH (10:40)
[2018-08-20] MEDS: Gabapentin 300 MG Capsule PO SCH ×2 (10:40→15:11)
--- NOTE | 2018-08-20 14:15 | P.PNVS ---
Subjective Subjective/Hospital Course: RLE pain improving Objective Vital Signs / I&O: Vital Signs 08/19/18 16:00 08/19/18 18:51 08/19/18 20:00 Temperature 98.9 F 99.4 F Pulse Rate 75 77 Respiratory Rate 19 18 Blood Pressure 93/53 L 110/54 L 103/51 L Pulse Oximetry 95 93 L 08/19/18 20:30 08/20/18 00:00 08/20/18 04:00 Temperature 98.7 F 98.3 F Pulse Rate 71 65 Respiratory Rate 18 18 18 Blood Pressure 96/54 L 96/53 L Pulse Oximetry 92 L 93 L 08/20/18 07:30 08/20/18 08:00 08/20/18 11:40 Temperature 98.6 F 98.4 F Pulse Rate 76 65 73 Respiratory Rate 20 20 Blood Pressure 109/58 L 95/54 L Pulse Oximetry 94 L 95 Intake & Output 08/19/18 08/20/18 08/20/18 18:59 06:59 18:59 Intake Total 1500 / 1500 Output Total 1200 / 1200 300 / 300 Balance 300 / 300 -300 / -300 Weight 73.4 kg Intake: Oral 1500 / 1500 Output: Urine 1200 / 1200 300 / 300 Other: Date of Last Bowel Movement 08/18/18 08/18/18 08/18/18 Physical Exam: biphasic right PT signal Laboratory Results - last 24 hr 08/20/18 05:59 PT 10.7 INR 1.1 Assessment and Plan - Assessment (1) Vascular occlusion Code(s): I99.8 - Other disorder of circulatory system Status: Acute - Plan Right lower extremity critical limb ischemia with tissue loss Stable for DC from vascular surgery standpoint Needs close observation of R first toe wound Will schedule FU visit in two weeks with an EDIE I will continue to follow pt while in hospital Nick Trent MD [phone]
--- NOTE | 2018-08-20 15:31 | P.DS ---
DS: Providers Date of admission: 08/15/18 12:29 Primary care physician: Irma Renee MD Consults: 08/13/18 21:16 Consult to Vascular Surgery Routine Consulting Provider: Carlos A Olivia Preferred Animal Caretaker:: Carlos A Olivia Patient known to:: Aureliano Barker Reason for Consultation: Eval for redo right fem-pop per Dr. Barker Spoke with:: adding to dr olivia's list - courtesy call in AM Date Notified:: 08/13/18 Time Notified:: 22:34 Comments:: spoke to Dr Olivia @ 12 hrs - ML Ordering Provider: LALIT 08/15/18 19:01 Consult to Optical Effects Camera Operator Routine Consulting Provider: Mayo Manley Reason for Consultation: ICU/medical manangement Notified:: Service Spoke with:: DORITA Date Notified:: 08/15/18 Time Notified:: 19:22 Ordering Provider: DAVI 08/17/18 08:44 Consult to Hospitalist Routine Consulting Provider: Shanda Harvey Reason for Consultation: Continuation of medical management on 08/18 Notified:: Service Spoke with:: MARJORIE Date Notified:: 08/17/18 Time Notified:: 08:50 Comments:: WAITING HELPDESK MANAGER BACK Ordering Provider: WALDEMAR Brief History from admission: 78-year-old male with a past medical history significant for peripheral vascular disease status post femoral-femoral bypass on the right, dementia, hypertension and hyperlipidemia presents to the emergency department for evaluation of right leg pain. The patient is unable to provide meaningful history and no family is bedside. Per ED documentation, the patient was sent to the ER by Dr. Barker's office for the evaluation of a several day history of increased right lower extremity pain and difficulty walking. The patient believes that he came in by [facility] after having a problem at home. He states his must have called EMS but he cannot tell me why. He denies any chest pain or shortness of breath. States he has right lower extremity pain and stiffness. No abdominal pain. No nausea/vomiting/diarrhea. No focal neurologic deficits. No fever/chills. DS: Diagnosis Discharge Diagnosis (1) Vascular occlusion: Status: Acute DS: Summary Patient is a pleasant 78-year-old male who presented with right lower extremity pain resting. Patient was admitted to [facility] with the following treatments and services were provided in his care. Consultation was appreciated by vascular surgery. While hospitalized patient underwent IR guided thrombolysis of right lower extremity vascular occlusion. Patient symptomatically improved after procedure. Patient cleared from vascular surgery for discharge with outpatient follow-up in 2 weeks with EDIE testing. At this time there is no surgical plan. Patient stable for discharge with subcu Lovenox 70 mg every 12 hours with overlapping Coumadin dosing. When INR level reaches goal of 2-3 will discontinue Lovenox outpatient. Patient to follow-up with primary medical physician within 7-10 days after discharge. Patient will need close observation of right first toe wound and if clinically worsening should return to emergency department at [facility]. Patient is a 78-year-old male with past medical history of peripheral vascular disease presenting with acute onset worsening right leg pain status post successful IR thrombolysis for concern of limb ischemia. Vascular surgery:Limb ischemia - lovenox 1mg/kg bid with coumadin overlaping. Goal 2-3 INR. STOP lovenox once inr stable - vascular surgery cleared. Patient will need outpatient follow up in 1-2 weeks and EDIE as per vascular team - asa, statin and a/c -No plan for operative management at this time. will eval on follow up - follow up inr monitor in 24-48hrs while in SNF - pain medication script written on discharge and placed in chart. Patient aware of discharge. Cleared medically. Time Spent with Patient Total time spent providing and/or coordinating discharge services: > 30 minutes Patient is a pleasant 78-year-old male who presented with right lower extremity pain resting. Patient was admitted to [facility] with the following treatments and services were provided in his care. Consultation was appreciated by vascular surgery. While hospitalized patient underwent IR guided thrombolysis of right lower extremity vascular occlusion. Patient symptomatically improved after procedure. Patient cleared from vascular surgery for discharge with outpatient follow-up in 2 weeks with EDIE testing. At this time there is no surgical plan. Patient stable for discharge with subcu Lovenox 70 mg every 12 hours with overlapping Coumadin dosing. When INR level reaches goal of 2-3 will discontinue Lovenox outpatient. Patient to follow-up with primary medical physician within 7-10 days after discharge. Patient will need close observation of right first toe wound and if clinically worsening should return to emergency department at [facility]. Patient is a 78-year-old male with past medical history of peripheral vascular disease presenting with acute onset worsening right leg pain status post successful IR thrombolysis for concern of limb ischemia. Vascular surgery:Limb ischemia - lovenox 1mg/kg bid with coumadin overlaping. Goal 2-3 INR. STOP lovenox once inr stable - vascular surgery cleared. Patient will need outpatient follow up in 1-2 weeks and EDIE as per vascular team - asa, statin and a/c -No plan for operative management at this time. will eval on follow up - follow up inr monitor in 24-48hrs while in SNF - pain medication script written on discharge and placed in chart. Patient aware of discharge. Cleared medically. Quality: VTE Deep Vein Thrombosis/Pulmonary Embolism Present on Admission: No Exam Narrative Exam Narrative: vascular:: known RIGHT big toe small hematoma region. stable. if worsens or involves other toes please send to ED for evaluation cvs: s1/s2 resp: CTA bilaterally gi: soft, non tender, non distendedext: 1+ RIGHT extremity DPP. 2+ LEFT DPP on exam. Results Labs on day of discharge: Labs from last 24 hours 08/20/18 05:59 PT 10.7 INR 1.1 Impressions ITS Impressions Aorta w/Runoff CTA 08/14/18 00:00 CONCLUSION: 1. Right iliac limb of the aortic iliac graft is occluded. There is reconstitution of the right distal external iliac/common femoral artery. The right superficial femoral artery is patent throughout its course but occludes distally. The right popliteal artery is also completely occluded. There is reconstitution of the right posterior tibial and peroneal arteries. The right anterior tibial artery is occluded. 2. Normal three-vessel runoff on the left. No significant stenosis or occlusion of the left iliac, femoral, or popliteal arteries is noted. 3. Stable distal abdominal aortic aneurysm measuring 4.7 cm transverse by 4.4 cm AP. 4. 7 mm calcified nonobstructing right renal calculus is stable. 5. Stable bilateral renal cysts are noted. 6. Uncomplicated colonic diverticulosis is noted. No acute diverticulitis is noted. 7. Urinary bladder diverticulum extending from the right side of the bladder. 8. Diffuse urinary bladder wall thickening. 9. Coronary artery calcifications. Lower Extremity Ultrasound 08/15/18 00:00 CONCLUSION: 1. Venous mapping of the left lower extremity as described above. There is nonvisualization of the saphenous vein from just above the knee to the ankle. Venous Doppler Study 08/15/18 00:00 CONCLUSION: 1. Non-occlusive thrombus within the right mid superficial femoral to right popliteal vein. 2. No evidence of deep venous thrombosis within the left lower extremity. 3. Complex collection within the right groin measuring 3.1 x 3.2 x 2.1 cm which demonstrates no color flow. This may represent a focal hematoma. Miscellaneous Special Procedure 08/16/18 00:00 CONCLUSION: 1. Uncomplicated TPA thrombolysis of left to right femoral-femoral bypass graft , as above. Focal residual partially flow-limiting fibrin plug at the inflow anastomosis. Tentative plan for further evaluation and possible treatment during surgical revision of the distal anastomosis. Discharge Plan Discharge Disposition Patient Disposition: Discharge to SNF Discharge Condition Condition: Stable Discharge Order Discharge Orders: Discharge Order (Routine); Ordered 08/20/18 Ordered By: Carlos A Roy Discharge Details Anticipated Discharge Date: 08/13/18 Physicians Team Primary Care Provider: Imra Renee Attending Provider: Carlos A Roy Other Providers: Carlos A Olivia ; Mayo Manley Rxs /Orders / Referrals /Forms Prescriptions: New hydrocodone-acetaminophen 7.5-325 mg Tablet 1 tab PO Q6H PRN (Reason: Pain Scale 4 To 6 Moderate) 3 Days Qty: 12 RF: 0 enoxaparin [Lovenox] 80 mg/0.8 mL Syringe 70 mg subcut Q12HR 5 Days Qty: 8 RF: 0 Continue gabapentin 600 mg Tablet 600 mg PO TID RF: 0 amlodipine 10 mg Tablet 5 mg PO BID RF: 0 lovastatin 20 mg Tablet 40 mg PO DAILY RF: 0 warfarin 2.5 mg Tablet 2.5 mg PO DAILY RF: 0 Ambulatory Orders / Order Sets / DME: Prothrombin Time INR (Routine) Location: Determined by Patient Ordered By: Carlos A Roy Referrals: Carlos A Olivia MD [Physician] - See Instructions (please call to follow up in 7 days post discharge. patient will need INR check to make sure coumadin level is 2-3) Irma Renee MD [Primary Care Provider] - See Instructions Discharge Instructions Additional Instructions: continue lovenox 70mg Sq q12hrs until INR at goal 2-3 and then may discontinue lovenox Sq. Discharge Interventions Interventions: Discharge Planning - Case Management Last Done: 08/20/18 13:24 Status ED Status: Left Department
== END 2018-08-20 17:25 | DRG 315 ==
LOC: NEPE 14:31 → INTOOBSV 20:59 → NEDA 20:59 → NEPFCDU 22:20 → N03 08-15 17:59 → N07 08-17 18:53
PROVIDERS: ADMIT Internal Medicine; ATTEND Internal Medicine
CPT/HCPCS: 36245; 37211; 37213; 75635; 75710; 76937; 80048; 80053; 82948; 82962; 83735; 85025; 85027; 85347; 85384; 85610; 85730; 93970; 93998; 97110; 97116; 97163; 97164; 97530; 99145; 99152; 99153; 99285; A4646; C1751; C1757; C1760; C1769; C1887; C1893; C1894; G0378; G8987; G8988; J1644; J1650; J2060; J2250; J2270; J2997; J3010; J7030; J7040; Q9949; Q9967

== ENCOUNTER 2018-09-25 06:00 | Inpatient (IN) ==
[2018-09-25] MEDS ORDERED: Metoprolol Tartrate 25 MG Tablet PO ONE (06:20)
[2018-09-25] MEDS ORDERED: Chlorhexidine Gluconate 2% 1 Pack (2 Cloths) TOPICAL ONE (06:20)
[2018-09-25] MEDS ORDERED: ceFAZolin 2 GM Premix Inj 2 GM/50 ML PIGGYBACK IV.SIG ONE (06:47)
[2018-09-25] MEDS ORDERED: Gelatin Size 100 Topical Foam ONE (06:47)
[2018-09-25] MEDS ORDERED: Bupivacaine PF 0.5% Inj 10 ML Vial ONE (06:48)
[2018-09-25] MEDS ORDERED: Protamine Sulfate Inj 50 MG/5 ML Vial ONE (06:48)
[2018-09-25] MEDS ORDERED: Heparin 10,000 UNITS/10 ML Vial (for IV use) ONE (06:48)
[2018-09-25] MEDS ORDERED: Thrombin Topical Soln 20,000 UNIT Vial TOPICAL ONE (06:48)
[2018-09-25] MEDS ORDERED: Heparin/NS PF Inj 500 ML ONE (06:48)
--- NOTE | 2018-09-25 06:54 | XR ---
EXAM DATE: 09/25/2018 6:47 AM EST AGE/SEX: 78 years / Male INDICATIONS: Evaluate for pneumonia, pneumothorax, and or communicable disease. Pre op. CLINICAL DATA: This is the patient's initial encounter. Patient reports that signs and symptoms have been present for 1 day and indicates a pain score of 0/10. MEDICAL/SURGICAL HISTORY: None. None. COMPARISON: [facility], CT CHEST W/O CONTRAST, 10/07/2016. . FINDINGS: Persistent elevation of the right hemidiaphragm. No significant focal pleural or parenchymal opacitie s. Right-sided PICC line with tip at the cavoatrial junction. The cardiomediastinal contours are unr emarkable. Osseous structures are intact. CONCLUSION: 1. Persistent elevation of the right hemidiaphragm. 2. No acute abnormality or significant interval change. Electronically signed by: Antonio Triana MD Board Certified Radiologist 09/25/2018 6:53 AM EST
[2018-09-25] MEDS ORDERED: Sodium Chlor 0.9% Inj 500 ML IV.SIG SCH (07:00)
[2018-09-25 07:15] LABS: Baso # (Auto) 0.1 th/mm3 (0.0-0.2); Baso % (Auto) 1.1 % (0.0-2.0); Eos # (Auto) 0.5 th/mm3 (0.0-0.4); Eos % (Auto) 6.2 % (0.0-4.0); Hematocrit 37.6 % (39.0-51.0); Hemoglobin 12.7 gm/dL (13.0-17.0); Lymph # (Auto) 0.7 th/mm3 (1.0-4.8); Lymph % (Auto) 8.7 % (9.0-44.0); Mean Corpuscular HGB Conc 33.8 % (32.0-36.0); Mean Corpuscular Hemoglobin 30.5 pg (27.0-34.0); Mean Corpuscular Volume 90.4 fL (80.0-100.0); Mean Platelet Volume 6.7 fL (7.0-11.0); Mono # (Auto) 0.5 th/mm3 (0.0-0.9); Mono % (Auto) 5.9 % (0.0-8.0); Neut # (Auto) 6.4 th/mm3 (1.8-7.7); Neut % (Auto) 78.1 % (16.0-70.0); Platelet Count 268 th/mm3 (150-450); Red Blood Count 4.16 mil/mm3 (4.50-5.90); Red Cell Distribution Width 14.4 % (11.6-17.2); White Blood Count 8.2 th/mm3 (4.0-11.0)
[2018-09-25 07:22] LABS: INR 1.1 Ratio; Prothrombin Time 10.8 sec (9.8-11.6)
[2018-09-25] MEDS ORDERED: Sodium Chlor 0.9% Inj 250 ML IV.CONT ONE (07:42)
[2018-09-25] MEDS ORDERED: Phenylephrine/NS 1000 MCG/10ML Syringe IV.PUSH ONE (07:42)
[2018-09-25] MEDS ORDERED: Glycopyrrolate Inj 1 MG/5 ML Syringe IV.PUSH ONE (07:42)
[2018-09-25] MEDS ORDERED: Neostigmine Inj 5 MG/5 ML Syringe IV.PUSH ONE (07:42)
[2018-09-25] MEDS ORDERED: Lidocaine PF 1% Inj 5 ML Syringe OTHER ONE (07:42)
--- NOTE | 2018-09-25 13:47 | P.OP ---
Preoperative Diagnosis: Right lower extremity critical limb ischemia with tissue loss Postoperative Diagnosis: Right lower extremity critical limb ischemia tissue loss Date of procedure: 09/25/18 Procedure: 1. Left common femoral artery endarterectomy 2. Right profunda femoral artery endarterectomy 3. Left common femoral artery to right profunda femoral artery bypass. 4. Right femoral to posterior tibial artery bypass. Implants: 8 mm ringed PTFE 6 mm ringed PTFE Anesthesia: GETA Surgeon: Nick Trent MD Estimated blood loss (mL): 200 Operation and Findings: Findings 1. I performed the right groin reconstruction with excision of the right common femoral artery. I elected not to reimplant the right superficial femoral artery because it is occludes distally. 2. Successful left common femoral artery to right profunda femoral artery bypass using an 8 mm ringed PTFE graft. 3. The right posterior tibial artery is noted to be small in caliber. 4. Successful right femoral to posterior tibial artery bypass. There was a multiphasic right posterior tibial signal at the end of the procedure. Description of the operation The patient was taken to the operating room, laid supine on the OR table. After general endotracheal anesthesia, the patient was prepped and draped in the standard sterile fashion. Timeout was called with all members and you are in agreement. A longitudinal incision was made in the right groin. Dissection was taken down through the subcutaneous tissues electrocautery. The common femoral artery superficial femoral artery and profunda femoral artery dissected. The femorofemoral bypass graft was also dissected. No attention to the left groin. A little incision was made and dissection was taken down through the subcutaneous tissues electrocautery. The common femoral artery artery and profunda femoral artery were dissected and encircled Silastic loop. The proximal femorofemoral bypass was also dissected. Now attention was turned to the right posterior tibial artery dissection. An incision was made in the right calf and dissection was taken down through the subcutaneous tissues electrocautery. The gastrocnemius muscle and the soleus muscle was mobilized medially. The posterior tibial artery identified and dissected. Patient was heparinized. Proximal distal control was obtained in the femoral vessels. The previously placed PTFE graft was removed. Femoral endarterectomy was performed. The 8 mm graft was brought into the field cut to appropriate length and the proximal anastomosis fashioned using a 5-0 Prolene suture in a running fashion. The graft was tunneled in the subcu venous tissue. Proximal and distal distal control was obtained on the right femoral vessels. The common femoral artery and the PTFE graft were excised and removed. Left profunda femoral artery endarterectomy was performed. The anastomosis between the 8 mm PTFE and the left profunda femoral artery was performed using a 6-0 Prolene suture in a running fashion. The proximal right external iliac artery as well as the right superficial femoral artery were ligated using a 5-0 Prolene suture. The 6 mm PTFE graft was tunneled anatomically. The proximal anastomosis fashioned to the femorofemoral bypass graft using a 6-0 Prolene suture in a running fashion. Proximal distal control was obtained in the right posterior tibial artery and arteriotomy is created. At the distal anastomosis fashioned between a 6 mm PTFE graft and the posterior tibial artery using 6-0 Prolene suture in running fashion. Hemostasis achieved and all the wounds. The right groin wounds were closed using Vicryl suture followed by Monocryl suture. The right calf wound was closed using a Vicryl suture followed by nuha. Sterile dressing was applied. The patient tolerated the procedure well was taken to recovery in stable condition.
[2018-09-25] MEDS ORDERED: fentaNYL Citrate Inj 100 MCG/2 ML Ampul ONE (13:58)
[2018-09-25] MEDS ORDERED: *HYDROmorphone PF Inj 1 MG/ML Ampul PERIprocedural Use ONLY ONE ×2 (14:10→14:20)
[2018-09-25] MEDS: Sod Chloride 0.9% Inj 1,000 ML IV.CONT SCH (14:45)
[2018-09-25] MEDS ORDERED: HYDROmorphone PF Inj 0.5 MG/0.5 ML Syringe ONE (14:53)
[2018-09-25] MEDS ORDERED: Bisacodyl 10 MG Supp RECTAL PRN (15:00)
[2018-09-25] MEDS: Senna/Docusate Sodium 8.6/50 MG Tablet PO SCH (20:14)
[2018-09-25] MEDS: Famotidine 20 MG Tablet PO SCH (20:14)
[2018-09-25] MEDS: Morphine Inj 4 MG/ML Vial IV.PUSH PRN ×2 (21:36→22:40)
[2018-09-26] MEDS: Morphine Inj 4 MG/ML Vial IV.PUSH PRN ×8 (03:42→20:14)
[2018-09-26] MEDS: Sod Chloride 0.9% Inj 1,000 ML IV.CONT SCH ×2 (03:43→17:05)
[2018-09-26 05:27] LABS: Hematocrit 28.8 % (39.0-51.0); Hemoglobin 9.9 gm/dL (13.0-17.0); Mean Corpuscular HGB Conc 34.3 % (32.0-36.0); Mean Corpuscular Hemoglobin 31.4 pg (27.0-34.0); Mean Corpuscular Volume 91.6 fL (80.0-100.0); Mean Platelet Volume 6.9 fL (7.0-11.0); Platelet Count 164 th/mm3 (150-450); Red Blood Count 3.14 mil/mm3 (4.50-5.90); Red Cell Distribution Width 14.3 % (11.6-17.2); White Blood Count 9.3 th/mm3 (4.0-11.0)
[2018-09-26 05:57] LABS: Anion Gap 8 meq/L (5-15); Blood Urea Nitrogen 8 mg/dL (7-18); Carbon Dioxide 27.2 meq/L (21.0-32.0); Chloride 104 meq/L (98-107); Glomerular Filtration Rate Greater Than 89 mL/min (>89); Glucose,Random 109 mg/dL (74-106); Sodium 139 meq/L (136-145)
[2018-09-26] MEDS: Famotidine 20 MG Tablet PO SCH ×2 (08:57→20:10)
[2018-09-26] MEDS: Senna/Docusate Sodium 8.6/50 MG Tablet PO SCH ×2 (08:57→20:10)
--- NOTE | 2018-09-26 08:59 | P.PNVS ---
Subjective Subjective/Hospital Course: doing well R foot pain improved Objective Vital Signs / I&O: Vital Signs 09/25/18 13:43 09/25/18 13:45 09/25/18 14:00 Temperature 97.6 F Pulse Rate 77 68 68 Respiratory Rate 25 H 25 H 28 H Blood Pressure 80/45 L 62/35 L 90/55 L Pulse Oximetry 100 93 L 96 09/25/18 14:15 09/25/18 14:30 09/25/18 14:45 Temperature Pulse Rate 75 78 84 Respiratory Rate 20 20 24 Blood Pressure 103/52 L 96/60 L 102/58 L Pulse Oximetry 95 94 L 97 09/25/18 15:00 09/25/18 15:15 09/25/18 15:30 Temperature 97.9 F Pulse Rate 89 88 89 Respiratory Rate 17 22 18 Blood Pressure 97/53 L 103/55 L 114/56 L Pulse Oximetry 97 94 L 94 L 09/25/18 15:40 09/25/18 16:55 09/25/18 18:00 Temperature 97.7 F Pulse Rate 92 H 92 H 97 H Respiratory Rate 18 Blood Pressure Pulse Oximetry 94 L 09/25/18 19:00 09/25/18 20:00 09/25/18 21:00 Temperature 98.6 F Pulse Rate 87 87 96 H Respiratory Rate 18 Blood Pressure 123/58 L Pulse Oximetry 98 09/25/18 22:00 09/25/18 23:00 09/26/18 00:00 Temperature 98.7 F Pulse Rate 94 H 94 H 87 Respiratory Rate 18 Blood Pressure 100/64 Pulse Oximetry 98 09/26/18 01:00 09/26/18 02:00 09/26/18 03:00 Temperature Pulse Rate 88 96 H 107 H Respiratory Rate Blood Pressure Pulse Oximetry 09/26/18 04:00 09/26/18 05:00 09/26/18 06:00 Temperature 99.6 F Pulse Rate 96 H 92 H 90 Respiratory Rate 18 Blood Pressure 106/58 L Pulse Oximetry 97 Intake & Output 09/25/18 09/26/18 09/26/18 18:59 06:59 18:59 Intake Total 3050 / 3050 1240 / 1240 Output Total 1250 / 1250 850 / 850 Balance 1800 / 1800 390 / 390 Weight 69 kg Intake: IV 50 / 50 1000 / 1000 NS Inj 1,000 ML @ 75 mls/hr IV. 1000 / 1000 CONT .[id number] JETT Rx#:[id number] Ancef 2 GM Premix Inj 2 gm In 50 / 50 50 ml @ 0 mls/hr IV.SIG .STK- MED ONE Rx#:[id number] Oral 240 / 240 Anesthesia Amount 3000 / 3000 Output: Estimated Blood Loss 250 / 250 Urine Amount (Catheter) 1000 / 1000 850 / 850 Indwelling Temp Sensing 1000 / 1000 850 / 850 Catheter Physical Exam: RLE wounds stable patent Fem-profunda bypass biphasic right popliteal signal Monophasic right PT signal right knee partially contracted Laboratory Results - last 24 hr 09/26/18 09/26/18 04:27 04:27 WBC 9.3 RBC 3.14 L Hgb 9.9 L D Hct 28.8 L MCV 91.6 MCH 31.4 MCHC 34.3 RDW 14.3 Plt Count 164 D MPV 6.9 L Sodium 139 Potassium 4.0 Chloride 104 Carbon Dioxide 27.2 Anion Gap 8 BUN 8 Creatinine 0.56 L Estimated GFR Greater than 89 Random Glucose 109 H Calcium 9.0 Impressions Chest X-Ray 09/25/18 00:00 CONCLUSION: 1. Persistent elevation of the right hemidiaphragm. 2. No acute abnormality or significant interval change. Assessment and Plan - Plan s/p Fem-profunda/right Fem-PT POD #1 The fem-pt bypass seems occluded. Most likely due to poor outflow to the right foot exploration and redo bypass won't be successful and the patient has a high operative risk He has extensive tissue loss of the RLE and inline flow is necessary I believe right AKA will be best option for the patient. It has the best chance for healing with a patent fem-profunda bypass I discussed this possibility with the family prior to the procedure I will have a meeting with his and daughters and plan his care
[2018-09-26] MEDS: Heparin - SQ 10,000 UNITS/ML Vial SQ SCH ×2 (12:43→20:09)
[2018-09-27] MEDS: Heparin - SQ 10,000 UNITS/ML Vial SQ SCH ×3 (05:54→20:42)
[2018-09-27] MEDS: Sod Chloride 0.9% Inj 1,000 ML IV.CONT SCH ×2 (05:55→11:31)
[2018-09-27] MEDS: Morphine Inj 4 MG/ML Vial IV.PUSH PRN ×4 (07:50→14:00)
--- NOTE | 2018-09-27 08:02 | P.PNVS ---
Subjective Subjective/Hospital Course: doing well denies pain Objective Vital Signs / I&O: Vital Signs 09/26/18 09:00 09/26/18 10:00 09/26/18 11:00 Temperature Pulse Rate 94 H 90 109 H Respiratory Rate Blood Pressure Pulse Oximetry 09/26/18 11:30 09/26/18 12:00 09/26/18 14:00 Temperature 98 F Pulse Rate 102 H 103 H Respiratory Rate 22 20 Blood Pressure 147/67 H Pulse Oximetry 95 09/26/18 15:00 09/26/18 16:00 09/26/18 17:00 Temperature 99.3 F Pulse Rate 97 H 100 H 99 H Respiratory Rate 22 Blood Pressure 104/61 Pulse Oximetry 95 09/26/18 18:00 09/26/18 19:00 09/26/18 20:00 Temperature 98.9 F Pulse Rate 92 H 98 H 98 H Respiratory Rate 20 Blood Pressure 143/66 H Pulse Oximetry 93 L 09/26/18 21:00 09/26/18 22:00 09/26/18 23:00 Temperature Pulse Rate 91 H 94 H 90 Respiratory Rate Blood Pressure Pulse Oximetry 09/27/18 00:00 09/27/18 01:00 09/27/18 02:00 Temperature 97.9 F Pulse Rate 93 H 93 H 89 Respiratory Rate 18 Blood Pressure 98/54 L Pulse Oximetry 94 L 09/27/18 03:00 09/27/18 04:00 09/27/18 05:00 Temperature 98.2 F Pulse Rate 92 H 92 H 91 H Respiratory Rate 21 Blood Pressure 112/56 L Pulse Oximetry 92 L 09/27/18 05:16 Temperature Pulse Rate 90 Respiratory Rate Blood Pressure Pulse Oximetry Intake & Output 09/26/18 09/27/18 09/27/18 18:59 06:59 18:59 Intake Total 1740 / 1740 960 / 960 Output Total 875 / 875 Balance 865 / 865 960 / 960 Intake: IV 1240 / 1240 760 / 760 NS Inj 1,000 ML @ 75 mls/hr IV. 1240 / 1240 760 / 760 CONT .[id number] JETT Rx#:[id number] Oral 500 / 500 200 / 200 Output: Urine Amount (Catheter) 875 / 875 Indwelling Temp Sensing 875 / 875 Catheter Other: # Bowel Movements 0 Assessment and Plan - Plan s/p Fem-profunda/right Fem-PT POD #2 Diet as edith HL IVF DC Hernandez OOB awaiting family decision regarding amputation
[2018-09-27] MEDS: Senna/Docusate Sodium 8.6/50 MG Tablet PO SCH ×2 (08:47→20:42)
[2018-09-27] MEDS: Famotidine 20 MG Tablet PO SCH ×2 (08:47→20:42)
[2018-09-28] MEDS: Morphine Inj 4 MG/ML Vial IV.PUSH PRN ×2 (01:12→04:41)
[2018-09-28] MEDS: Heparin - SQ 10,000 UNITS/ML Vial SQ SCH ×3 (04:47→22:03)
[2018-09-28 08:11] LABS: Anion Gap 7 meq/L (5-15); Blood Urea Nitrogen 11 mg/dL (7-18); Calcium 8.8 mg/dL (8.5-10.1); Chloride 105 meq/L (98-107); Glomerular Filtration Rate Greater Than 89 mL/min (>89); Glucose,Random 88 mg/dL (74-106); Potassium 3.3 meq/L (3.5-5.1); Sodium 141 meq/L (136-145)
[2018-09-28] MEDS: Famotidine 20 MG Tablet PO SCH ×2 (08:11→22:04)
[2018-09-28] MEDS: Senna/Docusate Sodium 8.6/50 MG Tablet PO SCH ×2 (08:11→22:04)
[2018-09-28] MEDS ORDERED: Lidocaine PF 1% Inj 5 ML Syringe OTHER ONE (09:10)
[2018-09-28] MEDS ORDERED: Normosol-R pH 7.4 Inj 1,000 ML IV.CONT ONE (09:10)
--- NOTE | 2018-09-28 10:45 | P.OP ---
Preoperative Diagnosis: Right lower extremity gangrene Postoperative Diagnosis: Right lower extremity gangrene Date of procedure: 09/28/18 Procedure: Right above-knee amputation [facility] Surgeon: Nick Trent MD Estimated blood loss (mL): 50 Operation and Findings: Indication the procedure This is a pleasant 78-year-old male with past medical history of severe peripheral vascular disease status post left to right femorofemoral bypass. His bypass occluded and he underwent multiple attempts of catheter directed thrombolysis. He was seen in my office and he was noted to have's extensive right foot gangrene/right heel wound. His knee was partially contracted. I offered the patient redo femorofemoral bypass, right from distal bypass versus right above-knee amputation. I also explained to the family that his best option is a right above-knee amputation. The family and the patient wanted to proceed with the redo bypass. The bypass was done successfully. Postoperative day #2 the right from distal bypass occluded due to poor outflow. His right femoral to left profunda bypass remains open. I had a discussion with the patient and his and they agreed regarding the above-knee amputation. Risk benefits, and alternatives were explained to them and they agreed to proceed with the surgery. Operation details Patient taken to the operating room, laid supine on the OR table. After general endotracheal anesthesia, the patient was prepped and draped in the standard sterile fashion. Timeout was called with all members and you are agreement. A fishmouth incision was made in the right above-knee thigh. Dissection was taken down through the subcutaneous tissues electrocautery. Anterior flap was created by dividing the thigh muscles. The femur was divided using electrical saw. The neurovascular bundle identified and ligated. The femoral to posterior tibial graft was identified ligated at and divided. The posterior flap was created divided and the thigh muscles. The wound was closed with proximate in the fascia using a 2-0 Vicryl suture and interrupted fashion followed by 3 Vicryl suture for the skin followed by nuha. Sterile dressing was applied. The patient tolerated the procedure well and was taken to recovery in stable condition
[2018-09-28] MEDS ORDERED: *morphine SULFATE 10 MG/ML PERIprocedure ONLY ONE (10:50)
[2018-09-28] MEDS ORDERED: fentaNYL Citrate Inj 100 MCG/2 ML Ampul ONE (10:54)
[2018-09-28] MEDS ORDERED: Morphine Inj 4 MG/ML Vial ONE ×2 (10:54)
[2018-09-28 10:58] LABS: Baso # (Auto) 0.1 th/mm3 (0.0-0.2); Baso % (Auto) 1.1 % (0.0-2.0); Eos # (Auto) 0.1 th/mm3 (0.0-0.4); Eos % (Auto) 1.9 % (0.0-4.0); Hematocrit 28.3 % (39.0-51.0); Hemoglobin 9.4 gm/dL (13.0-17.0); Lymph # (Auto) 0.5 th/mm3 (1.0-4.8); Lymph % (Auto) 7.9 % (9.0-44.0); Mean Corpuscular HGB Conc 33.4 % (32.0-36.0); Mean Corpuscular Hemoglobin 30.4 pg (27.0-34.0); Mean Corpuscular Volume 91.2 fL (80.0-100.0); Mean Platelet Volume 8.2 fL (7.0-11.0); Mono # (Auto) 0.6 th/mm3 (0.0-0.9); Mono % (Auto) 9.3 % (0.0-8.0); Neut # (Auto) 5.3 th/mm3 (1.8-7.7); Neut % (Auto) 79.8 % (16.0-70.0); Platelet Count 154 th/mm3 (150-450); Red Cell Distribution Width 14.4 % (11.6-17.2); White Blood Count 6.6 th/mm3 (4.0-11.0)
[2018-09-28] MEDS ORDERED: *Meperidine Inj 25 MG/ML Vial PERIprocedural Use ONLY ONE (10:58)
[2018-09-28] MEDS: Sod Chloride 0.9% Inj 1,000 ML IV.CONT SCH ×3 (11:45→23:29)
[2018-09-29] MEDS: Heparin - SQ 10,000 UNITS/ML Vial SQ SCH ×3 (04:55→20:34)
[2018-09-29] MEDS: Morphine Inj 4 MG/ML Vial IV.PUSH PRN ×3 (04:57→20:35)
[2018-09-29] MEDS: Famotidine 20 MG Tablet PO SCH ×2 (08:35→20:49)
[2018-09-29] MEDS: Senna/Docusate Sodium 8.6/50 MG Tablet PO SCH ×2 (08:35→20:34)
--- NOTE | 2018-09-29 09:07 | P.PNVS ---
Subjective Subjective/Hospital Course: doing well denies pain Objective Vital Signs / I&O: Vital Signs 09/28/18 10:45 09/28/18 11:00 09/28/18 11:15 Temperature 97.9 F Pulse Rate 72 72 66 Respiratory Rate 16 16 16 Blood Pressure 115/59 L 126/65 111/59 L Pulse Oximetry 99 99 99 09/28/18 11:30 09/28/18 12:00 09/28/18 12:37 Temperature 97.9 F Pulse Rate 62 58 L 72 Respiratory Rate 16 16 Blood Pressure 114/62 112/53 L Pulse Oximetry 99 100 09/28/18 13:00 09/28/18 14:00 09/28/18 15:00 Temperature Pulse Rate 66 68 64 Respiratory Rate Blood Pressure Pulse Oximetry 09/28/18 16:00 09/28/18 17:00 09/28/18 18:00 Temperature 98.0 F Pulse Rate 75 55 L 56 L Respiratory Rate 16 Blood Pressure 98/52 L Pulse Oximetry 99 09/28/18 19:00 09/28/18 20:00 09/28/18 21:00 Temperature 97.6 F Pulse Rate 55 L 56 L 54 L Respiratory Rate 16 Blood Pressure 104/54 L Pulse Oximetry 100 09/28/18 22:00 09/28/18 23:00 09/29/18 00:00 Temperature 97.5 F L Pulse Rate 52 L 90 76 Respiratory Rate 16 Blood Pressure 105/55 L Pulse Oximetry 99 09/29/18 01:00 09/29/18 02:00 09/29/18 03:00 Temperature Pulse Rate 52 L 50 L 50 L Respiratory Rate 16 Blood Pressure Pulse Oximetry 09/29/18 04:00 09/29/18 05:00 09/29/18 06:00 Temperature 98.1 F Pulse Rate 58 L 57 L 65 Respiratory Rate 20 16 Blood Pressure 105/59 L Pulse Oximetry 98 09/29/18 07:00 09/29/18 08:00 Temperature 99.2 F Pulse Rate 84 84 Respiratory Rate 16 Blood Pressure 99/53 L Pulse Oximetry 98 Intake & Output 09/28/18 09/29/18 09/29/18 18:59 06:59 18:59 Intake Total 1040 / 1040 1240 / 1240 Output Total 525 / 525 650 / 650 Balance 515 / 515 590 / 590 Weight 66.8 kg Intake: IV 1000 / 1000 NS Inj 1,000 ML @ 75 mls/hr IV. 1000 / 1000 CONT .[id number] [facility] Rx#:[id number] Oral 240 / 240 240 / 240 Anesthesia Amount 800 / 800 Output: Estimated Blood Loss 150 / 150 Urine Amount (Catheter) 375 / 375 650 / 650 Indwelling Temp Sensing 375 / 375 650 / 650 Catheter Other: Date of Last Bowel Movement 09/27/18 09/27/18 09/27/18 Physical Exam: Right AKA dressing clean dry intact Bilateral groin wound vacs clean dry intact Laboratory Results - last 24 hr 09/28/18 09/28/18 06:50 06:50 WBC 6.6 RBC 3.10 L Hgb 9.4 L Hct 28.3 L MCV 91.2 MCH 30.4 MCHC 33.4 RDW 14.4 Plt Count 154 MPV 8.2 Neut % (Auto) 79.8 H Lymph % (Auto) 7.9 L [place] % (Auto) 9.3 H Eos % (Auto) 1.9 Baso % (Auto) 1.1 Neut # (Auto) 5.3 Lymph # (Auto) 0.5 L [place] # (Auto) 0.6 Eos # (Auto) 0.1 Baso # (Auto) 0.1 WBC Differential . Differential Comment Auto diff final Antibody Screen Negative Assessment and Plan - Plan s/p Fem-profunda/right Fem-PT POD #3 Status post right AKA postop day #1 Diet as edith HL IVF DC Hernandez OOB PT/OT
[2018-09-29] MEDS: Melatonin 5 MG Tablet PO SCH (23:14)
[2018-09-30 04:50] LABS: Baso % (Auto) 0.5 % (0.0-2.0); Eos # (Auto) 0.2 th/mm3 (0.0-0.4); Eos % (Auto) 2.9 % (0.0-4.0); Hematocrit 28.1 % (39.0-51.0); Hemoglobin 9.2 gm/dL (13.0-17.0); Lymph # (Auto) 0.7 th/mm3 (1.0-4.8); Lymph % (Auto) 10.6 % (9.0-44.0); Mean Corpuscular HGB Conc 32.6 % (32.0-36.0); Mean Corpuscular Hemoglobin 29.9 pg (27.0-34.0); Mean Corpuscular Volume 91.7 fL (80.0-100.0); Mean Platelet Volume 7.4 fL (7.0-11.0); Mono # (Auto) 0.6 th/mm3 (0.0-0.9); Mono % (Auto) 10.3 % (0.0-8.0); Neut # (Auto) 4.7 th/mm3 (1.8-7.7); Neut % (Auto) 75.7 % (16.0-70.0); Platelet Count 194 th/mm3 (150-450); Red Blood Count 3.06 mil/mm3 (4.50-5.90); Red Cell Distribution Width 14.3 % (11.6-17.2); White Blood Count 6.2 th/mm3 (4.0-11.0)
[2018-09-30] MEDS: Heparin - SQ 10,000 UNITS/ML Vial SQ SCH ×4 (07:24→21:37)
[2018-09-30] MEDS: Senna/Docusate Sodium 8.6/50 MG Tablet PO SCH ×3 (09:58→21:38)
[2018-09-30] MEDS: Famotidine 20 MG Tablet PO SCH ×3 (09:58→21:38)
--- NOTE | 2018-09-30 11:10 | P.PNVS ---
Subjective Subjective/Hospital Course: doing well denies pain Objective Vital Signs / I&O: Vital Signs 09/29/18 11:28 09/29/18 12:00 09/29/18 13:00 Temperature 98.8 F Pulse Rate 68 79 75 Respiratory Rate 16 Blood Pressure 110/59 L Pulse Oximetry 96 09/29/18 14:00 09/29/18 15:00 09/29/18 15:43 Temperature 99.3 F Pulse Rate 72 76 76 Respiratory Rate 16 Blood Pressure 125/60 Pulse Oximetry 97 09/29/18 16:00 09/29/18 17:00 09/29/18 18:07 Temperature Pulse Rate 79 86 80 Respiratory Rate Blood Pressure Pulse Oximetry 09/29/18 19:00 09/29/18 20:00 09/29/18 20:37 Temperature 98.7 F Pulse Rate 87 79 Respiratory Rate 16 16 Blood Pressure 101/56 L Pulse Oximetry 96 09/29/18 21:00 09/29/18 21:08 09/29/18 22:00 Temperature Pulse Rate 70 72 Respiratory Rate 16 Blood Pressure Pulse Oximetry 09/29/18 23:00 09/29/18 23:43 09/30/18 00:00 Temperature 98.9 F Pulse Rate 73 64 Respiratory Rate 16 16 Blood Pressure 105/54 L Pulse Oximetry 93 L 09/30/18 01:00 09/30/18 02:00 09/30/18 03:00 Temperature Pulse Rate 74 68 74 Respiratory Rate Blood Pressure Pulse Oximetry 09/30/18 04:00 09/30/18 05:00 09/30/18 06:00 Temperature 98.6 F Pulse Rate 76 65 81 Respiratory Rate 16 Blood Pressure 120/55 L Pulse Oximetry 92 L 09/30/18 07:00 09/30/18 08:00 Temperature 98.4 F Pulse Rate 64 83 Respiratory Rate 18 Blood Pressure 123/59 L Pulse Oximetry 93 L Intake & Output 09/29/18 09/30/18 09/30/18 18:59 06:59 18:59 Intake Total 500 / 500 240 / 240 Output Total 450 / 450 355 / 355 Balance 50 / 50 -115 / -115 Weight 65.2 kg Intake: Oral 500 / 500 240 / 240 Output: Urine Amount (Catheter) 450 / 450 355 / 355 Indwelling Temp Sensing 450 / 450 355 / 355 Catheter Other: Date of Last Bowel Movement 09/27/18 09/27/18 09/27/18 # Bowel Movements 0 Physical Exam: AKA stump is clean dry intact Laboratory Results - last 24 hr 09/30/18 04:26 WBC 6.2 RBC 3.06 L Hgb 9.2 L Hct 28.1 L MCV 91.7 MCH 29.9 MCHC 32.6 RDW 14.3 Plt Count 194 MPV 7.4 Neut % (Auto) 75.7 H Lymph % (Auto) 10.6 [place] % (Auto) 10.3 H Eos % (Auto) 2.9 Baso % (Auto) 0.5 Neut # (Auto) 4.7 Lymph # (Auto) 0.7 L [place] # (Auto) 0.6 Eos # (Auto) 0.2 Baso # (Auto) 0.0 WBC Differential . Differential Comment Auto diff final Assessment and Plan - Plan s/p Fem-profunda/right Fem-PT POD #4 Status post right AKA postop day #2 PT OT Increase activity Consult nurse case management for inpatient rehab
[2018-09-30 11:34] LABS: Anion Gap 5 meq/L (5-15); Blood Urea Nitrogen 13 mg/dL (7-18); Calcium 8.3 mg/dL (8.5-10.1); Carbon Dioxide 29.8 meq/L (21.0-32.0); Chloride 105 meq/L (98-107); Glomerular Filtration Rate Greater Than 89 mL/min (>89); Glucose,Random 117 mg/dL (74-106); Potassium 4.1 meq/L (3.5-5.1); Sodium 140 meq/L (136-145)
[2018-09-30] MEDS: Melatonin 5 MG Tablet PO SCH ×2 (19:37→21:37)
[2018-09-30] MEDS: Morphine Inj 4 MG/ML Vial IV.PUSH PRN (19:37)
[2018-10-01] MEDS: Heparin - SQ 10,000 UNITS/ML Vial SQ SCH ×3 (06:32→20:54)
[2018-10-01] MEDS: Famotidine 20 MG Tablet PO SCH ×2 (09:32→20:53)
[2018-10-01] MEDS: Senna/Docusate Sodium 8.6/50 MG Tablet PO SCH ×2 (09:33→20:54)
[2018-10-01 10:00] VITALS: RESP 18
--- NOTE | 2018-10-01 10:03 | P.PNVS ---
Subjective Post Op Day #: 3 Procedure: Right above-knee amputation Subjective/Hospital Course: 78/M w/ a PMH of PVD who underwent a Right above-knee amputation Pt doing well this am Pt denied pain Incision intact w/o R/D/S Objective Vital Signs / I&O: Vital Signs 09/30/18 11:00 09/30/18 12:00 09/30/18 13:00 Temperature 98.2 F Pulse Rate 74 88 84 Respiratory Rate 18 Blood Pressure 122/59 L Pulse Oximetry 97 09/30/18 14:00 09/30/18 15:00 09/30/18 16:00 Temperature 98.4 F Pulse Rate 90 80 73 Respiratory Rate 16 Blood Pressure 106/55 L Pulse Oximetry 97 09/30/18 17:00 09/30/18 18:00 09/30/18 19:00 Temperature Pulse Rate 76 76 78 Respiratory Rate Blood Pressure Pulse Oximetry 09/30/18 19:29 09/30/18 20:00 09/30/18 21:00 Temperature 98.8 F Pulse Rate 75 57 L 71 Respiratory Rate 18 Blood Pressure 112/57 L Pulse Oximetry 97 09/30/18 22:00 09/30/18 23:00 10/01/18 00:00 Temperature 98.3 F Pulse Rate 66 66 70 Respiratory Rate 17 Blood Pressure 100/55 L Pulse Oximetry 96 10/01/18 01:00 10/01/18 02:00 10/01/18 02:40 Temperature Pulse Rate 66 61 Respiratory Rate 17 Blood Pressure Pulse Oximetry 10/01/18 04:00 10/01/18 05:00 10/01/18 05:33 Temperature Pulse Rate 61 51 L 73 Respiratory Rate Blood Pressure Pulse Oximetry 10/01/18 07:00 Temperature Pulse Rate 84 Respiratory Rate Blood Pressure Pulse Oximetry Intake & Output 09/30/18 10/01/18 10/01/18 18:59 06:59 18:59 Intake Total 1000 / 1000 300 / 300 Output Total 850 / 850 600 / 600 Balance 150 / 150 -300 / -300 Weight 63 kg Intake: Oral 1000 / 1000 300 / 300 Output: Urine Amount (Catheter) 850 / 850 600 / 600 Indwelling Temp Sensing 850 / 850 600 / 600 Catheter Other: Date of Last Bowel Movement 09/27/18 Exam: Incision to R AKA amputation clean dry and intact Laboratory Results - last 24 hr 09/30/18 10:56 Sodium 140 Potassium 4.1 Chloride 105 Carbon Dioxide 29.8 Anion Gap 5 BUN 13 Creatinine 0.60 Estimated GFR Greater than 89 Random Glucose 117 H Calcium 8.3 L Assessment and Plan - Plan s/p Fem-profunda/right Fem-PT POD #6 Status post right AKA postop day #3 Pt cleared for d/c to [facility] Arranged for out pt f/u Mikayla Bonilla NP [facility] [phone] Discharge Planning: To [facility]
--- NOTE | 2018-10-01 10:03 | P.PNVS ---
Subjective Subjective/Hospital Course: doing well denies pain Objective Vital Signs / I&O: Vital Signs 09/30/18 11:00 09/30/18 12:00 09/30/18 13:00 Temperature 98.2 F Pulse Rate 74 88 84 Respiratory Rate 18 Blood Pressure 122/59 L Pulse Oximetry 97 09/30/18 14:00 09/30/18 15:00 09/30/18 16:00 Temperature 98.4 F Pulse Rate 90 80 73 Respiratory Rate 16 Blood Pressure 106/55 L Pulse Oximetry 97 09/30/18 17:00 09/30/18 18:00 09/30/18 19:00 Temperature Pulse Rate 76 76 78 Respiratory Rate Blood Pressure Pulse Oximetry 09/30/18 19:29 09/30/18 20:00 09/30/18 21:00 Temperature 98.8 F Pulse Rate 75 57 L 71 Respiratory Rate 18 Blood Pressure 112/57 L Pulse Oximetry 97 09/30/18 22:00 09/30/18 23:00 10/01/18 00:00 Temperature 98.3 F Pulse Rate 66 66 70 Respiratory Rate 17 Blood Pressure 100/55 L Pulse Oximetry 96 10/01/18 01:00 10/01/18 02:00 10/01/18 02:40 Temperature Pulse Rate 66 61 Respiratory Rate 17 Blood Pressure Pulse Oximetry 10/01/18 04:00 10/01/18 05:00 10/01/18 05:33 Temperature Pulse Rate 61 51 L 73 Respiratory Rate Blood Pressure Pulse Oximetry 10/01/18 07:00 10/01/18 08:00 Temperature 98.4 F Pulse Rate 84 81 Respiratory Rate 18 Blood Pressure 119/58 L Pulse Oximetry 98 Intake & Output 09/30/18 10/01/18 10/01/18 18:59 06:59 18:59 Intake Total 1000 / 1000 300 / 300 Output Total 850 / 850 600 / 600 Balance 150 / 150 -300 / -300 Weight 63 kg Intake: Oral 1000 / 1000 300 / 300 Output: Urine Amount (Catheter) 850 / 850 600 / 600 Indwelling Temp Sensing 850 / 850 600 / 600 Catheter Other: Date of Last Bowel Movement 09/27/18 Physical Exam: Right AKA stump CDI Laboratory Results - last 24 hr 09/30/18 10:56 Sodium 140 Potassium 4.1 Chloride 105 Carbon Dioxide 29.8 Anion Gap 5 BUN 13 Creatinine 0.60 Estimated GFR Greater than 89 Random Glucose 117 H Calcium 8.3 L Assessment and Plan - Plan s/p Fem-profunda/right Fem-PT POD #5 Status post right AKA postop day #3 Doing well Plan DC to rehab as soon as bed available
--- NOTE | 2018-10-01 10:18 | P.DS ---
Discharge Summary - Admission Date 09/25/18 06:00 - Admission Diagnosis (1) Peripheral vascular disease - Discharge Date 10/01/18 - Discharge Diagnosis (1) Above knee amputation of right lower extremity Status: Acute (2) Peripheral vascular disease Status: Acute - Summary Brief History from admission: 78/M with a PMH of Right lower extremity critical limb ischemia tissue loss Procedure: Right above-knee amputation Significant Findings: Incision to R AKA amputation clean dry and intact Abnormal Lab Results 09/30/18 10:56 Sodium 140 Potassium 4.1 Chloride 105 Carbon Dioxide 29.8 Anion Gap 5 BUN 13 Creatinine 0.60 Estimated GFR Greater than 89 Random Glucose 117 H Calcium 8.3 L Hospital Course: 78/M with a PMH of Right lower extremity critical limb ischemia tissue loss Pt underwent a Fem-profunda/right Fem-PT on 09/25/18 Pt s/p right AKA 09/28/18 Pt did well and is w/o complaints Pain controlled Pt cleared for D/C to [facility] for continued rehabilitative services Arranged out pt f/u in a few weeks PDMP was queried. Given Rx for 3 days of narcotics for acute post-operative pain. - Discharge Instructions Any questions or concerns: Call [facility] at [facility] [phone] Discharge Plan - Discharge Disposition Patient Disposition: [facility] Rehab Inpatient - Discharge Condition Condition: Good - Discharge Order Discharge Orders: Discharge Order (Routine); Ordered 10/01/18 Ordered By: Mikayla Bonilla - Physicians Team Primary Care Provider: Irma Renee Attending Provider: Nick Trent - Rxs /Orders / Referrals /Forms Prescriptions: Continue amlodipine 5 mg Tablet 5 mg PO BID hydrocodone-acetaminophen [Dale] 7.5-325 mg Tablet 1 tab PO Q6H lovastatin 40 mg Tablet 40 mg PO DAILY melatonin 3 mg Tablet 3 mg PO HS vancomycin 1,000 mg Recon Soln 1,000 mg IV DAILY warfarin 3 mg Tablet 3 mg PO DAILY warfarin 2.5 mg Tablet 2.5 mg PO DAILY Referrals: Nick Trent MD [Physician] - See Instructions (Your post op follow up is scheduled on 10/31/18 at 10:15) Irma Renee MD [Primary Care Provider] - See Instructions - Post Discharge Care Plan Care Plan Goals: Discharge Care Plan Goals After Vascular Surgery Contact: Please call [phone] if you have any problems or have questions regarding your hospitalization. Directions to Meet Your Goals: 1. Diet: * You may resume a regular diet as you were eating at home before your admission. 2. Activity: * Increase your activity level gradually. * Keep surgical extremities elevated when at rest. This will help limit the swelling, bruising and discomfort normally present after surgery. * Walking is a good form of light exercise. Go for a walk at least 3 times per day. * No heavy lifting (lifting over 10 pounds) for at least 4 weeks from surgery. * Check with your surgeon to ensure when you are cleared for heavy lifting and full-intensity exercising. * Your strength will gradually improve. * No driving or operating motorized vehicles while on prescription pain medications. * No swimming until wounds fully healed. 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 3. Bathing: Shower daily. * Gently let soap and water run over your incision and pat dry. Do not scrub the incision/wound. * Don't soak in a bath or submerge your incision in water until your incision is healed and evaluated by your physician at follow-up (usually two weeks). 4. Wound Care: INCISION SITE CARE INSTRUCTIONS: * You may leave your incision open to air. * Keep your incision clean and dry, unless showering. See above. * Moisture near the incision will cause the wound to open. * No lotions, creams, ointments, or powders on incisions until they are well- healed. * If you have glue over the incision(s), allow it to fall off naturally in 1-3 weeks * If present, nuha/sutures will be removed 2-3 weeks after surgery during your follow-up clinic visit. * If present, change dressing/bandage when soaked/soiled as needed. * Observe wound daily, checking for signs and symptoms of infection including: foul odor, drainage from the incision, increased redness, increased pain at incision, or increased swelling. 5. Pain Control: Expect post-operative pain for 1-4 weeks after surgery. Your pain will improve gradually. * You may have been provided with a prescription for pain medication. Please take as directed, and be aware of side effects such as drowsiness, constipation and mild stomach discomfort. Pain pills on an empty stomach can cause nausea , so eat a small amount of food, such as crackers, when taking these pills. * Take naxg-vya-cmovgyp stool softeners (Colace or Senna) with your prescribed pain medication. * Acetaminophen (500mg every 6 hours) or Ibuprofen (400mg every 6 hours) may be used in conjunction with narcotics to relieve pain. DO NOT take more than 4 grams (4000mg) of Tylenol in one day, as this can harm your liver. DO NOT take ibuprofen IF: you have an allergy to non-steroidal anti-inflammatory medications, you are taking Coumadin, you have been told you have kidney problems, or you have a history of gastrointestinal bleeding or ulcers. DO NOT take more than 3.2 grams (3200mg) of ibuprofen in one day. * You may also find relief from using heat packs or pads or ice packs. 6. Bowel Regimen for Constipation: * People who undergo surgery are likely to develop post-operative constipation. Exposure to narcotics and changes in diet, fluid intake, and physical activity are known contributors to constipation. We recommend routine stool softeners and/ or laxatives after surgery for most patients. Start by taking one medication. You can increase as directed to relieve constipation. Stop taking these medications if you develop diarrhea. These medications are available over-the- counter and do not require a prescription: * Colace is a stool softener. We recommend starting at 100mg orally twice per day as needed for soft stools and increase to a maximum of 200mg twice daily as needed. * Senna is a laxative that works by keeping water in the intestine to help stool move along the intestinal tract. Take 1 tablet daily as needed for soft stool and increase to a maximum of 2 tablets twice daily as needed. Take Senna with two full glasses of water each time. * Miralax, Dulcolax and Milk of Magnesia are other syyj-lph-xruypfa laxatives that may be used as needed for post-operative constipation. * Drink 6-8 glasses of water per day. * Consume 15-30g of fiber per day: * Metamucil powder, 1-2 tablespoons 1-2 times/day OR Benefiber powder, 2 tablespoons 4 times/day. * Avoid straining. 7. Follow-Up: Do Not miss your follow-up appointment. Keep up with all your appointments and yearly check ups If you have any of the following symptoms please call [phone] immediately: Excessive swelling of the affected extremity Sudden onset of severe or unusual pain in the affected extremity Pain that gets worse or is not relieved by medication Warmth, redness, or swelling in the skin around the wound Foul drainage from incision Extensive bruising or discoloration Wound that opens up or pulls apart Fever above 101.5F or shaking chills Nausea or vomiting Severe diarrhea or severe constipation Dizziness or fainting Chest pain, shortness of breath, or increased work of breathing Weight gain >10 lbs over 3-4 days Inability to urinate for more than 6 hours Cloudy or foul smelling urine Urge to urinate more often than usual Symptoms to Report to Your Doctor: Temperature 101F or higher Pain uncontrolled by medication Drainage or foul odor from incision Extensive bruising or discoloration Chest pain Shortness of breath Nausea, vomiting or dizziness Call 911: Call 911 right away if you have: Sudden onset of chest pain that is not relieved by medications Shortness of breath
[2018-10-01] MEDS: Melatonin 5 MG Tablet PO SCH (20:54)
[2018-10-02] MEDS: Heparin - SQ 10,000 UNITS/ML Vial SQ SCH ×2 (04:01→12:40)
[2018-10-02 05:47] VITALS: O2SAT 98
[2018-10-02] MEDS: Famotidine 20 MG Tablet PO SCH (08:25)
[2018-10-02] MEDS: Senna/Docusate Sodium 8.6/50 MG Tablet PO SCH (08:25)
--- NOTE | 2018-10-02 10:31 | P.PNVS ---
Subjective Post Op Day #: 4 Procedure: Right above-knee amputation Subjective/Hospital Course: 78/M w/ a PMH of PVD who underwent a Right above-knee amputation Pt doing well this am sitting in chair Pt denied pain Dressing I/C/D Dressing changed/Incision intact w/o R/D/S Objective Vital Signs / I&O: Vital Signs 10/01/18 11:00 10/01/18 12:00 10/01/18 13:00 Temperature 98.3 F Pulse Rate 70 80 88 Respiratory Rate 18 Blood Pressure 108/55 L Pulse Oximetry 98 10/01/18 14:00 10/01/18 15:00 10/01/18 16:00 Temperature 98.3 F Pulse Rate 78 58 L 72 Respiratory Rate 18 Blood Pressure 115/55 L Pulse Oximetry 97 10/01/18 17:00 10/01/18 18:00 10/01/18 20:00 Temperature 99.2 F Pulse Rate 74 64 68 Respiratory Rate 18 Blood Pressure 103/58 L Pulse Oximetry 98 10/01/18 21:00 10/01/18 22:00 10/01/18 23:00 Temperature Pulse Rate 67 65 53 L Respiratory Rate Blood Pressure Pulse Oximetry 10/02/18 00:00 10/02/18 01:00 10/02/18 02:00 Temperature 99.0 F Pulse Rate 18 L 62 62 Respiratory Rate 18 Blood Pressure 105/56 L Pulse Oximetry 97 10/02/18 03:00 10/02/18 04:00 10/02/18 05:00 Temperature 98.7 F Pulse Rate 76 57 L 59 L Respiratory Rate 18 Blood Pressure 97/54 L Pulse Oximetry 98 10/02/18 05:48 10/02/18 07:00 10/02/18 08:00 Temperature 98.4 F Pulse Rate 59 L 51 L 58 L Respiratory Rate 18 Blood Pressure 106/81 Pulse Oximetry 98 Intake & Output 10/01/18 10/02/18 10/02/18 18:59 06:59 18:59 Intake Total 740 / 740 120 / 120 Output Total 600 / 600 340 / 340 Balance 140 / 140 -220 / -220 Weight 63.5 kg Intake: Oral 740 / 740 120 / 120 Output: Urine 200 / 200 340 / 340 Urine Amount (Catheter) 400 / 400 Indwelling Temp Sensing 400 / 400 Catheter Other: Date of Last Bowel Movement 09/27/18 # Bowel Movements 1 Exam: Incision to R AKA amputation clean dry and intact Assessment and Plan - Plan s/p Fem-profunda/right Fem-PT POD #7 Status post right AKA postop day #4 Plan Pt Doing well Pain controlled DC to rehab as soon as bed is available Discharge Planning: To [facility]
[2018-10-02 11:33] VITALS: BP 104/68; PULSE 62; TEMP 98.3
== END 2018-10-02 14:26 | DRG 240 ==
LOC: HSDI 06:00 → HCPC 16:09
PROVIDERS: ADMIT Surgery; ATTEND Surgery
CPT/HCPCS: 71010; 71045; 80048; 85025; 85027; 85610; 86850; 86900; 86901; 86923; 88307; 88311; 97110; 97116; 97162; 97167; 97530; C1768; J0690; J1100; J1170; J1644; J2175; J2270; J2370; J2405; J2704; J2710; J2720; J3010; J3370; J7030; J7050; J7120